=== PATIENT | male | born 1990 | race Caucasian/White ===

== ENCOUNTER 2023-02-16 08:32 | Day surgery (SDC) | payer BC, SELFPAY ==
--- NOTE | 2023-02-16 08:53 | MR_ITS ---
[address] [address] Patient Name: JENNA ORTIZ MRN: [id number] date: 1990 Sex: M Assigned Patient Location: MRI Current Patient Location: Accession/Order Number: [id number] Exam Date: 02/16/2023 09:45 Report Date: 02/16/2023 15:35 At the request of: BHARATH DESAI Procedure: MR arthrogram shoulder EXAMINATION: MR arthrogram shoulder HISTORY: Right Shoulder Pain COMPARISON: No relevant comparison available. TECHNIQUE: A variety of imaging planes and parameters were utilized for visualization of suspected pathology. Imaging was performed without or with contrast as indicated by examination type. FINDINGS: ROTATOR CUFF REGION CUFF TENDONS: Mildly increased signal intensity in the supraspinatus tendon indicates tendon degeneration and/or tendinitis. No osmar tear is seen. CUFF MUSCLES: Normal appearing muscles. DELTOID: Normal. No significant atrophy or tear. LONG BICEPS TENDON: Normal. No abnormal signal, attrition, or tear. LABRUM/BICEPS ANCHOR SUPERIOR: Small tear superior labrum. ANTERIOR/INFERIOR: Tear/detachment of anterior labrum. POSTERIOR: Normal. No posterior labrum abnormality. CAPSULE Normal. No visible capsular laxity or thickening. AC JOINT REGION AC JOINT: Normal acromioclavicular joint. AC LIGAMENTS: Normal acromioclavicular ligament. CC LIGAMENTS: Normal coracoclavicular ligaments. ACROMION: Normal horizontal (Type I) configuration. SUBACROMIAL BURSA: Normal. No significant effusion. HYALINE CARTILAGE: Normal. No visible cartilage narrowing or focal defect. OTHER BONES: Normal proximal humerus, glenoid, and coracoid. OTHER OBSERVATIONS: Negative. No other significant findings or glenohumeral effusion. MR/MR arthrogram shoulder IMPRESSION: 1. Tear of the anterior and superior labrum. 2. Mild strain of the supraspinatus tendon. Electronically authenticated by: BOBBI PILLAI Date: 02/16/2023 15:35
--- NOTE | 2023-02-16 08:53 | FL_ITS ---
[address] [address] Patient Name: JENNA ORTIZ MRN: [id number] date: 1990 Sex: M Assigned Patient Location: MRI Current Patient Location: MRI Accession/Order Number: [id number] Exam Date: 02/16/2023 09:15 Report Date: 02/16/2023 10:39 At the request of: BHARATH DESAI Procedure: FL arthrogram shoulder RT EXAMINATION: FL arthrogram shoulder RT, FL guided needle placement HISTORY: Right Shoulder Pain COMPARISON: No relevant comparison available. TECHNIQUE: An arthrogram was performed under fluoroscopic guidance using non-ionic contrast material in the usual sterile manner after obtaining informed consent. Standard level fluoroscopic mode of operation utilized. FINDINGS: JOINT: Right shoulder NEEDLE: 25 gauge, 3.5 spinal needle. MEDICATION: 2 mL buffered 1% lidocaine for subcutaneous anesthesia. Approximately 8 mL injected into joint space consisting of a mixture of 5 mL Omnipaque-300, 5 mL 1% Xylocaine and 0.2 mL Dotarem. TECHNIQUE: Anterior approach under fluoroscopic guidance. CLINICAL: Decreased pain following the injection. COMPLICATIONS: None. OTHER: Negative. FL/FL arthrogram shoulder RT IMPRESSION: 1. Technically successful arthrogram without complication. 2. Please see separate MRI arthrogram report. Electronically authenticated by: BOBBI PILLAI Date: 02/16/2023 10:39
--- NOTE | 2023-02-16 08:55 | FL_ITS ---
[address] [address] Patient Name: JENNA ORTIZ MRN: [id number] date: 1990 Sex: M Assigned Patient Location: MRI Current Patient Location: MRI Accession/Order Number: [id number] Exam Date: 02/16/2023 09:15 Report Date: 02/16/2023 10:39 At the request of: BHARATH DESAI Procedure: FL guided needle placement EXAMINATION: FL arthrogram shoulder RT, FL guided needle placement HISTORY: Right Shoulder Pain COMPARISON: No relevant comparison available. TECHNIQUE: An arthrogram was performed under fluoroscopic guidance using non-ionic contrast material in the usual sterile manner after obtaining informed consent. Standard level fluoroscopic mode of operation utilized. FINDINGS: JOINT: Right shoulder NEEDLE: 25 gauge, 3.5 spinal needle. MEDICATION: 2 mL buffered 1% lidocaine for subcutaneous anesthesia. Approximately 8 mL injected into joint space consisting of a mixture of 5 mL Omnipaque-300, 5 mL 1% Xylocaine and 0.2 mL Dotarem. TECHNIQUE: Anterior approach under fluoroscopic guidance. CLINICAL: Decreased pain following the injection. COMPLICATIONS: None. OTHER: Negative. FL/FL guided needle placement IMPRESSION: 1. Technically successful arthrogram without complication. 2. Please see separate MRI arthrogram report. Electronically authenticated by: BOBBI PILLAI Date: 02/16/2023 10:39
[2023-02-16] MEDS: LIDOCAINE HCL 15 ML, SODIUM BICARBONATE 2 MEQ INJ (09:40)
--- NOTE | 2023-02-16 11:14 | PC.NURSE ---
bandaid applied to right shoulder procedure
== END 2023-02-16 09:40 | disposition home or self-care (01) ==
PROVIDERS: Radiology Diagnostic Radiology; PCP Family Medicine; Visit Provider Personal Emergency Response Attendant
DX: S43.491A Other sprain of right shoulder joint, initial encounter (principal); S46.811A Strain of other muscles, fascia and tendons at shoulder and upper arm level, right arm, initial encounter
CPT/HCPCS: 23350; 73040; 73222; 77002; A9575; Q9967

== ENCOUNTER 2023-05-03 18:35 | Inpatient (IN) | payer BC, SELFPAY ==
[2023-05-03] VITALS (7 sets, daily range): BP systolic 150–176; BP diastolic 81–101; PULSE 111–144; RESP 6–37; TEMP 36.4; O2SAT 88–97; BMI 38.0
--- NOTE | 2023-05-03 18:56 | ED.GENADUL1 ---
Documented by User: SUAD Santos 05/03/23 21:54 HPI - General Adult General Chief complaint: Back Pain/Injury Stated complaint: RIB PAIN Time Seen by Provider: 05/03/23 18:53 Source: patient Mode of arrival: walk-in Limitations: no limitations History of Present Illness HPI narrative: 32-year-old male who just had shoulder surgery 1 week ago for a bicep and labrum tear presents for right posterior rib pain that started a couple days ago without injury. He feels a little short of breath. He states that he has had some intermittent bilateral calf pain. He is not on blood thinners. Does not hurt to touch. Denies fever, cough, CP Related Data Home Medications Medication Instructions Recorded Confirmed oxycodone-acetaminophen 5 mg-325 1 tab PO Q6H PRN pain 05/03/23 05/03/23 mg tablet Previous Rx's Medication Instructions Recorded apixaban 5 mg tablet (Eliquis) 10 mg PO Q12H #60 tabs 05/05/23 levofloxacin 750 mg tablet 750 mg PO DAILY 10 days #10 tabs 05/05/23 tizanidine 4 mg capsule 4 mg PO Q8H PRN muscle spasm #14 05/05/23 caps Allergies Allergy/AdvReac Type Severity Reaction Status Date / Time No Known Drug Allergies Allergy Verified 02/16/23 10:02 Review of Systems ROS Status of ROS 10 or more systems reviewed and unremarkable except as noted in history and below PFSH PFSH Medical History (Updated 05/09/23 @ 00:00 by ) Pneumonia ?J18.9 - Pneumonia, unspecified organism (ICD-10) Right shoulder pain ?M25.511 - Pain in right shoulder (ICD-10) Surgical History (Updated 02/15/23 @ 13:22 by Paty Carter) History of arthroscopy of right shoulder ?Z98.890 - Other specified postprocedural states (ICD-10) History of hernia repair ?Z98.890 - Other specified postprocedural states (ICD-10) ?Z87.19 - Personal history of other diseases of the digestive system (ICD-10) Family History (Updated 05/04/23 @ 00:44 by Serenity Price RN) Father Family history of hypertension Grandfather Family history of myocardial infarction Social History (Updated 05/04/23 @ 00:49 by Serenity Price RN) Within the past year, how often did you have a drink containing alcohol: 2-3 times a week Within the past year, how many standard drinks containing alcohol did you have on a typical day: 3 or 4 Within the past year, how often did you have six or more drinks on one occasion: less than monthly Total score: 3 Score interpretation: A score of 4 or more indicates drinking is likely to affect patient's safety. 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 Known occupational exposures/hazards: Yes Known occupational exposures/hazards details: plastics Highest level of school completed/degree received: high school graduate Are you now , , , , never or living with a partner: never In a typical week, how many times do you talk on the telephone with family, friends, or neighbors: once per week How often do you get together with friends or relatives: twice per week How often do you attend baptist or adventist services: never Do you belong to any clubs or organizations such as baptist groups unions, fraTeach Me To Be or athletic groups, or school groups: no Total score: 1 Score interpretation: A score of less than or equal to 1 indicates the most socially isolated. Little interest or pleasure in doing things: several days Feeling down, depressed, or hopeless: not at all Feel stressed/tense/nervous/anxious/difficulty sleeping: only a little Life stressor details: health Do you think of yourself as: straight/heterosexual Gender Identity: male Exam Narrative Exam Narrative: General: no distress, talking in full an complete sentences skin: warm, dry, intact head: normocephalic, atraumatic eyes: EOMI nose: nares patent neck: supple, trachea midline cardiac: +S1/S1. no murmur respiratory: lungs CTA, non-labored, no wheezing, no retractions chest wall: NT extremities: FROM x 4, strength +5/5, capillary refill intact neuro: A&Ox3 psych: appropriate mood and affect, cooperative Constitutional Vital Signs, click to edit/add: Last Vital Signs Temp 97.8 F 05/05/23 04:19 Pulse 81 05/05/23 04:19 Resp 18 05/05/23 08:00 BP 146/70 H 05/05/23 08:27 Pulse Ox 95 05/05/23 11:29 O2 Del Method Room Air 05/05/23 11:29 O2 Flow Rate 2 05/05/23 04:19 Course Course Hospital Course: Patient is admitted withHypoxia with a sat of 88%, relative hypoxia also with a sat of 90% on 2 L, sinus tachycardia, respiratory distress, uncontrolled hypertension, leukocytosis secondary to bilateral lower lobe pneumonia resulting in sepsis (Inc hr, INc RR, Leukocytosis, Source of infection lung). Presented to the emergency room with back pain. Did have some palpable reproducible pain but pretty severe. Responded well to initial treatment with Toradol Norflex. Hypoxia slowly improved throughout the hospital stay. He has been able to be weaned off of his supplemental oxygen. At this point patient feels comfortable with going home. Will monitor closely and follow-up in the office closely within the next few days depending on symptoms. Medications see list. Follow-up with me quickly if having any further symptoms otherwise next week is fine Vital Signs Vital signs: Vital Signs Temperature 97.6 F 05/03/23 18:38 Pulse Rate 111 H 05/03/23 18:38 Respiratory Rate 20 05/03/23 18:38 Blood Pressure 176/101 H 05/03/23 18:38 Pulse Oximetry 97 05/03/23 18:38 Oxygen Delivery Method Room Air 05/03/23 18:38 Temperature 97.8 F 05/05/23 04:19 Pulse Rate 81 05/05/23 04:19 Respiratory Rate 18 05/05/23 08:00 Blood Pressure 146/70 H 05/05/23 08:27 Pulse Oximetry 95 05/05/23 11:29 Oxygen Delivery Method Room Air 05/05/23 11:29 Oxygen Delivery Flow Rate 2 05/05/23 04:19 Medical Decision Making MDM Narrative Medical decision making narrative: Patient states that he is in pain will be given Dilaudid. EKG sinus tachycardia at a rate of 110 with RVH and short QTc. WBC 13.2. D-dimer 2.04. No other significant lab normalities. COVID-negative. Imaging pending at time of shift change and case discussed and transferred to Dr. Urbano for treatment and disposition. Lab Data Labs: Lab Results 05/03/23 05/03/23 05/03/23 Range/Units 19:15 19:55 20:56 WBC 13.2 H (4.0-11.0) 10^3/uL RBC 5.81 (4.70-6.10) 10^6/uL Hgb 16.8 (14.0-18.0) g/dL Hct 50.3 (42.0-54.0) % MCV 86.6 (80.0-94.0) fL MCH 28.9 (25.9-34.0) pg MCHC 33.4 (29.9-35.2) g/dL RDW 12.4 (11.0-15.0) % Plt Count 299 (150-450) 10^3/uL MPV 10.4 (9.5-13.5) fL Seg Neuts % (Manual) 77.0 Lymphocytes % (Manual) 12.0 L (20.5-60.0) % Monocytes % (Manual) 10.0 (1.7-12.0) % Eosinophils % (Manual) 1.0 (0.9-7.0) % Basophils % (Manual) 0.0 L (0.2-2.0) % Neutrophils # (Manual) 10.16 H (1.4-6.5) 10^3/uL Lymphocytes # (Manual) 1.58 (1.20-3.80) 10^3/uL Monocytes # (Manual) 1.32 H (0.30-0.80) 10^3/uL Eosinophils # (Manual) 0.13 (0.00-0.70) 10^3/uL Basophils # (Manual) 0.00 (0.00-0.10) 10^3/uL PT 10.4 (9.0-11.6) sec INR 0.98 APTT 30.5 (22.3-36.2) sec D-Dimer 2.04 H* (<=0.59) mg/L FEU Sodium 135 L (136-145) mmol/L Potassium 4.9 (3.5-5.1) mmol/L Chloride 98 (98-107) mmol/L Carbon Dioxide 27.9 (21.0-32.0) mmol/L Anion Gap 14.0 BUN 14.0 (7.0-18.0) mg/dL Creatinine 0.93 (0.70-1.30) mg/dL Est GFR ( Amer) >60 (>=60) Est GFR (Non-Af Amer) >60 (>=60) BUN/Creatinine Ratio 15.1 Glucose 94 (74-106) mg/dL Calcium 9.9 (8.5-10.1) mg/dL Magnesium 2.2 (1.8-2.4) mg/dL Total Bilirubin 1.2 H (0.2-1.0) mg/dL AST 13 L (15-37) U/L ALT 42 (16-63) U/L Alkaline Phosphatase 81 (46-116) U/L Troponin I High Sens 4.2 (4.0-76.1) pg/mL NT-Pro-B Natriuret Pep 18.0 (<=450.0) pg/mL Total Protein 8.3 H (6.4-8.2) g/dL Albumin 4.0 (3.4-5.0) g/dL Globulin 4.3 g/dL Albumin/Globulin Ratio 0.9 SARS-CoV-2 (PCR) Negative (NEGATIVE) SARS-CoV-2 RNA (ROSY) Not detected (NOT DETECTE) Discharge Plan Discharge Chief Complaint: Back Pain/Injury Clinical Impression: Pneumonia Patient Disposition: Admitted As Inpatient Time of Disposition Decision: 22:58 Condition: Good Discharge Date/Time: 05/04/23 00:03 Documented by User: Sharath Urbano MD 05/03/23 23:52 HPI - General Adult General Chief complaint: Back Pain/Injury Stated complaint: RIB PAIN Time Seen by Provider: 05/03/23 18:53 Related Data Home Medications Medication Instructions Recorded Confirmed oxycodone-acetaminophen 5 mg-325 1 tab PO Q6H PRN pain 05/03/23 05/03/23 mg tablet Previous Rx's Medication Instructions Recorded apixaban 5 mg tablet (Eliquis) 10 mg PO Q12H #60 tabs 05/05/23 levofloxacin 750 mg tablet 750 mg PO DAILY 10 days #10 tabs 05/05/23 tizanidine 4 mg capsule 4 mg PO Q8H PRN muscle spasm #14 05/05/23 caps Allergies Allergy/AdvReac Type Severity Reaction Status Date / Time No Known Drug Allergies Allergy Verified 02/16/23 10:02 PFSH PFS Medical History (Updated 05/09/23 @ 00:00 by ) Pneumonia ?J18.9 - Pneumonia, unspecified organism (ICD-10) Right shoulder pain ?M25.511 - Pain in right shoulder (ICD-10) Surgical History (Updated 02/15/23 @ 13:22 by Paty Carter) History of arthroscopy of right shoulder ?Z98.890 - Other specified postprocedural states (ICD-10) History of hernia repair ?Z98.890 - Other specified postprocedural states (ICD-10) ?Z87.19 - Personal history of other diseases of the digestive system (ICD-10) Family History (Updated 05/04/23 @ 00:44 by Serenity Price RN) Father Family history of hypertension Grandfather Family history of myocardial infarction Social History (Updated 05/04/23 @ 00:49 by Serenity Price RN) Within the past year, how often did you have a drink containing alcohol: 2-3 times a week Within the past year, how many standard drinks containing alcohol did you have on a typical day: 3 or 4 Within the past year, how often did you have six or more drinks on one occasion: less than monthly Total score: 3 Score interpretation: A score of 4 or more indicates drinking is likely to affect patient's safety. 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 Known occupational exposures/hazards: Yes Known occupational exposures/hazards details: plastics Highest level of school completed/degree received: high school graduate Are you now , , , , never or living with a partner: never In a typical week, how many times do you talk on the telephone with family, friends, or neighbors: once per week How often do you get together with friends or relatives: twice per week How often do you attend baptist or adventist services: never Do you belong to any clubs or organizations such as baptist groups unions, fraternal or athletic groups, or school groups: no Total score: 1 Score interpretation: A score of less than or equal to 1 indicates the most socially isolated. Little interest or pleasure in doing things: several days Feeling down, depressed, or hopeless: not at all Feel stressed/tense/nervous/anxious/difficulty sleeping: only a little Life stressor details: health Do you think of yourself as: straight/heterosexual Gender Identity: male Exam Constitutional Vital Signs, click to edit/add: Last Vital Signs Temp 97.8 F 05/05/23 04:19 Pulse 81 05/05/23 04:19 Resp 18 05/05/23 08:00 BP 146/70 H 05/05/23 08:27 Pulse Ox 95 05/05/23 11:29 O2 Del Method Room Air 05/05/23 11:29 O2 Flow Rate 2 05/05/23 04:19 Course Course Hospital Course: Patient is admitted withHypoxia with a sat of 88%, relative hypoxia also with a sat of 90% on 2 L, sinus tachycardia, respiratory distress, uncontrolled hypertension, leukocytosis secondary to bilateral lower lobe pneumonia resulting in sepsis (Inc hr, INc RR, Leukocytosis, Source of infection lung). Presented to the emergency room with back pain. Did have some palpable reproducible pain but pretty severe. Responded well to initial treatment with Toradol Norflex. Hypoxia slowly improved throughout the hospital stay. He has been able to be weaned off of his supplemental oxygen. At this point patient feels comfortable with going home. Will monitor closely and follow-up in the office closely within the next few days depending on symptoms. Medications see list. Follow-up with me quickly if having any further symptoms otherwise next week is fine Vital Signs Vital signs: Vital Signs Temperature 97.6 F 05/03/23 18:38 Pulse Rate 111 H 05/03/23 18:38 Respiratory Rate 20 05/03/23 18:38 Blood Pressure 176/101 H 05/03/23 18:38 Pulse Oximetry 97 05/03/23 18:38 Oxygen Delivery Method Room Air 05/03/23 18:38 Temperature 97.8 F 05/05/23 04:19 Pulse Rate 81 05/05/23 04:19 Respiratory Rate 18 05/05/23 08:00 Blood Pressure 146/70 H 05/05/23 08:27 Pulse Oximetry 95 05/05/23 11:29 Oxygen Delivery Method Room Air 05/05/23 11:29 Oxygen Delivery Flow Rate 2 05/05/23 04:19 Medical Decision Making MDM Narrative Medical decision making narrative: Patient states that he is in pain will be given Dilaudid. EKG sinus tachycardia at a rate of 110 with RVH and short QTc. WBC 13.2. D-dimer 2.04. No other significant lab normalities. COVID-negative. Imaging pending at time of shift change and case discussed and transferred to Dr. Urbano for treatment and disposition. JK 11:[address] does not show pulmonary embolism but shows bilateral pneumonia. He's been tachycardic, in the 120s. O2 sat is eighty-eight and ninety-one percent on room air. blood cultures are obtained and he was given IV Rocephin and Zithromax and is being admitted. Treatment diagnosis and disposition were discussed with the patient. Differential Diagnosis Differential Diagnosis: pneumonia, PE, pneumothorax Lab Data Lab results reviewed: Yes I reviewed the patient's lab results Labs: Lab Results 05/03/23 05/03/23 05/03/23 Range/Units 19:15 19:55 20:56 WBC 13.2 H (4.0-11.0) 10^3/uL RBC 5.81 (4.70-6.10) 10^6/uL Hgb 16.8 (14.0-18.0) g/dL Hct 50.3 (42.0-54.0) % MCV 86.6 (80.0-94.0) fL MCH 28.9 (25.9-34.0) pg MCHC 33.4 (29.9-35.2) g/dL RDW 12.4 (11.0-15.0) % Plt Count 299 (150-450) 10^3/uL MPV 10.4 (9.5-13.5) fL Seg Neuts % (Manual) 77.0 Lymphocytes % (Manual) 12.0 L (20.5-60.0) % Monocytes % (Manual) 10.0 (1.7-12.0) % Eosinophils % (Manual) 1.0 (0.9-7.0) % Basophils % (Manual) 0.0 L (0.2-2.0) % Neutrophils # (Manual) 10.16 H (1.4-6.5) 10^3/uL Lymphocytes # (Manual) 1.58 (1.20-3.80) 10^3/uL Monocytes # (Manual) 1.32 H (0.30-0.80) 10^3/uL Eosinophils # (Manual) 0.13 (0.00-0.70) 10^3/uL Basophils # (Manual) 0.00 (0.00-0.10) 10^3/uL PT 10.4 (9.0-11.6) sec INR 0.98 APTT 30.5 (22.3-36.2) sec D-Dimer 2.04 H* (<=0.59) mg/L FEU Sodium 135 L (136-145) mmol/L Potassium 4.9 (3.5-5.1) mmol/L Chloride 98 (98-107) mmol/L Carbon Dioxide 27.9 (21.0-32.0) mmol/L Anion Gap 14.0 BUN 14.0 (7.0-18.0) mg/dL Creatinine 0.93 (0.70-1.30) mg/dL Est GFR ( Amer) >60 (>=60) Est GFR (Non-Af Amer) >60 (>=60) BUN/Creatinine Ratio 15.1 Glucose 94 (74-106) mg/dL Calcium 9.9 (8.5-10.1) mg/dL Magnesium 2.2 (1.8-2.4) mg/dL Total Bilirubin 1.2 H (0.2-1.0) mg/dL AST 13 L (15-37) U/L ALT 42 (16-63) U/L Alkaline Phosphatase 81 (46-116) U/L Troponin I High Sens 4.2 (4.0-76.1) pg/mL NT-Pro-B Natriuret Pep 18.0 (<=450.0) pg/mL Total Protein 8.3 H (6.4-8.2) g/dL Albumin 4.0 (3.4-5.0) g/dL Globulin 4.3 g/dL Albumin/Globulin Ratio 0.9 SARS-CoV-2 (PCR) Negative (NEGATIVE) SARS-CoV-2 RNA (ROSY) Not detected (NOT DETECTE) Imaging Data CTA chest: Radiologist's impression: Procedure: CT angio chest EXAM: CT angio chest TECHNIQUE: Axial CT images were obtained of the chest following intravenous contrast administration. 3-D volume rendering was created. Sagittal and coronal reformatted images were also obtained. Dose reduction techniques were achieved by using automated exposure control and/or adjustment of mA and/or kV according to patient size and/or use of iterative reconstruction technique. HISTORY: r/o PE COMPARISON: None. FINDINGS: Neck and Axilla: No lower neck or axillary lymphadenopathy. Mediastinum and Jaz: No hilar or mediastinal lymphadenopathy. The esophagus is grossly unremarkable without dilatation or gross mass lesion. Heart and Major Vessels: The heart appears unremarkable for size without pericardial effusion. The aorta and central pulmonary arteries are unremarkable for size.There is no evidence for central acute pulmonary embolism. Evaluation for pulmonary embolism is significantly limited by motion artifact. Lung Phillips: Heterogeneous consolidation of the lower lobes suggesting pneumonia. Pleural Spaces: No significant pleural effusion. No pneumothorax. Upper Abdomen: No acute abnormality identified. Chest Wall: No acute abnormality. IMPRESSION: No convincing evidence for acute pulmonary embolism. Evaluation for pulmonary embolism is significantly limited by breathing motion artifact beyond the lobar branches. Patchy bilateral lower lobe pneumonia posteriorly, question aspiration. Electronically authenticated by: HILDA VARGAS Date: 05/03/2023 22:21 Discharge Plan Discharge Chief Complaint: Back Pain/Injury Clinical Impression: Pneumonia Patient Disposition: Admitted As Inpatient Time of Disposition Decision: 22:58 Condition: Good Discharge Date/Time: 05/04/23 00:03 Documented by User: Wilmer Abdi MD 05/14/23 10:57 HPI - General Adult General Chief complaint: Back Pain/Injury Stated complaint: RIB PAIN Time Seen by Provider: 05/03/23 18:53 Related Data Home Medications Medication Instructions Recorded Confirmed oxycodone-acetaminophen 5 mg-325 1 tab PO Q6H PRN pain 05/03/23 05/03/23 mg tablet Previous Rx's Medication Instructions Recorded apixaban 5 mg tablet (Eliquis) 10 mg PO Q12H #60 tabs 05/05/23 levofloxacin 750 mg tablet 750 mg PO DAILY 10 days #10 tabs 05/05/23 tizanidine 4 mg capsule 4 mg PO Q8H PRN muscle spasm #14 05/05/23 caps Allergies Allergy/AdvReac Type Severity Reaction Status Date / Time No Known Drug Allergies Allergy Verified 02/16/23 10:02 PFS PFS Medical History (Updated 05/09/23 @ 00:00 by ) Pneumonia ?J18.9 - Pneumonia, unspecified organism (ICD-10) Right shoulder pain ?M25.511 - Pain in right shoulder (ICD-10) Surgical History (Updated 02/15/23 @ 13:22 by Paty Carter) History of arthroscopy of right shoulder ?Z98.890 - Other specified postprocedural states (ICD-10) History of hernia repair ?Z98.890 - Other specified postprocedural states (ICD-10) ?Z87.19 - Personal history of other diseases of the digestive system (ICD-10) Family History (Updated 05/04/23 @ 00:44 by Serenity Price RN) Father Family history of hypertension Grandfather Family history of myocardial infarction Social History (Updated 05/04/23 @ 00:49 by Serenity Price RN) Within the past year, how often did you have a drink containing alcohol: 2-3 times a week Within the past year, how many standard drinks containing alcohol did you have on a typical day: 3 or 4 Within the past year, how often did you have six or more drinks on one occasion: less than monthly Total score: 3 Score interpretation: A score of 4 or more indicates drinking is likely to affect patient's safety. 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 Known occupational exposures/hazards: Yes Known occupational exposures/hazards details: plastics Highest level of school completed/degree received: high school graduate Are you now , , , , never or living with a partner: never In a typical week, how many times do you talk on the telephone with family, friends, or neighbors: once per week How often do you get together with friends or relatives: twice per week How often do you attend baptist or adventist services: never Do you belong to any clubs or organizations such as baptist groups unions, fraternal or athletic groups, or school groups: no Total score: 1 Score interpretation: A score of less than or equal to 1 indicates the most socially isolated. Little interest or pleasure in doing things: several days Feeling down, depressed, or hopeless: not at all Feel stressed/tense/nervous/anxious/difficulty sleeping: only a little Life stressor details: health Do you think of yourself as: straight/heterosexual Gender Identity: male Exam Constitutional Vital Signs, click to edit/add: Last Vital Signs Temp 97.8 F 05/05/23 04:19 Pulse 81 05/05/23 04:19 Resp 18 05/05/23 08:00 BP 146/70 H 05/05/23 08:27 Pulse Ox 95 05/05/23 11:29 O2 Del Method Room Air 05/05/23 11:29 O2 Flow Rate 2 05/05/23 04:19 Course Course Hospital Course: Patient is admitted withHypoxia with a sat of 88%, relative hypoxia also with a sat of 90% on 2 L, sinus tachycardia, respiratory distress, uncontrolled hypertension, leukocytosis secondary to bilateral lower lobe pneumonia resulting in sepsis (Inc hr, INc RR, Leukocytosis, Source of infection lung). Presented to the emergency room with back pain. Did have some palpable reproducible pain but pretty severe. Responded well to initial treatment with Toradol Norflex. Hypoxia slowly improved throughout the hospital stay. He has been able to be weaned off of his supplemental oxygen. At this point patient feels comfortable with going home. Will monitor closely and follow-up in the office closely within the next few days depending on symptoms. Medications see list. Follow-up with me quickly if having any further symptoms otherwise next week is fine Vital Signs Vital signs: Vital Signs Temperature 97.6 F 05/03/23 18:38 Pulse Rate 111 H 05/03/23 18:38 Respiratory Rate 20 05/03/23 18:38 Blood Pressure 176/101 H 05/03/23 18:38 Pulse Oximetry 97 05/03/23 18:38 Oxygen Delivery Method Room Air 05/03/23 18:38 Temperature 97.8 F 05/05/23 04:19 Pulse Rate 81 05/05/23 04:19 Respiratory Rate 18 05/05/23 08:00 Blood Pressure 146/70 H 05/05/23 08:27 Pulse Oximetry 95 05/05/23 11:29 Oxygen Delivery Method Room Air 05/05/23 11:29 Oxygen Delivery Flow Rate 2 05/05/23 04:19 Medical Decision Making MDM Narrative Medical decision making narrative: Patient states that he is in pain will be given Dilaudid. EKG sinus tachycardia at a rate of 110 with RVH and short QTc. WBC 13.2. D-dimer 2.04. No other significant lab normalities. COVID-negative. Imaging pending at time of shift change and case discussed and transferred to Dr. Urbano for treatment and disposition. JK 11:[address] does not show pulmonary embolism but shows bilateral pneumonia. He's been tachycardic, in the 120s. O2 sat is eighty-eight and ninety-one percent on room air. blood cultures are obtained and he was given IV Rocephin and Zithromax and is being admitted. Treatment diagnosis and disposition were discussed with the patient. Pt was seen by Dr Urbano, not Dr Abdi. Lab Data Labs: Lab Results 05/03/23 05/03/23 05/03/23 Range/Units 19:15 19:55 20:56 WBC 13.2 H (4.0-11.0) 10^3/uL RBC 5.81 (4.70-6.10) 10^6/uL Hgb 16.8 (14.0-18.0) g/dL Hct 50.3 (42.0-54.0) % MCV 86.6 (80.0-94.0) fL MCH 28.9 (25.9-34.0) pg MCHC 33.4 (29.9-35.2) g/dL RDW 12.4 (11.0-15.0) % Plt Count 299 (150-450) 10^3/uL MPV 10.4 (9.5-13.5) fL Seg Neuts % (Manual) 77.0 Lymphocytes % (Manual) 12.0 L (20.5-60.0) % Monocytes % (Manual) 10.0 (1.7-12.0) % Eosinophils % (Manual) 1.0 (0.9-7.0) % Basophils % (Manual) 0.0 L (0.2-2.0) % Neutrophils # (Manual) 10.16 H (1.4-6.5) 10^3/uL Lymphocytes # (Manual) 1.58 (1.20-3.80) 10^3/uL Monocytes # (Manual) 1.32 H (0.30-0.80) 10^3/uL Eosinophils # (Manual) 0.13 (0.00-0.70) 10^3/uL Basophils # (Manual) 0.00 (0.00-0.10) 10^3/uL PT 10.4 (9.0-11.6) sec INR 0.98 APTT 30.5 (22.3-36.2) sec D-Dimer 2.04 H* (<=0.59) mg/L FEU Sodium 135 L (136-145) mmol/L Potassium 4.9 (3.5-5.1) mmol/L Chloride 98 (98-107) mmol/L Carbon Dioxide 27.9 (21.0-32.0) mmol/L Anion Gap 14.0 BUN 14.0 (7.0-18.0) mg/dL Creatinine 0.93 (0.70-1.30) mg/dL Est GFR ( Amer) >60 (>=60) Est GFR (Non-Af Amer) >60 (>=60) BUN/Creatinine Ratio 15.1 Glucose 94 (74-106) mg/dL Calcium 9.9 (8.5-10.1) mg/dL Magnesium 2.2 (1.8-2.4) mg/dL Total Bilirubin 1.2 H (0.2-1.0) mg/dL AST 13 L (15-37) U/L ALT 42 (16-63) U/L Alkaline Phosphatase 81 (46-116) U/L Troponin I High Sens 4.2 (4.0-76.1) pg/mL NT-Pro-B Natriuret Pep 18.0 (<=450.0) pg/mL Total Protein 8.3 H (6.4-8.2) g/dL Albumin 4.0 (3.4-5.0) g/dL Globulin 4.3 g/dL Albumin/Globulin Ratio 0.9 SARS-CoV-2 (PCR) Negative (NEGATIVE) SARS-CoV-2 RNA (ROSY) Not detected (NOT DETECTE) Discharge Plan Discharge Chief Complaint: Back Pain/Injury Clinical Impression: Pneumonia Patient Disposition: Admitted As Inpatient Time of Disposition Decision: 22:58 Condition: Good Discharge Date/Time: 05/04/23 00:03
[2023-05-03 19:37] LABS: Magnesium 2.2 mg/dL (1.8-2.4)
--- NOTE | 2023-05-03 20:43 | ECG_ITS ---
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
--- NOTE | 2023-05-03 20:43 | CT_ITS ---
[address] [address] Patient Name: JENNA ORTIZ MRN: [id number] date: 1990 Sex: M Assigned Patient Location: ER Current Patient Location: [facility] Accession/Order Number: [id number] Exam Date: 05/03/2023 21:10 Report Date: 05/03/2023 22:21 At the request of: GIANNA HERNANDES Procedure: CT angio chest EXAM: CT angio chest TECHNIQUE: Axial CT images were obtained of the chest following intravenous contrast administration. 3-D volume rendering was created. Sagittal and coronal reformatted images were also obtained. Dose reduction techniques were achieved by using automated exposure control and/or adjustment of mA and/or kV according to patient size and/or use of iterative reconstruction technique. HISTORY: r/o PE COMPARISON: None. FINDINGS: Neck and Axilla: No lower neck or axillary lymphadenopathy. Mediastinum and Jaz: No hilar or mediastinal lymphadenopathy. The esophagus is grossly unremarkable without dilatation or gross mass lesion. Heart and Major Vessels: The heart appears unremarkable for size without pericardial effusion. The aorta and central pulmonary arteries are unremarkable for size.There is no evidence for central acute pulmonary embolism. Evaluation for pulmonary embolism is significantly limited by motion artifact. Lung Phillips: Heterogeneous consolidation of the lower lobes suggesting pneumonia. Pleural Spaces: No significant pleural effusion. No pneumothorax. Upper Abdomen: No acute abnormality identified. Chest Wall: No acute abnormality. CT/CT angio chest IMPRESSION: No convincing evidence for acute pulmonary embolism. Evaluation for pulmonary embolism is significantly limited by breathing motion artifact beyond the lobar branches. Patchy bilateral lower lobe pneumonia posteriorly, question aspiration. Electronically authenticated by: HILDA VARGAS Date: 05/03/2023 22:21
[2023-05-03 20:53] LABS: Hematocrit 50.3 % (42.0-54.0); Hemoglobin 16.8 g/dL (14.0-18.0); Mean Corpuscular HGB Conc 33.4 g/dL (29.9-35.2); Mean Corpuscular Hemoglobin 28.9 pg (25.9-34.0); Mean Corpuscular Volume 86.6 fL (80.0-94.0); Mean Platelet Volume 10.4 fL (9.5-13.5); Platelet Count 299 10^3/uL (150-450); Red Blood Count 5.81 10^6/uL (4.70-6.10); Red Cell Distribution Width 12.4 % (11.0-15.0); White Blood Count 13.2 10^3/uL (4.0-11.0)
[2023-05-03] MEDS: HYDROMORPHONE HCL 1 MG/ML CARTRIDGE IVP (21:00)
[2023-05-03 21:03] LABS: D Dimer 2.04 mg/L FEU (<=0.59)
[2023-05-03 21:13] LABS: Alanine Aminotransferase 42 U/L (16-63); Albumin Globulin Ratio 0.9; Alkaline Phosphatase 81 U/L (46-116); Aspartate Amino Transferase 13 U/L (15-37); BUN Creatinine Ratio 15.1; Bilirubin Total 1.2 mg/dL (0.2-1.0); Calcium 9.9 mg/dL (8.5-10.1); Carbon Dioxide 27.9 mmol/L (21.0-32.0); Chloride 98 mmol/L (98-107); Estimated GFR (African America >60 (>=60); Estimated GFR (Non-African Ame >60 (>=60); Globulin 4.3 g/dL; Glucose 94 mg/dL (74-106); Potassium 4.9 mmol/L (3.5-5.1); Sodium 135 mmol/L (136-145); Total Protein 8.3 g/dL (6.4-8.2); Troponin I High Sensitivity 4.2 pg/mL (4.0-76.1)
[2023-05-03 21:16] LABS: Partial Thromboplastin Time 30.5 sec (22.3-36.2)
[2023-05-03 21:28] LABS: SARS-CoV-2 Ag NEGATIVE (NEGATIVE)
[2023-05-03] MEDS: 0.9 % SODIUM CHLORIDE 1,000 ML 1000 ML IV (21:30)
[2023-05-03 21:40] LABS: INR 0.98; Prothrombin Time 10.4 sec (9.0-11.6)
[2023-05-03 22:04] LABS: Eosinophils Absolute Manual 0.13 10^3/uL (0.00-0.70); Lymphocytes Absolute Manual 1.58 10^3/uL (1.20-3.80); Monocytes Absolute Manual 1.32 10^3/uL (0.30-0.80); Segmented Neut Absolute Manual 10.16 10^3/uL (1.4-6.5)
[2023-05-03] MEDS: CEFTRIAXONE 1,000 MG in 0.9 % SODIUM CHLORIDE 50 ML 100 MG IV (22:53)
--- NOTE | 2023-05-03 23:15 | ED_ITS ---
HPI - Male Genitourinary General Chief complaint: Back Pain/Injury Stated complaint: RIB PAIN Time Seen by Provider: 05/03/23 18:53 Source: patient Mode of arrival: walk-in Limitations: no limitations History of Present Illness HPI Narrative: 32-year-old male presents for low abdominal pain and hematuria. 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 No trauma. He has some pain in the left side of his abdomen going into the flank. No trauma or fever. He's had it a stone in the past and has seen a urologist, Dr. Barrera, in the remote past. The pain is moderate and getting worse with time. Related Data Home Medications Medication Instructions Recorded Confirmed oxycodone-acetaminophen 5 mg-325 1 tab PO Q6H PRN pain 05/03/23 05/03/23 mg tablet Allergies Allergy/AdvReac Type Severity Reaction Status Date / Time No Known Drug Allergies Allergy Verified 02/16/23 10:02 Review of Systems ROS Narrative A ten point review of systems is negative except as noted above. PFSH PFS Medical History (Updated 05/03/23 @ 22:58 by Sharath Urbano MD) Right shoulder pain ?M25.511 - Pain in right shoulder (ICD-10) Surgical History (Updated 02/15/23 @ 13:22 by Paty Carter) History of arthroscopy of right shoulder ?Z98.890 - Other specified postprocedural states (ICD-10) History of hernia repair ?Z98.890 - Other specified postprocedural states (ICD-10) ?Z87.19 - Personal history of other diseases of the digestive system (ICD-10) Exam Narrative Exam Narrative: Nurses note and vital signs reviewed and patient is not hypoxic. General: The patient appears well and in no apparent distress. Patient is resting comfortably on cart. Skin: Warm, dry, no pallor noted. There is no rash noted. Head: Normocephalic, atraumatic Eye: Normal conjunctiva, no drainage Ears, Nose, Mouth, and Throat: oral mucosa is moist. Nares patent. Mouth without vesicles. Ear canals patent. Tm's without Erythema Cardiovascular: Regular Rate and Rhythm Respiratory: Patient is in no distress, no accessory muscle use, lungs are clear to auscultation, no wheezing, rales or rhonchi Back: non-tender, no CVA tenderness bilaterally to percussion. GI: mild tenderness in the suprapubic area. Musculoskeletal: The patient has no evidence of calf tenderness, no pitting edema, symmetrical pulses noted bilaterally Neurological: A&O, normal speech Psychiatric: Cooperative Constitutional Vital Signs, click to edit/add: Last Vital Signs Temp 97.6 F 05/03/23 18:38 Pulse 114 H 05/03/23 21:30 Resp 22 05/03/23 21:30 BP 150/81 H 05/03/23 21:00 Pulse Ox 94 L 05/03/23 21:30 O2 Del Method Room Air 05/03/23 18:38 Course Vital Signs Vital signs: Vital Signs Temperature 97.6 F 05/03/23 18:38 Pulse Rate 111 H 05/03/23 18:38 Respiratory Rate 20 05/03/23 18:38 Blood Pressure 176/101 H 05/03/23 18:38 Pulse Oximetry 97 05/03/23 18:38 Oxygen Delivery Method Room Air 05/03/23 18:38 Temperature 97.6 F 05/03/23 18:38 Pulse Rate 114 H 05/03/23 21:30 Respiratory Rate 22 05/03/23 21:30 Blood Pressure 150/81 H 05/03/23 21:00 Pulse Oximetry 94 L 05/03/23 21:30 Oxygen Delivery Method Room Air 05/03/23 18:38 MDM - Male Genitourinary Lab Data Labs: Lab Results 05/03/23 05/03/23 05/03/23 Range/Units 19:15 19:55 20:56 WBC 13.2 H (4.0-11.0) 10^3/uL RBC 5.81 (4.70-6.10) 10^6/uL Hgb 16.8 (14.0-18.0) g/dL Hct 50.3 (42.0-54.0) % MCV 86.6 (80.0-94.0) fL MCH 28.9 (25.9-34.0) pg MCHC 33.4 (29.9-35.2) g/dL RDW 12.4 (11.0-15.0) % Plt Count 299 (150-450) 10^3/uL MPV 10.4 (9.5-13.5) fL Seg Neuts % (Manual) 77.0 Lymphocytes % (Manual) 12.0 L (20.5-60.0) % Monocytes % (Manual) 10.0 (1.7-12.0) % Eosinophils % (Manual) 1.0 (0.9-7.0) % Basophils % (Manual) 0.0 L (0.2-2.0) % Neutrophils # (Manual) 10.16 H (1.4-6.5) 10^3/uL Lymphocytes # (Manual) 1.58 (1.20-3.80) 10^3/uL Monocytes # (Manual) 1.32 H (0.30-0.80) 10^3/uL Eosinophils # (Manual) 0.13 (0.00-0.70) 10^3/uL Basophils # (Manual) 0.00 (0.00-0.10) 10^3/uL PT 10.4 (9.0-11.6) sec INR 0.98 APTT 30.5 (22.3-36.2) sec D-Dimer 2.04 H* (<=0.59) mg/L FEU Sodium 135 L (136-145) mmol/L Potassium 4.9 (3.5-5.1) mmol/L Chloride 98 (98-107) mmol/L Carbon Dioxide 27.9 (21.0-32.0) mmol/L Anion Gap 14.0 BUN 14.0 (7.0-18.0) mg/dL Creatinine 0.93 (0.70-1.30) mg/dL Est GFR ( Amer) >60 (>=60) Est GFR (Non-Af Amer) >60 (>=60) BUN/Creatinine Ratio 15.1 Glucose 94 (74-106) mg/dL Calcium 9.9 (8.5-10.1) mg/dL Magnesium 2.2 (1.8-2.4) mg/dL Total Bilirubin 1.2 H (0.2-1.0) mg/dL AST 13 L (15-37) U/L ALT 42 (16-63) U/L Alkaline Phosphatase 81 (46-116) U/L Troponin I High Sens 4.2 (4.0-76.1) pg/mL NT-Pro-B Natriuret Pep 18.0 (<=450.0) pg/mL Total Protein 8.3 H (6.4-8.2) g/dL Albumin 4.0 (3.4-5.0) g/dL Globulin 4.3 g/dL Albumin/Globulin Ratio 0.9 SARS-CoV-2 (PCR) Negative (NEGATIVE) Discharge Plan Discharge Chief Complaint: Back Pain/Injury Clinical Impression: Pneumonia Patient Disposition: Admitted As Inpatient Time of Disposition Decision: 22:58 Condition: Good
[2023-05-03] MEDS: HYDROMORPHONE HCL 2 MG/ML VIAL 1 MG IV (23:36)
[2023-05-03] MEDS: AZITHROMYCIN 500 MG in 0.9 % SODIUM CHLORIDE 250 ML 250 MG IV (23:36)
[2023-05-04] VITALS (10 sets, daily range): BP systolic 144–180; BP diastolic 72–98; PULSE 99–124; RESP 20–22; TEMP 36.8–37.3; O2SAT 90–95; BMI 38.0
--- NOTE | 2023-05-04 02:28 | W.PM.TELEPN ---
Progress Note: Subjective Subjective Interval history: CC: Weakness, fatigue, shortness of breath HPI: This is a usually healthy 32 years old male who presents with above complaints. Patient does not take any medications on a regular basis. Patient stating that few weeks ago he undergo surgery on his shoulder because of the torn ligament. He has been recuperating at home. Over the course of the last few days he developed above-mentioned symptoms. Evaluation in the emergency room significant for signs of bilateral pneumonia. Patient is not a smoker. Started on empiric antibiotics. Medical services consulted for admission. Exam Narrative Exam Narrative: ROS: 1.General: no fever, chills, not in distress 2.HEENT: no WANG, no blurry vision, no swallow problems, no nasal congestion, no sore throat 3.Pulmonary: no cough, SOB, wheezes 4.CVS: no CP, no palpitations, no ZAMORA, no SOB, no intermittent claudication 5.GI: no nausea, vomiting or diarrhea, no abdominal pain, no constipation, no hematemesis or hematochezia 6.: no renal colic, no hematuria, urinary frequency or urgency 7.Extremities: no edema 8.Neurological: no dizziness, vertigo, double or blurry vision, no no focal weakness, no paresthesia, no swallow or speech problems 9.Musculosceletal: no joint pains, no joint swelling, no back pain 10.Dermatological: no skin rashes, no lesions, no pruritus 11.Hematological: no bleeding, no hx/o clots 12.Endocrinological: no heat/cold intolerance, no hx/o diabetes 13.Psychiatric: no suicidal or homicidal thoughts Physical Exam: Not in distress, pleasant, lucid, cooperative, Head - atraumatic, eyes - pupils equal, round, reactive to light, extra ocular movement intact, MMM Neck - supple, thyroid not enlarged, LN not palpated Lungs -coarse breath sounds bilaterally, diminished at bases CVS - heart sounds S1, S2, no additional murmurs gallop, regular rate and rhythm Gastrointestinal?abdomen is soft, non-tender, non-distended, no organomegaly, positive bowel sounds Extremities no clubbing, cyanosis or edema Neurological?cranial nerve II?XII grossly intact, no meningeal signs, no cerebellar signs, no sensory deficit Musculoskeletal - joints, no effusions, ROM preserved Dermatological - the skin dry, warm, no rashes Psychiatric?patient is AAO X3, patient has normal affect Constitutional Vital Signs, click to edit/add: Last Vital Signs Temp 98.4 F 05/04/23 00:13 Pulse 124 H 05/04/23 00:13 Resp 20 05/04/23 00:13 BP 180/85 H 05/04/23 00:13 Pulse Ox 90 L 05/04/23 01:49 O2 Del Method Nasal Cannula 05/04/23 01:49 O2 Flow Rate 2 05/04/23 01:49 Progress Note: Objective Labs Labs: Short CBC 05/03/23 Range/Units 19:15 WBC 13.2 H (4.0-11.0) 10^3/uL Hgb 16.8 (14.0-18.0) g/dL Hct 50.3 (42.0-54.0) % Plt Count 299 (150-450) 10^3/uL BMP 05/03/23 19:15 Sodium 135 L Potassium 4.9 Chloride 98 Carbon Dioxide 27.9 BUN 14.0 Creatinine 0.93 Glucose 94 Calcium 9.9 Liver Function 05/03/23 Range/Units 19:15 Total Bilirubin 1.2 H (0.2-1.0) mg/dL AST 13 L (15-37) U/L ALT 42 (16-63) U/L Alkaline Phosphatase 81 (46-116) U/L Albumin 4.0 (3.4-5.0) g/dL Progress Note: A&P Assessment and Plan (1) Pneumonia: Assessment and Plan: Bilateral pneumonia, community-acquired. Started on empiric, broad-spectrum antibiotics. Follow-up results of the cultures. Probiotics while on antibiotics. Oxygen supplementation as needed. I noted that patient favored he is chest expansion due to recent surgery. I started empiric incentive spirometry. (2) Right shoulder pain: Assessment and Plan: Resume home regimen, follow-up with physical occupational therapy Plan As the provider for the telehealth service, I attest that I introduced myself to the patient, provided my credentials, disclosed by location and determined that based on a review of the patient's chart and discussion with members of the patient's treatment team, telemedicine via real-time, 2 way, and interactive audio and video platform is an appropriate and effective means of providing the service. ?The patient and I mutually agree this visit is appropriate for telemedicine. ?The virtual encounter was taken place from? [place], [place]. ?The encounter took approximately 35 minutes. ?The nurse was present during the entire time and I was able to move the stethoscope in appropriate directions. ?The patient was evaluated at the Hospital ? Portions of this note may be dictated using e[employer]apest[employer] voice recognition software. Variances in spelling and vocabulary are possible and unintentional. Not all errors may be caught and/or corrected. Please notify the author if any discrepancies are noted and/or if the meaning of any statement is unclear.? ? Patient verbally consented for treatment via video visit with patient currently located at the [facility] and provider located in [place]. Telemedicine Attestation Telemedicine Attestation I conducted this encounter from [[place]] via secure live, [id number] video conference with the patient, located at [facility] with [pneumonia]. Prior to the interview, the risks and benefits of telemedicine were discussed with the patient and verbal consent was obtained.
[2023-05-04] MEDS: OXYCODONE HCL/ACETAMINOPHEN 5MG/325MG 1 TAB PO (03:16)
[2023-05-04] MEDS: 0.9 % SODIUM CHLORIDE 1,000 ML 100 ML IV ×3 (03:16→22:59)
[2023-05-04] MEDS: AMLODIPINE BESYLATE 5 MG TABLET PO (03:18)
[2023-05-04 05:17] LABS: Hematocrit 45.6 % (42.0-54.0); Mean Corpuscular HGB Conc 32.9 g/dL (29.9-35.2); Mean Corpuscular Hemoglobin 28.4 pg (25.9-34.0); Mean Corpuscular Volume 86.4 fL (80.0-94.0); Mean Platelet Volume 10.1 fL (9.5-13.5); Platelet Count 256 10^3/uL (150-450); Red Blood Count 5.28 10^6/uL (4.70-6.10); Red Cell Distribution Width 12.5 % (11.0-15.0)
[2023-05-04 05:37] LABS: Anion Gap 12.9; BUN Creatinine Ratio 16.2; Calcium 8.2 mg/dL (8.5-10.1); Carbon Dioxide 23.7 mmol/L (21.0-32.0); Chloride 100 mmol/L (98-107); Estimated GFR (African America >60 (>=60); Estimated GFR (Non-African Ame >60 (>=60); Glucose 110 mg/dL (74-106); Potassium 3.6 mmol/L (3.5-5.1); Sodium 133 mmol/L (136-145)
[2023-05-04 05:40] LABS: Internal Control Within Normal Limits; Strep A Antigen Screen Negative
[2023-05-04] MEDS: MORPHINE SULFATE 4 MG/ML VIAL IV (05:55)
[2023-05-04 06:06] LABS: Lymphocytes Absolute Manual 0.54 10^3/uL (1.20-3.80); Monocytes Absolute Manual 4.32 10^3/uL (0.30-0.80); Segmented Neut Absolute Manual 13.14 10^3/uL (1.4-6.5)
--- NOTE | 2023-05-04 07:14 | P.HP_ITS ---
H&P: HPI History of Present Illness Chief complaint: RIB PAIN PNEUMONIA Narrative: Patient with shoulder surgery approximately 1 week ago, started having the last 3 days increasing upper back pain, denies cough or fever, concerning for pulmonary embolism, CT scan did not confirm pulmonary embolism but did show p ossible bilateral lower lobe pneumonia. Patient was admitted for work-up and treatment of same Review of Systems ROS Constitutional Denies: fever or chills Eyes Denies: change in vision Ears, nose, mouth, and throat Denies: throat pain Cardiovascular Denies: chest pain Respiratory Reports: shortness of breath; Denies: cough Musculoskeletal Reports: back pain [facility] Medical History (Updated 05/03/23 @ 22:58 by Sharath Urbano MD) Right shoulder pain ?M25.511 - Pain in right shoulder (ICD-10) Surgical History (Updated 02/15/23 @ 13:22 by Paty Carter) History of arthroscopy of right shoulder ?Z98.890 - Other specified postprocedural states (ICD-10) History of hernia repair ?Z98.890 - Other specified postprocedural states (ICD-10) ?Z87.19 - Personal history of other diseases of the digestive system (ICD-10) Family History (Updated 05/04/23 @ 00:44 by Serenity Price RN) Father Family history of hypertension Grandfather Family history of myocardial infarction Social History (Updated 05/04/23 @ 00:49 by Serenity Price RN) Within the past year, how often did you have a drink containing alcohol: 2-3 times a week Within the past year, how many standard drinks containing alcohol did you have on a typical day: 3 or 4 Within the past year, how often did you have six or more drinks on one occasion: less than monthly Total score: 3 Score interpretation: A score of 4 or more indicates drinking is likely to affect patient's safety. 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 Known occupational exposures/hazards: Yes Known occupational exposures/hazards details: plastics Highest level of school completed/degree received: high school graduate Are you now , , , , never or living with a partner: never In a typical week, how many times do you talk on the telephone with family, friends, or neighbors: once per week How often do you get together with friends or relatives: twice per week How often do you attend zoroastrian or latter day services: never Do you belong to any clubs or organizations such as zoroastrian groups unions, fraternal or athletic groups, or school groups: no Total score: 1 Score interpretation: A score of less than or equal to 1 indicates the most socially isolated. Little interest or pleasure in doing things: several days Feeling down, depressed, or hopeless: not at all Feel stressed/tense/nervous/anxious/difficulty sleeping: only a little Life stressor details: health Do you think of yourself as: straight/heterosexual Gender Identity: male Meds Home Medications and Allergies Home Medications Medication Instructions Recorded Confirmed Type oxycodone-acetaminophen 5 mg-325 1 tab PO Q6H PRN pain 05/03/23 05/03/23 History mg tablet Allergies Allergy/AdvReac Type Severity Reaction Status Date / Time No Known Drug Allergies Allergy Verified 02/16/23 10:02 Exam Constitutional Vital Signs, click to edit/add: Last Vital Signs Temp 98.4 F 05/04/23 06:00 Pulse 116 H 05/04/23 07:10 Resp 22 05/04/23 06:00 BP 155/94 H 05/04/23 07:10 Pulse Ox 93 L 05/04/23 06:00 O2 Del Method Nasal Cannula 05/04/23 06:00 O2 Flow Rate 2 05/04/23 06:00 Documenting provider has reviewed patient's vital signs: yes Common normals: apparent distress HENCT Common normals: normocephalic Chest Common normals: inspection of chest normal; palpation of chest abnormal (Upper rightBack tender Reproducible chest pain but not completely ) Respiratory Common normals: no retractions and no use of accessory muscles; abnormal respiratory effort and not clear to ascultation bilaterally Auscultation: rhonchi Cardio Common normals: regular rhythm; irregular rate Rate: tachycardic GI Common normals: Normal to inspection, nondistended, normoactive bowel sounds present, soft to palpation and non-tender Extremity Common normals: abnormal to inspection (Right shoulder in sling, no signs of infection surgical sites) Results Labs Labs: Short CBC 05/03/23 05/04/23 Range/Units 19:15 04:32 WBC 13.2 H 18.0 H (4.0-11.0) 10^3/uL Hgb 16.8 15.0 (14.0-18.0) g/dL Hct 50.3 45.6 (42.0-54.0) % Plt Count 299 256 (150-450) 10^3/uL BMP 05/03/23 05/04/23 19:15 04:32 Sodium 135 L 133 L Potassium 4.9 3.6 Chloride 98 100 Carbon Dioxide 27.9 23.7 BUN 14.0 12.0 Creatinine 0.93 0.74 Glucose 94 110 H Calcium 9.9 8.2 L Liver Function 05/03/23 Range/Units 19:15 Total Bilirubin 1.2 H (0.2-1.0) mg/dL AST 13 L (15-37) U/L ALT 42 (16-63) U/L Alkaline Phosphatase 81 (46-116) U/L Albumin 4.0 (3.4-5.0) g/dL Assessment and Plan Assessment and Plan (1) Pneumonia: (2) Right shoulder pain: Plan Hypoxia with a sat of 88%, relative hypoxia also with a sat of 90% on 2 L, sinus tachycardia, respiratory distress, uncontrolled hypertension, leukocytosis secondary to bilateral lower lobe pneumonia. Monocytes are elevated on a percentage basis we will check mono test, continue with IV antibiotics, add steroids, check troponin now with negative CTA for pulmonary embolism. Bilateral lower leg pain intermittent-we will check ultrasound for DVT rule out Uncontrolled hypertension-continue with hydralazine but increase dose frequency Shoulder and upper back pain-change patient to Dilaudid, add Toradol Norflex and the above-mentioned steroids Hyponatremia-monitor daily Hypocalcemia-supplement and monitor daily Hyperbilirubinemia-borderline, rest of LFTs were normal, repeat liver function test today. With the degree of hypoxia, tachycardia, uncontrolled hypertension and leukocytosis will maintain maintain patient as inpatient status and likely here 2 to 3 days, high degree of medical certainty he will not be discharged tomorrow
--- NOTE | 2023-05-04 07:21 | US_ITS ---
[place] [address] Patient Name: JENNA ORTIZ MRN: [id number] date: 1990 Sex: M Assigned Patient Location: [place] Current Patient Location: [place] Accession/Order Number: [id number] Exam Date: 05/04/2023 08:15 Report Date: 05/04/2023 09:40 At the request of: FILI PAGE Procedure: US venous doppler LE BI EXAMINATION: US venous doppler LE BI HISTORY: leg pain - post op COMPARISON: No relevant comparison available. TECHNIQUE: Greyscale, color and doppler FINDINGS: Right leg: Flow: Absent flow corresponding to thrombus Thrombus: Mid to distal ptv Augmentation: absent augmentation corresponding to thrombus Compressibility: no compressibility corresponding to thrombus Left leg: Flow: Normal Thrombus: Normal Augmentation: Normal Compressibility: Normal US/US venous doppler LE BI IMPRESSION: Occlusive deep vein thrombus right posterior tibial vein *Exam performed in accordance with [facility] practice guidelines- Peripheral venous ultrasound, October 19, 2009. Electronically authenticated by: NENA IQBAL Date: 05/04/2023 09:40
[2023-05-04 07:38] LABS: Alanine Aminotransferase 18 U/L (16-63); Albumin Globulin Ratio 0.9; Albumin Level 2.3 g/dL (3.4-5.0); Alkaline Phosphatase 49 U/L (46-116); Aspartate Amino Transferase 10 U/L (15-37); Bilirubin Direct 0.3 mg/dL (0.0-0.2); Bilirubin Total 1.2 mg/dL (0.2-1.0); Globulin 2.7 g/dL
[2023-05-04] MEDS: METHYLPREDNISOLONE SOD SUCC PF 125 MG/2 ML VIAL IVP ×3 (07:44→19:36)
[2023-05-04 07:45] LABS: Troponin I High Sensitivity 6.1 pg/mL (4.0-76.1)
[2023-05-04] MEDS: KETOROLAC TROMETHAMINE 30 MG/ML VIAL IVP ×3 (07:45→19:36)
[2023-05-04] MEDS: ORPHENADRINE 60 MG/ 2 ML VIAL IV ×2 (07:45→19:36)
[2023-05-04] MEDS: APIXABAN 5 MG TABLET 10 MG PO ×2 (10:10→19:36)
[2023-05-04 10:17] LABS: SARS-CoV-2 NAA NOT DETECTED (NOT DETECTE)
[2023-05-04] MEDS: L. ACIDOPHILUS/L.BULGARICUS 1 PACKET GRAN.PACK PO (11:35)
[2023-05-04] MEDS: DOCUSATE SODIUM 100 MG CAPSULE PO (19:36)
[2023-05-04] MEDS: CEFTRIAXONE 1,000 MG in 0.9 % SODIUM CHLORIDE 50 ML 100 MG IV (20:20)
[2023-05-04] MEDS: AZITHROMYCIN 500 MG in 0.9 % SODIUM CHLORIDE 250 ML 250 MG IV (21:00)
[2023-05-05] MEDS: KETOROLAC TROMETHAMINE 30 MG/ML VIAL IVP (01:53)
[2023-05-05] MEDS: METHYLPREDNISOLONE SOD SUCC PF 125 MG/2 ML VIAL IVP (01:53)
[2023-05-05 04:19] VITALS: BP 134/78; PULSE 81; RESP 20; TEMP 36.6; O2SAT 94
[2023-05-05 05:30] LABS: Basophils Percent Auto 0.1 % (0.2-2.0); Hematocrit 40.5 % (42.0-54.0); Hemoglobin 13.3 g/dL (14.0-18.0); Immature Granulocytes Abs Auto 0.17 10^3/uL (0.00-0.03); Immature Granulocytes Pct Auto 0.9 % (0.0-0.5); Lymphocytes Absolute Auto 0.4 10^3/uL (1.2-3.8); Lymphocytes Percent Auto 2.1 % (20.5-60.0); Mean Corpuscular HGB Conc 32.8 g/dL (29.9-35.2); Mean Corpuscular Hemoglobin 28.7 pg (25.9-34.0); Mean Corpuscular Volume 87.5 fL (80.0-94.0); Mean Platelet Volume 10.5 fL (9.5-13.5); Monocytes Absolute Auto 0.6 10^3/uL (0.3-0.8); Monocytes Percent Auto 3.3 % (1.7-12.0); Neutrophils Percent Auto 93.6 % (43.0-75.0); Platelet Count 224 10^3/uL (150-450); Red Blood Count 4.63 10^6/uL (4.70-6.10); Red Cell Distribution Width 12.2 % (11.0-15.0); White Blood Count 18.2 10^3/uL (4.0-11.0)
[2023-05-05 05:47] LABS: Alanine Aminotransferase 22 U/L (16-63); Albumin Globulin Ratio 0.7; Albumin Level 2.6 g/dL (3.4-5.0); Alkaline Phosphatase 56 U/L (46-116); Anion Gap 9.5; Aspartate Amino Transferase 9 U/L (15-37); BUN Creatinine Ratio 22.1; Bilirubin Total 0.4 mg/dL (0.2-1.0); Chloride 107 mmol/L (98-107); Estimated GFR (African America >60 (>=60); Estimated GFR (Non-African Ame >60 (>=60); Globulin 3.8 g/dL; Glucose 142 mg/dL (74-106); Potassium 3.5 mmol/L (3.5-5.1); Sodium 138 mmol/L (136-145); Total Protein 6.4 g/dL (6.4-8.2)
[2023-05-05] MEDS: ORPHENADRINE 60 MG/ 2 ML VIAL IV (07:28)
[2023-05-05 08:00] VITALS: RESP 18
[2023-05-05 08:05] VITALS: O2SAT 93
--- NOTE | 2023-05-05 08:23 | P.DS_ITS ---
DS: Providers Provider Date of admission: 05/04/23 00:06 Primary care physician: Jerman Nina MD DS: Diagnosis Discharge Diagnosis (1) Pneumonia: (2) Right shoulder pain: Plan Hypoxia with a sat of 88%, relative hypoxia also with a sat of 90% on 2 L, sinus tachycardia, respiratory distress, uncontrolled hypertension, leukocytosis secondary to bilateral lower lobe pneumonia resulting in sepsis (Inc hr, INc RR, Leukocytosis, Source of infection lung). Bilateral lower leg pain intermittent - distal lower ext DVT Uncontrolled hypertension Shoulder and upper back pain- Hyponatremia- Hypocalcemia Hyperbilirubinemia- DS: Summary Hospital Course Hospital Course: Patient is admitted withHypoxia with a sat of 88%, relative hypoxia also with a sat of 90% on 2 L, sinus tachycardia, respiratory distress, uncontrolled hypertension, leukocytosis secondary to bilateral lower lobe pneumonia resulting in sepsis (Inc hr, INc RR, Leukocytosis, Source of infection lung). Presented to the emergency room with back pain. Did have some palpable reproducible pain but pretty severe. Responded well to initial treatment with Toradol Norflex. Hypoxia slowly improved throughout the hospital stay. He has been able to be weaned off of his supplemental oxygen. At this point patient feels comfortable with going home. Will monitor closely and follow-up in the office closely within the next few days depending on symptoms. Medications see list. Follow- up with me quickly if having any further symptoms otherwise next week is fine Time Spent with Patient Time attestation: Total time spent providing and/or coordinating discharge services: Exam Constitutional Vital Signs, click to edit/add: Last Vital Signs Temp 97.8 F 05/05/23 04:19 Pulse 81 05/05/23 04:19 Resp 20 05/05/23 04:19 BP 134/78 05/05/23 04:19 Pulse Ox 93 L 05/05/23 08:05 O2 Del Method Nasal Cannula 05/05/23 04:19 O2 Flow Rate 2 05/05/23 04:19 Documenting provider has reviewed patient's vital signs: yes Common normals: apparent distress [facility] Common normals: normocephalic Chest Common normals: inspection of chest normal; palpation of chest abnormal (Upper rightBack tender Reproducible chest pain but not completely ) Respiratory Common normals: no retractions and no use of accessory muscles; abnormal respiratory effort and not clear to ascultation bilaterally Auscultation: rhonchi Cardio Common normals: regular rhythm; irregular rate Rate: tachycardic GI Common normals: Normal to inspection, nondistended, normoactive bowel sounds present, soft to palpation and non-tender Extremity Common normals: abnormal to inspection (Right shoulder in sling, no signs of infection surgical sites) DS: Data Data Completed and Pending Labs on day of discharge: Labs from last 24 hours 05/05/23 05/03/23 04:44 20:56 WBC 18.2 H RBC 4.63 L Hgb 13.3 L Hct 40.5 L MCV 87.5 MCH 28.7 MCHC 32.8 RDW 12.2 Plt Count 224 MPV 10.5 Neut % (Auto) 93.6 H Lymph % (Auto) 2.1 L Owen % (Auto) 3.3 Eos % (Auto) 0.0 L Baso % (Auto) 0.1 L Neut # (Auto) 17.0 H Lymph # (Auto) 0.4 L Owen # (Auto) 0.6 Eos # (Auto) 0.0 Baso # (Auto) 0.0 Abs Immat Gran (auto) 0.17 H Imm/Tot Granulo (auto) 0.9 H Sodium 138 Potassium 3.5 Chloride 107 Carbon Dioxide 25.0 Anion Gap 9.5 BUN 15.0 Creatinine 0.68 L Est GFR ( Amer) >60 Est GFR (Non-Af Amer) >60 BUN/Creatinine Ratio 22.1 Glucose 142 H Calcium 8.0 L Total Bilirubin 0.4 AST 9 L ALT 22 Alkaline Phosphatase 56 Total Protein 6.4 Albumin 2.6 L Globulin 3.8 Albumin/Globulin Ratio 0.7 SARS-CoV-2 RNA (ROSY) Not detected Preliminary micro results at discharge 05/04/23 05:40 Group A Streptococcus Screen (SYBIL) - Preliminary Throat Discharge Plan Discharge Disposition: Home, Self-Care Condition: Good Discharge Medications: New Eliquis 5 mg tablet 10 mg PO Q12H Qty: 60 0RF Rx Instructions: take 2 tablets twice a day for 7 days then 1 po BID levofloxacin 750 mg tablet 750 mg PO DAILY 10 Days Qty: 10 0RF tizanidine 4 mg capsule 4 mg PO Q8H PRN (Reason: muscle spasm) Qty: 14 0RF Continued oxycodone-acetaminophen 5-325 mg tablet 1 tab PO Q6H PRN (Reason: pain) Patient Instructions: Tizanidine (By mouth), Levofloxacin (By mouth) (Levaquin, Levaquin Leva-cherie), Apixaban (By mouth) (Eliquis), Pneumonia (ED), Deep Vein Thr ombosis Prevention (ED) Forms: Portal Instructions Follow Up Appointments: Follow up appt. with Dr. Nina on . @ [facility] Office #: [phone] Discharge Date/Time: 05/05/23 12:46
[2023-05-05 08:27] VITALS: BP 146/70
[2023-05-05] MEDS: DOCUSATE SODIUM 100 MG CAPSULE PO (08:27)
[2023-05-05] MEDS: AMLODIPINE BESYLATE 5 MG TABLET PO (08:27)
[2023-05-05] MEDS: APIXABAN 5 MG TABLET 10 MG PO (08:28)
[2023-05-05] MEDS: LEVOFLOXACIN IN DEXTROSE 5 % 750 MG/150 ML IV.SOLN 100 MG IV (09:45)
[2023-05-05 10:09] VITALS: O2SAT 97
[2023-05-05 11:29] VITALS: O2SAT 95
--- NOTE | 2023-05-06 15:48 | CM.DCFOLLOWU ---
1st attempt discharge follow up call made by Reva Robles on 05/06/23, no answer at this time.
--- NOTE | 2023-05-07 10:33 | CM.DCFOLLOWU ---
2nd attempt discharge follow up call made by Reva Robles on 05/07/23, no answer at this time.
--- NOTE | 2023-05-10 15:31 | CM.DCFOLLOWU ---
Person spoke with:patient How are you feeling? well How is your pain? slowly improving Did you understand your discharge instructions? yes Do you have any questions about your discharge instructions? no Were you given any prescriptions at discharge? yes Were you able to get your prescriptions filled? yes Do you understand how to take your medications as ordered? yes Do you have any questions about your follow up appointment and do you plan to keep your follow up appointment? no questions, follow up 05/13/23 with PCP Is there anything else that you would like to discuss? no Questions/Comments/Concerns/Other:
== END 2023-05-05 12:46 | disposition home or self-care (01) | DRG 871 ==
LOC: ER 22:58 → MS 05-04 00:07
PROVIDERS: Internal Medicine; Physician Assistant; Admitting Provider Family Medicine; Emergency Provider Emergency Medicine; PCP Family Medicine; Visit Provider Family Medicine
DX: A41.9 Sepsis, unspecified organism (principal); J18.9 Pneumonia, unspecified organism; E87.1 Hypo-osmolality and hyponatremia; R06.03 Acute respiratory distress; R09.02 Hypoxemia; I10 Essential (primary) hypertension; E83.51 Hypocalcemia; E80.6 Other disorders of bilirubin metabolism; M25.511 Pain in right shoulder; M79.605 Pain in left leg; M79.604 Pain in right leg; M54.6 Pain in thoracic spine
CPT/HCPCS: 36415; 71275; 80048; 80053; 80076; 82805; 83735; 83880; 84484; 85025; 85027; 85378; 85610; 85730; 87040; 87070; 87205; 87635; 87811; 87880; 93005; 93970; 94667; 94668; 94761; 96365; 96366; 96367; 96368; 96375; 96376; 99285; J0456; J1170; J2930; Q3014; Q9967; U0003

== ENCOUNTER 2023-05-13 16:21 | Outpatient (RCR) | payer BC, SELFPAY | END 2023-07-25 08:00 | disposition home or self-care (01) | LOC: PT 16:21 | PROVIDERS: PCP Family Medicine; Visit Provider Personal Emergency Response Attendant | DX: Z98.890 Other specified postprocedural states (principal) | CPT/HCPCS: 97010; 97110; 97112; 97140; 97161 ==

== ENCOUNTER 2023-06-15 10:12 | Outpatient (OUT) | payer BC, SELFPAY ==
--- NOTE | 2023-06-15 10:17 | CT_ITS ---
The [address] [address] Patient Name: JENNA ORTIZ MRN: [id number] date: 1990 Sex: M Assigned Patient Location: CT Current Patient Location: CT Accession/Order Number: [id number] Exam Date: 06/15/2023 10:20 Report Date: 06/15/2023 11:07 At the request of: FILI PAGE Procedure: CT chest wo con EXAMINATION: CT chest wo con HISTORY: Pneumonia J18.9 COMPARISON: CTA chest 05/03/2023 TECHNIQUE: Multi-planar CT images were obtained without and/or with IV contrast as indicated by examination type. Axial, Coronal, and Sagittal images. Dose reduction techniques were achieved by using automated exposure control and/or adjustment of mA and/or kV according to patient size and/or use of iterative reconstruction technique. FINDINGS: LUNGS: Dense patchy opacities within right posterior costophrenic angle and anterior left lateral costophrenic angle. Lungs are otherwise clear. PLEURA: Trace amount of right pleural fluid. VASCULATURE: No abnormality. JOSR: No mass or adenopathy. MEDIASTINUM: No mass or adenopathy. CARDIAC: No enlargement, pericardial thickening, or significant calcification. AORTA: No aneurysm or dissection. CHEST WALL: No mass or axillary adenopathy. BONES: No bone lesion or fracture. LIMITED ABDOMEN: No suspicious findings Limited images of the upper abdomen. OTHER: Negative. CT/CT chest wo con IMPRESSION: 1. Mild opacities within right posterior costophrenic angle and anterior left lateral costophrenic angle which have improved, and trace amount right pleural fluid. While these may represent residual infiltrates from recent pneumonia, follow-up imaging to document clearing versus stability is recommended. 2. Consider follow-up CT chest in 1-2 months. Electronically authenticated by: BOBBI PILLAI Date: 06/15/2023 11:07
== END 2023-06-15 10:13 | disposition home or self-care (01) ==
LOC: CT 10:12
PROVIDERS: PCP Family Medicine; Visit Provider Family Medicine
DX: R04.2 Hemoptysis (principal); J18.9 Pneumonia, unspecified organism
CPT/HCPCS: 71250

== ENCOUNTER 2023-07-13 09:30 | Outpatient (OUT) | payer BC, SELFPAY ==
--- NOTE | 2023-07-13 09:40 | MR_ITS ---
[place] [id number] Patient Name: JENNA ORTIZ MRN: [id number] date: 1990 Sex: M Assigned Patient Location: MRI Current Patient Location: MRI Accession/Order Number: [id number] Exam Date: 07/13/2023 09:45 Report Date: 07/13/2023 22:33 At the request of: BHARATH DESAI Procedure: MR shoulder LT wo con EXAM: MR shoulder LT wo con HISTORY: internal derangement lt shoulder M24.812 COMPARISON: None. TECHNIQUE: MRI images obtained with multiple sequences. Noncontrast MRI of the left shoulder. FINDINGS: Supraspinatus, infraspinatus, teres minor and subscapularis tendons are intact. Muscle bulk of the rotator cuff is preserved. No labral detachment. No full-thickness chondral loss at the glenohumeral joint. Biceps tendon is intact and within the intertubercular groove. Acromioclavicular joint in normal alignment. Undersurface of the acromion process is flat to gently curved. MR/MR shoulder LT wo con IMPRESSION: 1. No full-thickness rotator cuff tear. 2. No labral detachment by this nonarthrographic technique. 3. Biceps tendon is intact. 4. No full-thickness chondral loss. Electronically authenticated by: YARI PAZ Date: 07/13/2023 22:33
--- NOTE | 2023-07-13 09:43 | MR_ITS ---
The [place] [id number] Patient Name: JENNA ORTIZ MRN: [id number] date: 1990 Sex: M Assigned Patient Location: MRI Current Patient Location: MRI Accession/Order Number: [id number] Exam Date: 07/13/2023 09:45 Report Date: 07/13/2023 22:45 At the request of: BHARATH DESAI Procedure: MR wrist LT wo con EXAM: MR wrist LT wo con HISTORY: Left wrist pain M25.532 COMPARISON: None. TECHNIQUE: MRI images obtained with multiple sequences. Noncontrast MRI of the wrist. FINDINGS: Scapholunate and lunotriquetral ligaments are intact. Thin central perforation of the triangular fibrocartilage. Mild dorsal tilt of the lunate. No acute edema of the carpal bones. Mild ulnar negative variance. Extensor and flexor tendons are intact. Median nerve is normal in size and signal within the carpal tunnel. Subcutaneous soft tissue edema about the wrist. MR/MR wrist LT wo con IMPRESSION: 1. Scapholunate and lunotriquetral ligaments are intact. 2. Thin central perforation of the triangular fibrocartilage. (Arthrogram could more definitively evaluate) 3. No acute fracture. No acute bone marrow edema. No significant subcutaneous soft tissue edema about the wrist. Electronically authenticated by: YARI PAZ Date: 07/13/2023 22:45
== END 2023-07-13 09:31 | disposition home or self-care (01) ==
LOC: MRI 09:31
PROVIDERS: PCP Family Medicine; Visit Provider Personal Emergency Response Attendant
DX: M24.812 Other specific joint derangements of left shoulder, not elsewhere classified (principal); M25.532 Pain in left wrist
CPT/HCPCS: 73221

== ENCOUNTER 2023-07-26 09:46 | Outpatient (RCR) | payer BC, SELFPAY | END 2023-09-24 10:08 | disposition home or self-care (01) | LOC: PT 09:46 | PROVIDERS: PCP Family Medicine; Visit Provider Personal Emergency Response Attendant | DX: M25.512 Pain in left shoulder (principal); Z98.890 Other specified postprocedural states | CPT/HCPCS: 97110; 97112; 97140; 97164 ==

== ENCOUNTER 2023-08-04 09:47 | Outpatient (OUT) | payer BC, SELFPAY ==
--- NOTE | 2023-08-04 09:50 | CT_ITS ---
The [address] [address] Patient Name: JENNA ORTIZ MRN: [id number] date: 1990 Sex: M Assigned Patient Location: CT Current Patient Location: CT Accession/Order Number: [id number] Exam Date: 08/04/2023 09:55 Report Date: 08/04/2023 10:20 At the request of: FILI PAGE Procedure: CT chest wo con EXAM: CT chest wo con HISTORY: Pneumonia J18.9 COMPARISON: CT chest dated 06/15/2023 and CTA chest dated 05/03/2023. TECHNIQUE: Routine CT chest without intravenous contrast. FINDINGS: Cardiovascular: Unremarkable. Lungs: The mild pleural-based consolidation at the right posterior costophrenic angle is stable to slightly improved compared to the previous examination. There is no new consolidation or infiltrate. There is no pleural effusion. There are no suspicious masses or nodules within the chest. Lymphadenopathy: There are no pathologically enlarged axillary, mediastinal or hilar lymph nodes. Other: The trachea, esophagus and thyroid gland are unremarkable. There is stable mild residual thymic tissue within the anterior mediastinum. Upper abdomen: The liver appears mildly fatty infiltrated. Osseous: Stable 0.4 cm bone island within the right glenoid process. CT/CT chest wo con IMPRESSION: The mild pleural-based consolidation at the right posterior costophrenic angle is stable to slightly improved compared to the previous examination. There is no new consolidation or infiltrate. There is no pleural effusion. An additional follow-up CT examination the chest in 6 months is recommended to confirm complete resolution. Stable mild residual thymic tissue within the anterior mediastinum. The liver appears mildly fatty infiltrated. Electronically authenticated by: SAMMI TRINIDAD Date: 08/04/2023 10:20
--- NOTE | 2023-08-04 09:51 | US_ITS ---
The [address] [address] Patient Name: JENNA ORTIZ MRN: [id number] date: 1990 Sex: M Assigned Patient Location: CT Current Patient Location: CT Accession/Order Number: [id number] Exam Date: 08/04/2023 09:52 Report Date: 08/04/2023 11:28 At the request of: FILI PAGE Procedure: US venous doppler LE RT EXAMINATION: US venous doppler LE RT HISTORY: Acute Embolism Of Right Lower Extremity I82.401 , follow-up COMPARISON: Ultrasound venous Doppler lower extremity bilateral 05/04/2023 FINDINGS: REGION: Right lower extremity THROMBI: Within posterior tibial vein COMPRESSIBILITY: Partial compressibility of the mid posterior tibial vein. FLOW: Normal waveform and antegrade flow between 5 and 20 cm/s. OTHER: None. US/US venous doppler LE RT IMPRESSION: 1. Nonocclusive deep vein thrombus within mid posterior tibial vein (decreased thrombus burden compared to prior study). Electronically authenticated by: BOBBI PILLAI Date: 08/04/2023 11:28
--- OUTSIDE RECORDS SUMMARY | 2023-08-04 09:51 | XMS_ITS | CCD ---
Author Name Unknown Address [address] [place] [address] [address] [place] [address] Organization [facility] Care Team Providers Care Seat Joiner Chainstitch Name Role Phone BHARATH DESAI Attending Unavailable BHARATH DESAI Attending Unavailable BHARATH DESAI Attending Unavailable BHARATH DESAI Referring Unavailable BHARATH DESAI Attending Unavailable Encounters Encounter Date Encounter Type Care Provider Facility Start: 07-23-2023 End: 07-23-2023 ambulatory BHARATH DESAI Not Available Start: 07-05-2023 End: 07-05-2023 ambulatory BHARATH DESAI Not Available Start: 06-21-2023 End: 06-21-2023 ambulatory BHARATH DESAI Not Available Start: 06-07-2023 End: 06-08-2023 ambulatory BHARATH DESAI Not Available Payers Date Payer Category Payer Unknown [id number] 1990 Unknown [id number] 1990 Unknown [id number] 1990 Unknown [id number] 1990 Unknown [id number] 1990 Unknown [id number] Summary Purpose Family History No Family History Records Found Advance Directives No Advanced Directives Records Found Additional Source Comments (unrecognized sect ion and content) No Status Records Found INFORMATION SOURCE (unrecogn ized section and content) DATE CREATED AUTHOR 07/25/2023 [facility] EPIC FOR RECORDS PERTAINING TO PATIENTS WHO ARE OR HAVE BEEN ENROLLED IN A CHEMICAL DEPENDENCY/SUBSTANCEABUSE PROGRAM, SOME INFORMATION MAY BE OMITTED. This clinical summary was aggregated from multiple sources. Caution should be exercised in using it in the provision of clinical care. This summary normalizes information from multiple sources, and as a consequence, information in this document may materially change the coding, format and clinical context of patient data. In addition, data may be omitted in some cases. CLINICAL DECISIONS SHOULD BE BASED ON THE PRIMARY CLINICAL RECORDS. [facility]. provides no warranty or guarantee of the accuracy or completeness of information in this document.
== END 2023-08-04 09:48 | disposition home or self-care (01) ==
LOC: CT 09:47
PROVIDERS: PCP Family Medicine; Visit Provider Family Medicine
DX: J18.9 Pneumonia, unspecified organism (principal); I82.401 Acute embolism and thrombosis of unspecified deep veins of right lower extremity
CPT/HCPCS: 71250; 93971

== ENCOUNTER 2023-10-07 15:40 | Outpatient (OUT) | payer BC, SELFPAY ==
--- NOTE | 2023-10-07 15:43 | MR_ITS ---
[address] [address] Patient Name: JENNA ORTIZ MRN: [id number] date: 1990 Sex: M Assigned Patient Location: MRI Current Patient Location: Accession/Order Number: [id number] Exam Date: 10/07/2023 15:50 Report Date: 10/08/2023 06:49 At the request of: BHARATH DESAI Procedure: MR shoulder RT wo con EXAMINATION: MR shoulder RT wo con HISTORY: internal derangement rt shoulder M24.811 ; acute on chronic right shoulder pain; prior right biceps repair COMPARISON: No relevant comparison available. TECHNIQUE: A variety of imaging planes and parameters were utilized for visualization of suspected pathology. Imaging was performed without or with contrast as indicated by examination type. FINDINGS: ROTATOR CUFF REGION CUFF TENDONS: Mild T2 signal within supraspinatus tendon without full-thickness tear. CUFF MUSCLES: Bone anchor within anterior aspect of humeral head near subscapularis tendon insertion. Normal appearing muscles. DELTOID: Normal. No significant atrophy or tear. LONG BICEPS TENDON: Normal. No abnormal signal, attrition, or tear. LABRUM/BICEPS ANCHOR SUPERIOR: Normal. No visible labral tear or biceps anchor pathology. ANTERIOR/INFERIOR: Normal. No visible tear or attrition. POSTERIOR: Normal. No posterior labrum abnormality. CAPSULE Normal. No visible capsular laxity or thickening. AC JOINT REGION AC JOINT: Normal acromioclavicular joint. AC LIGAMENTS: Normal acromioclavicular ligament. CC LIGAMENTS: Normal coracoclavicular ligaments. ACROMION: Normal horizontal (Type I) configuration. SUBACROMIAL BURSA: Normal. No significant effusion. HYALINE CARTILAGE: Thinning of the articular cartilage of the humeral head and glenoid. No appreciable focal defect. OTHER BONES: Normal proximal humerus, glenoid, and coracoid. OTHER OBSERVATIONS: Negative. No other significant findings or glenohumeral effusion. MR/MR shoulder RT wo con IMPRESSION: 1. Mild strain of the supraspinatus tendon. 2. Moderate cartilage thinning of the lateral humeral joint. Electronically authenticated by: BOBBI PILLAI Date: 10/08/2023 06:49
--- OUTSIDE RECORDS SUMMARY | 2023-10-07 15:57 | XMS_ITS | CCD ---
Author Name Unknown Address [facility]5 [employer] [facility] [address] [place] [address] Organization [facility] Care Team Providers Care Department Mgr Name Role Phone Jerman Nina MD Primary Care Provider [phone] BHARATH RAMOS Attending Unavailable HBARATH RAMOS Attending BHARATH Patino Attending BHARATH Patino Referring Unavailable BHARATH RAMOS Attending Unavailable BHARATH RAMOS Attending Unavailable BHARATH RAMOS Attending Unavailable BHARATH RAMOS Referring Unavailable BHARATH RAMOS Attending Unavailable Medications Current Medications Medication Drug Class(es) Dates Sig (Normalized) Sig (Original) apixaban 5 mg oral tablet (2 sources) Factor Xa Inhibitor Start: 05-05-2023 take 2 tablets by mouth twice daily, then take 1 tablet by mouth twice daily Eliquis 5 MG tablet TAKE 2 TABLETS BY MOUTH TWICE A DAY FOR 7 DAYS THEN 1 TABLET TWICE A DAY 0 05/05/2023 Active levoFLOXacin 750 mg oral tablet (2 sources) Quinolone Antimicrobial Start: 05-05-2023 take 1 tablet by mouth once daily levoFLOXacin (Levaquin) 750 MG tablet TAKE 1 TABLET BY MOUTH ONCE EVERYDAY FOR 10 DAYS 0 05/05/2023 Active tiZANidine 4 mg oral capsule (2 sources) Central alpha-2 Adrenergic Agonist Start: 05-05-2023 take 1 capsule by mouth every eight hours as needed for muscle spasms tiZANidine (Zanaflex) 4 MG capsule TAKE 1 CAPSULE BY MOUTH EVERY 8 HOURS NEEDED FOR MUSCLE SPASM 0 05/05/2023 Active Problems Problem Classification Problem Date Documented Da te Episodic/Chronic Other non-traumatic joint disorders (2 sources) Pain in right shoulder; Translations: [Pain in joint, shoulder region] 08-25-2023 Episodic Residual codes; unclassified (2 sources) History of arthroscopic procedure on shoulder; Translations: [Other specified postprocedural states] 08-25-2023 Episodic Encounters Encounter Date Encounter Type Care Provider Facility Start: 09-27-2023 End: 09-27-2023 ambulatory BHARATH RAMOS Not Available Start: 08-27-2023 End: 08-27-2023 ambulatory BHARATH RAMOS Not Available Start: 08-27-2023 End: 08-27-2023 Office outpatient visit 10 minutes Bharath Ramos PA Work Phone: [facility] Comment on above: S/P arthroscopy of r ight shoulder (Primary Dx); Acute pain of right shoulder Start: 08-13-2023 End: 08-14-2023 ambulatory BHARATH RAMOS Not Available Start: 07-23-2023 End: 07-23-2023 ambulatory BHARATH RAMOS Not Available Start: 07-05-2023 End: 07-05-2023 ambulatory BHARATH RAMOS Not Available Start: 06-21-2023 End: 06-21-2023 ambulatory BHARATH RAMOS Not Available Start: 06-07-2023 End: 06-08-2023 ambulatory BHARATH RAMOS Not Available Plan of Treatment Date Care Activity Detail Author Start: 09-27-2023 End: 09-27-2023 Patient encounter procedure 09/27/2023 3:30 PM EST Office Visit [facility] [address] [facility] [address] [place] [address] Bharath Ramos PA [address] [facility] [address] [place] [address] [facility] Payers Date Payer Category Payer Unknown BCBS BCBS xxxxxx [id number] 2017-Present [phone] [address] [place] [address] [id number] 2017 Unknown [id number] 1990 Unknown [id number] 1988 Unknown [id number] [id number] 1988 Unknown [id number] 2.16.840.1.921243.3.579.2.9 1988 Unknown [id number] 2.16.840.1.290316.3.579.2.1259 1988 Unknown [id number] 2.16.840.1.275671.3.579.2.9 1988 Unknown [id number] 2.16.840.1.509650.3.579.2.9 1988 Unknown [id number] 2.16.840.1.788038.3.579.2.9 1988 Unknown [id number] [id number] 1988 Unknown [id number] Social History Date Type Detail Facility Start: 04-01-2023 Tobacco smoking stat [facility] Occasional tobacco smoker [facility] Start: 04-01-2023 Tobacco use and exposure Smokeless t obacco non-user [facility] Start: 08-27-2023 Alcohol intake Current drinke r of alcohol (finding) [facility] Start: 08-27-2023 History of Social function [facility] Start: 08-27-2023 Tobacco use panel [facility] Start: 01-16-2023 Alcohol Comment 1-2 drinks 2-3 times a week. Caffine intake: 1-2 cups per day [facility] Start: 1990 Sex Assigned At Male [facility] Start: 01-11-2023 Gender identity Identifies as male gender (finding) [facility] Start: 01-11-2023 Sexual orientation Heterosexual (fin ding) [facility] History of Present illness Narrative 08-27-2023 SUAD Sotomayor - 08/27/2023 10:00 AM EST Note Date & Type Note Facility 08-27-2023 History of Presen t illness Narrative Images from the original note were not included. HISTORY OF PRESENT ILLNESS: EST PT Jayce Chambers is an 33 y.o. @ male. (EST PT) S/P (R) SHOULDER SCOPE 04/27/23 (17WKS 3DAYS) ; CONTINUES PT B/L SHOULDERS @ [facility]; CONTINUES TO STRUGGLE WITH STRENGTH-PT NOTES PAIN LATERAL/TOP SHOULDER ON THE RT XRAY RT ELBOW CHANGE 08/13/23 S/P (R) LE VENOUS DOPPLER 05/03/23 @ [facility] S/P PREDNISONE 06/21/23 (GIVEN FOR (L) WRIST PAIN) CONTINUES PHYSICAL THERAPY @ [facility] PT NOTES PAIN LATERAL/TOP SHOULDER PAIN ON THE RT- IMPROVEMENT WITH ROM- DIFFICULTY REACHING BEHIND BACK- +TYLENOL TAKING ELIQUIS ; CURRENT DVT (R) LE 05/03/23 PER PCP ALLERGIES: No Known Allergies HOME MEDICATIONS: Current Outpatient Medications Medication Instructions Eliquis 5 MG tablet TAKE 2 TABLETS BY MOUTH TWICE A DAY FOR 7 DAYS THEN 1 TABLET TWICE A DAY levoFLOXacin (Levaquin) 750 MG tablet TAKE 1 TABLET BY MOUTH ONCE EVERYDAY FOR 10 DAYS tiZANidine (Zanaflex) 4 MG capsule TAKE 1 CAPSULE BY MOUTH EVERY 8 HOURS NEEDED FOR MUSCLE SPASM PHYSICAL EXAM: Shoulder Musculoskeletal Exam Inspection Right Right shoulder inspection is normal. Ecchymosis: none Peripheral edema: none Atrophy: none Masses: none Prior incision: arthroscopic portals Incision: well-healed Palpation Right Right shoulder palpation is normal. Crepitus: no crepitus Increased warmth: none Tenderness: none Range of Motion Right Right shoulder range of motion is normal. Active ROM: normal and pain. Active ROM comment: pain on terminal end motion.. Passive ROM: normal and pain. Active forward elevation: 170. Passive forward elevation: 180. Shoulder active abduction: 170. Passive abduction: 180. Active external rotation at side: 90. Passive external rotation at side: 90. Internal rotation: L3. Left Internal rotation: T10. Strength Right External rotation: 5/5. External rotation is not affected by pain. Internal rotation: 5/5. Internal rotation is not affected by pain. Abduction: 5/5. Abduction is not affected by pain. Biceps: 5/5. Biceps are not affected by pain. Triceps: 5/5. Triceps are not affected by pain. Neurovascular Right Radial pulse: normal and 2+ Capillary refill: <3 sec Axillary nerve sensory distribution: normal Scapula Right Right shoulder scapula is normal. Position: normal Winging: none Special Tests Right Rotator Cuff Signs Neer's test: negative Carter test: negative Biceps/kole Signs Mccracken's test: negative Clicking/popping: positive Speed's test: negative AC Joint Signs Active horizontal adduction pain: negative Left Biceps/kole Signs Mccracken's test: negative Clicking/popping: positive Instability Signs Anterior apprehension test: negative General Constitutional: appears stated age Labored breathing: no Neurological: alert and oriented x3 Vitals: There is no height or weight on file to calculate BMI. Tobacco Use: High Risk (08/27/2023) Patient History Smoking Tobacco Use: Some Days Smokeless Tobacco Use: Never Passive Exposure: Not on file Alcohol Use: Not on file IMAGING: Procedures No orders of the defined types were placed in this encounter. ASSESSMENT: ICD-10-CM 1. S/P arthroscopy of right shoulder Z98.890 2. Acute pain of right shoulder M25.511 PLAN: Patient will return to work Wednesday without restrictions. He may continue with physical therapy possibly 2 visits next week and 2 visits a week after to help mitigate any symptoms as he returns. Patient reports feeling better this week than last, he is unable to take Motrin or NSAIDs with blood thinner, has not needed to take Tylenol. We discussed the strengthening of his shoulders, repetitious nature of his work and recommend he try going back. Avoid any lifting or throwing motions. We discussed patient's symptoms with clicking popping bilateral shoulders, bilateral forearms wrists. We will trial a period of glucosamine chondroitin with risks and benefits discussed. He can not take another anti-inflammatory at this time. He reports being scheduled with hand specialist in November, and I recommend he keep his appointment pending symptoms with work. Patient thankful. Questions answered in laymen terms at the bedside. The diagnosis, home exercise plan and any ongoing restrictions/ recommendations reviewed. If unable to be reached in office, I recommend evaluation at nearest Emergency Room if any symptoms worsened or new symptoms develop for requiring urgent evaluation. SUAD Sotomayor documented in this encounter [facility] Evaluation note Note Date & Type Note Facility Evaluation note Diagnosis S/P arthroscopy of right shoulder- Primary Acute pain of right shoulder documented in this encounter [facility] Summary Purpose Family History No Family History Records Found Advance Directives No Advanced Directives Records Found Additional Source Comments Reason for Visit (unrecogniz ed section and content) Reason Comments Pain Care Teams (unrecognized sec tion and content) Department Mgr Relationship Specialty Start Date End Date Jerman Nina MD [address] [place] [address] PCP - General Family Medicine 01/18/23 (unrecognized sect ion and content) No Status Records Found INFORMATION SOURCE (unrecogn ized section and content) DATE CREATED AUTHOR 09/28/2023 [facility] FOR RECORDS PERTAINING TO PATIENTS WHO ARE [...] BE BASED ON THE PRIMARY CLINICAL RECORDS. [facility] [employer] provides no warranty or guarantee of the accuracy or completeness of information in this document.
== END 2023-10-07 15:41 | disposition home or self-care (01) ==
LOC: MRI 15:40
PROVIDERS: PCP Family Medicine; Visit Provider Personal Emergency Response Attendant
DX: M24.811 Other specific joint derangements of right shoulder, not elsewhere classified (principal)
CPT/HCPCS: 73221

== ENCOUNTER 2023-12-22 15:30 | Outpatient (RCR) | payer BC, SELFPAY | END 2024-01-11 16:12 | disposition home or self-care (01) | LOC: OT 15:30 | PROVIDERS: PCP Family Medicine; Visit Provider Orthopaedic Surgery | DX: M25.531 Pain in right wrist (principal); M25.532 Pain in left wrist; M25.521 Pain in right elbow | CPT/HCPCS: 97014; 97110; 97166 ==

== ENCOUNTER 2024-01-08 12:03 | Emergency (ER) | payer BC, SELFPAY ==
[2024-01-08 12:08] VITALS: BP 147/100; PULSE 114; TEMP 37.2; O2SAT 98; BMI 37.9
--- NOTE | 2024-01-08 12:17 | PC.NURSE ---
pt reports clicking to neck with movement and now there is a pain just under neck in the back, skin intact and no swelling observed and pt able to move neck in all directions.
--- OUTSIDE RECORDS SUMMARY | 2024-01-08 12:20 | XMS_ITS | CCD ---
Author Organization [facility] Care Team Providers Care Hanging Flags Decorator Name Role Phone Jerman Nina MD Primary Care Provider [phone] BHARATH RAMOS Attending Unavailable BHARATH RAMOS Attending Unavailable BHARATH RAMOS Attending Unavailable BHARATH RAMOS Referring Unavailable BHARATH RAMOS Attending Unavailable BHARATH RAMOS Attending Unavailable BHARATH RAMOS Attending Unavailable BHARATH RAMOS Referring Unavailable BHARATH RAMOS Attending Unavailable MD Jerman Nina Primary Care Provider [phone] MD Ladonna Mejias Attending Provider [phone] Ladonna Mejias Admitting Unavailable Ladonna Mejias Attending Unavailable Jerman Nina Primary Care Unavailable Medications Current Medications Medication Drug Class(es) Dates Sig (Normalized) Sig (Original) apixaban 5 mg oral tablet (4 sources) Factor Xa Inhibitor Start: 11-30-2023 take 1 tablet by mouth twice daily Apixaban (Eliquis) 5 mg tablet Active 5 MG PO Twice daily November 30, 2023 12:00am Start: 05-05-2023 [facility] tablets [facility], then take 1 tablet by mouth twice daily Eliquis 5 MG tablet TAKE 2 TABLETS BY MOUTH TWICE A DAY FOR 7 DAYS THEN 1 TABLET TWICE A DAY 0 05/05/2023 Active Diclofenac (2 sources) Nonsteroidal Anti-inflammatory Drug Start: 11-30-2023 Diclofenac Sodium (Voltaren Arthritis Pain) 1 % gel Active 2 GM TOPICAL Four times daily 100 30 November 30, 2023 12:00am apply to single elbow, wrist or hand; for hand includes palm/fingers/back of hand levoFLOXacin 750 mg oral tablet (2 sources) [...] Active Problems Problem Classification Problem Date Documented Date Episodic/Chronic Other connective tissue disease (2 sources) Laxity of ligament; Translations: [Disorder of ligament, unspecified site] 11-30-2023 Episodic Other connective tissue disease (2 sources) Disorder of ligament, unspecified site; Translations: [Laxity of ligament] 11-30-2023 Episodic Other non-traumatic joint disorders (2 sources) Pain in right shoulder; Translations: [Pain in joint, shoulder region] 08-25-2023 Episodic Other non-traumatic joint disorders (4 sources) Pain in wrist; Translations: [Pain in right wrist] 11-30-2023 Episodic Other non-traumatic joint disorders (3 sources) Pain in left wrist; Translations: [Pain in joint, forearm] Onset: 11-30-2023 11-30-2023 Episodic Other non-traumatic joint disorders (2 sources) Pain in right wrist; Translations: [Pain in joint, forearm] 11-30-2023 Episodic Residual codes; unclassified (2 sources) History of arthroscopic procedure on shoulder; Translations: [Other specified postprocedural states] 08-25-2023 Episodic Results Test Name Value Interpretation Reference Range Facil ity XR wrist min BI 3Von 024 XR wrist min BI 3V [facility] [address] [place] [address] XRay Report Signed Patient: Jayce Chambers MR#: [id number] 8 : 1990 Acct:[id number] Age/Sex: 33 / M ADM Date: 11/30/23 Loc: [facility] Room: Type: [facility] Attending Dr: Ladonna Mejias MD Copies to: Ladonna Mejias MD Ordering Provider: Ladonna Mejias MD Date of Service: 11/30/23 XR/XR wrist min BI 3V: M25.532 - Pain in left wrist 4 views both wrist plain film COMPARISON: None HISTORY: Bilateral wrist pain. Greater on the RIGHT ACUTE FINDINGS: None DEGENERATIVE CHANGE: Unremarkable SOFT TISSUE FINDINGS: Unremarkable JOINT EFFUSION: None POSTOP CHANGES: None BONE MINERALIZATION: Adequate XR/XR wrist min BI 3V IMPRESSION: Unremarkable exam Impression dictated by: Wilmer Patel M.D.11/30/2023 4:52 PM Dictation Location: [place] [address] Transcribed By: [facility] 11/30/23 1652 Dictated By: Wilmer Patel DO 11/30/23 165 Signed By: 11/30/23 1652 Normal [facility] Encounters Encounter Date Encounter Type Care Provider Facility Start: 11-30-2023 End: 11-30-2023 ambulatory Ladonna Mejias Facility:[facility] Start: 11-30-2023 End: 11-30-2023 ambulatory MD Jerman Nina Work Phone: [facility] Work Phone: Start: 11-30-2023 End: 11-30-2023 Patient encounter procedure MD Jerman Nina Work Phone: [facility] Work Phone: Start: 09-27-2023 End: 09-27-2023 ambulatory BHARATH RAMOS Not Available Start: 08-27-2023 End: 08-27-2023 ambulatory BHARATH RAMOS Not Available Start: 08-27-2023 End: 08-27-2023 Office outpatient visit 10 minutes Bharath BORJAS Work Phone: [facility] Comment on above: S/P arthroscopy of r ight shoulder (Primary Dx); Acute pain of right shoulder Start: 08-13-2023 End: 08-14-2023 ambulatory BHARATH RAMOS Not Available Start: 07-23-2023 End: 07-23-2023 ambulatory BHARATH RAMOS Not Available Start: 07-05-2023 End: 07-05-2023 ambulatory BHARATH RAMOS Not Available Start: 06-21-2023 End: 06-21-2023 ambulatory BHARATH RAMOS Not Available Start: 06-07-2023 End: 06-08-2023 ambulatory BHARATH RAMOS Not Available Procedures Date Procedure Procedure Detail Performing Clinician Start: 11-30-2023 Plain X-ray of bilat eral wrists MD Jerman Nina Work Phone: Plan of Treatment Date Care Activity Detail Author Start: 11-30-2023 Plain X-ray of bilateral wrists XR wrist min BI 3V [facility] Start: 11-30-2023 XR Wrist - bilateral GE 3 Views [facility] Start: 09-27-2023 End: 09-27-2023 Patient encounter procedure 09/27/2023 3:30 PM EST Office Visit [facility] [address] [facility] [address] [place] [id number] Bharath Ramos, PA [address] [facility] [address] [place] [address] [facility] Payers Date Payer Category Payer Self-pay [id number] 2017 Unknown BCBS BCBS xxxxxx [id number] 2017-Present [phone] [address] [place] [address] [id number] 2017 Unknown [id number] 1988 Unknown [id number] [id number] 1988 Unknown [id number] 2.16.840.1.443670.3.579.2.1259 1988 Unknown [id number] 2.16.840.1.335534.3.579.2.1259 1988 Unknown [id number] 2.16.840.1.280654.3.579.2.1259 1988 Unknown [id number] 2.16.840.1.604693.3.579.2.1259 1988 Unknown [id number] 2.16.840.1.303551.3.579.2.1259 1988 Unknown [id number] 2.16.840.1.242222.3.579.2.1259 1988 Unknown [id number] 2.16.840.1.029379.3.579.2.1259 1988 Unknown [id number] 2.16.840.1.616770.3.579.2.1259 Unknown [id number] [id number] Social History Date Type Detail Facility Start: 04-01-2023 Tobacco smoking stat [facility] Occasional tobacco smoker [facility] Start: [...] Start: 1990 Sex Assigned [facility] Start: 01-11-2023 Gender identity Identifies as male gender (finding) [facility] Start: 01-11-2023 Sexual orientation Heterosexual (fin ding) [facility] History of Present illness Narrative 08-27-2023 [...] 3DAYS) ; CONTINUES PT B/L SHOULDERS @ [facility]; CONTINUES TO STRUGGLE WITH STRENGTH-PT NOTES PAIN LATERAL/TOP SHOULDER ON THE RT XRAY RT ELBOW CHANGE 08/13/23 S/P (R) LE VENOUS DOPPLER 05/03/23 @ [facility] S/P PREDNISONE 06/21/23 (GIVEN FOR (L) WRIST PAIN) CONTINUES PHYSICAL THERAPY @ [facility] PT NOTES PAIN LATERAL/TOP SHOULDER PAIN [...] test: negative Carter test: negative Biceps/kole Signs Berwind's test: negative Clicking/popping: positive Speed's test: negative AC Joint Signs Active horizontal adduction pain: negative Left Biceps/kole Signs Berwind's test: negative Clicking/popping: positive Instability Signs Anterior [...] evaluation. SUAD Sotomayor documented in this encounter [facility] Evaluation note Note Date & Type Note Facility Evaluation note Diagnosis S/P arthroscopy of right shoulder- Primary Acute pain of right shoulder documented in this encounter [facility] Evaluation note Note Date & Type Note Facility Evaluation note Diagnosis Onset Date Left wrist pain acute Ligament laxity acute Right wrist pain [facility] Work Phone: Summary Purpose Family History No Family History Records FoundNo Family History Records Found Advance Directives No Advanced Directives Records Found Advance Directive Response Recorded Date/ Time Advance Directives No August 17, 2023 12:19pm Chief Complaint and Reason for Visit Chief Complaint CONSULT BHARATH Escalera BILAT WRIST PAIN MRI [facility] M25.532 - Pain in left wrist Reason for Visit Left wrist pain Ligament laxity Right wrist pain Additional Source Comments Reason for Visit (unrecogniz ed section and content) Reason Comments Pain Care Teams (unrecognized sec tion and content) Hanging Flags Decorator Relationship Specialty Start Date End Date Jerman Nina MD [address] [place] [address] PCP - General Family Medicine 01/18/23 Team Status: Active Member Role Status Dates Jerman Nina MD Primary Care Provider Active Team Status: Inactive Member Role Status Dates Jerman Nina MD Primary Care Provider Active Start: November 30, 2023 End: November 30, 2023 Ladonna Mejias MD Attending Provider Active Start: November 30, 2023 End: November 30, 2023 Team Status: Active Member Role Status Dates Jerman Nina MD Primary Care Provider Active Start: November 30, 2023 Ladonna Mejias MD Attending Provider Active Start: November 30, 2023 (unrecognized sect ion and content) No Status Records FoundNo Status Records Found INFORMATION SOURCE (unrecogn ized section and content) DATE CREATED AUTHOR 09/28/2023 [facility] DATE CREATED AUTHOR AUTHOR'S ORGANIZ ATION 12/12/2023 [facility] Goals (unrecognized section and content) Goals may be documented in a n alternate sectionGoals may be documented in an alternate section FOR RECORDS PERTAINING TO PATIENTS WHO ARE [...] BE BASED ON THE PRIMARY CLINICAL RECORDS. [facility] [employer] [facility]. provides no warranty or guarantee of the accuracy or completeness of information in this document.
--- NOTE | 2024-01-08 12:24 | CT_ITS ---
The [address] [address] Patient Name: JENNA ORTIZ MRN: [id number] date: 1990 Sex: M Assigned Patient Location: ER Current Patient Location: Accession/Order Number: [id number] Exam Date: 01/08/2024 12:56 Report Date: 01/08/2024 13:48 At the request of: BETZAIDA HARPER Procedure: CT cervical spine wo con EXAM: CT cervical spine wo con HISTORY: neck pain, radicular symptoms on left COMPARISON: None. TECHNIQUE: Axial CT scans through the cervical spine were obtained without contrast administration. Sagittal and coronal reconstruction images were obtained. Dose reduction techniques were achieved by using automated exposure control and/or adjustment of mA and/or kV according to patient size and/or use of iterative reconstruction technique. FINDINGS: No acute fracture or posttraumatic malalignment is seen. The dens and lateral masses of C1 are symmetric. There is straightening of the normal cervical lordotic curvature. The disc spaces are preserved. There is a small central/right paracentral disc protrusion at C5-6 level, resulting in right-sided mild neural foraminal narrowing. No spinal canal stenosis at any level. The prevertebral soft tissue space appears normal. Visualized intracranial contents appear normal. Visualized neck shows no adenopathy. Visualized lung apices are clear. CT/CT cervical spine wo con IMPRESSION: No visualized acute cervical spine abnormality. Mild cervical spondylosis at C5-6 level, as described. MRI cervical spine is recommended for better evaluation if clinically indicated. Straightening of cervical lordosis, may be related to positioning or muscle spasm. Electronically authenticated by: MALOCLM UNLU Date: 01/08/2024 13:48
[2024-01-08 14:53] VITALS: PULSE 78; O2SAT 98
--- NOTE | 2024-01-08 15:18 | ED.NECK1 ---
HPI HPI - Neck Pain/Injury General Chief Complaint: Neck Pain/Injury Stated Complaint: NECK PAIN Time Seen by Provider: 01/08/24 12:09 Source: patient Mode of arrival: walk-in History of Present Illness HPI Narrative: 33-year-old male to the emergency department chief complaint of pain in his neck that radiates into his right arm associated with a clicking sensation. He denies any falls or injuries. He has noticed this in the past before however it typically goes away. He reports pain worse at night. No numbness or weakness. No fever, sweats, chills. Otherwise at his baseline health. 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 Related Data Home Medications ?Medication ?Instructions ?Recorded ?Confirmed oxycodone-acetaminophen 5 mg-325 1 tab PO Q6H PRN pain 05/03/23 05/03/23 mg tablet Previous Rx's ?Medication ?Instructions ?Recorded apixaban 5 mg tablet (Eliquis) 10 mg (2 x 5 mg) PO Q12H #60 tabs 05/05/23 levofloxacin 750 mg tablet 750 mg PO DAILY 10 days #10 tabs 05/05/23 tizanidine 4 mg capsule 4 mg PO Q8H PRN muscle spasm #14 05/05/23 caps gabapentin 100 mg capsule 100 mg PO .qhs #14 caps 01/08/24 methylprednisolone 4 mg tablets in 4 mg PO DAILY #21 ea 01/08/24 a dose pack (Medrol (Neil)) Allergies Allergy/AdvReac Type Severity Reaction Status Date / Time No Known Drug Allergies Allergy Verified 02/16/23 10:02 Opioid HPI Opioid Management Most Recent Opioid Data: Last Pain Scale 0 05/05/23 07:28 Review of Systems ROS Status of ROS 10 or more systems reviewed and unremarkable except as noted in history and below [facility] Medical History (Updated 01/08/24 @ 14:36 by Jassi Becerril MD) Pneumonia ?J18.9 - Pneumonia, unspecified organism (ICD-10) Right shoulder pain ?M25.511 - Pain in right shoulder (ICD-10) Surgical History (Updated 02/15/23 @ 13:22 by Paty Carter) History of hernia repair ?Z98.890 - Other specified postprocedural states (ICD-10) ?Z87.19 - Personal history of other diseases of the digestive system (ICD-10) History of arthroscopy of right shoulder ?Z98.890 - Other specified postprocedural states (ICD-10) Family History (Updated 05/04/23 @ 00:44 by Serenity Price RN) Father Family history of hypertension Grandfather Family history of myocardial infarction Social History (Updated 05/04/23 @ 00:49 by Serenity Price RN) Within the past year, how often did you have a drink containing alcohol: 2-3 times a week Within the past year, how many standard drinks containing alcohol did you have on a typical day: 3 or 4 Within the past year, how often did you have six or more drinks on one occasion: less than monthly Total score: 3 Score interpretation: A score of 4 or more indicates drinking is likely to affect patient's safety. 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 Known occupational exposures/hazards: Yes Known occupational exposures/hazards details: plastics Highest level of school completed/degree received: high school graduate Are you now , , , , never or living with a partner: never In a typical week, how many times do you talk on the telephone with family, friends, or neighbors: once per week How often do you get together with friends or relatives: twice per week How often do you attend amish or congregational services: never Do you belong to any clubs or organizations such as amish groups unions, fraternal or athletic groups, or school groups: no Total score: 1 Score interpretation: A score of less than or equal to 1 indicates the most socially isolated. Little interest or pleasure in doing things: several days Feeling down, depressed, or hopeless: not at all Feel stressed/tense/nervous/anxious/difficulty sleeping: only a little Life stressor details: health Do you think of yourself as: straight/heterosexual Gender Identity: male Exam Narrative Exam Narrative: VITALS: I have reviewed the triage vital signs. GENERAL: Well developed, well appearing adult in no acute distress. NEURO: Alert and oriented. Moves all extremities. Face is symmetric and expressive. Normal gait. Plantar flexion/dorsiflexion, knee flexion/extension, hip flexion/extension are grossly intact with 5/5 strength. Sensation is intact across the bilateral lower extremities. SPINE: No midline cervical, thoracic, or lumbar tenderness. No step-off or deformities. No paraspinal muscle tenderness or increased tone. EYES: PERRL. No scleral icterus or conjunctival injection. No discharge. HENT: Normocephalic, atraumatic. Hearing is grossly intact. Nares grossly patent and without discharge. Mucous membranes moist. NECK: No JVD. Patient moves neck without restriction. CARDIO: Rhythm regular. Normal rate. No murmur, rub, or gallop. Pulses equal bilaterally in the upper and lower extremity. No lower extremity edema. PULM: Lungs clear to auscultation in all pace. No wheezes, rales, or rhonchi. No conversational dyspnea. No splinting, stridor, or accessory muscle use. GI/: Abdomen is soft and non-tender. Normoactive bowel sounds. No flank tenderness. EXTREMITIES: Symmetric muscle bulk. No joint swelling. No clubbing, cyanosis, or deformity. SKIN: Warm and dry. Normal turgor. No rash or lesions appreciated. PSYCH: Mood, affect, and interaction is appropriate to the setting. Constitutional Vital Signs, click to edit/add: Last Vital Signs Temp 98.9 F 01/08/24 12:08 Pulse 78 01/08/24 14:53 Resp 18 01/08/24 14:53 BP 147/100 H 01/08/24 12:08 Pulse Ox 98 01/08/24 14:53 O2 Del Method Room Air 01/08/24 14:53 Course Vital Signs Vital signs: Vital Signs Temperature 98.9 F 01/08/24 12:08 Pulse Rate 114 H 01/08/24 12:08 Respiratory Rate 18 01/08/24 12:08 Blood Pressure 147/100 H 01/08/24 12:08 Pulse Oximetry 98 01/08/24 12:08 Oxygen Delivery Method Room Air 01/08/24 12:08 Temperature 98.9 F 01/08/24 12:08 Pulse Rate 78 01/08/24 14:53 Respiratory Rate 18 01/08/24 14:53 Blood Pressure 147/100 H 01/08/24 12:08 Pulse Oximetry 98 01/08/24 14:53 Oxygen Delivery Method Room Air 01/08/24 14:53 MDM - Neck Pain/Injury MDM Narrative Medical decision making narrative: 33-year-old male to the emergency department chief complaint of neck pain. Vital stable, the patient is afebrile. There is a palpable click when he rotates his neck. No focal neurologic deficits. Will obtain a CT scan. Patient agrees with this plan. CT scan shows spondylosis at C5-C6 with a bulging disc. This is near the exact level he is experiencing his symptoms. Also explains his radicular symptoms given the right-sided foraminal encroachment. Discussed findings with patient. Will try gabapentin for his neuropathic pain. Prednisone was given. Will follow-up with spine doctor. Return precautions were discussed. All questions were answered. The patient was discharged home. Medical Records Attestation: I reviewed the patient's medical records. Imaging Data CT cervical spine: Attestation: I have reviewed the pertinent imaging results. Radiologist's impression: ITS Impressions Cervical Spine CT 01/08/24 12:24 IMPRESSION: No visualized acute cervical spine abnormality. Mild cervical spondylosis at C5-6 level, as described. MRI cervical spine is recommended for better evaluation if clinically indicated. Straightening of cervical lordosis, may be related to positioning or muscle spasm. Electronically authenticated by: MALCOLM PATTEN Date: 01/08/2024 13:48 Discharge Plan Discharge Stand Alone Forms: Portal Instructions Chief Complaint: Neck Pain/Injury Clinical Impression: Spondylosis of cervical joint Patient Disposition: Home, Self-Care Time of Disposition Decision: 14:36 Condition: Good Prescriptions / Home Meds: New gabapentin 100 mg capsule 100 mg PO .qhs Qty: 14 0RF methylprednisolone [Medrol (Neil)] 4 mg tablets,dose pack 4 mg PO DAILY Qty: 21 0RF Rx Instructions: TAKE PER DOSEPAK INSTRUCTIONS No Action oxycodone-acetaminophen 5-325 mg tablet 1 tab PO Q6H PRN (Reason: pain) Eliquis 5 mg tablet 10 mg PO Q12H Qty: 60 0RF Rx Instructions: take 2 tablets twice a day for 7 days then 1 po BID levofloxacin 750 mg tablet 750 mg PO DAILY 10 Days Qty: 10 0RF tizanidine 4 mg capsule 4 mg PO Q8H PRN (Reason: muscle spasm) Qty: 14 0RF Print Language: Citizen Of [place] Instructions: Osteoarthritis (ED) Additional Instructions: Call the office of your primary care doctor to arrange for follow-up within the above-stated timeframe. Follow-up with your primary care doctor about this ED visit. You should review your labs, imaging, and diagnoses from this ED visit with your primary care physician. There may be non-emergent findings that need further evaluation. If you were prescribed medications you should discuss possible side-effects and drug interactions with your pharmacist. Call 911 or go to the nearest Emergency Department if you develop any new or worsening symptoms. Seek immediate medical attention if you develop: increasing pain, numbness, tingling, weakness, loss of motion in your arms or legs, loss of control of your urine or stool, fever, abdominal pain, chest pain, shortness of breath, or any new or worsening symptoms. Referrals: Jerman Nina MD [Primary Care Provider] - 1 week Kailee Hodgson MD [Physician] - 1 week (Up to discuss your neck pain) Discharge Date/Time: 01/08/24 14:54
== END 2024-01-08 14:54 | disposition home or self-care (01) ==
PROVIDERS: Emergency Provider Student in an Organized Health Care Education/Training Program; PCP Family Medicine
DX: M47.812 Spondylosis without myelopathy or radiculopathy, cervical region (principal)
CPT/HCPCS: 72125; 99284

== ENCOUNTER 2024-01-26 13:58 | Outpatient (OUT) | payer BC, SELFPAY ==
--- NOTE | 2024-01-26 | US_ITS ---
The [address] [address] Patient Name: JENNA ORTIZ MRN: [id number] date: 1990 Sex: M Assigned Patient Location: US Current Patient Location: Accession/Order Number: [id number] Exam Date: 01/26/2024 14:05 Report Date: 01/28/2024 10:32 At the request of: FILI PAGE Procedure: US venous doppler LE RT EXAMINATION: US venous doppler LE RT HISTORY: Deep venous thrombosis right I82.401 COMPARISON: Ultrasound venous Doppler lower extremity right 08/04/2023 FINDINGS: REGION: Right lower extremity THROMBI: None. COMPRESSIBILITY: Normal compressibility. FLOW: Normal waveform and antegrade flow between 5 and 20 cm/s. OTHER: None. US/US venous doppler LE RT IMPRESSION: 1. No deep vein thrombus within the right lower extremity. Electronically authenticated by: BOBBI PILLAI Date: 01/28/2024 10:32
--- OUTSIDE RECORDS SUMMARY | 2024-01-26 14:19 | XMS_ITS | CCD ---
Author Organization [facility] Care Team Providers Care Automation And Control Engineer Name Role Phone Jerman Nina MD Primary Care Provider [phone] BHARATH RAMOS Attending Unavailable BHARATH RAMOS Attending Unavailable BHARATH RAMOS Attending Unavailable BHARATH RAMOS Referring Unavailable BHARATH RAMOS Attending Unavailable BHARATH RAMOS Attending Unavailable BHARATH RAMOS Attending Unavailable BHARATH RAMOS Referring Unavailable BHARATH RAMOS Attending Unavailable MD Jerman Nina Primary Care Provider [phone] MD Ladonna Mejias Attending Provider [phone] Ladonna Mejias Admitting Unavailable Ladonna Mejias Attending Unavailable Jerman Nina Primary Care Unavailable Medications Current Medications Medication Drug Class(es) Dates Sig (Normalized) Sig (Original) apixaban 5 mg oral tablet (5 sources) Factor Xa Inhibitor Start: 11-30-2023 take 1 tablet by mouth twice daily Apixaban (Eliquis) 5 mg tablet Active 5 MG PO Twice daily November 30, 2023 12:00am Start: 05-05-2023 take 2 tablets by mo ut twice daily, then take 1 tablet by mouth twice daily Eliquis 5 MG tablet TAKE 2 TABLETS BY MOUTH TWICE A DAY FOR 7 DAYS THEN 1 TABLET TWICE A DAY 0 05/05/2023 Active Diclofenac (3 sources) Nonsteroidal Anti-inflammatory Drug Start: 11-30-2023 Diclofenac Sodium (Voltaren Arthritis Pain) 1 % gel Active 2 GM TOPICAL Four times daily 100 30 November 30, 2023 12:00am apply to single elbow, wrist or hand; for hand includes palm/fingers/back of hand gabapentin 100 mg oral capsule (1 source) Anti-epileptic Agent Start: 01-12-2024 Gabapentin Active 100 MG PO January 12, 2024 12:00am levoFLOXacin 750 mg oral tablet (2 sources) Quinolone Antimicrobial Start: 05-05-2023 take 1 tablet by mouth once daily levoFLOXacin (Levaquin) 750 MG tablet TAKE 1 TABLET BY MOUTH ONCE EVERYDAY FOR 10 DAYS 0 05/05/2023 Active methylPREDNISolone 4 mg oral tablet (1 source) Corticosteroid Start: 01-12-2024 Methylprednisolone Active 4 MG PO January 12, 2024 12:00am tiZANidine 4 mg oral capsule (2 sources) Central alpha-2 Adrenergic Agonist Start: 05-05-2023 take 1 capsule by mouth every eight hours as needed for muscle spasms tiZANidine (Zanaflex) 4 MG capsule TAKE 1 CAPSULE BY MOUTH EVERY 8 HOURS NEEDED FOR MUSCLE SPASM 0 05/05/2023 Active Problems Problem Classification Problem Date Documented Date Episodic/Chronic Other connective tissue disease (3 sources) Laxity of ligament; Translations: [Disorder of ligament, unspecified site] 11-30-2023 Episodic Other connective tissue disease (4 sources) Disorder of ligament, unspecified site; Translations: [Laxity of ligament] 11-30-2023 Episodic Other non-traumatic joint disorders (2 sources) Pain in right shoulder; Translations: [Pain in joint, shoulder region] 08-25-2023 Episodic Other non-traumatic joint disorders (6 sources) Pain in wrist; Translations: [Pain in right wrist] 11-30-2023 Episodic Other non-traumatic joint disorders (5 sources) Pain in left wrist; Translations: [Pain in joint, forearm] Onset: 11-30-2023 11-30-2023 Episodic Other non-traumatic joint disorders (4 sources) Pain in right wrist; Translations: [Pain in joint, forearm] 11-30-2023 Episodic Other non-traumatic joint disorders (1 source) Wrist joint unstable; Translations: [Other instability, unspecified wrist] 01-12-2024 Episodic Residual codes; unclassified (2 sources) History of arthroscopic procedure on shoulder; Translations: [Other specified postprocedural states] 08-25-2023 Episodic Results Test Name Value Interpretation Reference Range Facil ity XR wrist min BI 3Von 024 XR wrist min BI 3V [facility] [address] [place] [address] XRay Report Signed Patient: Jayce Chambers MR#: [id number] 8 : 1990 Acct:[id number] Age/Sex: 33 / M ADM Date: 11/30/23 Loc: [facility] Room: Type: [facility] Attending Dr: Ladonna Mejias MD Copies to: [...] Wilmer Patel M.D.11/30/2023 4:52 PM Dictation Location: [place] [address] Transcribed By: [facility] 11/30/23 1652 Dictated By: Wilmer Patel DO 11/30/23 165 Signed By: 11/30/23 1652 Normal [facility] Physician [facility] Encounters Encounter Date Encounter Type Care Provider Facility Start: 01-12-2024 End: 01-12-2024 ambulatory MD Jerman Nina Work Phone: [facility] Work Phone: Start: 01-12-2024 End: 01-12-2024 Patient encounter procedure MD Jerman Nina Work Phone: [facility] Work Phone: Start: 11-30-2023 End: 11-30-2023 ambulatory Ladonna Mejias Facility:[facility] Start: 11-30-2023 End: 11-30-2023 ambulatory MD Jerman Nina Work Phone: [facility] Work Phone: Start: 11-30-2023 End: 11-30-2023 Patient encounter procedure MD Jerman Nina Work Phone: [facility] Work Phone: Start: 09-27-2023 End: 09-27-2023 ambulatory BHARATH RAMOS Not Available Start: 08-27-2023 End: 08-27-2023 ambulatory BHARATH RAMOS Not Available Start: 08-27-2023 End: 08-27-2023 Office outpatient visit 10 minutes Bharath BORJAS Work Phone: [facility] Comment on above: S/P arthroscopy of [...] bilateral wrists XR wrist min BI 3V [facility] Start: 11-30-2023 XR Wrist - bilateral GE 3 Views [facility] Start: 09-27-2023 End: 09-27-2023 Patient encounter procedure 09/27/2023 3:30 PM EST Office Visit [facility] [address] [place] [address] Bharath Ramos PA [address] [place] [address] [facility] MR Wrist - left Arthrogram [facility] MR Wrist - right Arthrogram [facility] Payers Date Payer Category Payer Self-pay [id number] 2017 Unknown BCBS BCBS xxxxxx [id number] 2017-Present [phone] [address] [place] [address] [id number] 2017 Unknown [id number] 1990 Unknown [id number] 1988 Unknown [id number] 1988 Unknown [id number] 1988 Unknown [id number] 1988 Unknown [id number] 1988 Unknown [id number] 1988 Unknown [id number] 1988 Unknown [id number] [id number] 1988 Unknown [id number] Unknown [id number] Social History Date Type Detail Facility Start: 04-01-2023 Tobacco smoking stat [facility] Occasional tobacco smoker [facility] [...] Start: 1990 Sex Assigned At Male [facility] Start: 01-11-2023 Gender identity Identifies as male gender (finding) [facility] Start: 01-11-2023 Sexual orientation Heterosexual (willy porter) [facility] History of Present illness Narrative 08-27-2023 SUAD Sotomayor - 08/27/2023 10:00 AM EST Note Date & Type Note Facility 08-27-2023 History of Presen t illness Narrative Images from the original note were not included. HISTORY OF PRESENT ILLNESS: EST PT Jayce Chambers is an 33 y.o. @ male. (EST PT) S/P (R) SHOULDER SCOPE 04/27/23 (17WKS 3DAYS) ; CONTINUES PT B/L SHOULDERS @ [facility]; CONTINUES TO STRUGGLE WITH STRENGTH-PT NOTES PAIN LATERAL/TOP SHOULDER ON THE RT XRAY RT ELBOW CHANGE 08/13/23 S/P (R) LE VENOUS DOPPLER 05/03/23 @ [facility] S/P PREDNISONE 06/21/23 (GIVEN FOR (L) WRIST PAIN) CONTINUES PHYSICAL THERAPY @ [facility] PT NOTES PAIN LATERAL/TOP SHOULDER PAIN [...] test: negative Carter test: negative Biceps/kole Signs [place]'s test: negative Clicking/popping: positive Speed's test: negative AC Joint Signs Active horizontal adduction pain: negative Left Biceps/kole Signs [place]'s test: negative Clicking/popping: positive Instability Signs Anterior [...] evaluation. SUAD Sotomayor documented in this encounter [facility] Healthcare Evaluation note Note Date & Type Note Facility Evaluation note Diagnosis S/P arthroscopy of right shoulder- Primary Acute pain of right shoulder documented in this encounter [facility] Healthcare Evaluation note Note Date & Type Note Facility Evaluation note Diagnosis Onset Date Left wrist pain acute Ligament laxity acute Right wrist pain acute [facility] Work Phone: Evaluation note Note Date & Type Note Facility Evaluation note Diagnosis Onset Date Left wrist pain acute Ligament laxity acute Right wrist pain acute Left wrist pain acute Ligament laxity acute Right wrist pain [facility] Work Phone: Summary Purpose Family History No Family History Records FoundNo Family History Records Found Advance Directives Advance Directive Response Recorded Date/ Time Advance Directives No August 17, 2023 12:19pm Chief Complaint and Reason for Visit Chief Complaint CONSULT BHARATH ZUÑIGA Lali BILAT WRIST PAIN MRI [facility] M25.532 - Pain in left wrist Reason for Visit Left wrist pain Ligament laxity Right wrist pain Chief Complaint CONSULT BHARATH Escalera BILAT WRIST PAIN MRI [facility] M25.532 - Pain in left wrist 6 WEEKS Reason for Visit Left wrist pain Ligament laxity Right wrist pain Left wrist pain Ligament laxity Right wrist pain Additional Source Comments Reason for Visit (unrecogniz ed section and content) Reason Comments Pain Care Teams (unrecognized sec tion and content) Automation And Control Engineer Relationship Specialty Start Date End Date Jerman Nina MD [address] [place] [phone] PCP - General Family Medicine 01/18/23 Team [...] Attending Provider Active Start: November 30, 2023 Team Status: Inactive Member Role Status Dates Jerman Nina MD Primary Care Provider Active Start: January 12, 2024 End: January 12, 2024 Ladonna Mejias MD Attending Provider Active Start: January 12, 2024 End: January 12, 2024 (unrecognized sect ion and content) No Status Records FoundNo Status Records Found INFORMATION SOURCE (unrecogn ized section and content) DATE CREATED AUTHOR 09/28/2023 [facility] EPIC DATE CREATED AUTHOR AUTHOR'S ORGANIZ ATION 12/12/2023 [facility] Goals (unrecognized section and content) Goals may be documented in a n alternate sectionGoals may be documented in an alternate sectionGoals may be documented in an [...] BE BASED ON THE PRIMARY CLINICAL RECORDS. [employer] provides no warranty or guarantee of the accuracy or completeness of information in this document.
== END 2024-01-26 13:59 | disposition home or self-care (01) ==
LOC: US 13:58
PROVIDERS: PCP Family Medicine; Visit Provider Family Medicine
DX: M47.812 Spondylosis without myelopathy or radiculopathy, cervical region (principal); I82.401 Acute embolism and thrombosis of unspecified deep veins of right lower extremity
CPT/HCPCS: 93971

== ENCOUNTER 2024-02-01 09:48 | Outpatient (OUT) | payer BC, SELFPAY ==
--- NOTE | 2024-02-01 09:52 | MR_ITS ---
The [address] [address] Patient Name: JENNA ORTIZ MRN: [id number] date: 1990 Sex: M Assigned Patient Location: MRI Current Patient Location: MRI Accession/Order Number: [id number] Exam Date: 02/01/2024 10:04 Report Date: 02/01/2024 16:09 At the request of: FILI PAGE Procedure: MR cervical spine wo con EXAMINATION: MR cervical spine wo con HISTORY: Cervical Spondylosis COMPARISON: 01/08/2024 TECHNIQUE: A variety of imaging planes and parameters were utilized for visualization of suspected pathology. FINDINGS: CRANIOCERVICAL AREA: Normal foramen magnum with no Chiari malformation. PARASPINAL AREA: Normal with no visible mass. BONES: Normal alignment with no acute fracture or spondylolisthesis. No significant degenerative spondylosis or facet osteoarthropathy CORD: Normal caliber, contour, and signal intensity. CERVICAL DISC LEVELS: C2-C3: No significant disc/facet abnormality, spinal stenosis, or foraminal stenosis. C3-C4: No significant disc/facet abnormality, spinal stenosis, or foraminal stenosis. C4-C5: No significant disc/facet abnormality, spinal stenosis, or foraminal stenosis. C5-C6: No disc space narrowing. Minimal posterior degenerative spondylosis. No central or foraminal stenosis C6-C7: No significant disc/facet abnormality, spinal stenosis, or foraminal stenosis. C7-T1:. No significant disc/facet abnormality, spinal stenosis, or foraminal stenosis. MR/MR cervical spine wo con IMPRESSION: Minimal spondylosis C5-C6 No central or foraminal stenosis Electronically authenticated by: NENA IQBAL Date: 02/01/2024 16:09
== END 2024-02-01 09:49 | disposition home or self-care (01) ==
LOC: MRI 09:48
PROVIDERS: PCP Family Medicine; Visit Provider Family Medicine
DX: M47.812 Spondylosis without myelopathy or radiculopathy, cervical region (principal); I82.401 Acute embolism and thrombosis of unspecified deep veins of right lower extremity
CPT/HCPCS: 72141

== ENCOUNTER 2024-02-11 10:28 | Outpatient (OUT) | payer BC, SELFPAY ==
--- NOTE | 2024-02-11 | XR_ITS ---
The [address] [address] Patient Name: JENNA ORTIZ MRN: [id number] date: 1990 Sex: M Assigned Patient Location: Current Patient Location: Accession/Order Number: [id number] Exam Date: 02/11/2024 10:30 Report Date: 02/14/2024 11:07 At the request of: RADHA LIN Procedure: XR cervical spine 5V EXAMINATION: XR cervical spine 5V HISTORY: CERVICAL SPINE PAIN COMPARISON: No relevant comparison available. FINDINGS: BONES: Normal. No significant spondylosis, scoliosis, fracture, or visible bony lesion. DISC SPACES: Normal. No significant disc height narrowing, subluxation, or endplate abnormality. PARASPINOUS: Negative. No paraspinous abnormality is seen. OTHER: No transient spondylolisthesis with flexion or extension C7 is not seen XR/XR cervical spine 5V IMPRESSION: No acute abnormality or dynamic instability Electronically authenticated by: NENA IQBAL Date: 02/14/2024 11:07
--- OUTSIDE RECORDS SUMMARY | 2024-02-11 10:41 | XMS_ITS | CCD ---
Author Organization [facility] Care Team Providers Care Paper Supervisor Name Role Phone Jerman Nina MD Primary Care Provider [phone] BHARATH RAMOS Attending Unavailable BHARATH RAMOS Attending Unavailable BHARATH RAMOS Attending Unavailable BHARATH RAMOS Referring Unavailable BHARATH RAMOS Attending Unavailable BHARATH RAMOS Attending Unavailable BHARATH RAMOS Attending Unavailable BHARATH RAMOS Referring Unavailable BHARATH RAMOS Attending Unavailable MD Jerman Nina Primary Care Provider [phone] MD Ladonna Mejias Attending Provider Ladonna Mejias Admitting Unavailable Ladonna Mejias Attending [...] 3Von 024 XR wrist min BI 3V [facility] [address] [place] [address] XRay Report Signed Patient: Jayce Chambers MR#: [id number] 8 : 1990 Acct:[id number] Age/Sex: 33 / M ADM Date: 11/30/23 Loc: SOXD Room: Type: [facility] Attending Dr: Ladonna Mejias MD [...] Wilmer Patel M.D.11/30/2023 4:52 PM Dictation Location: [place] [address] Transcribed By: [facility] 11/30/23 1652 Dictated By: Wilmer Patel DO 11/30/23 165 Signed By: 11/30/23 1652 Normal [facility] Physician [facility] Encounters Encounter Date Encounter Type Care Provider Facility Start: 01-12-2024 End: 01-12-2024 ambulatory MD Jerman Nina Work Phone: [facility] Work Phone: Start: 01-12-2024 End: 01-12-2024 Patient encounter procedure MD Jerman Nina Work Phone: [facility] Work Phone: Start: 11-30-2023 End: 11-30-2023 ambulatory Ladonna Mejias Facility:[facility] Start: 11-30-2023 End: 11-30-2023 ambulatory MD Jerman Nina Work Phone: [facility] Work Phone: Start: 11-30-2023 End: 11-30-2023 Patient encounter procedure MD Jerman Nina Work Phone: [facility] Work Phone: Start: 09-27-2023 End: 09-27-2023 [...] bilateral wrists XR wrist min BI 3V [facility] Start: 11-30-2023 XR Wrist - bilateral GE 3 Views [facility] Start: 09-27-2023 End: 09-27-2023 Patient encounter procedure 09/27/2023 3:30 PM EST Office Visit [facility] [address] [place] [address] Bharath Ramos PA [address] [place] [address] [facility] MR Wrist - left Arthrogram [facility] MR Wrist - right Arthrogram [facility] Payers Date Payer Category Payer Self-pay [id number] 2017 Unknown BCBS BCBS xxxxxx [id number] 2017-Present [phone] [address] [place] [address] [id number] 2017 Unknown [id number] 1988 Unknown [id number] [id number] 1988 Unknown [id number] 2.16.840.1.860975.3.579.2.1259 1988 Unknown [id number] 2.16.840.1.343896.3.579.2.1259 1988 Unknown [id number] 2.16.840.1.183290.3.579.2.1259 1988 Unknown [id number] 2.16.840.1.923260.3.579.2.1259 1988 Unknown [id number] 2.16.840.1.788702.3.579.2.1259 1988 Unknown [id number] 2.16.840.1.936024.3.579.2.1259 1988 Unknown [id number] 2.16.840.1.567176.3.579.2.1259 1988 Unknown [id number] 2.16.840.1.189233.3.579.2.1259 Unknown [id number] 2.16.840.1.850065.3.579.2.531 Social History Date Type Detail Facility Start: 04-01-2023 Tobacco smoking stat [facility] Occasional tobacco smoker [facility] Start: [...] Start: 1990 Sex Assigned At Male N [facility] Start: 01-11-2023 Gender identity Identifies as male gender (finding) [facility] Start: 01-11-2023 Sexual orientation Heterosexual (willy porter) [facility] History of Present illness Narrative 08-27-2023 SUAD Sotomayor - 08/27/2023 10:00 AM EST Note Date & Type Note Facility 08-27-2023 History of Presen t illness Narrative Images from the original note were not included. HISTORY OF PRESENT ILLNESS: EST PT Jayce Chambers is an 33 y.o. @ male. (EST PT) S/P (R) SHOULDER SCOPE 04/27/23 (17WKS 3DAYS) ; CONTINUES PT B/L SHOULDERS @ [facility]; CONTINUES TO STRUGGLE WITH STRENGTH-PT NOTES PAIN LATERAL/TOP SHOULDER ON THE RT XRAY RT ELBOW CHANGE 08/13/23 S/P (R) LE VENOUS DOPPLER 05/03/23 @ [facility] S/P PREDNISONE 06/21/23 (GIVEN FOR (L) WRIST PAIN) CONTINUES PHYSICAL THERAPY @ [facility] PT NOTES PAIN LATERAL/TOP SHOULDER PAIN [...] test: negative Carter test: negative Biceps/kole Signs Fulton's test: negative Clicking/popping: positive Speed's test: negative AC Joint Signs Active horizontal adduction pain: negative Left Biceps/kole Signs Fulton's test: negative Clicking/popping: positive Instability Signs Anterior [...] evaluation. SUAD Sotomayor documented in this encounter [facility] Healthcare Evaluation note Note Date & Type Note Facility Evaluation note Diagnosis S/P arthroscopy of right shoulder- Primary Acute pain of right shoulder documented in this encounter [facility] Healthcare Evaluation note Note Date & Type Note Facility Evaluation note Diagnosis Onset Date Left wrist pain acute Ligament laxity acute Right wrist pain acute [facility] Work Phone: Evaluation note Note Date & Type Note Facility Evaluation note Diagnosis Onset Date Left wrist pain acute Ligament laxity acute Right wrist pain acute Left wrist pain acute Ligament laxity acute Right wrist pain [facility] Work Phone: Summary Purpose Family History No Family History Records FoundNo Family History Records Found Advance Directives Advance Directive Response Recorded Date/ Time Advance Directives No August 17, 2023 12:19pm Chief Complaint and Reason for Visit Chief Complaint CONSULT BHARATH ZUÑIGA Lali BILAT WRIST PAIN MRI [facility] M25.532 - Pain in left wrist Reason for Visit Left wrist pain Ligament laxity Right wrist pain Chief Complaint CONSULT BHARATH Escalera BILAT WRIST PAIN MRI [facility] M25.532 - Pain in left wrist 6 WEEKS Reason for Visit Left wrist pain Ligament laxity Right wrist pain Left wrist pain Ligament laxity Right wrist pain Additional Source Comments Reason for Visit (unrecogniz ed section and content) Reason Comments Pain Care Teams (unrecognized sec tion and content) Paper Supervisor Relationship Specialty Start Date End Date Jerman Nina MD [address] [place] [phone] PCP - General Family Medicine 01/18/23 Team [...] section and content) DATE CREATED AUTHOR 09/28/2023 [facility] d[facility] Specialists EPIC DATE CREATED AUTHOR AUTHOR'S ORGANIZ ATION 12/12/2023 [facility] ysician Group Goals (unrecognized section and content) [...] BE BASED ON THE PRIMARY CLINICAL RECORDS. [employer] provides no warranty or guarantee of the accuracy or completeness of information in this document.
== END 2024-02-11 10:29 | disposition home or self-care (01) ==
LOC: EC 10:28
PROVIDERS: PCP Family Medicine; Visit Provider Orthopaedic Surgery Orthopaedic Surgery of the Spine
DX: M54.2 Cervicalgia (principal)
CPT/HCPCS: 72050

== ENCOUNTER 2024-02-20 12:11 | Emergency (ER) | payer BC, SELFPAY ==
[2024-02-20 12:17] VITALS: BP 139/93; PULSE 86; TEMP 37.1; O2SAT 95; BMI 38.0
--- OUTSIDE RECORDS SUMMARY | 2024-02-20 12:17 | XMS_ITS | CCD ---
Author Organization [facility] Care Team Providers Care Strawhat Inspector And Packer Name Role Phone Jerman Nina MD Primary Care Provider [phone] BHARATH RAMOS Attending Unavailable BHARATH RAMOS Attending Unavailable BHARATH RAMOS Attending Unavailable BHARATH RAMOS Referring Unavailable BHARATH RAMOS Attending Unavailable BHARATH RAMOS Attending Unavailable BHARATH RAMOS Attending Unavailable BHARATH RAMOS Referring Unavailable BHARATH RAMOS Attending Unavailable MD Jerman Nina Primary Care Provider [phone] MD Ladonna Mejias Attending Provider [phone] Ladonna Mejias Admitting Unavailable Ladonna Mejias Attending Unavailable Jerman Nina Primary Care Unavailable Ladonna Mejias Admitting Unavailable Ladonna Mejias Attending [...] 12:00am Start: 05-05-2023 take 2 tablets by [facility] twice daily, then take 1 tablet by [...] site] 11-30-2023 Episodic Other connective tissue disease (5 sources) Disorder of ligament, unspecified site; Translations: [Laxity of ligament] Onset: 02-09-2024 11-30-2023 Episodic Other non-traumatic joint disorders (2 [...] Translations: [Other instability, unspecified wrist] 01-12-2024 Episodic Other non-traumatic joint disorders (1 source) Other instability, unspecified wrist; Translations: [Other instability, unspecified wrist] Onset: 02-09-2024 Episodic Residual codes; unclassified (2 sources) History of arthroscopic procedure on shoulder; Translations: [Other specified postprocedural states] 08-25-2023 Episodic Results Test Name Value Interpretation Reference Range Facil ity XR wrist LT 2Von 02-09-2024 XR wrist LT 2V [facility] [place] [address] [place] [address] MRI Report Signed Patient: Jayce Chambers MR#: [id number] 8 : 1990 Acct:[id number] Age/Sex: 33 / M ADM Date: 02/09/24 Loc: Room: Type: [facility] Attending Dr: Ladonna Mejias MD Copies to: Ladonna Mejias MD Ordering Provider: Ladonna Mejias MD Date of Service: 02/09/24 MR/MR wrist LT arthrogram w con: Eval for ligament damage ([id number]) FL/FL guided needle placement: M24.20, M25.532, M25,339 ([id number]) XR/XR wrist LT 2V: M24.20, M25.532, M25.339 Fluoroscopic guided needle placement into the left radiocarpal joint space HISTORY: History of left wrist pain with instability. 11 image was obtained. Cumulative Air Kerma in mGy: 1.57 mGy Informed consent obtained. Skin entry site prepped and draped in sterile fashion. The left wrist was placed on table with extension. The skin entry site was identified fluoroscopically. Skin surface marked. 25-gauge butterfly needle administered into the intercarpal joint space. Contrast identified within the radiocarpal space. Dorsal extravasation identified. No communication within the scapholunate or lunate triquetral spaces. No contrast identified in the distal radioulnar articulation fluoroscopically. IJ contrast initially used for administration and localization. A diluted gadolinium was administered for MRI arthrogram MR/MR wrist LT arthrogram w con IMPRESSION: Successful fluoroscopic guided left wrist arthrogram for MRI MRI of the leftwrist with intra-articular contrast Routine technique HISTORY:As above COMPARISON:None FINDINGS: Distal radial ulnar joint:Fluid identified within the distal radioulnar articulation. Potential perforation of the cartilage at near the sigmoid notch. Ulnar foveal attachment intact. TFCC:Potential microperforation near the sigmoid notch. Radiocarpal joint:Intact Midcarpal joints:Intact Tendons:Intact Ligaments:Scapholunate and lunatotriquetral intact. Carpal tunnel:Unremarkable Soft tissue:Dorsal soft tissue extravasation. IMPRESSION:Findings concerning for microperforation of the triangular fibrocartilage near the sigmoid notch of the radius. Moderate distal radioulnar joint effusion. Intact scapholunate and lunatotriquetral ligaments. No tendinopathy. Impression dictated by: Wilmer Patel M.D.02/09/2024 4:52 PM Dictation Location: [facility]08 Transcribed By: [facility] 02/09/241651 Dictated By: Wilmer Patel DO 02/09/241633 Signed By: 02/09/241651 Normal [facility] XR wrist min BI 3Von 024 XR wrist min BI 3V [facility] [address] [place] [address] XRay Report Signed Patient: Jayce Chambers MR#: [id number] 8 : 1990 Acct:[id number] Age/Sex: 33 / M ADM Date: 11/30/23 Loc: [facility] Room: Type: [facility] Attending Dr: Ladonna Mejias MD Copies [...] Wilmer Patel M.D.11/30/2023 4:52 PM Dictation Location: [facility]01 Transcribed By: [facility] 11/30/231651 Dictated By: Wilmer Patel DO 11/30/231650 Signed By: 11/30/231651 Normal [facility] Physician [facility] Encounters Encounter Date Encounter Type Care Provider Facility Start: 02-09-2024 End: 02-09-2024 ambulatory Ladonna Mejias Facility:[facility] Start: 01-12-2024 End: 01-12-2024 ambulatory MD Jerman Nina Work Phone: [facility] Work Phone: Start: 01-12-2024 End: 01-12-2024 Patient encounter procedure MD Jerman Nina Work Phone: [facility] Work Phone: Start: 11-30-2023 End: 11-30-2023 ambulatory MD Jerman Nina Work Phone: [facility] Work Phone: Start: 11-30-2023 End: 11-30-2023 Patient encounter procedure MD Jerman Nina Work Phone: [facility] Work Phone: Start: 09-27-2023 End: 09-27-2023 ambulatory BHARATH RAMOS Not Available Start: 08-27-2023 End: 08-27-2023 ambulatory BHARATH RAMOS Not Available Start: 08-27-2023 End: 08-27-2023 Office outpatient visit 10 minutes Bharath Ramos PA Work Phone: [facility] Comment on above: S/P arthroscopy of r ight shoulder (Primary Dx); Acute pain of right shoulder Start: 08-13-2023 End: 08-14-2023 ambulatory BHARATH RAMOS Not Available Start: 07-23-2023 End: 07-23-2023 ambulatory BHARATH RAMOS Not Available Start: 07-05-2023 End: 07-05-2023 ambulatory BHARATH RAMOS Not Available Start: 06-21-2023 End: 06-21-2023 ambulatory BHARAHT RAMOS Not Available Start: 06-07-2023 End: 06-08-2023 ambulatory BHARATH RAMOS Not Available Procedures Date Procedure Procedure Detail Performing Clinician Start: 11-30-2023 Plain X-ray of bilat eral wrists MD Jerman Nina Work Phone: Plan of Treatment Date Care Activity Detail Author Start: 11-30-2023 Plain X-ray of bilateral wrists XR wrist min BI 3V [facility] Start: 11-30-2023 XR Wrist - bilateral GE 3 Views [facility] Start: 09-27-2023 End: 09-27-2023 Patient encounter procedure 09/27/2023 3:30 PM EST Office Visit [facility] [address] [facility] [address] [place] [address] Bharath Ramos PA [address] [facility] [address] [place] [address] [facility] MR Wrist - left Arthrogram [facility] MR Wrist - right Arthrogram [facility] Payers Date Payer Category Payer Self-pay [id number] 2017 Unknown BCBS BCBS xxxxxx [id number] 2017-Present [phone] [address] [place] [address] [id number] 2017 Unknown [id number] 1990 Unknown [id number] 2.16.840.1.696955.3.579.2.1259 1988 Unknown [id number] 2.16.840.1.458876.3.579.2.9 1988 Unknown [id number] 2.16.840.1.454143.3.579.2.1259 1988 Unknown [id number] 2.16.840.1.454165.3.579.2.1259 1988 Unknown [id number] 2.16.840.1.362436.3.579.2.9 1988 Unknown [id number] 2.16.840.1.636658.3.579.2.1259 1988 Unknown [id number] 2.16.840.1.150109.3.579.2.1259 1988 Unknown [id number] 2.16.840.1.310516.3.579.2.1259 1988 Unknown [id number] 2.16.840.1.068712.3.579.2.1259 Unknown [id number] 2.16.840.1.592898.3.579.2.531 Unknown [id number] 2.16.840.1.869671.3.579.2.531 Social History Date Type Detail Facility Start: 04-01-2023 Tobacco smoking stat [facility] Occasional tobacco smoker [facility] Start: 04-01-2023 [...] Start: 01-11-2023 Sexual orientation Heterosexual (fin ding) [facility] History of Present illness Narrative 08-27-2023 Bharath Ramos, SUAD - 08/27/2023 10:00 AM EST Note Date & Type Note Facility 08-27-2023 History of Presen t illness Narrative Images from the original note were not included. HISTORY OF PRESENT ILLNESS: EST PT Jayce Chambers is an 33 y.o. @ male. (EST PT) S/P (R) SHOULDER SCOPE 04/27/23 (17WKS 3DAYS) ; CONTINUES PT B/L SHOULDERS @ [facility]; CONTINUES TO STRUGGLE WITH STRENGTH-PT NOTES PAIN LATERAL/TOP SHOULDER ON THE RT XRAY RT ELBOW CHANGE 08/13/23 S/P (R) LE VENOUS DOPPLER 05/03/23 @ [facility] S/P PREDNISONE 06/21/23 (GIVEN FOR (L) WRIST PAIN) CONTINUES PHYSICAL THERAPY @ [facility] PT NOTES PAIN LATERAL/TOP SHOULDER PAIN ON [...] test: negative Carter test: negative Biceps/kole Signs Yeso's test: negative Clicking/popping: positive Speed's test: negative AC Joint Signs Active horizontal adduction pain: negative Left Biceps/kole Signs Yeso's test: negative Clicking/popping: positive Instability Signs Anterior [...] evaluation. SUAD Sotomayor documented in this encounter [facility] Healthcare Evaluation note Note Date & Type Note Facility Evaluation note Diagnosis S/P arthroscopy of right shoulder- Primary Acute pain of right shoulder documented in this encounter [facility] Healthcare Evaluation note Note Date & Type Note Facility Evaluation note Diagnosis Onset Date Left wrist pain acute Ligament laxity acute Right wrist pain acute [facility] Work Phone: Evaluation note Note Date & Type Note Facility Evaluation note Diagnosis Onset Date Left wrist pain acute Ligament laxity acute Right wrist pain acute Left wrist pain acute Ligament laxity acute Right wrist pain acute [facility] Work Phone: Summary Purpose Family History No Family History Records FoundNo Family History Records Found Advance Directives No Advanced Directives Records Found Advance Directive Response Recorded Date/ Time Advance Directives No August 17, 2023 12:19pm Chief Complaint and Reason for Visit Chief Complaint CONSULT BHARATH Escalera BILAT WRIST PAIN MRI [facility] M25.532 - Pain in left wrist Reason for Visit Left wrist pain Ligament laxity Right wrist pain Chief Complaint CONSULT BHARATH Escalera BILAT WRIST PAIN MRI [facility] M25.532 - Pain in left wrist 6 WEEKS Reason for Visit Left wrist pain Ligament laxity Right wrist pain Left wrist pain Ligament laxity Right wrist pain Additional Source Comments Reason for Visit (unrecogniz ed section and content) Reason Comments Pain Care Teams (unrecognized sec tion and content) Strawhat Inspector And Packer Relationship Specialty Start Date End Date Jerman Nina MD [address] [place] [address] PCP - General Family Medicine 01/18/23 Team Status: Active Member Role Status Doroteo Nina MD Primary Care Provider Active Team Status: Inactive Member Role Status Doroteo Nina MD Primary Care Provider Active Start: November 30, 2023 End: November 30, 2023 Ladonna Mejias MD Attending Provider Active Start: November 30, 2023 End: November 30, 2023 Team Status: Active Member Role Status Doroteo Nina MD Primary Care Provider Active Start: November 30, 2023 Ladonna Mejias MD Attending Provider Active Start: November 30, 2023 Team Status: Inactive Member Role Status Doroteo Nina MD Primary Care Provider Active Start: January 12, 2024 End: January 12, 2024 Ladonna Mejias MD Attending Provider Active Start: January 12, 2024 End: January 12, 2024 (unrecognized sect ion and content) No Status Records FoundNo Status Records Found INFORMATION SOURCE (unrecogn ized section and content) DATE CREATED AUTHOR 09/28/2023 [facility] DATE CREATED AUTHOR AUTHOR'S ORGANIZ ATION 02/13/2024 [facility] Goals (unrecognized section and [...] ON THE PRIMARY CLINICAL RECORDS. [facility] [employer] [facility]. provides no warranty or guarantee of the accuracy or completeness of information in this document.
--- NOTE | 2024-02-20 12:36 | ED.EYEPROB1 ---
HPI - Eye Problem General Chief complaint: Eye Problems Stated complaint: RT EYE PAIN Time Seen by Provider: 02/20/24 12:17 Mode of arrival: walk-in History of Present Illness HPI Narrative: 33-year-old male presents to the emergency department for right eye discomfort. He states he thinks something went into his eye last night. He flushed it last night and then today but he still has that sensation. He does not know what the item was, [place] No symptoms in the left eye. Related Data Previous Rx's ?Medication ?Instructions ?Recorded sulfacetamide sodium 10 % eye drops 2 drp ophthalmic (eye) Q4H #15 mL 02/20/24 Allergies Allergy/AdvReac Type Severity Reaction Status Date / Time No Known Drug Allergies Allergy Verified 02/16/23 10:02 Review of Systems ROS Narrative A ten point review of systems is negative except as noted above. [facility] History (Updated 02/20/24 @ 12:35 by Sharath Urbano MD) Pneumonia ?J18.9 - Pneumonia, unspecified organism (ICD-10) Right shoulder pain ?M25.511 - Pain in right shoulder (ICD-10) Surgical History (Updated 02/15/23 @ 13:22 by Paty Carter) History of hernia repair ?Z98.890 - Other specified postprocedural states (ICD-10) ?Z87.19 - Personal history of other diseases of the digestive system (ICD-10) History of arthroscopy of right shoulder ?Z98.890 - Other specified postprocedural states (ICD-10) Family History (Updated 05/04/23 @ 00:44 by Serenity Price RN) Father Family history of hypertension Grandfather Family history of myocardial infarction Social History (Updated 05/04/23 @ 00:49 by Serenity Price RN) Within the past year, how often did you have a drink containing alcohol: 2-3 times a week Within the past year, how many standard drinks containing alcohol did you have on a typical day: 3 or 4 Within the past year, how often did you have six or more drinks on one occasion: less than monthly Total score: 3 Score interpretation: A score of 4 or more indicates drinking is likely to affect patient's safety. 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 Known occupational exposures/hazards: Yes Known occupational exposures/hazards details: plastics Highest level of school completed/degree received: high school graduate Are you now , , , , never or living with a partner: never In a typical week, how many times do you talk on the telephone with family, friends, or neighbors: once per week How often do you get together with friends or relatives: twice per week How often do you attend moravian or sikhism services: never Do you belong to any clubs or organizations such as moravian groups unions, [email or web address] or athletic groups, or school groups: no Total score: 1 Score interpretation: A score of less than or equal to 1 indicates the most socially isolated. Little interest or pleasure in doing things: several days Feeling down, depressed, or hopeless: not at all Feel stressed/tense/nervous/anxious/difficulty sleeping: only a little Life stressor details: health Do you think of yourself as: straight/heterosexual Gender Identity: male Exam Narrative Exam Narrative: Nurses note and vital signs reviewed and patient is not hypoxic. General: The patient appears well and in no apparent distress. Patient is resting comfortably on cart. Skin: Warm, dry, no pallor noted. There is no rash noted. Head: Normocephalic, atraumatic Eye: Left eye is normal. The right conjunctiva is mildly injected. Lid eversion and examination of the eyes shows no foreign body. Fluorescein staining and Mike lamp examination shows a corneal abrasion at the 9 o'clock position on the periphery. Ears, Nose, Mouth, and Throat: oral mucosa is moist. Nares patent. Cardiovascular: Regular Rate and Rhythm Respiratory: Patient is in no distress, no accessory muscle use, lungs are clear to auscultation, no wheezing, rales or rhonchi Back: non-tender GI: Soft and nontender Musculoskeletal: The patient has no evidence of calf tenderness, no pitting edema, symmetrical pulses noted bilaterally Neurological: A&O, normal speech Psychiatric: Cooperative Constitutional Vital Signs, click to edit/add: Last Vital Signs Temp 98.8 F 02/20/24 12:17 Pulse 86 02/20/24 12:17 Resp 16 02/20/24 12:17 BP 139/93 H 02/20/24 12:17 Pulse Ox 95 02/20/24 12:17 O2 Del Method Room Air 02/20/24 12:17 Course Vital Signs Vital signs: Vital Signs Temperature 98.8 F 02/20/24 12:17 Pulse Rate 86 02/20/24 12:17 Respiratory Rate 16 02/20/24 12:17 Blood Pressure 139/93 H 02/20/24 12:17 Pulse Oximetry 95 02/20/24 12:17 Oxygen Delivery Method Room Air 02/20/24 12:17 Temperature 98.8 F 02/20/24 12:17 Pulse Rate 86 02/20/24 12:17 Respiratory Rate 16 02/20/24 12:17 Blood Pressure 139/93 H 02/20/24 12:17 Pulse Oximetry 95 02/20/24 12:17 Oxygen Delivery Method Room Air 02/20/24 12:17 MDM - Eye Problem MDM Narrative Medical decision making narrative: Corneal abrasion is identified and tetanus status is updated. There is no foreign body noted. Treatment diagnosis and follow-up were discussed with the patient. Differential Diagnosis Differential diagnosis: Likely corneal abrasion, conjunctivitis, acute iritis and subconjunctival hemorrhage Discharge Plan Discharge Stand Alone Forms: Portal Instructions Chief Complaint: Eye Problems Clinical Impression: Corneal abrasion Patient Disposition: Home, Self-Care Time of Disposition Decision: 12:34 Condition: Good Mode of Transportation: Private Vehicle Prescriptions / Home Meds: New sulfacetamide sodium 10 % drops 2 drp ophthalmic (eye) Q4H Qty: 15 0RF No Action oxycodone-acetaminophen 5-325 mg tablet 1 tab PO Q6H PRN (Reason: pain) Eliquis 5 mg tablet 10 mg PO Q12H Qty: 60 0RF Rx Instructions: take 2 tablets twice a day for 7 days then 1 po BID levofloxacin 750 mg tablet 750 mg PO DAILY 10 Days Qty: 10 0RF tizanidine 4 mg capsule 4 mg PO Q8H PRN (Reason: muscle spasm) Qty: 14 0RF gabapentin 100 mg capsule 100 mg PO .qhs Qty: 14 0RF methylprednisolone [Medrol (Neil)] 4 mg tablets,dose pack 4 mg PO DAILY Qty: 21 0RF Rx Instructions: TAKE PER DOSEPAK INSTRUCTIONS Print Language: Icelandic Instructions: Corneal Abrasion (ED) Referrals: Jerman Nina MD [Primary Care Provider] - 1 week
[2024-02-20] MEDS: FLUORESCEIN SODIUM 1 MG STRIP OP (12:40)
[2024-02-20] MEDS: ADACEL DIPH,PERTUSS(ACELL),TET VAC/PF 0.5 ML ADULT SYRINGE IM (12:48)
== END 2024-02-20 12:54 | disposition home or self-care (01) ==
PROVIDERS: Emergency Provider Emergency Medicine; PCP Family Medicine
DX: S05.01XA Injury of conjunctiva and corneal abrasion without foreign body, right eye, initial encounter (principal); X58.XXXA Exposure to other specified factors, initial encounter; Z23 Encounter for immunization
CPT/HCPCS: 90471; 90715; 99284

== ENCOUNTER 2024-02-22 16:22 | Outpatient (RCR) | payer BC, SELFPAY | END 2024-03-16 11:48 | disposition home or self-care (01) | LOC: PT 16:22 | PROVIDERS: PCP Family Medicine; Visit Provider Orthopaedic Surgery Orthopaedic Surgery of the Spine | DX: M54.2 Cervicalgia (principal) | CPT/HCPCS: 97010; 97012; 97014; 97110; 97140; 97161 ==

== ENCOUNTER 2024-03-01 16:03 | Outpatient (OUT) | payer BC, SELFPAY ==
--- NOTE | 2024-03-01 | CT_ITS ---
[address] [address] Patient Name: JENNA ORTIZ MRN: [id number] date: 1990 Sex: M Assigned Patient Location: CT Current Patient Location: Accession/Order Number: [id number] Exam Date: 03/01/2024 16:08 Report Date: 03/03/2024 06:41 At the request of: FILI PAGE Procedure: CT chest wo con EXAMINATION: CT chest wo con HISTORY: Pneumonia J18.9 follow-up COMPARISON: CT chest 08/04/2023 TECHNIQUE: Axial, Coronal, and Sagittal images were created without the administration of IV contrast material. Dose reduction techniques were achieved by using automated exposure control and/or adjustment of mA and/or kV according to patient size and/or use of iterative reconstruction technique. FINDINGS: LUNGS: No visible pulmonary disease. PLEURA: No mass, effusion, or pneumothorax. VASCULATURE: No abnormality. JOSR: No mass or pathologic adenopathy. MEDIASTINUM: No mass or pathologic adenopathy. CARDIAC: No enlargement, pericardial thickening, or pericardial effusion. Coronary Artery calcifications: AORTA: No aneurysm or dissection. CHEST WALL: No mass or axillary adenopathy BONES: No bone lesion or fracture. LIMITED ABDOMEN: No suspicious findings. Limited images of the upper abdomen. OTHER: Negative. CT/CT chest wo con IMPRESSION: 1. Clearing of previously seen pulmonary opacities. No new or suspicious findings. Electronically authenticated by: BOBBI PILLAI Date: 03/03/2024 06:41
--- OUTSIDE RECORDS SUMMARY | 2024-03-01 16:13 | XMS_ITS | CCD ---
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 Role Phone Jerman Nina MD Primary Care Provider [phone] BHARATH RAMOS Attending Unavailable BHARATH RAMOS Attending Unavailable BHARATH RAMOS Attending Unavailable BHARATH RAMOS Referring Unavailable BHARATH RAMOS Attending Unavailable BHARATH RAMOS Attending Unavailable BHARATH RAMOS Attending Unavailable BHARATH RAMOS Referring Unavailable BHARATH RAMOS Attending Unavailable MD Jerman Nina Primary Care Provider [phone] MD Ldaonna Mejias Attending Provider Ladonna Mejias Admitting Unavailable Ladonna Mejias Attending Unavailable Jerman Nina Primary Care Unavailable Jerman Nina Primary Care Unavailable Ladonna Mejias Admitting Unavailable Ladonna Mejias Attending Unavailable Jerman Nina Primary Care Unavailable Ladonna Mejias Admitting Unavailable Ladonna Mejias Attending Unavailable Medications Current Medications Medication Drug Class(es) Dates Sig (Normalized) Sig (Original) apixaban 5 mg oral tablet (6 sources) Factor Xa Inhibitor Start: 11-30-2023 take [...] TWICE A DAY 0 05/05/2023 Active Diclofenac (4 sources) Nonsteroidal Anti-inflammatory Drug Start: 11-30-2023 Diclofenac Sodium (Voltaren Arthritis Pain) 1 % gel Active 2 GM TOPICAL Four times daily 100 30 November 30, 2023 12:00am apply to single elbow, wrist or hand; for hand includes palm/fingers/back of hand gabapentin 100 mg oral capsule (2 sources) Anti-epileptic Agent Start: 01-12-2024 Gabapentin Active 100 MG PO January 12, 2024 12:00am levoFLOXacin 750 mg oral tablet (2 sources) Quinolone Antimicrobial Start: 05-05-2023 take 1 tablet by mouth once daily levoFLOXacin (Levaquin) 750 MG tablet TAKE 1 TABLET BY MOUTH ONCE EVERYDAY FOR 10 DAYS 0 05/05/2023 Active methylPREDNISolone 4 mg oral tablet (2 sources) Corticosteroid Start: 01-12-2024 Methylprednisolone Active 4 MG [...] Documented Date Episodic/Chronic Other connective tissue disease (4 sources) Laxity of ligament; Translations: [Disorder of ligament, unspecified site] 11-30-2023 Episodic Other connective tissue disease (8 sources) Disorder of ligament, unspecified site; Translations: [Laxity of ligament] Onset: 02-16-2024 11-30-2023 Episodic Other non-traumatic joint disorders (2 sources) Pain in right shoulder; Translations: [Pain in joint, shoulder region] 08-25-2023 Episodic Other non-traumatic joint disorders (8 sources) Pain in wrist; Translations: [Pain in right wrist] 11-30-2023 Episodic Other non-traumatic joint disorders (7 sources) Pain in left wrist; Translations: [Pain in joint, forearm] Onset: 02-09-2024 11-30-2023 Episodic Other non-traumatic joint disorders (7 sources) Pain in right wrist; Translations: [Pain in joint, forearm] Onset: 02-16-2024 11-30-2023 Episodic Other non-traumatic joint disorders (2 sources) Wrist joint unstable; Translations: [Other instability, unspecified wrist] 01-12-2024 Episodic Other non-traumatic joint disorders (1 source) Other instability, unspecified wrist; Translations: [Other instability, unspecified wrist] Onset: 02-16-2024 Episodic Residual codes; unclassified (2 sources) History of arthroscopic procedure on shoulder; Translations: [Other specified postprocedural states] 08-25-2023 Episodic Results Test Name Value Interpretation Reference Range Facil ity XR wrist RT 2Von 02-16-2024 XR wrist RT 2V [facility] [place] [address] [place] [id number] MRI Report Signed Patient: Jayce Chambers MR#: [id number] 8 : 1990 Acct:[id number] Age/Sex: 33 / M ADM Date: 02/16/24 Loc: MR Room: Type: [facility] Attending Dr: Ladonna Mejias MD Copies to: Ladonna Mejias MD Ordering Provider: Ladonna Mejias MD Date of Service: 02/16/24 MR/MR wrist RT arthrogram w con: Eval for ligament damage ([id number]) XR/XR wrist RT 2V: M25.339, M24.20, M25.531 MR right wrist arthrogram with fluoroscopic guidance TECHNIQUE: Informed consent obtained. Assessment of the left wrist performed in flexion. The dorsal skin entry site for injection into the articulation of the scaphoid and radius localized and marked. Skin at site prepped and draped in sterile fashion with local lidocaine administered. 25- gauge needle was administered into the joint space with fluoroscopic guidance. 2 cc of Isovue-300 administered. 3 cc of diluted gadolinium was administered. Needle removed adequate hemostasis. 14 images obtained. Cumulative Air Kerma in mGy: 3.66 mGy MR wrist RT arthrogram w con, XR wrist RT 2V, FL guided needle placement 02/16/2024 2:04 PM SIGNS AND SYMPTOMS: S.br S.br S.br S.br S.br S.br Eval for ligament damage TECHNOLOGIST COMMENTS: QUESTION FOR THE RADIOLOGIST: PROTOCOL: Routine COMPARISON: None. FINDINGS: Alignment: Normal Fluid: Carpus effusion: None. Distal radioulnar joint effusion: No significant effusion. Intrinsic ligaments: Scapholunate: Intact. Lunotriquetral: Intact. Ulnar side: Triangular fibrocartilage complex: Triangular fibrocartilage Intact. Discus proper:Intact Volar ulnar carpal ligamentsIntact Ulnar collateral ligament:Intact Lunate facet: Unremarkable Hamate-lunate: Unremarkable. Extensor compartment: I: Unremarkable. II: Unremarkable. III: Unremarkable. IV: Unremarkable. V: Normal. : Unremarkable. Flexor compartment: Carpal tunnel: Median nerve: Unremarkable. Flexor retinaculum: Normal. Flexor tendons: Unremarkable. Guyon canal: Normal. Articular: Thumb carpometacarpal joint: Unremarkable. Scaphotrapeziotrapezoida l joint: Unremarkable. Pisiform-triquetral joint: Unremarkable. Bones (other than subarticular marrow): Normal. Muscles: Normal. Vessels: Normal. MR/MR wrist RT arthrogram w con IMPRESSION: Unremarkable MRI arthrogram of the right wrist. Intact triangular fibrocartilage. Intact scapholunate ligament. Intact lunatotriquetral ligament. Intact distal radial ulnar joint. Impression dictated by: Wilmer Patel M.D.02/16/2024 4:33 PM Dictation Location: [place] [address] Transcribed By: [facility] 02/16/24 1633 Dictated By: Wilmer Patel DO 02/16/24 1610 Signed By: 02/16/24 1633 Normal [facility] XR wrist LT 2Von 02-09-2024 XR wrist LT 2V [facility] [place] [address] MRI Report Signed Patient: Jayce Chambers MR#: [id number] 8 : 1990 Acct:[id number] Age/Sex: 33 / M ADM Date: 02/09/24 Loc: Room: Type: [facility] Attending Dr: Ladonna Mejias MD Copies to: Ladonna Mejias MD Ordering Provider: Ladonna Mejias MD Date of Service: 02/09/24 MR/MR wrist LT arthrogram w con: Eval for ligament damage ([id number]) FL/FL guided needle placement: M24.20, M25.532, M25,339 ([id number]) XR/XR wrist LT 2V: M24.20, M25.532, M25.339 [...] Wilmer Patel M.D.02/09/2024 4:52 PM Dictation Location: [place] [address] Transcribed By: [facility] 02/09/24 1652 Dictated By: Wilmer Patel DO 02/09/24 1634 Signed By: 02/09/24 1652 Normal [facility] XR wrist min BI 3Von 024 XR wrist min BI 3V [facility] [place] [facility] [place] [address] XRay Report Signed Patient: Jayce Chambers MR#: [id number] 8 : 1990 Acct:[id number] Age/Sex: 33 / M ADM Date: 11/30/23 Loc: [facility] Room: Type: [facility] Attending Dr: Ladonna Mejias MD Copies to: [...] Wilmer Patel M.D.11/30/2023 4:52 PM Dictation Location: [place] [address] Transcribed By: [facility] 11/30/231651 Dictated By: Wilmer Patel DO 11/30/231650 Signed By: 11/30/23 165 Normal [facility] Encounters Encounter Date Encounter Type Care Provider Facility Start: 02-16-2024 End: 02-16-2024 Admission to same day surgery center MD Jerman Nina Work Phone: [facility] [place] Work Phone: Start: 02-16-2024 End: 02-16-2024 ambulatory MD Jerman Nina Work Phone: [facility] Work Phone: Start: 02-09-2024 End: 02-09-2024 Admission to same day surgery center MD Jerman Nina Work Phone: [facility] [place] Work Phone: Start: 02-09-2024 End: 02-09-2024 ambulatory Jerman Nina Facility:[facility] Start: 01-12-2024 End: 01-12-2024 ambulatory MD Jerman Nina Work Phone: [facility] Work Phone: Start: 01-12-2024 End: 01-12-2024 Patient encounter procedure MD Jerman Nina Work Phone: [facility] Work Phone: Start: 11-30-2023 End: 11-30-2023 ambulatory MD Jerman Nina Work Phone: [facility] Work Phone: Start: 11-30-2023 End: 11-30-2023 Patient encounter procedure MD Jerman Nina Work Phone: [facility] Work Phone: Start: 09-27-2023 End: 09-27-2023 ambulatory BHARATH RAMOS Not Available Start: 08-27-2023 End: 08-27-2023 ambulatory BHARATH RAMOS Not Available Start: 08-27-2023 End: 08-27-2023 Office outpatient visit 10 minutes Bharath BORJAS Work Phone: [facility] Comment on above: S/P arthroscopy of [...] Date Procedure Procedure Detail Performing Clinician Start: 02-16-2024 Plain X-ray of right wrist MD Jerman Nina Work Phone: Start: 02-16-2024 Magnetic resonance arthrography of right wrist MD Jerman Nina Work Phone: Start: 02-09-2024 Plain X-ray of left wrist MD Jerman Nina Work Phone: Start: 02-09-2024 Magnetic resonance arthrography of left wrist MD Jerman Nina Work Phone: Start: 11-30-2023 Plain X-ray of bilat eral wrists MD Jerman Nina Work Phone: Plan of Treatment Date Care Activity Detail Author Start: 11-30-2023 Plain X-ray of bilateral wrists XR wrist min BI 3V [facility] Start: 11-30-2023 XR Wrist - bilateral GE 3 Views [facility] Start: 09-27-2023 End: 09-27-2023 Patient encounter procedure 09/27/2023 3:30 PM EST Office Visit [facility] [address] [facility] [address] [place] [address] Bharath Ramos PA [address] [facility] [address] [place] [address] [facility] MR Wrist - left Arthrogram [facility] MR Wrist - right Arthrogram [facility] Payers Date Payer Category Payer Self-pay [id number] 2017 Unknown BCBS BCBS [id number] 2017-Present [phone] [address] [place] [address] [id number] 2017 Unknown [id number] 1990 Unknown [id number] 1988 Unknown [id number] 1988 Unknown [id number] 2.16.840.1.543693.3.579.2.1259 1988 Unknown [id number] [id number]59 1988 Unknown [id number] [id number] 1988 Unknown [id number] [id number] 1988 Unknown [id number] 2.16.840.1.348134.3.579.2.1259 1988 Unknown [id number] 2.16.840.1.102388.3.579.2.1259 1988 Unknown [id number] [id number] Unknown [id number] 2.16.840.1.336284.3.579.2.531 Unknown [id number] [id number] Unknown [id number] [id number] Social History Date Type Detail Facility Start: 04-01-2023 Tobacco smoking stat [facility] Occasional tobacco smoker [facility] Start: [...] Start: 01-11-2023 Sexual orientation Heterosexual (fin ding) [facility] History of Present illness Narrative 08-27-2023 [...] S/P (R) LE VENOUS DOPPLER 05/03/23 @ [facility] S/P PREDNISONE 06/21/23 (GIVEN FOR (L) WRIST PAIN) CONTINUES PHYSICAL THERAPY @ [facility] PT NOTES PAIN LATERAL/TOP SHOULDER PAIN [...] test: negative Carter test: negative Biceps/kole Signs [facility]'s test: negative Clicking/popping: positive Speed's test: negative AC Joint Signs Active horizontal adduction pain: negative Left Biceps/kole Signs [facility]'s test: negative Clicking/popping: positive Instability Signs Anterior [...] evaluation. SUAD Sotomayor documented in this encounter [facility] Healthcare Evaluation note Note Date & Type Note Facility Evaluation note Diagnosis S/P arthroscopy of right shoulder- Primary Acute pain of right shoulder documented in this encounter [facility] Evaluation note Note Date & Type Note Facility Evaluation note Diagnosis Onset Date Left wrist pain acute Ligament laxity acute Right wrist pain [facility] Work Phone: Evaluation note Note Date & Type Note Facility Evaluation note Diagnosis Onset Date Left wrist pain acute Ligament laxity acute Right wrist pain acute Left wrist pain acute Ligament laxity acute Right wrist pain acute [facility] Work Phone: Evaluation note Note Date & Type Note Facility Evaluation note Diagnosis Onset Date Left wrist pain acute Ligament laxity acute Right wrist pain acute Left wrist pain acute Ligament laxity acute Right wrist pain acute Ligament laxity acute [facility] Work Phone: Summary Purpose Family History No Family History Records FoundNo Family History Records Found Advance Directives No Advanced Directives Records Found Advance Directive Response Recorded Date/ Time Advance Directives No August 17, 2023 12:19pm Chief Complaint and Reason for Visit Chief Complaint CONSULT BHARATH Escalera BILAT WRIST PAIN MRI [facility] M25.532 - Pain in left wrist Reason for Visit Left wrist pain Ligament laxity Right wrist pain Chief Complaint CONSULT BHARATH Escalera BILAT WRIST PAIN MRI [facility] M25.532 - Pain in left wrist 6 WEEKS Reason for Visit Left wrist pain Ligament laxity Right wrist pain Left wrist pain Ligament laxity Right wrist pain Chief Complaint CONSULT BHARATH Escalera BILAT WRIST PAIN MRI [facility] M25.532 - Pain in left wrist 6 WEEKS M24.20 M25.532 M25.339 M25.339 M24.20 M25.531 Reason for Visit Left wrist pain Ligament laxity Right wrist pain Left wrist pain Ligament laxity Right wrist pain Ligament laxity Additional Source Comments Reason for Visit (unrecogniz ed section and content) Reason Comments Pain Care Teams (unrecognized sec tion and content) 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 Relationship Specialty Start Date End Date Jerman Nina MD [address] [place] [address] PCP - General Family Medicine 01/18/23 Team [...] January 12, 2024 End: January 12, 2024 Team Status: Inactive Member Role Status Dates Jerman Nina MD Primary Care Provider Active Start: February 09, 2024 End: February 09, 2024 Ladonna Mejias MD Attending Provider Active Start: February 09, 2024 End: February 09, 2024 Team Status: Inactive Member Role Status Dates Jerman Nina MD Primary Care Provider Active Start: February 16, 2024 End: February 16, 2024 Ladonna Mejias MD Attending Provider Active Start: February 16, 2024 End: February 16, 2024 (unrecognized sect ion and content) No Status Records FoundNo Status Records Found INFORMATION SOURCE (unrecogn ized section and content) DATE CREATED AUTHOR 09/28/2023 [facility] EPIC DATE CREATED AUTHOR AUTHOR'S ORGANIZ ATION 02/23/2024 [facility] [...] BE BASED ON THE PRIMARY CLINICAL RECORDS. [employer] provides no warranty or guarantee of the accuracy or completeness of information in this document.
== END 2024-03-01 16:04 | disposition home or self-care (01) ==
LOC: CT 16:03
PROVIDERS: PCP Family Medicine; Visit Provider Family Medicine
DX: J18.9 Pneumonia, unspecified organism (principal)
CPT/HCPCS: 71250

== ENCOUNTER 2024-04-11 15:26 | Outpatient (OUT) | payer BC, SELFPAY ==
--- NOTE | 2024-04-11 15:26 | CA_ITS ---
Patient Name: JENNA ORTIZ MR#: [id number] : 1990 Exam Date: 04/11/2024 Ordering Doctor: DR FILI PAGE . ECHOCARDIOGRAM REPORT PROCEDURE: CA ECHO DOPPLER COMPLETE INDICATIONS: Benign hypertension COMPARISON: None. DESCRIPTION: COMPLETE ECHOCARDIOGRAM Real-time transthoracic echocardiography with 2D, M-mode, spectral and color flow Doppler performed. QUALITY: Technical quality was adequate. LEFT VENTRICLE: Normal chamber size. Mild left ventricular hypertrophy. LV EF: Global left ventricular systolic function is normal; visually estimated ejection fraction is 55 to 60%. Unable to assess regional wall motion abnormalities. DIASTOLIC: Unable to assess diastolic function. ATRIAL SEPTUM: Inadequately seen. LEFT ATRIUM: Normal chamber size. RIGHT ATRIUM: Normal chamber size. RIGHT VENTRICLE: Normal chamber size. Normal right ventricular systolic function. TRICUSPID VALVE: Normal mobility and thickness. No stenosis with trivial regurgitation. Unable to assess right-sided pressures due to lack of measurable tricuspid regurgitation. MITRAL VALVE: Normal mobility and thickness. No evidence of mitral valve stenosis. There is no mitral annular calcification. Trivial mitral regurgitation. AORTIC VALVE: Normal trileaflet appearance. No visible sclerosis. Normal leaflet mobility. No evidence of aortic valve stenosis. No aortic regurgitation. AORTIC ROOT: Normal diameter and appearance. PULMONIC VALVE: Normal thickness and mobility. No stenosis. Trivial regurgitation. PERICARDIUM: No evidence of pericardial effusion. IVC: Collapses with inspirations. Normal size. CONCLUSION: 1. Global left ventricular systolic function is normal; visually estimated ejection fraction is 55 to 60% 2. Normal right ventricular size and systolic function 3. Mild left ventricular hypertrophy 4. The left atrium is normal in size 5. Valves are poorly seen; no significant valvular abnormalities Adult Echocardiography Procedure Report Left Ventricle LVEDD (3.7 - 5.6 cm): 4.45 cm LVESD (2.2 - 4.0 cm): 2.76 cm LVIVS thickness (0.6 - 1.2 cm): 1.15 cm LVPW thickness (0.5 - 1.0 cm): 1.17 cm e': 0.16 m/s E - e': 4.96 LVOT Max Gradient: 4.90 mm[Hg] LVOT Area (cm2): 1.11 m/s Peak Velocity (LVOT): 1.11 m/s Mean Velocity (LVOT): 0.72 m/s LVOT Diameter 1.98 cm Left Atrium LA Volume Index (2D A2C): 17.10 ml/m2 Left Atrium Systolic Dimension: 3.33 cm Mitral Valve MV E to A Ratio: 2.77 Mitral Valve A-Wave Peak Velocity: 0.29 m/s Mitral Valve E-Wave Peak Velocity: 0.79 m/s Right Ventricle RV Internal Diastolic Dimension: 3.70 cm Aorta AO Root Diam: 3.14 cm Ascending Ao Diam: 2.31 cm Aortic Valve AoV Area (Peak Faisal): 2.80 cm2, 2.80 cm2 AoV Area (VTI): 2.56 cm2, 2.56 cm2 Peak Velocity(Antegrade Flow): 1.22 m/s Peak Gradient(Antegrade Flow): 5.99 mm[Hg] Mean Velocity(Antegrade Flow): 0.87 m/s Mean Gradient(Antegrade Flow): 3.49 mm[Hg] Velocity Time Integral: 26.87 cm Tricuspid Valve Peak Velocity (Regurgitant Flow): 2.00 m/s Pulmonic Valve Mean Gradient: 3.80 mm[Hg], 3.66 mm[Hg] Mean Velocity: 0.91 m/s, 0.89 m/s Peak Velocity: 1.29 m/s, 1.30 m/s Peak Gradient: 6.88 mm[Hg], 6.51 mm[Hg], 6.74 mm[Hg] Right Atrium Right Atrium Systolic Pressure: 74.43 ml, 74.43 ml Dictated by: Gayathri Torres M.D. on 04/13/2024 at 16:55 Approved by: Gayathri Torres M.D. on 04/13/2024 at 16:59
== END 2024-04-11 15:27 | disposition home or self-care (01) ==
LOC: CARD 15:26
PROVIDERS: PCP Family Medicine; Visit Provider Family Medicine
DX: M35.7 Hypermobility syndrome (principal)
CPT/HCPCS: 93306; 93356

== ENCOUNTER 2024-05-02 11:01 | Outpatient (OUT) | payer BC, SELFPAY ==
--- OUTSIDE RECORDS SUMMARY | 2024-05-02 11:08 | XMS_ITS | CCD ---
Author Organization [facility] Care Team Providers Care Director Instructional Material Name Role Phone Jerman Nina MD Primary Care Provider [phone] MD Jerman Nina Primary Care Provider [phone] MD Ladonna Mejias Attending Provider Ladonna Mejias Admitting Unavailable Ladonna Mejias Attending Unavailable Jerman Nina Primary Care Unavailable Jerman Nina Primary Care Unavailable Ladonna Mejias Admitting Unavailable Ladonna Mejias Attending Unavailable Jerman Nina Primary Care Unavailable Ladonna Mejias Admitting Unavailable Ladonna Mejias Attending Unavailable SHAHIDA BHARDWAJ Attending Unavailable UNKNOWN, UNKNOWN Referring Unavailable BHARATH RAMOS Attending Unavailable LLOYD, BHARATH Quezada Attending Unavailable LLOYD, BHARATH Quezada Referring Unavailable LLOYD, BHARATH Quezada Attending Unavailable LLOYD, BHARATH Quezada Attending Unavailable LLOYD, BHARATH Quezada Attending Unavailable LLOYD, BHARATH Quezada Attending Unavailable BHARATH RAMOS Referring Unavailable BHARATH RAMOS Attending Unavailable BHARATH RAMOS Attending Unavailable TARYN SOTO Attending Unavailable BHARATH RAMOS Referring Unavailable JOSY DINH Attending Unavailable BHARATH RAMOS Referring Unavailable JOSY DINH Attending Unavailable BHARATH RAMOS Referring Unavailable TARYN SOTO Attending Unavailable BHARATH RAMOS Referring Unavailable TARYN SOTO Attending Unavailable BHARATH RAMOS Referring Unavailable Medications Current Medications Medication Drug Class(es) [...] of ligament] Onset: 02-16-2024 11-30-2023 Episodic Other connective tissue disease (2 sources) Other synovitis and tenosynovitis, right forearm; Translations: [Other synovitis and tenosynovitis, right forearm] Onset: 04-04-2024 Episodic Other non-traumatic joint disorders (2 sources) [...] [Other instability, unspecified wrist] Onset: 02-16-2024 Episodic Other non-traumatic joint disorders (2 sources) Other instability, left wrist; Translations: [Other instability, left wrist] Onset: 04-04-2024 Episodic Other non-traumatic joint disorders (2 sources) Other instability, right wrist; Translations: [Other instability, right wrist] Onset: 04-04-2024 Episodic Residual codes; unclassified (2 sources) History of arthroscopic procedure on shoulder; Translations: [Other specified postprocedural states] 08-25-2023 Episodic Results Test Name Value Interpretation Reference Range Facil ity Office Visiton 04-04-2024 Follow-up visit [id number] Jayce Chambers 1990 M Date Provider Department Center 04/04/2024 [facility] No family history on file Level of Service:59562 [place] OFFICE/OUTPATIENT NEW LOW MDM 30 MINUTES Reason for Visit and Comments: Pain [136] Pain [136] Normal [facility] XR wrist RT 2Von 02-16-2024 XR wrist RT 2V [facility] [place] [address] MRI Report Signed Patient: Jayce Chambers MR#: [id number] 8 : 1990 Acct:[id number] Age/Sex: 33 / M ADM Date: 02/16/24 Loc: MR Room: Type: [facility] Attending Dr: Ladonna Mejias MD Copies to: Ladonna Mejias MD Ordering Provider: Ladonna Mejias MD Date of Service: 02/16/24 MR/MR wrist RT arthrogram w con: Eval for ligament damage ([id number]) XR/XR wrist RT 2V: M25.339, M24.20, M25.531 [...] canal: Normal. Articular: Thumb carpometacarpal joint: Unremarkable. Scaphotrapeziotrapezoid al joint: Unremarkable. Pisiform-triquetral joint: Unremarkable. Bones (other than subarticular marrow): Normal. Muscles: Normal. Vessels: Normal. MR/MR wrist RT arthrogram w con IMPRESSION: Unremarkable MRI arthrogram of the right wrist. Intact triangular fibrocartilage. Intact scapholunate ligament. Intact lunatotriquetral ligament. Intact distal radial ulnar joint. Impression dictated by: Wilmer Patel M.D.02/16/2024 4:33 PM Dictation Location: [place] [address] Transcribed By: [facility] 02/16/24 1633 Dictated By: Wilmer Patle DO 02/16/24 1610 Signed By: 02/16/24 1633 Normal [facility] XR wrist LT 2Von 02-09-2024 XR wrist LT 2V [facility] [place] [address] MRI Report Signed Patient: Jayce Chambers MR#: [id number] 8 : 1990 Acct:[id number] Age/Sex: 33 / M ADM Date: 02/09/24 Loc: MR Room: Type: [facility] Attending Dr: Ladonna Mejias MD Copies to: Ladonna Mejias MD Ordering Provider: Ladonna Mejias MD Date of Service: 02/09/24 MR/MR wrist LT arthrogram w con: Eval for ligament damage ([id number]) FL/FL guided needle placement: M24.20, M25.532, M25,339 ([id number]) XR/XR wrist LT 2V: M24.20, M25.532, M25.339 [...] Wilmer Patel M.D.02/09/2024 4:52 PM Dictation Location: [facility]08 Transcribed By: MARI 02/09/241651 Dictated By: Wilmer Patel DO 02/09/241633 Signed By: 02/09/24 165 Normal [facility] XR wrist min BI 3Von 024 XR wrist min BI 3V [facility] [address] [place] [address] XRay Report Signed Patient: Jayce Chambers MR#: [id number] 8 : 1990 Acct:[id number] Age/Sex: 33 / M ADM Date: 11/30/23 Loc: [facility] Room: Type: [facility] Attending Dr: Ladonna Mejias MD Copies to: [...] Wilmer Patel M.D.11/30/2023 4:52 PM Dictation Location: [facility] Transcribed By: [facility] 11/30/23 165 Dictated By: Wilmer Patel DO 11/30/23 165 Signed By: 11/30/23 1652 Normal [facility] Encounters Encounter Date Encounter Type Care Provider Facility Start: 04-12-2024 End: 04-13-2024 ambulatory TARYN SOTO Not Available Start: 04-10-2024 End: 04-11-2024 ambulatory TARYN SOTO Not Available Start: 04-04-2024 ambulatory [facility] Start: 04-03-2024 End: 04-04-2024 ambulatory JOSY DINH Not Available Start: 03-29-2024 End: 03-29-2024 ambulatory JOSY DINH Not Available Start: 03-22-2024 End: 03-22-2024 ambulatory TARYN SOTO Not Available Start: 03-20-2024 End: 03-20-2024 ambulatory BHARATH Damien RAMOS Not Available Start: 02-16-2024 End: 02-16-2024 Admission to same day surgery center MD Jerman Nina Work Phone: [facility] [place] Work Phone: Start: 02-16-2024 End: 02-16-2024 ambulatory MD Jerman Nina Work Phone: [facility] Work Phone: Start: 02-09-2024 End: 02-09-2024 Admission to same day surgery center MD Jerman Nina Work Phone: [facility] [place] Work Phone: Start: 02-09-2024 End: 02-09-2024 ambulatory Jerman Nina Facility:[facility] Start: 01-12-2024 End: 01-12-2024 ambulatory MD Jerman Nina Work Phone: [facility] Work Phone: Start: 01-12-2024 End: 01-12-2024 Patient encounter procedure MD Jerman Nina Work Phone: [facility] Work Phone: Start: 11-30-2023 End: 11-30-2023 ambulatory MD Jerman Nina Work Phone: [facility] Work Phone: Start: 11-30-2023 End: 11-30-2023 Patient encounter procedure MD Jerman Nina Work Phone: [facility] Work Phone: Start: 09-27-2023 End: 09-27-2023 ambulatory BHARATH RAMOS Not Available Start: 08-27-2023 End: 08-27-2023 Office outpatient visit 10 minutes Bharath Ramos PA Work Phone: [facility] Comment on above: S/P arthroscopy of r ight shoulder (Primary Dx); Acute pain of right shoulder Start: 08-27-2023 End: 08-27-2023 ambulatory BHARATH RAMOS Not Available Start: 08-13-2023 End: 08-13-2023 ambulatory BHARATH RAMOS Not Available Start: 07-23-2023 End: 07-23-2023 ambulatory BHARATH RAMOS Not Available Start: 07-05-2023 End: 07-05-2023 ambulatory BHARATH RAMOS Not Available Start: 06-21-2023 End: 06-21-2023 ambulatory BHARATH RAMOS Not Available Start: 06-07-2023 End: 06-07-2023 ambulatory BHARATH RAMOS Not Available Procedures Date [...] bilateral wrists XR wrist min BI 3V [facility] Start: 11-30-2023 XR Wrist - bilateral GE 3 Views [facility] Start: 09-27-2023 End: 09-27-2023 Patient encounter procedure 09/27/2023 3:30 PM EST Office Visit [facility] [address] [facility] [address] [place] [address] Bharath Ramos PA [address] [facility] [address] [place] [address] [facility] MR Wrist - left Arthrogram [facility] MR Wrist - right Arthrogram [facility] Payers Date Payer Category Payer Self-pay [id number] 2017 Unknown BCBS BCBS xxxxxx [id number] 2017-Present [phone] [address] [place] [address] [id number] 2017 Unknown [id number] 1990 Unknown [id number] 2.840.1.111135.3.579.2.1258 1988 Unknown [id number] 2.840.1.963554.3.579.2.1258 1988 Unknown [id number] 2.840.1.648423.3.579.2.1258 1988 Unknown [id number] 2.16840.1.389986.3.579.2.1258 1988 Unknown [id number] 2.16.840.1.760241.3.579.2.1258 1988 Unknown [id number] 2.16840.1.179964.3.579.2.1258 1988 Unknown [id number] 2.16.840.1.632060.3.579.2.1259 1988 Unknown [id number] 2.16.840.1.080410.3.579.2.9 1988 Unknown [id number] 2.16.840.1.889940.3.579.2.1259 1988 Unknown [id number] 2.16.840.1.545284.3.579.2.9 1988 Unknown [id number] 2.16.840.1.858239.3.579.2.1259 1988 Unknown [id number] 2.16.840.1.207881.3.579.2.9 1988 Unknown [id number] 2.16.840.1.004017.3.579.2.1259 1988 Unknown [id number] 2.16.840.1.887231.3.579.2.1259 1988 Unknown [id number] 2.16.840.1.976384.3.579.2.1259 Unknown [id number] 2.16.840.1.269306.3.579.2.531 Unknown [id number] 2.16.840.1.111932.3.579.2.531 Unknown [id number] 2.16.840.1.481197.3.579.2.531 Social History Date Type Detail Facility Start: 04-01-2023 Tobacco smoking stat [facility] Occasional tobacco smoker [facility] Start: 04-01-2023 [...] Gender identity Identifies as male gender (finding) [facility] Start: 01-11-2023 Sexual orientation Heterosexual (fin ding) [facility] Progress note 04-04-2024 Note Date & Type Note Facility 04-04-2024 Note Subjective Chief complaint: Chief Complaint Patient presents with Right Hand - Pain Left Hand - Pain 04/04/24 Jayce Chambers is a 33 y.o. male presenting for evaluation of bilateral wrist and forearm pain. He describes clicking and pain with internal rotation of R forearm and ulnar deviation of the R wrist. He also describes clicking and pain in the dorsal L wrist with both adduction and abduction of the 2nd and 3rd fingers. He has been using wrist braces without relief. He takes Celebrex for pain. He has history of R biceps tendon repair. 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 His symptoms are exacerbated by heavy activity and upon awakening. Denies numbness, tingling, and weakness. ROS: Denies fevers, chills, and other constitutional symptoms. Denies shortness of breath. Patient History History reviewed. No pertinent surgical history. History reviewed. No pertinent past medical history. Objective General: Body mass index is 38.01 kg/m???. There were no vitals filed for this visit. No acute distress, comfortable Respiratory: Unlabored breathing with normal rate, no cough Cardiovascular: Warm well perfused extremities Psych: Appropriate mood behavior Hand/Wrist Musculoskeletal Exam Inspection Right Right hand/wrist inspection is normal. Left Left hand/wrist inspection is normal. Palpation Right Wrist tenderness to palpation comment: Over intersection of tendons of 1st and 2nd dorsal compartment Left Wrist tenderness to palpation: first dorsal compartment Range of Motion Right Hand Right hand range of motion is normal. Left Hand Left hand range of motion is normal. Right Wrist Right wrist range of motion is normal. Left Wrist Left wrist range of motion is normal. Strength Right Hand Right hand strength is normal. Left Hand Left hand strength is normal. Right Wrist Right wrist strength is normal. Left Wrist Left wrist strength is normal. Neurovascular Right Right neurovascular exam is normal. Left Left neurovascular exam is normal. Special Tests Right Oksana's test: positive Left Oksana's test: positive Special tests additional comments: Positive scaphoid shift test in R wrist. Imaging: Report was provided from previous wrist xrays. Xrays were not personally reviewed today. Assessment/Plan Jayce Chambers is a 33 y.o. 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 Discussed the nature of the disease as well as treatment options including conservative vs surgical interventions Conservative interventions including: stretching and isometric extension of the wrist discussed with the patient. Surgical interventions including: None -follow up in 2-3 months -RTC If symptoms acutely worsen Arian Lao, MS4, Acting Slurry [employer] [facility] 04/04/24 2:23 PM I was physically present with the medical student. I have personally performed (or re-performed) the physical exam and medical decision making for the patient. I personally verified the medical student's documentation. I made pertinent changes as necessary to ensure accurate documentation. Additional Notes/Findings: There is clearly some laxity in his wrist with physical examination. There is a shift that is palpable with a shear test at the lunotriquetral joint and reproduction of the clicking he gets with a scaphoid shift. He has had a x-ray, MRI and arthrogram all of which showed no ligamentous injury. I think this is all secondary to laxity. Have shown him some isometric wrist stabilization exercises that he can do on his own. We also showed him stretching for the intersection syndrome. We will see him back if it is not better in a few months and do a corticosteroid injection. [facility] History of Present illness Narrative 08-27-2023 SUAD Sotomayor - 08/27/2023 10:00 AM EST Note Date & Type Note Facility 08-27-2023 History of Presen t illness Narrative Images from the original note were not included. HISTORY OF PRESENT ILLNESS: EST PT Jayce Chambers is an 33 y.o. @ male. (EST PT) S/P (R) SHOULDER SCOPE 04/27/23 (17WKS 3DAYS) ; CONTINUES PT B/L SHOULDERS @ [facility]; CONTINUES TO STRUGGLE WITH STRENGTH-PT NOTES PAIN LATERAL/TOP SHOULDER ON THE RT XRAY RT ELBOW CHANGE 08/13/23 S/P (R) LE VENOUS DOPPLER 05/03/23 @ [facility] S/P PREDNISONE 06/21/23 (GIVEN FOR (L) WRIST PAIN) CONTINUES PHYSICAL THERAPY @ [facility] PT NOTES PAIN LATERAL/TOP SHOULDER [...] test: negative Carter test: negative Biceps/kole Signs Grant's test: negative Clicking/popping: positive Speed's test: negative AC Joint Signs Active horizontal adduction pain: negative Left Biceps/kole Signs Grant's test: negative Clicking/popping: positive Instability Signs Anterior [...] evaluation. SUAD Sotomayor documented in this encounter [facility] Evaluation note Note Date & Type Note Facility Evaluation note Diagnosis S/P arthroscopy of right shoulder- Primary Acute pain of right shoulder documented in this encounter [facility] Evaluation note Note Date & Type Note Facility Evaluation note Diagnosis Onset Date Left wrist pain acute Ligament laxity acute Right wrist pain acute [facility] Work Phone: Evaluation note Note Date & Type Note Facility Evaluation note Diagnosis Onset Date Left wrist pain acute Ligament laxity acute Right wrist pain acute Left wrist pain acute Ligament laxity acute Right wrist pain acute [facility] Work Phone: Evaluation note Note Date & Type Note Facility Evaluation note Diagnosis Onset Date Left wrist pain acute Ligament laxity acute Right wrist pain acute Left wrist pain acute Ligament laxity acute Right wrist pain acute Ligament laxity acute [facility] Work Phone: Chief Complaint and Reason for Visit Chief Complaint CONSULT BHARATH Escalera BILAT WRIST PAIN MRI [facility] M25.532 - Pain in left wrist Reason for Visit Left wrist pain Ligament laxity Right wrist pain Chief Complaint CONSULT BHARATH Escalera BILAT WRIST PAIN MRI [facility] M25.532 - Pain in left wrist 6 WEEKS Reason for Visit Left wrist pain Ligament laxity Right wrist pain Left wrist pain Ligament laxity Right wrist pain Chief Complaint CONSULT BHARATH ZUÑIGA R BILAT WRIST PAIN MRI [facility] M25.532 - Pain in left wrist 6 WEEKS M24.20 M25.532 M25.339 M25.339 M24.20 M25.531 Reason for Visit Left wrist pain Ligament laxity Right wrist pain Left wrist pain Ligament laxity Right wrist pain Ligament laxity Advance Directives No Advanced Directives Records Found Advance Directive Response Recorded Date/ Time Advance Directives No August 17, 2023 12:19pm Summary Purpose Family History No Family History Records FoundNo Family History Records FoundNo Family History Records Found Additional Source Comments Reason for Visit (unrecogniz ed section and content) Reason Comments Pain Care Teams (unrecognized sec tion and content) Director Instructional Material Relationship Specialty Start Date End Date Jerman Nina MD [address] [place] [address] PCP - General Family Medicine 01/18/23 Team [...] February 16, 2024 End: February 16, 2024 Goals (unrecognized section and content) Goals may be documented in a n alternate sectionGoals may be documented in an alternate sectionGoals may be documented in an alternate sectionGoals may be documented in an alternate section (unrecognized sect ion and content) No Status Records FoundNo Status Records FoundNo Status Records Found INFORMATION SOURCE (unrecogn ized section and content) DATE CREATED AUTHOR 02/23/2024 [facility] DATE CREATED AUTHOR AUTHOR'S ORGANIZ ATION 04/10/2024 [facility] DATE CREATED AUTHOR AUTHOR'S ORGANIZ ATION 04/15/2024 [facility] EPIC FOR RECORDS PERTAINING TO PATIENTS [...] BE BASED ON THE PRIMARY CLINICAL RECORDS. [employer] provides no warranty or guarantee of the accuracy or completeness of information in this document.
[2024-05-02 11:30] LABS: Basophils Percent Auto 0.6 % (0.2-2.0); Eosinophils Absolute Auto 0.1 10^3/uL (0.0-0.7); Eosinophils Percent Auto 0.9 % (0.9-7.0); Hematocrit 52.6 % (42.0-54.0); Hemoglobin 17.9 g/dL (14.0-18.0); Immature Granulocytes Abs Auto 0.04 10^3/uL (0.00-0.03); Immature Granulocytes Pct Auto 0.6 % (0.0-0.5); Lymphocytes Absolute Auto 1.1 10^3/uL (1.2-3.8); Lymphocytes Percent Auto 15.8 % (20.5-60.0); Mean Corpuscular Hemoglobin 28.4 pg (25.9-34.0); Mean Corpuscular Volume 83.5 fL (80.0-94.0); Mean Platelet Volume 9.4 fL (9.5-13.5); Monocytes Absolute Auto 0.7 10^3/uL (0.3-0.8); Monocytes Percent Auto 10.1 % (1.7-12.0); Neutrophils Absolute Auto 4.9 10^3/uL (1.4-6.5); Platelet Count 323 10^3/uL (150-450); Red Cell Distribution Width 12.3 % (11.0-15.0); White Blood Count 6.8 10^3/uL (4.0-11.0)
[2024-05-02 12:40] LABS: C Reactive Protein <0.50 mg/dL (<=0.50); Uric Acid 8.2 mg/dL (3.5-7.2)
[2024-05-03 11:09] LABS: Anti-DNA (DS) Ab Qn 1 IU/mL (0-9); Antichromatin Antibodies <0.2 AI (0.0-0.9); RNP Antibodies <0.2 AI (0.0-0.9); Rheumatoid Factor (RF) 21.2 IU/mL (<14.0); Sjogren's Anti-SS-A <0.2 AI (0.0-0.9); Sjogren's Anti-SS-B <0.2 AI (0.0-0.9)
[2024-05-03 14:10] LABS: Lyme Total Antibody CIA Negative (Negative)
[2024-05-04 14:10] LABS: Antinuclear Antibodies, IFA Negative (.)
== END 2024-05-02 11:02 | disposition home or self-care (01) ==
LOC: LAB 11:02
PROVIDERS: PCP Family Medicine; Visit Provider Personal Emergency Response Attendant
DX: M54.2 Cervicalgia (principal); G25.89 Other specified extrapyramidal and movement disorders; M25.50 Pain in unspecified joint
CPT/HCPCS: 36415; 84550; 85025; 85652; 86038; 86140; 86225; 86235; 86431; 86618

== ENCOUNTER 2025-01-30 15:33 | Outpatient (OUT) | payer BC, SELFPAY ==
--- OUTSIDE RECORDS SUMMARY | 2025-01-02 13:14 | XMS_ITS ---
Author Name Auto Generated Organization OHIP Support Name Relationship Address Phone TIFFANY ORTIZ Next of Kin Unknown + DIANATIFFANY FLORES Next of Kin Unknown + JAMISON CASTANEDA Next of Kin [address] [place] [phone] + DIANATIFFANY FLORES Next of Kin [address] [place] [phone] + DIANAHANNAH Next of Kin [address] [place] [address] [place] [address] + JAMISON CASTANEDA Next of Kin [address] [place] [address] [place] [address] + DIANATIFFANY FLORES Next of Kin [address] [place] [address] + DIANAHANNAH FLORES Next of Kin [address] [place] [address] [place] [address] + DianaTiffany flores Next of Kin [address] [place] [address] + DIANATIFFANY FLORES Next of Kin Unknown + DIANATIFFANY Next of Kin Unknown + JAMISON CASTANEDA Next of Kin [address] [place] [address] [place] [address] + DIANATIFFANY Next of Kin [address] [place] [address] [place] [address] + DIANAHANNAH Next of Kin [address] [place] [address] [place] [address] + JAMISON CASTANEDA Next of Kin [address] [place] [address], [place] [address] + DIANA, TIFFANY Next of Kin [address] [place] [address] + DIANA, HANNAH Next of Kin [address] [place] [address] + DIANA, TIFFANY Next of Kin Unknown Unavailable DIANA, TIFFANY Next of Kin Unknown Un[place] [address] +[phone] DIANA, TIFFANY Next of Kin Unknown Unavailable DIANA, TIFFANY Next of Kin Unknown Unavailable [place] [address] +[phone] DIANA, TIFFANY Next of Kin Unknown Unavailable DIANA, TIFFANY Next of Kin Unknown Unavailable [place] [address] +[phone] Diana, Tiffany Next of Kin [address] [place] [address] + JAMISON CASTANEDA Next of Kin [address] [place] [address], [place] [address] + DIANA, TIFFANY Next of Kin [address] [place] [address] + DIANA, HANNAH Next of Kin [address] [place] [address] + LEONEL, JAMISON Next of Kin [address] [place] [address], [place] [address] + DIANA, TIFFANY Next of Kin [address] [place] [address] + DIANA, HANNAH Next of Kin [address] [place] [address] + LEONEL, JAMISON Next of Kin [address] [place] [address] + DIANA, TIFFANY Next of Kin [address] [place] [address] + DIANA, HANNAH Next of Kin [address] [place] [address] + DIANA, TIFFANY Next of Kin Unknown + LEONELJAMISON DOWLING Next of Kin [address] [place] [address] + TIFFANY ORTIZ Next of Kin [address] [place] [address], [place] [address] + HNANAH ORTIZ Next of Kin [address] [place] [address], [place] [address] + LEONELJAMISON DOWLING Next of Kin [address] [place] [address] + TIFFANY ORTIZ Next of Kin [address] [place] [address], [place] [address] + HANNAH ORTIZ Next of Kin [address] [place] [address], [place] [address] + LEONELJAMISON DOWLING Next of Kin [address] [place] [address], [place] [address] + TIFFANY ORTIZ Next of Kin [address] [place] [address], [place] [address] + HANNAH ORTIZ Next of Kin [address] [place] [address], [place] [address] + LEONELJAMISON DOWLING Next of Kin [address] [place] [place] [address] + TIFFANY ORTIZ Next of Kin [address] [place] [address], [place] [address] + HANNAH ORTIZ Next of Kin [address] [place] [address], [place] [address] + Tiffany Ortiz Next of Kin [address] [place] [address], [place] [address] + Tiffany Ortiz Next of Kin [address] [place] [address], [place] [address] + Care Team Providers Care Financial Service Rep Name Role Phone BHARATH DESAI Attending Unavailable TARYN SOTO Attending Unavailable BHARATH DESAI Referring Unavailable JOSY DINH Attending Unavailable BHARATH DESAI Referring Unavailable JOSY DINH Attending Unavailable BHARATH DESAI Referring Unavailable TARYN SOTO Attending Unavailable BHARATH DESAI Referring Unavailable TARYN SOTO Attending Unavailable BHARATH DESAI Referring Unavailable BHARATH DESAI Attending Unavailable BHARATH DESAI Attending Unavailable JR. HE, SHASHANK Guevara Attending Unavaila augustin CUTLER JR., SHASHANK Guevara Attending Unavaila augustin CUTLER JR., SHASHANK Guevara Attending Unavaila NICOLE JonesITI Flaco Attending Unavailable FILI NINA Primary Care Unavailable Coy Ryder Attending Unavailable Love, Michelet S Admitting Unavailable Love, Michelet S Attending Unavailable HoSilvano santolas M Primary Care Unavailable CalvWhit dollen R Admitting Unavailable CalveyLadonna R Attending Unavailable HoSilvano santolas M Primary Care Unavailable Love, Michelet S Admitting Unavailable Love, Michelet S Attending Unavailable Silvano Ninalas M Primary Care Unavailable Whit Mejiasen R Admitting Unavailable Ladonna Mejias R Attending Unavailable Silvano Ninalas M Primary Care Unavailable ANUJ, SO Attending Unavailable BHARATH DESAI Referring Unavailable ANUJ, SO Referring Unavailable ANUJ, SO Attending Unavailable SHAHIDA BHARDWAJ Attending Unavailable LASHAE, SHAHIDA Attending Unavailable UNKNOWN, UNKNOWN Referring Unavailable SHAHIDA BHARDWAJ Attending Unavailable LASHAE, SHAHIDA Attending Unavailable PROBLEMS DATE TYPE CONDITION / CODE ATTENDING STATUS [facility] 11/21/2024 Admitting Diagnosis Lesion of radial nerve, right upper limb / G56.31(ICD-10) SHAHIDA BHARDWAJ [facility] 11/21/2024 Admitting Diagnosis Other enthesopathies, not elsewhere classified / M77.8(ICD-10) SHAHIDA BHARDWAJ [facility] 08/10/2024 Unknown Dorsalgia, unspecified / M54.9(ICD-10) Michelet Aleman [facility] 06/29/2024 Admitting Diagnosis Ruddy-Danlos Syndrome / FREETEXT() KAMLA HODGES [facility] 05/09/2024 Unknown Other specified abnormal immunological findings in serum / R76.8(ICD-10) SO LESLIE [facility] 05/09/2024 Unknown Pain in unspecif ied joint / M25.50(ICD-10) SO LESLIE [facility] 05/09/2024 Unknown Cervicalgia / M54.2(ICD-10) LESLIE, [facility] 05/09/2024 Unknown Hyperuricemia without signs of inflammatory arthritis and tophaceous disease / E79.0(ICD-10) [facility] [address] [facility] 05/09/2024 Unknown Encounter for therapeutic drug level monitoring / Z51.81(ICD-10) [facility] 2024 Unknown Other dorsalgia / M54.89(ICD-10) LoveMichelet [facility] 04/04/2024 Admitting Diagnosis Other synovitis and tenosynovitis, right forearm / M65.831(ICD-10) SHAHIDA BHARDWAJ [facility] 04/04/2024 Admitting Diagnosis Other instability, left wrist / M25.332(ICD-10) SHAHIDA BHARDWAJ [facility] 04/04/2024 Admitting Diagnosis Other instability, right wrist / M25.331(ICD-10) SHAHIDA BHARDWAJ [facility] 02/16/2024 Unknown Pain in right wr ist / M25.531(ICD-10) Ladonna Mejias [facility] 02/09/2024 Unknown Disorder of ligament, unspecified site / M24.20(ICD-10) Ladonna Mejias [facility] 02/09/2024 Unknown Other instabilit y, unspecified wrist / M25.339(ICD-10) Ladonna Mejias [facility] 02/09/2024 Unknown Pain in left wri st / M25.532(ICD-10) Ladonna Mejias [facility] PROCEDURES No Procedure Records Found RESULTS FOLLOW-UP Observed: 01/02/2025 1:20 PM Status: COMPLETED Source: [facility] [id number] Jenna Ortiz 1989 M Date Provider Department Center 01/02/2025 438-SHAHIDA BHARDWAJ ORTHO MPORTHO No family history on file Level of Service:84183 [place] OFFICE/OUTPATIENT ESTABLISHED LOW MDM 20 MIN (GC) Reason for Visit and Comments: Follow-up [258212]Follow-up [411043] PROGRESS Observed: 01/02/2025 1:20 PM Status: COMPLETED Source: [facility] Orthopaedic Surgery Subjective Follow-up of the Right Hand and Follow-up of the Left Hand 01/02/25 Jenna Ortiz is a 34-year-old male who returns for follow-up of bilateral wrist pain and right elbow pain. He was last seen in the office 1/2 months ago at which time he received a corticosteroid injection into his right radial tunnel. He states he had no relief from the injection, not even for a couple hours. Unfortunately his symptoms have been persistent with little improvement. He is still most bothered on the right side compared to the left most particularly near the second extensor compartment. He continues to work full-time with a lot of repetitive movements of his wrist. He feels as though there is clicking or snapping to bilateral wrists although in different locations. On the right wrist he feels the is the snapping sensation over the dorsal radial aspect of the wrist however on the left wrist he feels it is predominantly over the dorsum of the wrist but he can cause snapping on command when he AB/adductor's his index finger. He denies any new injuries. 11/21/24 Jenna Ortiz is a 34 y.o. male presenting for follow-up of bilateral wrist pain and new elbow pain. Last seen in office 4 months ago, diagnosed with bilateral intersection syndrome at that time, right was injected with corticosteroid as it was worse in the left. He has been doing stretches and exercises in the interim. Unfortunately he states the symptoms improved for a bit but then returned, he has also been having worsening pain mostly in the right elbow and proximal forearm and a little bit in the left as well. Continues to work full-time, works on [employer] line with lots of repetitive movements. Additionally notes that he feels some tendon snapping in the dorsal wrist which is not new but he thinks may be related to the pain. He denies any numbness or tingling. Denies any injuries or other pertinent events. History History reviewed. No pertinent surgical history. History reviewed. No pertinent past medical history. Objective General: Body mass index is 38.01 kg/m???. No acute distress, comfortable Bilateral UE/Hand: Inspection- no swelling, no deformity or contracture, supple skin with no lesions Tender ovation over the right lateral condyle however less in the radial tunnel. Tender ovation to 1st and 2nd intersection point bilaterally right greater than left.. Most significant tenderness is over the radial tunnel. 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 wrist extension/flexion 5/5 Sensation: intact over median, ulnar, and radial nerve distributions Cardiovascular: Well-perfused digits Imaging No imaging performed at this visit. Assessment/Plan Jenna Ortiz is a 34 y.o. 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 Did not get much benefit from previous corticosteroid injections to the right intersection area or radial tunnel. We discussed conservative or surgical treatment options including continued observation with stretching and anti-inflammatories, corticosteroid injection, and surgical exploration/debridement the area of the radial tunnel potentially the intersection area. She wants to ponder over possible surgical intervention. - Continue home stretching, anti-inflammatories. A prescription for Ansaid was provided today -Return to clinic in 3 months Cruzito Hebert MD Orthopaedic Surgery 01/02/25 1:45 PM By using the attestations below, the signing clinician agrees that I have read and verify that the documentation has been personally reviewed by me and ensure that the documentation accurately reflects the encounter. GC: I personally saw this patient on the day of the encounter, performed the elizondo portion(s) of the service and participated in the management and confirm the resident's documentation. Please note there may be an additional personal documentation from me. 29 Observed: 01/02/2025 1:20 PM Status: COMPLETED Source: [facility] Addended by: SHAHIDA BHARDWAJ on : 01/02/2025 08:23 PM Modules accepted: Level of Service FOLLOW-UP Observed: 11/21/2024 1:30 PM Status: COMPLETED Source: [facility] [id number] Jenna Ortiz 1989 M Date Provider Department Center 11/21/2024 438-SHAHIDA BHARDWAJ MP ORTHO MPORTHO No family history on file Level of Service:[address]80 [place] OFFICE/OUTPATIENT ESTABLISHED LOW MDM 20 MIN (GC,25) Reason for Visit and Comments: Follow-up [023140] PROGRESS Observed: 11/21/2024 1:30 PM Status: COMPLETED Source: [facility] Orthopaedic Surgery Subjective Follow-up of the Left Elbow 11/21/24 Jenna Ortiz is a 34 y.o. male presenting for follow-up of bilateral wrist pain and new elbow pain. Last seen in office 4 months ago, diagnosed with bilateral intersection syndrome at that time, right was injected with corticosteroid as it was worse in the left. He has been doing stretches and exercises in the interim. Unfortunately he states the symptoms improved for a bit but then returned, he has also been having worsening pain mostly in the right elbow and proximal forearm and a little bit in the left as well. 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 Additionally notes that he feels some tendon snapping in the dorsal wrist which is not new but he thinks may be related to the pain. He denies any numbness or tingling. Denies any injuries or other pertinent events. History History reviewed. No pertinent surgical history. History reviewed. No pertinent past medical history. Objective General: Body mass index is 38.01 kg/m???. No acute distress, comfortable Bilateral UE/Hand: Inspection- no swelling, no deformity or contracture, supple skin with no lesions tender to the patient to moderate upper condyle, over radial tunnel, 1st and 2nd intersection point. Most significant tenderness is over the radial tunnel. 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 wrist extension/flexion 5/5 Sensation: intact over median, ulnar, and radial nerve distributions Cardiovascular: Well-perfused digits Imaging No imaging performed at this visit. Assessment/Plan Jenna Ortiz is a 34 y.o. 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 Did not get much benefit with previous corticosteroid injection to right intersection area. We discussed conservative or surgical treatment options including continued observation with stretching and anti-inflammatories, corticosteroid injection, and surgical exploration/debridement the area of the radial tunnel potentially the intersection area. Elected to move forward with a right radial tunnel corticosteroid injection in the office today. He will continue stretches no other conservative treat modalities at home, will follow-up in 6 weeks. - Continue home stretching, anti-inflammatories - Right radial tunnel corticosteroid injection in office today -Return to clinic in 6 weeks Navid Mcclelland MD Orthopaedic Surgery 11/21/24 1:51 PM By using the attestations below, the signing clinician agrees that I have read and verify that the documentation has been personally reviewed by me and ensure that the documentation accurately reflects the encounter. GC: I personally saw this patient on the day of the encounter, performed the elizondo portion(s) of the service and participated in the management and confirm the resident's documentation. Please note there may be an additional personal documentation from me. PROGRESS Observed: 11/21/2024 1:30 PM Status: COMPLETED Source: [facility] Patient ID: Jenna Ortiz is a 34 y.o. male. Steroid Injections for (Right radial tunnel) on 11/21/2024 6:43 PM Details: 25 G needle Medications: 3 mL lidocaine (PF) 10 mg/mL (1 %); 2 mL triamcinolone acetonide (Kenalog-10) 10 mg/mL Outcome: tolerated well, no immediate complications Procedure, treatment alternatives, risks and benefits explained, specific risks discussed. Consent was given by the patient. In the clinic today, after obtaining a verbal consent, the area of the point of most tenderness on the right radial tunnel was palpated and marked and prepped with a Betadine swab. Using a syringe and 25-gauge needle that area was injected going toward the arcade of Ina on the anterior aspect of the elbow. The area was wiped clean with an alcohol swab and then dressed with a Band-Aid. Instructions were given to ice the region later today. Procedure Attestation Level of Attending Supervision for Procedure I was present for the elizondo and critical portions and I was otherwise immediately available to assist MR THORACIC SPINE WO CON Observed: 08/10 12:40 PM Status: COMPLETED Source: [place] [id number] MRI Report Signed Patient: Jenna Ortiz MR#: [id number] 8 : 1990 Acct:[id number] Age/Sex: 34 / M ADM Date: 08/10/24 Loc: [facility] Room: Type: REG CLI Attending Dr: Michelet Aleman MD Copies to: Michelet Aleman MD Ordering Provider: Michelet Aleman MD Date of Service: 08/10/24 MR/MR thoracic spine wo con: M54.9 - Dorsalgia, unspecified MRI thoracic spine performed without contrast COMPARISON: X-rays thoracic spine 2024 and MRI of the cervical spine performed 02/01/2024 from outside hospital FINDINGS: The thoracic vertebral heights, alignment and bone marrow signal is unremarkable. Minimal anterior marginal endplate spurring identified involving the mid and lower thoracic levels. Otherwise the thoracic discs, disc space heights and disc signal are preserved. No focal disc protrusion or significant central canal or neuroforaminal identified. The thoracic cord is unremarkable in signal and morphology. No definite subdural or epidural collections within the canal. Paraspinal soft tissues are unremarkable as visualized. MR/MR thoracic spine wo con IMPRESSION: Essentially Unremarkable MRI of the thoracic spine. Impression dictated by: Chano Gunn M.D.08/10/2024 12:46 PM Dictation Location: [place] [address] Transcribed By: [facility] 08/10/24 1246 Dictated By: Chano Gunn MD 08/10/24 1240 Signed By: <Electronically signed by Chano Gunn MD in [place]> 08/10/24 1246 FOLLOW-UP Observed: 07/04/2024 1:20 PM Status: COMPLETED Source: [facility] [id number] Jenna Ortiz 1989 M Date Provider Department Center 07/04/2024 Vladimir-SHAHIDA BHARDWAJ ORTHO MPORTHO No family history on file Level of Service:85473 [place] OFFICE/OUTPATIENT ESTABLISHED LOW MDM 20 MIN (25) Reason for Visit and Comments: Pain [136]Pain [136] PROGRESS Observed: 07/04/2024 1:20 PM Status: COMPLETED Source: [facility] Patient ID: Jenna Ortiz is a 34 y.o. male. Steroid Injections for intersection syndrome on 07/04/2024 9:10 PM Details: 25 G needle, dorsal approach Medications: 2 mL lidocaine (PF) 10 mg/mL (1 %); 1 mg triamcinolone acetonide (Kenalog-10) 10 mg/mL Outcome: tolerated well, no immediate complications In the clinic today. The area on the distal side of the intersection region of the right wrist was marked and prepped with Betadine swab. Using a syringe and 25-gauge needle, the intersection area was injected with 1 cc of Kenalog 10 mg/mL and 2 cc of 1% lidocaine. The area was wiped clean with an alcohol swab and dressed with a Band-Aid. Instructions were given to ice the region later today and then resume stretching. Procedure, treatment alternatives, risks and benefits explained, specific risks discussed. Consent was given by the patient. Immediately prior to procedure a time out was called to verify the correct patient, procedure, equipment, system support technician and site/side marked as required. PROGRESS Observed: 07/04/2024 1:20 PM Status: COMPLETED Source: [facility] Subjective Chief complaint: Chief Complaint Patient presents with Right Wrist - Pain Left Wrist - Pain 07/04/24 Patient is a 34 yo male presenting for follow up of bilateral wrist and forearm pain. Since his last visit to clinic, symptoms have not improved. He is still having pain over the dorsal aspects of both wrist at the extensor intersection. 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 No pain relief with stretching or strengthening exercises at home. He has also failed at formal PT. No other concerns today. 04/04/2024 Jenna Ortiz is a 34 y.o. male presenting for evaluation of bilateral [...] other constitutional symptoms. Denies shortness of breath. History History reviewed. No pertinent surgical history. History reviewed. No pertinent past medical history. Objective General: Body mass index is 38.01 kg/m???. There were no vitals filed for this visit. 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 male with presenting for follow up of bilateral wrist and forearm pain. 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 - Discussed the nature of the disease as well as treatment options including conservative vs surgical interventions Conservative interventions including: stretching and isometric extension of the wrist discussed with the patient. Surgical interventions including: None - Patient would like to proceed with CSI of right extensor intersection. Will defer left side as symptoms are not as severe. - CSI performed in clinic today. Patient tolerated it well. - Will follow up as needed. Harvey Mccarthy MS3 07/04/24 2:09 PM I was physically present with the medical student. I have personally performed (or re-performed) the physical exam and medical decision making for the patient. I personally verified the medical student's documentation. I made pertinent changes as necessary to ensure accurate documentation. Additional Notes/Findings: He is not making significant improvement with stretching and anti-inflammatories. We talked about options at this point and he would like to try corticosteroid injection into the right intersection area, which is the more symptomatic of the 2, and then continue stretching for the left wrist. The injection was done by myself today and was well-tolerated. C REACTIVE PROTEIN Collected: 05/09/2024 2:39 P M Status: COMPLETED Source: [facility] TYPE CODE TESTS RESULT OUT OF RANGE REFERENCE UNITS LAB CRP(LOINC) C REACTIVE PROTEIN 0.3 0.000-0.744 mg/dL Performed By: #### 1990-5, 1 5205-8, 73566-3, 94603-9 #### [facility] ([id number]) [address] [facility] [facility] [place] [address] RHEUMATOID FACTOR Collected: 05/09/2024 2:39 PM Status: COMPLETED Source: [facility] TYPE CODE TESTS RESULT OUT OF RANGE REFERENCE UNITS LAB RF(LOINC) RHEUMATOID FACTOR 23 High <20 IU/mL Performed By: #### 1990-5, 1 5205-8, 29117-3, 64694-0 #### [facility] ([id number]) [address] [place] [address], [address] [place] [address] CCP ANTIBODY Collected: 05/09/2024 2:39 PM S tatus: COMPLETED Source: [facility] TYPE CODE TESTS RESULT OUT OF RANGE REFERENCE UNITS LAB CCPA(LOINC) CCP ANTIBODY 1.0 <3.0 U/ML Result Comment: Interpretation-------- <3 Negative >=3 Positive Performed By: #### 1989-5, 1 5205-8, 08958-7, 28940-3 #### [facility] ([id number]) [address] [place] [address] ESR, ERYTHROCYTE SEDIMENTATI ON RATE Collected: 05/09/2024 2:39 PM Status: COMPLETED Source: [facility] TYPE CODE TESTS RESULT OUT OF RANGE REFERENCE UNITS LAB ESR(LOINC) ESR, ERYTHROCYTE SEDIMENTATION RATE 11 0-15 mm/h Performed By: #### 1990-5, 1 5205-8, 44599-6, 32513-3 #### [facility] ([id number]) [address] [place] [address] XR THORACIC SPINE 3V* Observed: 05/08/20 24 7:50 PM Status: COMPLETED Source: [facility] [place] [address] [address] XRay Report Signed Patient: Jenna Ortiz MR#: [id number] 8 : 1990 Acct:[id number] Age/Sex: 34 / M ADM Date: 05/08/24 Loc: XD Room: Type: [facility] Attending Dr: Michelet Aleman MD Copies to: Michelet Aleman MD Ordering Provider: Michelet Aleman MD Date of Service: 05/08/24 XR/XR thoracic spine 3V*: M54.9 - Dorsalgia, unspecified XR thoracic spine 3V* 2024 12:11 PM SIGNS AND SYMPTOMS: Mid back pain PROTOCOLS: Frontal and lateral radiographs of the thoracic spine COMPARISON: None FINDINGS: The bones are in anatomic alignment with preservation of vertebral body heights and intervertebral disc spaces. No evidence of fracture or bony destructive lesion. XR/XR thoracic spine 3V* IMPRESSION: Negative Thoracic Spine. Impression dictated by: Abilio Coles M.D.05/08/2024 7:52 PM Dictation Location: [place] [address] Transcribed By: [facility] 05/08/241951 Dictated By: Abilio Coles II, MD 05/08/241949 Signed By: <Electronically signed by Abilio Coles II, MD in OV> 05/08/241951 XR SCAPULA BI Observed: 2024 7:49 PM Status: COMPLETED Source: [facility] [place] [address] XRay Report Signed Patient: Jenna Ortiz MR#: [id number] 8 : 1990 Acct:[id number] Age/Sex: 34 / M ADM Date: 05/08/24 Loc: XD Room: Type: [facility] Attending Dr: Michelet Aleman MD Copies to: Michelet Aleman MD Ordering Provider: Michelet Aleman MD Date of Service: 05/08/24 XR/XR scapula BI: M54.89 - Other dorsalgia XR scapula BI 2024 12:11 PM SIGNS AND SYMPTOMS: Intrascapular pain PROTOCOL: Frontal and lateral radiographs of the scapula bilaterally COMPARISON: None FINDINGS: The bones are in anatomic alignment. There is no evidence of fracture. The glenohumeral joint and acromioclavicular preserved. The visualized right and left hemithorax are intact. XR/XR scapula BI IMPRESSION: No acute bony injury or significant degenerative change. Impression dictated by: Abilio Coles M.D.05/08/2024 7:50 PM Dictation Location: [facility] Transcribed By: [facility] 05/08/241949 Dictated By: Abilio Coles II, MD 05/08/241948 Signed By: <Electronically signed by Abilio Coles II, MD in OV> 05/08/241949 OFFICE VISIT Observed: 04/04/2024 1:40 PM Status: COMPLETED Source: [facility] [id number] Jenna Ortiz 1989 M Date Provider Department Center 04/04/2024 SHAHIDA IRENE MP ORTHO MPORTHO No family history on file Level of Service:[address] [place] OFFICE/OUTPATIENT [facility] 30 MINUTES Reason for Visit and Comments: Pain [136]Pain [136] PROGRESS Observed: 04/04/2024 1:40 PM Status: COMPLETED Source: [facility] Subjective Chief complaint: Chief Complaint Patient presents with Right Hand - Pain Left Hand - Pain 04/04/24 Jenna Ortiz is a 33 y.o. male presenting for [...] Xrays were not personally reviewed today. Assessment/Plan Jenna Ortiz is a 33 y.o. 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 Discussed the nature of the disease as well as treatment options including conservative vs surgical interventions Conservative interventions including: stretching and isometric extension of the wrist discussed with the patient. Surgical interventions including: None -follow up in 2-3 months -RTC If symptoms acutely worsen Arian Lao, MS4, Acting Sweeping Compound Blender Orthopedic Surgery 04/04/24 2:23 PM I was [...] few months and do a corticosteroid injection. XR WRIST RT 2V Observed: 02/16/2024 4:10 PM Status: COMPLETED Source: [facility] [place] [address] MRI Report Signed Patient: Jenna Ortiz MR#: [id number] 8 : 1990 Acct:[id number] Age/Sex: 33 / M ADM Date: 02/16/24 Loc: MR Room: Type: [facility] Attending Dr: Ladonna Mejias MD Copies to: Ladonna Mejias MD Ordering Provider: Ladonna Mejias MD Date of Service: 02/16/24 MR/MR wrist RT arthrogram w con: Eval for ligament damage ([id number]) XR/XR wrist RT 2V: M25.339, M24.20, M25.531 [...] canal: Normal. Articular: Thumb carpometacarpal joint: Unremarkable. Scaphotrapeziotrapezoidal joint: Unremarkable. Pisiform-triquetral joint: Unremarkable. Bones (other than subarticular marrow): Normal. Muscles: Normal. Vessels: Normal. MR/MR wrist RT arthrogram w con IMPRESSION: Unremarkable MRI arthrogram of the right wrist. Intact triangular fibrocartilage. Intact scapholunate ligament. Intact lunatotriquetral ligament. Intact distal radial ulnar joint. Impression dictated by: Wilmer Patel M.D.02/16/2024 4:33 PM Dictation Location: [facility]08 Transcribed By: [facility] 02/16/24 1633 Dictated By: Wilmer Patel DO 02/16/24 1610 Signed By: <Electronically signed by Wilmer Patel DO in OV> 02/16/24 1633 XR WRIST LT 2V Observed: 02/09/2024 4:34 PM Status: COMPLETED Source: [facility] [place] [address] MRI Report Signed Patient: Jenna Ortiz MR#: [id number] 8 : 1990 Acct:[id number] Age/Sex: 33 / M ADM Date: 02/09/24 Loc: Room: Type: [facility] Attending Dr: Ladonna Mejias MD Copies to: Ladonna Mejias MD Ordering Provider: Ladonna Mejias MD Date of Service: 02/09/24 MR/MR wrist LT arthrogram w con: Eval for ligament damage ([id number]) FL/FL guided needle placement: M24.20, M25.532, M25,339 ([id number]) XR/XR wrist LT 2V: M24.20, M25.532, M25.339 [...] Wilmer Patel M.D.02/09/2024 4:52 PM Dictation Location: [place] [address] Transcribed By: [facility] 02/09/24 1652 Dictated By: Wilmer Patel DO 02/09/24 1634 Signed By: <Electronically signed by Wilmer Patel DO in OV> 02/09/24 1652 ALLERGIES DATE TYPE / CODE NAME / CODE REACTION SEVERITY SOURCE 08/14/2024 Drug Allergy/7848755 02(SNOMED CT) meloxicam/B062672494( RXNORM) Hives Unknown [facility] 2024 Drug Allergy/8876240 02(SNOMED CT) No Known Allergies/R566271382( RXNORM) Unknown [facility] SYSTEMIC/677002 006(SNOMED CT) NO KNOWN ALLERGIES [facility] Ambulatory Drug Class/958919232 (SNOMED CT) NO ALLERGY INFORMATION AVAILABLE [facility] ENCOUNTERS ADMIT/DISCHARGE ACCOUNT NUMBER ADMITTING ENCOUNTER CLASS LOCATION SOURCE 01/02/2025 [id number] Ambulatory Buildin 0 [facility] 11/21/2024 [id number] Ambulatory Buildin 0 [facility] 11/08/2024/11/09/19 [id number] Ambulatory Building:[facility] 09/27/2024 [id number] Ambulatory [place]FM [facility] 09/13/2024/09/13/19 25 [id number] Ambulatory Building:[facility] 08/10/2024/08/10/[id number] [facility] 07/04/2024 [id number] Ambulatory Buildin 0 [facility] 06/29/2024/06/29/20 24 [id number] Ambulatory Building:[address] 06/14/2024/06/14/20 24 [id number] Ambulatory Building:[facility] 05/30/2024 [id number] Ambulatory [place]FM [facility] 05/29/2024/05/29/20 24 [id number] Ambulatory Building:[facility] 05/24/2024/05/24/20 24 [id number] Ambulatory Buildin 91 [facility] 05/09/2024/05/09/20 24 [id number] Ambulatory Building:[facility] 05/09/2024/05/09/20 24 [id number] Ambulatory Buildin 91 [facility] 05/08/2024/05/08/[id number] [facility]/01/[facility]24/05/01/20 24 [id number] Ambulatory Building:[facility] 04/12/2024/04/13/20 24 [id number] Ambulatory Building[facility] 04/10/2024/04/11/20 24 [id number] Ambulatory Building:[facility] 04/04/2024 [id number] Ambulatory Buildin 0 [facility] 04/03/2024/04/04/20 24 [id number] Ambulatory Building:[facility] 03/29/2024/03/29/20 24 [id number] Ambulatory Building:[facility] 03/22/2024/03/22/20 24 [id number] Ambulatory Building:[facility] 03/20/2024/03/20/20 24 [id number] Ambulatory Building:SWS ORTHO [facility] 02/16/2024/02/16/20 24 [id number] Ladonna Mejias [facility] 02/09/2024/02/09/20 [id number] Ladonna Mejias [facility] PAYERS ENCOUNTER GUARANTOR PAYER SUBSCRIBER SOURCE 01/02/2025 [facility] Number: [id number] ve Date:2024-07-26 JENNA NORMANDOB: [id number] [address] 11/21/2024 [facility] Insurance[facility] Number: [id number] ve Date:2024-07-26 JENNA NORMANDOB: [id number] [address] 11/08/2024 JENNA Zheng NORMANDOB: [place] [address]Tel: () Primary Insurance:[facility] y Number: [id number] ve Date:2024-07-26 JENNA Zheng NORMANDOB: [id number] [address] [facility] 09/27/2024 JENNA NORMANDOB: [facility] 302Tel: ~(419 (HP) Primary Insurance:AnthemPol icy Number: [id number] ve Date:8612-97-00[address], [place] [address]WC: JENNA CHAN [facility] 09/13/2024 JENNA RICEANDOB: [address]: (HP) Primary Insurance:BCBSPolic y Number: [id number] ve Date:2024-07-26 JENNA WYATTOB: [id number] [address] [address] [facility] 08/10/[address] [place], [place] [address]Tel: (HP) Primary Insurance:[place] BC/BSPolicy Number: [id number] ve Date:2024-07-11 Jenna RiceanDOB: [id number] [place] [address]Tel: (HP) [facility] 08/10/2024 Secondary Insurance:Self PayPolicy Number: Effective Date:2024-08-07 [facility]20[facility] Primary Insurance:BCBS OOSPolicy Number: [id number] ve Date:2017-07-26 JENNA RICEANDOB: [id number] [address] [facility] 06/29/2024 JENNA RICEANDOB: [address] [address]Pkb: (HP) Primary Insurance:ANTHEMPol icy Number: [id number] ve Date:2017-07-26 JENNA NORMANDOB: [id number] [place] [address]Tel: (HP) [facility] 06/14/2024 JENNA RICEANDOB: [place] [address]Tel: (HP) Primary Insurance:BCBSPolic y Number: [id number] ve Date:2017-07-26 JENNA RICEANDOB: [id number] [address] [place] [address] [facility] 05/29/2024 JENNA RICEANDOB: [address]: (HP) Primary Insurance:BCBSPolic y Number: [id number] ve Date:2017-07-26 JENNA RICEANDOB: [id number] [place] [id number] [facility] 05/24/2024 JENNA RICEANDOB: [address] [address]Ucc: (WP) Primary Insurance:BCBS OUT OF STATE PPO/TRUSTPolicy Number: [id number] ve Date:2017-07-26 JENNA RICEANDOB: [id number] [address] [address]Hjv: (HP) (WP) [facility] 05/09/2024 JENNA LUO NORMANDOB: [address] [address]Rnk: (WP) Primary Insurance:BCBS OUT OF STATE PPO/TRUSTPolicy Number: [id number] ve Date:2017-07-26 JENNA RICEANDOB: [id number] [address]Otc: (HP) (WP) [facility] 05/09/2024 JENNA LUO NORMANDOB: [address] [address]Vyc: (HP) (WP) Primary Insurance:BCBS OUT OF STATE PPO/TRUSTPolicy Number: [id number] ve Date:2017-07-26 JENNA LUO NORMANDOB: [id number] [address]Yzb: (HP) (WP) [facility] [address] [place], [place] [address]Tel: (HP) Primary Insurance:Nelda RIVERA/BSPolicy Number: [id number] ve Date:2024 Jenna Zheng NormanDOB: [id number] [place] [address]Tel: (HP) [facility] 2024 Secondary Insurance:Self PayPolicy Number: Effective Date:2024 [facility]/01/2024 JENNA RICEANDOB: [place] [address]Tel: (HP) Primary Insurance:BCBSPolic y Number: [id number] ve Date:2017-07-26 JENNA Zheng NORMANDOB: [id number] [place] [phone] [facility] 04/12/2024 JENNA Zheng NORMANDOB: [place] [address]Tel: (HP) Primary Insurance:BCBSPolic y Number: [id number] ve Date:2017-07-26 JENNA Zheng NORMANDOB: [id number] [place] [phone] [facility] 04/10/2024 JENNA Marce NORMANDOB: [address]Tel: (HP) Primary Insurance:BCBSPolic y Number: [id number] ve Date:2017-07-26 JENNA Zheng NORMANDOB: [id number] [place] [phone] [facility] 04/04/2024 Primary Insurance:BCBS OOSPolicy Number: [id number] ve Date:2017-07-26 JENNA RICEANDOB: [id number] [place] [phone] [place] [address] 04/03/2024 JENNA Zheng NORMANDOB: [address]Tel: (HP) Primary Insurance:BCBSPolic y Number: [id number] ve Date:2017-07-26 JENNA Zheng NORMANDOB: [id number] [place] [phone] [facility] 03/29/2024 JENNA Zheng NORMANDOB: [address]: (HP) Primary Insurance:BCBSPolic y Number: [id number] ve Date:2017-07-26 JENNA Zheng NORMANDOB: [id number] [place] [id number] [facility] 03/22/2024 JENNA Zheng NORMANDOB: [address]: (HP) Primary Insurance:BCBSPolic y Number: [id number] ve Date:2017-07-26 JENNA Zheng NORMANDOB: [id number] [place] [phone] [facility] 03/20/2024 JENNA Zheng NORMANDOB: [address]Tel: (HP) Primary Insurance:BCBSPolic y Number: [id number] ve Date:2017-07-26 JENNA WYATTOB: [id number] [place] [address] [facility] 02/16/[address] [place], [place] [address]Tel: (HP) Primary Insurance:[place] BC/BSPolicy Number: [id number] ve Date:2024-01-13 Jenna WyattOB: [id number] [place] [phone]: (HP) [facility] 02/16/2024 Secondary Insurance:Self PayPolicy Number: Effective Date:2024-01-21 [facility] 02/09/[address] [place], [place] [address]Tel: (HP) Primary Insurance:[place] BC/BSPolicy Number: [id number] ve Date:2024-01-13 Jenna WyattOB: [id number] [place], [place] [address]Tel: (HP) [facility] 02/09/2024 Secondary Insurance:Self PayPolicy Number: Effective Date:2024-01-21 [facility]
--- NOTE | 2025-01-30 15:44 | MR_ITS ---
The [address] [address] Patient Name: JENNA ORTIZ MRN: [id number] date: 1990 Sex: M Assigned Patient Location: MRI Current Patient Location: MRI Accession/Order Number: [id number] Exam Date: 01/30/2025 21:49 Report Date: 01/30/2025 21:57 At the request of: TESSY CRENSHAW MD Procedure: MR cervical spine wo/w con MRI OF THE CERVICAL SPINE PERFORMED WITHOUT AND WITH CONTRAST INDICATION: Cervical radiculopathy, chronic neck pain and grinding COMPARISON: 02/01/2024 FINDINGS: Mild straightening. The craniocervical junction maintained. The cervical cord demonstrates normal signal and morphology. Cervical vertebral heights, alignment and bone marrow signal is unremarkable. Minimal intervertebral space narrowing C5-C7. Prevertebral and paraspinal soft tissues are unremarkable. No evidence of abnormal postcontrast enhancement. C2-C3: Unremarkable. C3-C4: Minimal left-sided uncovertebral spurring. Minimal left neural foraminal narrowing. Right foramen and canal patent. No significant disc disease. C4-C5: No significant disc disease, central canal or neural foraminal narrowing identified. C5-6: Minimal broad-based bulge and bilateral uncovertebral spurring, greatest left. Mild bilateral neural foraminal narrowing. Canal is patent. C6-C7:: Small left subarticular zone extrusion and mild left uncovertebral spurring. Right foramen is patent. There is mild left foraminal narrowing. Canal is unremarkable. C7-T1: Mild facet arthropathy causing mild bilateral foraminal narrowing. Canal is patent. MR/MR cervical spine wo/w con IMPRESSION: Mild degenerative changes C5-7 predominantly left-sided. Mild degenerative changes on the right at C5-6. Negative for abnormal postcontrast enhancement. Impression dictated by: Chano Gunn M.D. 01/30/2025 9:57 PM Dictation Location: [place] [address] Electronically authenticated by: [id number] Y Date: 01/30/2025 21:57
== END 2025-01-30 15:34 | disposition home or self-care (01) ==
PROVIDERS: PCP Family Medicine; Visit Provider Pain Medicine Interventional Pain Medicine
DX: M25.511 Pain in right shoulder (principal); M25.512 Pain in left shoulder; G89.29 Other chronic pain; M54.12 Radiculopathy, cervical region; M50.30 Other cervical disc degeneration, unspecified cervical region
CPT/HCPCS: 72156; A9575

== ENCOUNTER 2025-02-01 15:36 | Outpatient (OUT) | payer BC, SELFPAY ==
--- NOTE | 2025-02-01 15:42 | MR_ITS ---
[place] [id number] Patient Name: JENNA ORTIZ MRN: [id number] date: 1990 Sex: M Assigned Patient Location: MRI Current Patient Location: MRI Accession/Order Number: [id number] Exam Date: 02/01/2025 20:40 Report Date: 02/01/2025 20:49 At the request of: TESSY CRENSHAW MD Procedure: MR shoulder LT wo/w con MRI left Shoulder without contrast TECHNIQUE: Multiplanar T1 and T2-weighted imaging obtained without contrast. HISTORY: Chronic left shoulder pain COMPARISON: None BONE MARROW EDEMA: No bone contusion FRACTURE: No linear fracture AC JOINT: Degenerative change. Inferior marginal spurring abutting the myotendinous portion of supraspinatus tendon. May represent impingement. SHOULDER ROOF LIGAMENTS: The coracoacromial and coracoclavicular ligaments are intact. ROTATOR CUFF: Thickening of the supraspinatus tendon with heterogeneous signal changes consistent with tendinosis. No fluid signal changes of the articular surface of the supraspinatus tendon near the footplate of the greater tuberosity concerning for partial articular surface tear. No retracted full-thickness tear of supraspinatus tendon. Infraspinatus tendon intact. Teres minor intact. Subscapularis tendon intact. ROTATOR CUFF INTERVAL: Unremarkable BURSAL FLUID: Inflammatory changes with small joint effusion GLENOID: Intact BICEPS LABRAL COMPLEX: Intact LONG HEAD OF BICEPS TENDON: Intact GLENOHUMERAL LIGAMENTS: The superior glenohumeral ligament is intact. The middle glenohumeral ligament is intact. The anterior and posterior glenohumeral ligaments are intact. JOINT EFFUSION: Small MUSCLES: Normal signal intensity of the muscles. NO SUBCUTANEOUS TISSUES: No subcutaneous abnormalities identified. MR/MR shoulder LT wo/w con IMPRESSION: Supraspinatus tendinosis with partial articular surface tear near the greater tuberosity. Extensive degeneration of the acromioclavicular joint with inferior marginal spurring which may contribute to impingement. Impression dictated by: Wilmer Patel M.D. 02/01/2025 8:49 PM Dictation Location: [place] [address] Electronically authenticated by: [id number] Y Date: 02/01/2025 20:49
== END 2025-02-01 15:37 | disposition home or self-care (01) ==
LOC: MRI 15:37
PROVIDERS: PCP Family Medicine; Visit Provider Pain Medicine Interventional Pain Medicine
DX: M25.511 Pain in right shoulder (principal); M25.512 Pain in left shoulder; G89.29 Other chronic pain; M54.12 Radiculopathy, cervical region; M75.31 Calcific tendinitis of right shoulder
CPT/HCPCS: 73223; A9575

== ENCOUNTER 2025-02-08 15:37 | Outpatient (OUT) | payer BC, SELFPAY ==
--- OUTSIDE RECORDS SUMMARY | 2024-06-02 06:00 | XMS_ITS ---
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 C/o slightly itchy rash all over body Medications Medication SIG (Take, Route, Fr equency, Duration) Notes Start Date End Date Status predniSONE 20 MG 3 tabs Orally Once a day for 5 days 06/02/2024 Active Social History Tobacco Use: Social History Observation Description Date Details (start date - stop date) Never Smoker NA - NA Tobacco Use/Smoking Question Answer Notes Patient is a nonsmoker AUDIT-C (Standard) Question Answer Notes Did you have a drink contain ing alcohol in the past year? Yes How often did you have six o r more drinks on one occasion in the past year? Never (0 point) How many drinks did you have on a typical day when you were drinking in the past year? 3 or 4 drinks (1 point) How often did you have a dri nk containing alcohol in the past year? 2 to 4 times a month (2 points) Points 3 Interpretation Negative Problems Problem Type SNOMED Code ICD Code Onset Dates Problem Status W/U Status Risk Notes Problem Eczema ([id number]) Eczema (L30.9) Active confirmed Vital Signs Blood pressure systolic 144 mm Hg 06/02/20 24 Blood pressure diastolic 90 mm Hg 024 Height 78 in 06/02/2024 Weight 278.2 lbs 06/02/2024 BMI 32.15 kg/m2 06/02/2024 Encounters Encounter Location Date Provider Diagnosis [facility] [address] [place] [address] 06/02/2024 Silvano Nina Eczema L30.9 Assessments Encounter Date Diagnosis (ICD Code) Assessment Notes Treatment Notes Treatment Clinical Notes Section Notes 06/02/2024 Eczema (ICD-10 - L30.9) Plan Of Treatment Medication Medication Name Sig Start Date Stop Date Notes predniSONE 20 MG 3 tabs Orally Once a day for 5 days 06/02 Medications Administered Medication Instructions Date of Administration Dosage Notes Kenalog-40 06/02/2024 80 mg 80 Progress Notes * Jayce ORTIZ LDOB:1990 (34 yo M)Acc No.[id number]:06/02/2024 Progress Note Patient: Jayce SANTORO Provider: Kevin Nina ([facility])MD :1990 A ge:34 Y S ex:Male Date:06/02/2024 Address:[address] [place], [place] [id number] Check In:10:01 AM ESTCheck O ut:10:28 AM EST Subjective: * Chief Complaints: * 1 . Presents to office alone. C/o slightly itchy rash all over body. * HPI: G eneral: rashdiffuse -0 - no traves rash not in areas of scabies was on 2 diff emett =- but doesn look like hives nothign else new - no new clothes. * Active Problem List G47.00 Insomnia Modified On:10/26/2022U Status:confirmed F51.01 Primary insomnia Modified On:10/26/2022 Status:confirmed F41.9 Anxiety disorder, un specified Modified On:10/26/2022 Status:confirmed M24.811 Other specific joint derangements of right shoulder, not elsewhere classified Modified On:02/09/2023 Status:confirmed J18.9 Pneumonia Modified On:06/16/2023 Status:confirmed I10 BP (high blood press ure) Modified On:05/31/2023U Status:confirmed E83.51 Hypocalcemia Modified On:05/31/2023 Status:confirmed E80.6 Hyperbilirubinemia Modified On:05/31/2023W/U Status:confirmed M47.812 Cervical spondylosis Modified On:01/20/2024W/U Status:confirmed 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 Modified On:03/14/2024W/U Status:confirmed M25.50 Polyarthralgia Modified On:05/30/2024/U Status:confirmed G25.89 Scapular dyskinesis Modified On:05/30/2024/U Status:confirmed L30.9 Eczema Modified On:06/02/2024/U Status:confirmed * Medical History: R ight Shoulder Torn Superior & Anterior Labrum. * Surgical History: R ight Bicep Tendon Repair 04/2023, Abdominal Hernia repair , Right Shoulder Surgery . * Hospitalization/Major Diagno stic Procedure: P neumonia/Blood Clot Right Leg 04/2023. * Family History: F ather: alive 69 yrs. M other: alive 65 yrs. B rother(s): alive 30 yrs. S ister(s): alive 33 yrs. P aternal Grandfather: , diagnosed with Unspecified heart disease. M aternal Grandfather: alive, diagnosed with Other malignant neoplasm of unspecified site. 1 brother(s) , 1 sister(s) . . prostate. * Social History: T obacco Use: T obacco Use/Smoking P atient is a n onsmoker D rug/Alcohol: A LEONARDO-C (Standard) D id you have a drink containing alcohol in the past year? Y es H ow often did you have six or more drinks on one occasion in the past year? N ever (0 point) H ow many drinks did you have on a typical day when you were drinking in the past year? 3 or 4 drinks (1 point) H ow often did you have a drink containing alcohol in the past year? 2 to 4 times a month (2 points) P oints 3 I nterpretation N egative * Medications: N one * Allergies: N .K.D.A. Objective: * Vitals: W t:278.2lbs, Ht: 78 in, BP:144/90mm Hg, BMI:32.15Index, Ht-cm: 198.12 cm, Wt-k.19 kg. * Examination: A bdomen Exam:: d iffuse eczema like rash -. Assessment: * Assessment: 1. E czema - L30.9 (Primary) Plan: * Treatment: * Therapeutic Injections: Kenalog, 40 mg/mL : 80 mg (Route: Intramuscular) given by JOSHUA Slade on left deltoid (Eczema) * Procedure Codes: [id number] THERAP.INJ. OF MED. INTRAMUSCULAR OR SUBCUTANEOUS, J3301 Kenalog, 40 mg/mL, Units: 8.00 * Preventive Medicine: Screenings/Counseling: B [place] ACTION PLAN Above Normal BMI Follow-up D ietary management education, guidance, and counseling See treatment section of progress note for complete details of management plan. * * Sign off status: Completed Visit Status: C HK (Check Out) true * Provider: Kevin Nina ([facility])MD Date: 08/02/[address]/Maria M/eTransmitting on: 0 02/08/2025 03:41 PM EDT History and Physical Notes * HPI (History of Present Illness) Category Sub-Category Detail Notes Category Not es General rashdiffuse -0 - no traves rash not in areas of scabies was on 2 diff emett =- but doesn look like hives nothign else new - no new clothes Examination Category Sub-Category Detail Notes Category Not es Abdomen Exam: diffuse eczema like rash -
--- OUTSIDE RECORDS SUMMARY | 2024-06-29 11:00 | XMS_ITS ---
Author Organization [facility] in [place] Address [address] [place] [address] Care Team Providers Care Supervisor Shop Name Role Phone MarcialhansaSilvano Primary Care Provider Allergies No Known Allergies REASON FOR VISIT rash non resolving- last time here was giving injection and oral prednisone- finished with oral, Rash went away on the forearms but still on thighs Medications Medication SIG (Take, Route, Fr equency, Duration) Notes Start Date End Date Status Ketoconazole 2 % 1 application Pond Worker ally bid for 14 days 06/29/2024 Active Diflucan 100 MG 1 tablet Orally daily for 10 days 06/29/2024 Active Social History Tobacco Use: Social History Observation Description Date Details (start date - stop date) Never Smoker NA - NA Tobacco Use/Smoking Question Answer Notes Patient is a nonsmoker Vital Signs Blood pressure systolic 126 mm Hg 06/29/20 24 Blood pressure diastolic 90 mm Hg 024 Height 78 in 06/29/2024 Weight 272.6 lbs 06/29/2024 BMI 31.5 kg/m2 06/29/2024 Encounters Encounter Location Date Provider Diagnosis [facility] [address] [place] [address] 06/29/2024 Silvano Nina Eczema L30.9 Assessments Encounter Date Diagnosis (ICD Code) Assessment Notes Treatment Notes Treatment Clinical Notes Section Notes 06/29/2024 Eczema (ICD-10 - L30.9) if not better setting up wiht derm Plan Of Treatment Medication Medication Name Sig Start Date Stop Date Notes Ketoconazole 2 % 1 application Externally bid for 14 days 06/29/2024 Diflucan 100 MG 1 tablet Orally daily for 10 days 06/29/20 24 Treatment Notes Assessment Notes Eczema if not better settin g up wiht derm Progress Notes * Jayce ORTIZ LDOB:1990 (34 yo M)Acc No.[id number]:06/29/2024 Progress Note Patient: Jayce SANTORO Provider: Kevin Nina ([facility])MD :1990 A ge:34 Y S ex:Male Date:06/29/2024 Address:[address] [place], [place] [id number] Check In:02:55 PM ESTCheck O ut:03:22 PM EST Subjective: * Chief Complaints: * R sushila non resolving- last time here was giving injection and oral prednisone- finished with oralRash went away on the forearms but still on thighs * HPI: G eneral: Legs - stil w. * Active Problem List G47.00 Insomnia Modified On:10/26/2022 Status:confirmed F51.01 Primary insomnia Modified On:10/26/2022 Status:confirmed F41.9 Anxiety disorder, un specified Modified On:10/26/2022 Status:confirmed M24.811 Other specific joint derangements of right shoulder, not elsewhere classified Modified On:02/09/2023 Status:confirmed J18.9 Pneumonia Modified On:06/16/2023 Status:confirmed I10 BP (high blood press ure) Modified On:05/31/2023 Status:confirmed E83.51 Hypocalcemia Modified On:05/31/2023 Status:confirmed E80.6 Hyperbilirubinemia Modified On:05/31/2023 Status:confirmed M47.812 Cervical spondylosis Modified On:01/20/2024U Status:confirmed 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 Modified On:03/14/2024U Status:confirmed M25.50 Polyarthralgia Modified On:05/30/2024U Status:confirmed G25.89 Scapular dyskinesis Modified On:11/05/2024W/U Status:confirmed L30.9 Eczema Modified On:06/02/2024W/U Status:confirmed * Medical History: * Surgical History: R ight Bicep Tendon Repair bdominal Hernia repair Right Shoulder Surgery * Hospitalization/Major Diagno stic Procedure: P neumonia/Blood Clot Right Leg 04/2023 * Family History: F ather: alive 69 [...] Use/Smoking P atient is a n onsmoker * Medications: D iscontinuedpredniSONE 20 MG Tablet 3 tabs Orally Once a day Medication List reviewed and reconciled with the patientDiscontinued predniSONE 20 MG Tablet 3 tabs Orally Once a day Medication List reviewed and reconciled with the patient * Allergies: N .K.D.A.no[Allergies Verified] Objective: * Vitals: W t:272.6lbs, Ht: 78 in, BP:126/90mm Hg, BMI:31.5Index, Ht-cm: 198.12 cm, Wt-k.65 kg. * Examination: A bdomen Exam:: R leg and iper left leg wiht [persiting scal;ing rash. Assessment: * Assessment: 1. E czema - L30.9 (Primary) Plan: * Treatment: * Procedure Codes: * Preventive Medicine: Screenings/Counseling: B [place] ACTION PLAN Above Normal BMI Follow-up D ietary management education, guidance, and counseling * * Sign off status: Completed Visit Status: C HK (Check Out) true * Provider: Kevin Nina ([facility])MD Date: 08/30/2023 Generated for Gaurii ng/Maria M/eTransmitting on: 0 02/08/2025 03:40 PM EDT History and Physical Notes * HPI (History of Present Illness) Category Sub-Category Detail Notes Category Not es General Legs - stil w Examination Category Sub-Category Detail Notes Category Not es Abdomen Exam: R leg and iper left leg wiht [persiting scal;ing rash
--- OUTSIDE RECORDS SUMMARY | 2025-02-04 12:06 | XMS_ITS ---
Author Organization [facility] [place] Address [address] [place] [address] Care Team Providers Care Load Tester Name Role Phone Silvano Nina Primary Care Provider REASON FOR VISIT MRI Encounters Encounter Location Date Provider Diagnosis [facility] [address] [place] [address] 02/04/2025 Silvano Nina Plan Of Treatment No Information Progress Notes * Jayce ORTIZ LDOB:1990 (34 yo M)Acc No.[id number]:02/04/2025 Patient: Deepak VENKATJayce :1990 A ge:34 Y S ex:Male Address:[address] [place] [address] * true * Date: Generated for Gaurii domingo/Fatinag/eTransmitting on: 0 02/08/2025 03:41 PM EDT
--- NOTE | 2025-02-08 | MR_ITS ---
The [address] [address] Patient Name: JENNA ORTIZ MRN: [id number] date: 1990 Sex: M Assigned Patient Location: MRI Current Patient Location: MRI Accession/Order Number: [id number] Exam Date: 02/08/2025 23:53 Report Date: 02/09/2025 00:04 At the request of: TESSY CRENSHAW MD Procedure: MR shoulder RT wo/w con MR LEFT SHOULDER CLINICAL INFORMATION: Chronic left shoulder pain radiating into neck. COMPARISON: 07/13/2023. PROCEDURE: Axial, oblique coronal, and oblique sagittal long TR images of the shoulder were obtained with and without IV contrast CONTRAST: 20 mL of intravenous Dotarem. FINDINGS: ROTATOR CUFF AND ASSOCIATED STRUCTURES Biceps Tendon: There is soft tissue anchoring along the proximal long head of the biceps tendon suggesting previous biceps tendon tear and subsequent repair. Rotator cuff: Edema and subtle enhancement are noted along the insertion sites of the supraspinatus and infraspinatus tendons without evidence of gross tear. This may represent sequelae of tendinopathy. The teres minor and subscapularis tendons are intact. Musculature: There is no muscular tear, contusion, or atrophy. Bursa: There is a small amount of fluid in the subacromial bursa. OSSEOUS STRUCTURES Acromioclavicular joint: There are mild degenerative changes of the acromioclavicular joint. A type 2 acromion configuration is noted. There is no anterior or lateral acromial downsloping. Bones: No Hill-Sachs, reverse Hill-Sachs, or bony Bankart lesions are seen. There are no fractures. Mild subcortical cystic changes noted at the greater tuberosity humeral head at the rotator cuff insertion site. GLENOHUMERAL JOINT Joint: There is no glenohumeral joint effusion. Cartilage: No focal hyaline cartilage defects are noted. Labrum: The labrum is not optimally evaluated. Other support structures: No capsular or ligamentous abnormality is seen. MR/MR shoulder RT wo/w con IMPRESSION: 1. There is soft tissue anchoring along the proximal long head of the biceps tendon suggesting previous biceps tendon tear and subsequent repair. 2. Edema and subtle enhancement are noted along the insertion sites of the supraspinatus and infraspinatus tendons without evidence of gross tear. This may represent sequelae of tendinopathy. 3. There is a small amount of fluid in the subacromial bursa. Impression dictated by: Abilio Coles M.D. 02/09/2025 12:04 AM Dictation Location: [employer] Electronically authenticated by: [id number] Y Date: 02/09/2025 00:04
--- OUTSIDE RECORDS SUMMARY | 2025-02-08 15:39 | XMS_ITS | Encounter Summary ---
Author Organization [facility] Address [address] [place] [address] Care Team Providers Care Spring Tester Name Role Phone Jerman Nina MD Primary Care Provider [phone] Encounter Details Date Type Department Care Team (Late st Contact Info) Description 01/30/2025 Clinisync Result Encounter [facility] External Department Unsolicited Jesús Crenshaw MD [facility] [place] [address] Social History Tobacco Use Types Packs/Day Years Used Date Smoking Tobacco: Some Days Smokeless Tobacco: Never Alcohol Use Standard Drinks/Week Comments Yes 0 (1 standard drink = 0.6 oz pure alcohol) 1-2 drinks 2-3 times a week. Caffine intake: 1-2 cups per day Sex and Gender Information Value Date Recorded Sex Assigned at Male 01/11/2023 10:04 AM EDT Legal Sex Male 7:35 PM EDT Gender Identity Male 01/11/2023 10:04 AM EDT Sexual Orientation Straight 01/11/2023 10 :04 AM EDT documented as of this encounter Plan of Treatment Not on file documented as of this encounter Procedures Procedure Name Priority Date/Time Associated Diagnosis Comments MR CERVICAL SPINE WO/W CON 01/30/2025 9:57 PM EDT documented in this encounter Results * MR CERVICAL SPINE WO/W CON (01/30/2025 9:57 PM EDT) Anatomical Region Laterality Modality Other 01/30/2025 9:57 PM EDT Narrative 01/30/2025 10:00 [place] [address] Magnetic Resonance Report Signed Patient: JENNA ORTIZ MR#: [id number] : 1990 Acct:[id number] Age/Sex: 34 / M ADM Date: 01/30/25 Loc: MRI Attending Dr: Jesús Crenshaw M.D. Ordering Physician: Jesús Crenshaw M.D. Date of Service: 01/30/25 Procedure(s): MR cervical spine wo/w con Accession Number(s): [id number] cc: Jesús Crenshaw M.D.; Jerman Nina M.D. [place] [id number] Patient Name: JENNA ORTIZ MRN: [id number] date: 1990 Sex: M Assigned Patient Location: MRI Current Patient Location: MRI Accession/Order Number: [id number] Exam Date: 01/30/2025 21:49 Report Date: 01/30/2025 21:57 At the request of: JESÚS CRENSHAW MD Procedure: MR cervical spine wo/w con MRI OF THE CERVICAL SPINE PERFORMED WITHOUT AND WITH CONTRAST INDICATION: Cervical radiculopathy, chronic neck pain and grinding COMPARISON: 02/01/2024 FINDINGS: Mild straightening. The craniocervical junction maintained. The cervical cord demonstrates normal signal and morphology. Cervical vertebral heights, alignment and bone marrow signal is unremarkable. Minimal intervertebral space narrowing C5-C7. Prevertebral and paraspinal soft tissues are unremarkable. No evidence of abnormal postcontrast enhancement. C2-C3: Unremarkable. C3-C4: Minimal left-sided uncovertebral spurring. Minimal left neural foraminal narrowing. Right foramen and canal patent. No significant disc disease. C4-C5: No significant disc disease, central canal or neural foraminal narrowing identified. C5-6: Minimal broad-based bulge and bilateral uncovertebral spurring, greatest left. Mild bilateral neural foraminal narrowing. Canal is patent. C6-C7:: Small left subarticular zone extrusion and mild left uncovertebral spurring. Right foramen is patent. There is mild left foraminal narrowing. Canal is unremarkable. C7-T1: Mild facet arthropathy causing mild bilateral foraminal narrowing. Canal is patent. MR/MR cervical spine wo/w con IMPRESSION: Mild degenerative changes C5-7 predominantly left-sided. Mild degenerative changes on the right at C5-6. Negative for abnormal postcontrast enhancement. Impression dictated by: Chano Gunn M.D. 01/30/2025 9:57 PM Dictation Location: [place] [address] Electronically authenticated by: [id number] Y Date: 01/30/2025 21:57 Dictated By: Chano Gunn M.D. Signed By: 01/30/252199 DD/ 56 TD/TT: [employer] Systems Analyst: Procedure Note Radiology, Radiologist, MD - 01/30/2025 [place] [address] Magnetic Resonance Report Signed Patient: JENNA ORTIZ LMR#: [id number] : 1990Acct:[id number] Age/Sex: 34 / MADM Date: 01/30/25 Loc: MRI Attending Dr: Jesús Crenshaw M.D. Ordering Physician: Jesús Crenshaw M.D. Date of Service: 01/30/25 Procedure(s): MR cervical spine wo/w con Accession Number(s): [id number] cc: Jesús Crenshaw M.D.; Jerman Nina M.D. The [place] [address] Patient Name: JENNA ORTIZ MRN: [id number] date: 1990 Sex: M Assigned Patient Location: MRI Current Patient Location: MRI Accession/Order Number: [id number] Exam Date: 01/30/2025 21:49 Report Date: 01/30/2025 21:57 At the request of: JESÚS CRENSHAW MD Procedure: MR cervical spine wo/w con MRI OF THE CERVICAL SPINE PERFORMED WITHOUT AND WITH CONTRAST INDICATION: Cervical radiculopathy, chronic neck pain and grinding COMPARISON: 02/01/2024 FINDINGS: Mild straightening. The craniocervical junction maintained.The cervical cord demonstrates normal signal and morphology. Cervicalvertebral heights, alignment and bone marrow signal is unremarkable. Minimal intervertebral space narrowing C5-C7. Prevertebral and paraspinal soft tissues are unremarkable. No evidence of abnormal postcontrastenhancement. C2-C3: Unremarkable. C3-C4: Minimal left-sided uncovertebral spurring. Minimal left neural foraminal narrowing. Right foramen and canal patent. No significant disc disease. C4-C5: No significant disc disease, central canal or neural foraminal narrowing identified. C5-6: Minimal broad-based bulge and bilateral uncovertebral spurring,greatest left. Mild bilateral neural foraminal narrowing. Canal is patent. C6-C7:: Small left subarticular zone extrusion and mild left uncovertebral spurring. Right foramen is patent. There is mild left foraminalnarrowing. Canal is unremarkable. C7-T1: Mild facet arthropathy causing mild bilateral foraminal narrowing. Canal is patent. MR/MR cervical spine wo/w con IMPRESSION: Mild degenerative changes C5-7 predominantly left-sided. Milddegenerative changes on the right at C5-6. Negative for abnormal postcontrast enhancement. Impression dictated by: Chano Gunn M.D. 01/30/2025 9:57 PM Dictation Location: [place] [address] Electronically authenticated by: [id number] Y Date: 1:57 Dictated By: Chano Gunn M.D. Signed By:01/30/252199 DD/ 56 TD/TT: [employer] Systems Analyst: Jesús Crenshaw MD [facility] Final Result documented in this encounter Visit Diagnoses Not on filedocumented in this encounter Care Teams Spring Tester Relationship Specialty Start Date End Date Jerman Nina MD PCP - General Family Medicine 01/18/23 documented as of this encounter
--- OUTSIDE RECORDS SUMMARY | 2025-02-08 15:39 | XMS_ITS | Patient Health Record ---
Author Organization [facility] in [place] Address [address] [place] [address] Care Team Providers Care Bag Bundler Name Role Phone Silvano Nina Primary Care Provider Allergies No Known Allergies Results Component Value Reference Range Notes XR cervical spine 5V Reviewed date:02/14/2024 09:11:15 PM Interpretation: Performing Lab: Notes/Report: Source Facility: [place] [address] XRay Report Signed Patient: JENNA ORTIZ MR#: [id number] : 1990 Acct:[id number] Age/Sex: 33 / M ADM Date: 02/11/24 Loc: EC Attending Dr: Radha Hodgson M.D. Ordering Physician: Radha Hodgson M.D. Date of Service: 02/11/24 Procedure(s): XR cervical spine 5V Accession Number(s): [id number] cc: Fili Nina M.D.; Radha Hodgson M.D. [address] [address] Patient Name: JENNA ORTIZ MRN: [id number] date: 1990 Sex: M Assigned Patient Location: EC Current Patient Location: Accession/Order Number: [id number] Exam Date: 02/11/2024 10:30 Report Date: 02/14/2024 11:07 At the request of: RADHA HODGSON Procedure: XR cervical spine 5V EXAMINATION: XR cervical spine 5V HISTORY: CERVICAL SPINE PAIN COMPARISON: No relevant comparison available. FINDINGS: BONES: Normal. No significant spondylosis, scoliosis, fracture, or visible bony lesion. DISC SPACES: Normal. No significant disc height narrowing, subluxation, or endplate abnormality. PARASPINOUS: Negative. No paraspinous abnormality is seen. OTHER: No transient spondylolisthesis with flexion or extension C7 is not seen XR/XR cervical spine 5V IMPRESSION: No acute abnormality or dynamic instability Electronically authenticated by: NENA IQBAL Date: 02/14/2024 11:07 Dictated By: Nena Iqbal M.D. Signed By: 02/14/24 1110 DD/ 1107 TD/TT: [employer] T[employer] Service Technician: [place] [address] XRay Report Signed Patient: JENNA ORTIZ MR#: [id number] : 1990 Acct:[id number] Age/Sex: 33 / M ADM Date: 02/11/24 Loc: EC Attending Dr: Radha Hodgson M.D. Ordering Physician: Radha Hodgson M.D. Date of Service: 02/11/24 Procedure(s): XR cervical spine 5V Accession Number(s): [id number] cc: Fili Nina M.D. ; Radha Hodgson M.D. [place] [id number] Patient Name: JENNA ORTIZ MRN: [id number] date: 1990 Sex: M Assigned Patient Location: Current Patient Location: Accession/Order Numb er: [id number] Exam Date: 02/11/2024 10:30 Report Date: 02/14/2024 11:07 At the request of: RADHA HODGSON Procedure: XR cervic al spine 5V EXAMINATION: XR cerv ical spine 5V HISTORY: CERVICAL SP INE PAIN COMPARISON: No relev ant comparison available. FINDINGS: BONES: Normal. No significant spondylosis, scoliosis, fracture, or visible bony lesion. DISC SPACES: Normal. No significant disc height narrowing, subluxation, or endplate abnormality. PARASPINOUS: Negativ e. No paraspinous abnormality is seen. OTHER: No transient spondylolisthesis with flexion or extension C7 is not seen X R/XR cervical spine 5V IMPRESSION: No acute abnormality or dynamic instability Electronically authenticated by: NENA IQBAL Date: 02/14/2024 11:07 Dictated By: Andrey Iqbal M.D. Signed By: 02/14/24 1110 DD/ 1107 TD/TT: [employer] Service Technician: CT chest wo con Reviewed date:03/05/2024 10:21:00 AM Interpretation: Performing Lab: Notes/Report: Source Facility: [place] [address] CT Scan Report Signed Patient: JENNA ORTIZ MR#: [id number] : 1990 Acct:[id number] Age/Sex: 33 / M ADM Date: 03/01/24 Loc: CT Attending Dr: Fili Nina M.D. Ordering Physician: Fili Nina M.D. Date of Service: 03/01/24 Procedure(s): CT chest wo con Accession Number(s): [id number] cc: Fili Nina M.D. [place] [address] Patient Name: JENNA ORTIZ MRN: [facility]:[id number] date: 1990 Sex: M Assigned Patient Location: CT Current Patient Location: Accession/Order Number: [id number] Exam Date: 03/01/2024 16:08 Report Date: 03/03/2024 06:41 At the request of: FILI NINA Procedure: CT chest wo con EXAMINATION: CT chest wo con HISTORY: Pneumonia J18.9 follow-up COMPARISON: CT chest 08/04/2023 TECHNIQUE: Axial, Coronal, and Sagittal images were created without the administration of IV contrast material. Dose reduction techniques were achieved by using automated exposure control and/or adjustment of mA and/or kV according to patient size and/or use of iterative reconstruction technique. FINDINGS: LUNGS: No visible pulmonary disease. PLEURA: No mass, effusion, or pneumothorax. VASCULATURE: No abnormality. JOSR: No mass or pathologic adenopathy. MEDIASTINUM: No mass or pathologic adenopathy. CARDIAC: No enlargement, pericardial thickening, or pericardial effusion. Coronary Artery calcifications: AORTA: No aneurysm or dissection. CHEST WALL: No mass or axillary adenopathy BONES: No bone lesion or fracture. LIMITED ABDOMEN: No suspicious findings. Limited images of the upper abdomen. OTHER: Negative. CT/CT chest wo con IMPRESSION: 1. Clearing of previously seen pulmonary opacities. No new or suspicious findings. Electronically authenticated by: JAIR YODER Date: 03/03/2024 06:41 Dictated By: Jair Yoder M.D. Signed By: 03/03/2443 DD/ 0 TD/TT: [employer] Service Technician: [place] [address] CT Scan Report Signed Patient: JENNA ORTIZ MR#: [id number] : 1990 Acct:[id number] Age/Sex: 33 / M ADM Date: 03/01/24 Loc: CT Attending Dr: Barbara Nina M.D. Ordering Physician: Fili Nina M.D. Date of Service: 03/01/24 Procedure(s): CT cub[place] st wo con Accession Number(s): [id number] cc: Fili Nina M.D. [place] [id number] Patient Name: JENNA ORTIZ MRN: [id number] date: 1990 Sex: M Assigned Patient Location: CT Current Patient Location: Accession/Order Numb er: [id number] Exam Date: 03/01/2024 16:08 Report Date: 03/03/2024 06:41 At the request of: FILI NINA Procedure: CT chest wo con EXAMINATION: CT ches t wo con HISTORY: Pneumonia J 18.9 follow-up COMPARISON: CT chest 08/04/2023 TECHNIQUE: Axial, Coronal, and Sagittal images were created without the administration of IV contrast material. Dose reduction techniques were achieved by using automated exposure control and/or adjustment of mA and/or kV according to patient size and/ or use of iterative reconstruction technique. FINDINGS: LUNGS: No visible pulmonary disease. PLEURA: No mass, effusion, or pneumothorax. VASCULATURE: No abnormality. JOSR: No mass or pathologic adenopathy. MEDIASTINUM: No mass or pathologic adenopathy. CARDIAC: No enlargem ent, pericardial thickening, or pericardial effusion. Coronary Artery calcifications: AORTA: No aneurysm o r dissection. CHEST WALL: No mass or axillary adenopathy BONES: No bone lesio n or fracture. LIMITED ABDOMEN: No suspicious findings. Limited images of the upper abdomen. OTHER: Negative. C T/CT chest wo con IMPRESSION: 1. Clearing of previously seen pulmonary opacities. No new or suspicious findings. Electronically authenticated by: JAIR YODER Date: 03/03/2024 06:41 Dictated By: Jair Yoder M.D. Signed By: 03/03/2443 DD/ 0 TD/TT: [employer] Service Technician: CA echo doppler complete Reviewed date:04/14/2024 08:21:08 AM Interpretation: Performing Lab: Notes/Report: Source Facility: [place] [address] Cardiology Report Signed Patient: JENNA ORTIZ MR#: [id number] : 1990 Acct:[id number] Age/Sex: 33 / M ADM Date: 04/11/24 Loc: CARD Attending Dr: Fili Nina M.D. Ordering Physician: Fili Nina M.D. Date of Service: 04/11/24 Procedure(s): CA echo doppler complete Accession Number(s): [id number] cc: Fili Nina M.D. Patient Name: JENNA ORTIZ MR#: [id number] : 1990 Exam Date: 04/11/2024 Ordering Doctor: DR FILI NINA . ECHOCARDIOGRAM REPORT PROCEDURE: CA ECHO DOPPLER COMPLETE INDICATIONS: Benign hypertension COMPARISON: None. DESCRIPTION: COMPLETE ECHOCARDIOGRAM Real-time transthoracic echocardiography with 2D, M-mode, spectral and color flow Doppler performed. QUALITY: Technical quality was adequate. LEFT VENTRICLE: Normal chamber size. Mild left ventricular hypertrophy. LV EF: Global left ventricular systolic function is normal; visually estimated ejection fraction is 55 to 60%. Unable to assess regional wall motion abnormalities. DIASTOLIC: Unable to assess diastolic function. ATRIAL SEPTUM: Inadequately seen. LEFT ATRIUM: Normal chamber size. RIGHT ATRIUM: Normal chamber size. RIGHT VENTRICLE: Normal chamber size. Normal right ventricular systolic function. TRICUSPID VALVE: Normal mobility and thickness. No stenosis with trivial regurgitation. Unable to assess right-sided pressures due to lack of measurable tricuspid regurgitation. MITRAL VALVE: Normal mobility and thickness. No evidence of mitral valve stenosis. There is no mitral annular calcification. Trivial mitral regurgitation. AORTIC VALVE: Normal trileaflet appearance. No visible sclerosis. Normal leaflet mobility. No evidence of aortic valve stenosis. No aortic regurgitation. AORTIC ROOT: Normal diameter and appearance. PULMONIC VALVE: Normal thickness and mobility. No stenosis. Trivial regurgitation. PERICARDIUM: No evidence of pericardial effusion. IVC: Collapses with inspirations. Normal size. CONCLUSION: 1. Global left ventricular systolic function is normal; visually estimated ejection fraction is 55 to 60% 2. Normal right ventricular size and systolic function 3. Mild left ventricular hypertrophy 4. The left atrium is normal in size 5. Valves are poorly seen; no significant valvular abnormalities Adult Echocardiography Procedure Report Left Ventricle LVEDD (3.7 - 5.6 cm): 4.45 cm LVESD (2.2 - 4.0 cm): 2.76 cm LVIVS thickness (0.6 - 1.2 cm): 1.15 cm LVPW thickness (0.5 - 1.0 cm): 1.17 cm e': 0.16 m/s E - e': 4.96 LVOT Max Gradient: 4.90 mm[Hg] LVOT Area (cm2): 1.11 m/s Peak Velocity (LVOT): 1.11 m/s Mean Velocity (LVOT): 0.72 m/s LVOT Diameter 1.98 cm Left Atrium LA Volume Index (2D A2C): 17.10 ml/m2 Left Atrium Systolic Dimension: 3.33 cm Mitral Valve MV E to A Ratio: 2.77 Mitral Valve A-Wave Peak Velocity: 0.29 m/s Mitral Valve E-Wave Peak Velocity: 0.79 m/s Right Ventricle RV Internal Diastolic Dimension: 3.70 cm Aorta AO Root Diam: 3.14 cm Ascending Ao Diam: 2.31 cm Aortic Valve AoV Area (Peak Faisal): 2.80 cm2, 2.80 cm2 AoV Area (VTI): 2.56 cm2, 2.56 cm2 Peak Velocity(Antegrade Flow): 1.22 m/s Peak Gradient(Antegrade Flow): 5.99 mm[Hg] Mean Velocity(Antegrade Flow): 0.87 m/s Mean Gradient(Antegrade Flow): 3.49 mm[Hg] Velocity Time Integral: 26.87 cm Tricuspid Valve Peak Velocity (Regurgitant Flow): 2.00 m/s Pulmonic Valve Mean Gradient: 3.80 mm[Hg], 3.66 mm[Hg] Mean Velocity: 0.91 m/s, 0.89 m/s Peak Velocity: 1.29 m/s, 1.30 m/s Peak Gradient: 6.88 mm[Hg], 6.51 mm[Hg], 6.74 mm[Hg] Right Atrium Right Atrium Systolic Pressure: 74.43 ml, 74.43 ml Dictated by: Gayathri Torres M.D. on 04/13/2024 at 16:55 Approved by: Gayathri Torres M.D. on 04/13/2024 at 16:59 Dictated By: Gayathri Torres M.D. Signed By: 04/13/24 1700 DD/ 1659 TD/TT: Commercial [employer] Service Technician: [place] [address] Cardiology Report Signed Patient: JENNA ORTIZ MR#: [id number] : 1990 Acct:[id number] Age/Sex: 33 / M ADM Date: 04/11/24 Loc: CARD Attending Dr: Barbara Nina M.D. Ordering Physician: Fili Nina M.D. Date of Service: 04/11/24 Procedure(s): CA ech o doppler complete Accession Number(s): [id number] cc: Fili Nina M.D. Patient Name: JENNA ORTIZ MR#: [id number] : 1990 Exam Date: 04/11/2024 Ordering Doctor: DR FILI NINA . ECHOCARDIOGRAM REPORT PROCEDURE: CA ECHO DOPPLER COMPLETE INDICATIONS: Benign hypertension COMPARISON: None. DESCRIPTION: COMPLET E ECHOCARDIOGRAM Real-time transthoracic echocardiography wit h 2D, M-mode, spectral and color flow Doppler performed. QUALITY: Technical quality was adequate. LEFT VENTRICLE: Norm al chamber size. Mild left ventricular hypertrophy. LV EF: Global left ventricular systolic function is normal; visually estimated ejection fraction is 55 to 60%. Unable to assess regional wall motion abnormalities. DIASTOLIC: Unable to assess diastolic function. ATRIAL SEPTUM: Inadequately seen. LEFT ATRIUM: Normal chamber size. RIGHT ATRIUM: Normal chamber size. RIGHT VENTRICLE: Nor mal chamber size. Normal right ventricular systolic function. TRICUSPID VALVE: Nor mal mobility and thickness. No stenosis with trivial regurgitation. Unabl e to assess right-sided pressures due to lack of measurable tricuspid regurgitation. MITRAL VALVE: Normal mobility and thickness. No evidence of mitral valve stenosis. There is n o mitral annular calcification. Trivial mitral regurgitation. AORTIC VALVE: Normal trileaflet appearance. No visible sclerosis. Normal leaflet mobility. No evidence of aortic valve stenosis. No aortic regurgitation. AORTIC ROOT: Normal diameter and appearance. PULMONIC VALVE: Norm al thickness and mobility. No stenosis. Trivial regurgitation. PERICARDIUM: No evid ence of pericardial effusion. IVC: Collapses with inspirations. Normal size. CONCLUSION: 1. Global left ventricular systolic function is normal; visually estimated ejection fraction is 55 to 60% 2. Normal right ventricular size and systolic function 3. Mild left ventric ular hypertrophy 4. The left atrium i s normal in size 5. Valves are poorly seen; no significant valvular abnormalities Adult Echocardiograp hy Procedure Report Left Ventricle LVEDD (3.7 - 5.6 cm) : 4.45 cm LVESD (2.2 - 4.0 cm) : 2.76 cm LVIVS thickness (0.6 - 1.2 cm): 1.15 cm LVPW thickness (0.5 - 1.0 cm): 1.17 cm e': 0.16 m/s E - e': 4.96 LVOT Max Gradient: 4 .90 mm[Hg] LVOT Area (cm2): 1.1 1 m/s Peak Velocity (LVOT) : 1.11 m/s Mean Velocity (LVOT) : 0.72 m/s LVOT Diameter 1.98 cm Left Atrium LA Volume Index (2D A2C): 17.10 ml/m2 Left Atrium Systolic Dimension: 3.33 cm Mitral Valve MV E to A Ratio: 2.77 Mitral Valve A-Wave Peak Velocity: 0.29 m/s Mitral Valve E-Wave Peak Velocity: 0.79 m/s Right Ventricle RV Internal Diastoli c Dimension: 3.70 cm Aorta AO Root Diam: 3.14 cm Ascending Ao Diam: 2 .31 cm Aortic Valve AoV Area (Peak Faisal): 2.80 cm2, 2.80 cm2 AoV Area (VTI): 2.56 cm2, 2.56 cm2 Peak Velocity(Antegr benjamin Flow): 1.22 m/s Peak Gradient(Antegr benjamin Flow): 5.99 mm[Hg] Mean Velocity(Antegr benjamin Flow): 0.87 m/s Mean Gradient(Antegr benjamin Flow): 3.49 mm[Hg] Velocity Time Integr al: 26.87 cm Tricuspid Valve Peak Velocity (Regurgitant Flow): 2.00 m/s Pulmonic Valve Mean Gradient: 3.80 mm[Hg], 3.66 mm[Hg] Mean Velocity: 0.91 m/s, 0.89 m/s Peak Velocity: 1.29 m/s, 1.30 m/s Peak Gradient: 6.88 mm[Hg], 6.51 mm[Hg], 6.74 mm[Hg] Right Atrium Right Atrium Systoli c Pressure: 74.43 ml, 74.43 ml Dictated by: Gayathri Torres M.D. on 04/13/2024 at 16:55 Approved by: Gayathri Torres M.D. on 04/13/2024 at 16:59 Dictated By: Gayathri Torres M.D. Signed By: 04/13/24 1700 DD/ 1659 TD/TT: [employer] Service Technician: LAURA by IFA Reviewed date:05/04/2024 07:35:53 PM Interpretation: Performing Lab: Notes/Report: [facility] , Antinuclear Antibodies, IFA Negative . Negative <1:80 Borderline 1:80 Positive >1:80 ICAP nomenclature: AC-0 For more information about Hep-2 cell patterns use ANApatterns.org, the official website for the International Consensus on Antinuclear Antibody (LAURA) Patterns (ICAP). Performed at: [facility] - [address] [id number] Mangle Press Catcher: Jorge Piper PhD, Phone: [phone] Performing Lab: see note [facility] LAB TESTING Reviewed date:05/03/2024 08:39:51 PM Interpretation: Performing Lab: Notes/Report: [id number] Sedimentation Rate, Modified W[place]gren [facility] , Miscellaneous Test COMMENT . Test Ordered: [id number] Sedimentation Rate-[place]gren Sedimentation Rate-Westergren 10 mm/hr Reference Range: 0-15 Performed at: [address] [id number] Mangle Press Catcher: Jorge Piper PhD, Phone: [phone] Performing Lab: see note [facility] Lyme Disease Serology w/Refl ex Reviewed date:05/04/2024 07:35:53 PM Interpretation: Performing Lab: Notes/Report: [facility] , Lyme Total Antibody JUANA Negative Negative Lyme antibodies not detected. Reflex testing is not indicated. No laboratory evidence of infection with B. burgdorferi (Lyme disease). Negative results may occur in patients recently infected (less than or equal to 14 days) with B. burgdorferi. If recent infection is suspected, repeat testing on a new sample collected in 7 to 14 days is recommended. Performed at: [address] [id number] Mangle Press Catcher: Jorge Piper PhD, Phone: [phone] Performing Lab: see note [facility] Systemic Lupus Profile A Reviewed date:05/03/2024 08:39:51 PM Interpretation: Performing Lab: Notes/Report: [facility] , TECHNICAL SUPPORT MANAGER Antibodies <0.2 0.0-0.9 AI Barrera Antibodies <0.2 0.0-0.9 AI Rheumatoid Factor (RF) 21.2 <14.0 IU/mL Antichromatin Antibodies <0.2 0.0-0.9 AI Sjogren's Anti-SS-A <0.2 0.0-0.9 AI Sjogren's Anti-SS-B <0.2 0.0-0.9 AI Anti-DNA (DS) Ab Qn 1 0-9 IU/mL Negative <5 Equivocal 5 - 9 Positive >9 Performed at: [address], [place], [place] [id number] Mangle Press Catcher: Jorge Piper PhD, Phone: [phone] Performing Lab: see note - [facility] LB MR cervical spine wo con Reviewed date:01/31/2025 07:03:36 PM Interpretation: Performing Lab: Notes/Report: Source Facility: [place] [address] [place] [address] Magnetic Resonance Report Signed Patient: JENNA ORTIZ MR#: [id number] : 1990 Acct:[id number] Age/Sex: 34 / M ADM Date: 01/30/25 Loc: MRI Attending Dr: Jesús Crenshaw M.D. Ordering Physician: Jesús Crenshaw M.D. Date of Service: 01/30/25 Procedure(s): MR cervical spine wo/w con Accession Number(s): [id number] cc: Jesús Crenshaw M.D.; Fili Nina M.D. [place] [address] Patient Name: JENNA ORTIZ MRN: [id number] date: 1990 Sex: M Assigned Patient Location: MRI Current Patient Location: MRI Accession/Order Number: [id number] Exam Date: 01/30/2025 21:49 Report Date: 01/30/2025 [...] Gunn M.D. 01/30/2025 9:57 PM Dictation Location: [place] [address] Electronically authenticated by: [id number] Y Date: 01/30/2025 21:57 Dictated By: Chano Gunn M.D. Signed By: 01/30/252199 DD/ 56 TD/TT: Commercial Tire Service Technician: [place] [address] Magnetic Resonance Report Signed Patient: JENNA ORTIZ MR#: [id number] : 1990 Acct:[id number] Age/Sex: 34 / M ADM Date: 01/30/25 Loc: MRI Attending Dr: Jesús Crenshaw M.D. Ordering Physician: Jesús Crenshaw M.D. Date of Service: 01/30/25 Procedure(s): MR cervical spine wo/w con Accession Number(s): [id number] cc: Jesús Crenshaw M.D. ; Fili Nina M.D. [place] [address] Patient Name: JENNA ORTIZ MRN: [id number] date: 1990 Sex: M Assigned Patient Location: MRI Current Patient Location: MRI Accession/Order Numb er: [id number] Exam Date: 01/30/2025 21:49 Report Date: 01/30/2025 21:57 At the request of: JESÚS CRENSHAW MD Procedure: MR cervic al spine wo/w con MRI OF THE CERVICAL SPINE PERFORMED WITHOUT AND WITH CONTRAST INDICATION: Cervical radiculopathy, chronic neck pain and grinding COMPARISON: 02/01/2024 FINDINGS: Mild straightening. The craniocervical junction maintained. The cervical cord demonstrates normal signal and morphology. Cervical vertebral heights, alignment a nd bone marrow signal is unremarkable. Minimal intervertebral space narrowing C5-C7. Prevertebral and paraspinal soft tissues are unremarkable. No evidence of abnormal postcontrast enhancement. C2-C3: Unremarkable. C3-C4: Minimal left-sided uncovertebral spurring. Minimal left neural foraminal narrowing. Right foramen and canal patent. No significant disc disease. C4-C5: No significan t disc disease, central canal or neural foraminal narrowing identified. C5-6: Minimal broad-based bulge and bilateral uncovertebral spurring, greatest left. Mild bilateral neural foraminal narrowing. Canal is patent. C6-C7:: Small left subarticular zone extrusion and mild left uncovertebral spurring. Right fora men is patent. There is mild left foraminal narrowing. Canal is unremarkable. C7-T1: Mild facet arthropathy causing mild bilateral foraminal narrowing. Canal is patent. M R/MR cervical spine wo/w con IMPRESSION: Mild degenerative changes C5-7 predominantly left-sided. Mild degenerative changes on the right at C5-6. Negative for abnorma l postcontrast enhancement. Impression dictated by: Chano Gunn M.D. 01/30/2025 9:57 PM Dictation Location: [place] [address] Electronically authenticated by: [id number] Y Date: 01/30/2025 21:57 Dictated By: Aster Gunn M.D. Signed By: 01/30/252199 DD/ 56 TD/TT: [employer] Service Technician: MR cross LT wo/w con Reviewed date:02/04/2025 04:07:30 PM Interpretation: Performing Lab: Notes/Report: Source Facility: [facility] [place] [address] [place] [address] Magnetic Resonance Report Signed Patient: JENNA ORTIZ MR#: [id number] : 1990 Acct:[id number] Age/Sex: 34 / M ADM Date: 02/01/25 Loc: MRI Attending Dr: Jesús Crenshaw M.D. Ordering Physician: Jesús Crenshaw M.D. Date of Service: 02/01/25 Procedure(s): MR shoulder LT wo/w con Accession Number(s): [id number] cc: Jesús Crenshaw M.D.; Fili Nina M.D. [place] [address] Patient Name: JENNA ORTIZ MRN: [facility]:[id number] date: 1990 Sex: M Assigned Patient Location: MRI Current Patient Location: MRI Accession/Order Number: [id number] Exam Date: 02/01/2025 20:40 Report Date: 02/01/2025 20:49 At the request of: JESÚS CRENSHAW MD Procedure: MR shoulder LT wo/w con MRI left Shoulder without contrast TECHNIQUE: Multiplanar T1 and T2-weighted imaging obtained without contrast. HISTORY: Chronic left shoulder pain COMPARISON: None BONE MARROW EDEMA: No bone contusion FRACTURE: No linear fracture AC JOINT: Degenerative change. Inferior marginal spurring abutting the myotendinous portion of supraspinatus tendon. May represent impingement. SHOULDER ROOF LIGAMENTS: The coracoacromial and coracoclavicular ligaments are intact. ROTATOR CUFF: Thickening of the supraspinatus tendon with heterogeneous signal changes consistent with tendinosis. No fluid signal changes of the articular surface of the supraspinatus tendon near the footplate of the greater tuberosity concerning for partial articular surface tear. No retracted full-thickness tear of supraspinatus tendon. Infraspinatus tendon intact. Teres minor intact. Subscapularis tendon intact. ROTATOR CUFF INTERVAL: Unremarkable BURSAL FLUID: Inflammatory changes with small joint effusion GLENOID: Intact BICEPS LABRAL COMPLEX: Intact LONG HEAD OF BICEPS TENDON: Intact GLENOHUMERAL LIGAMENTS: The superior glenohumeral ligament is intact. The middle glenohumeral ligament is intact. The anterior and posterior glenohumeral ligaments are intact. JOINT EFFUSION: Small MUSCLES: Normal signal intensity of the muscles. NO SUBCUTANEOUS TISSUES: No subcutaneous abnormalities identified. MR/MR shoulder LT wo/w con IMPRESSION: Supraspinatus tendinosis with partial articular surface tear near the greater tuberosity. Extensive degeneration of the acromioclavicular joint with inferior marginal spurring which may contribute to impingement. Impression dictated by: Wilmer Patel M.D. 02/01/2025 8:49 PM Dictation Location: [place] [address] Electronically authenticated by: [id number] Y Date: 02/01/2025 20:49 Dictated By: Wilmer Patel D.O. Signed By: 02/01/252050 DD/ 48 TD/TT: Commercial T[employer] Service Technician: [place] [address] Magnetic Resonance Report Signed Patient: JENNA ORTIZ MR#: [id number] : 1990 Acct:[id number] Age/Sex: 34 / M ADM Date: 02/01/25 Loc: MRI Attending Dr: Jesús Crenshaw M.D. Ordering Physician: Jesús Crenshaw M.D. Date of Service: 02/01/25 Procedure(s): MR shoulder LT wo/w con Accession Number(s): [id number] cc: Jesús Crenshaw M.D. ; Fili Nina M.D. [place] [address] Patient Name: JENNA ORTIZ MRN: [id number]:[id number] date: 1990 Sex: M Assigned Patient Location: MRI Current Patient Location: MRI Accession/Order [facility] er: [id number] Exam Date: 02/01/2025 20:40 Report Date: 02/01/2025 20:49 At the request of: JESÚS CRENSHAW MD Procedure: MR should er LT wo/w con MRI left Shoulder without contrast TECHNIQUE: Multiplan ar T1 and T2-weighted imaging obtained without contrast. HISTORY: Chronic lef t shoulder pain COMPARISON: None BONE MARROW EDEMA: N o bone contusion FRACTURE: No linear fracture AC JOINT: Degenerati ve change. Inferior marginal spurring abutting the myotendinous portion of supraspinatus tendon. May represent impingement. SHOULDER ROOF LIGAME NTS: The coracoacromial and coracoclavicular ligaments are intact. ROTATOR CUFF: Thicke paty of the supraspinatus tendon with heterogeneous signal changes consistent with tendinosis. No fluid signal changes of the articular surface of the supraspinatus tendon near the footplate of the greater tuberosity concerning for partial articular surface tear. No retracted full-thick ness tear of supraspinatus tendon. Infraspinatus tendon intact. Teres minor intact. Subscapularis tendon intact. ROTATOR CUFF INTERVA L: Unremarkable BURSAL FLUID: Inflammatory changes with small joint effusion GLENOID: Intact BICEPS LABRAL COMPLE X: Intact LONG HEAD OF BICEPS TENDON: Intact GLENOHUMERAL LIGAMEN TS: The superior glenohumeral ligament is intact. The middle glenohumeral ligament is intact. The anterior and posterior glenohumeral ligamen ts are intact. JOINT EFFUSION: Small MUSCLES: Normal sign al intensity of the muscles. NO SUBCUTANEOUS TISS UES: No subcutaneous abnormalities identified. M R/MR shoulder LT wo/w con IMPRESSION: Supraspinatus tendin osis with partial articular surface tear near the greater tuberosity. Extensi ve degeneration of the acromioclavicular joint with inferior marginal spurring which may contribute to impingement. Impression dictated by: Wilmer Patel M.D. 02/01/2025 8:49 PM Dictation Location[facility] Electronically authenticated by: [id number] Y Date: 02/01/2025 20:49 Dictated By: Wilmer Patel D.O. Signed By: 02/01/252050 DD/ 48 TD/TT: [employer] Service Technician: URIC ACID SERUM Reviewed date:05/02/2024 07:53:40 PM Interpretation: Performing Lab: Notes/Report: [facility] , Uric Acid 8.2 3.5-7.2 mg/dL Performing Lab: see note - [facility] LB CRP Reviewed date:05/02/2024 07:53:40 PM Interpretation: Performing Lab: Notes/Report: [facility] , C Reactive Protein <0.50 <=0.50 mg/dL Performing Lab: see note - [facility] LB CBC AUTO DIFF Reviewed date:05/02/2024 07:53:40 PM Interpretation: Performing Lab: Notes/Report: [facility] , White Blood Count 6.8 4.0-11.0 10 3/uL Red Blood Count 6.30 4.70-6.10 10 6/uL Hemoglobin 17.9 14.0-18.0 g/dL Hematocrit 52.6 42.0-54.0 % Mean Corpuscular Volume 83.5 80.0-94.0 fL Mean Corpuscular Hemoglobin 28.4 25.9-34.0 pg Mean Corpuscular HGB Conc 34.0 29.9-35.2 g/dL Red Cell Distribution Width 12.3 11.0-15.0 % Platelet Count 323 150-450 10 3/uL Mean Platelet Volume 9.4 9.5-13.5 fL Neutrophils Percent Auto 72.0 43.0-75.0 % Lymphocytes Percent Auto 15.8 20.5-60.0 % Monocytes Percent Auto 10.1 1.7-12.0 % Eosinophils Percent Auto 0.9 0.9-7.0 % Basophils Percent Auto 0.6 0.2-2.0 % Immature Granulocytes Pct Auto 0.6 0.0-0.5 % Neutrophils Absolute Auto 4.9 1.4-6.5 10 3/uL Lymphocytes Absolute Auto 1.1 1.2-3.8 10 3/uL Monocytes Absolute Auto 0.7 0.3-0.8 10 3/uL Eosinophils Absolute Auto 0.1 0.0-0.7 10 3/uL Basophils Absolute Auto 0.0 0.0-0.1 10 3/uL Immature Granulocytes Abs Auto 0.04 0.00-0.03 10 3/uL Performing Lab: see note ML - [facility] LB Reason For Referral No Information Medications Medication SIG (Take, Route, Fr equency, Duration) Notes Start Date End Date Status Ketoconazole 2 % 1 application Senior Reliability Engineer ally bid for 14 days 06/29/2024 Active Diflucan 100 MG 1 tablet Orally daily for 10 days 06/29/2024 Active Social History Tobacco Use: Social History Observation Description Date Details (start date - stop date) Never Smoker NA - NA Tobacco Use/Smoking Question Answer Notes Patient is a nonsmoker Alcohol Screen (Audit-C) Question Answer Notes Did you have a drink contain ing alcohol in the past year? Yes How often did you have 6 or more drinks on one occasion in the past year? Two to three times per week (3 points) How many drinks did you have on a typical day when you were drinking in the past year? 3 or 4 drinks (1 point) How often did you have a dri nk containing alcohol in the past year? Daily or almost daily (4 points) Points 8 Interpretation Positive AUDIT-C (Standard) Question Answer Notes Did you [...] Problem Status W/U Status Risk Notes Problem Hypocalcemia (7058509) Hypocalcemia (E83.51) Active confirmed Problem Anxiety disorder (627628933) Anxiety disorder, unspecified (F41.9) Active confirmed Problem 6293742 Primary insomnia (F51.01) Active confirmed Problem [id number] Other specific joint derangements of right shoulder, not elsewhere classified (M24.811) Active confirmed Problem Pneumonia (767132111) Pneumonia (J18.9) Active confirmed Problem Insomnia (920368461) Insomnia (G47.00) Active c onfirmed Problem Eczema (85034245) Eczema (L30.9) Active confirm ed Problem Myofascial pain (544465628) Myofascial muscle pain (M79.7) Active confirmed Problem Cervical spondylosis (163240152) Cervical spondylosis (M47.812) Active confirmed Problem Polyarthralgia (16091965) Polyarthralgia (M25.50) Active confirmed Problem Hyperbilirubinemia (04633699) Hyperbilirubinemia (E80.6) Active confirmed Problem Dyskinesia (finding) (9146504) Scapular dyskinesis (G25.89) Active confirmed Problem Essential hypertension (27307181) BP (high blood pressure) (I10) Active confirmed Problem Myalgia (17447079) Myalgia (M79.10) Active conf irmed Problem Benign hypermobility syndrome (78856053) Benign hypermobility syndrome (M35.7) Active confirmed Vital Signs Blood pressure diastolic 90 mm Hg 06/29/2024 Height 78 in 06/29/2024 Blood pressure systolic 126 mm Hg 06/29/2024 Weight 272.6 lbs 06/29/2024 BMI 31.5 kg/m2 06/29/2024 Procedures Procedure Date Ordered Date Performed Result Body Sit e Echocardiogram 03/13/2024 N/A Encounters Encounter Location Date Provider Diagnosis [facility] [address] [place] [address] 06/02/2024 Silvano Hoy Eczema L30.9 [facility] [address] [place] [address] 06/29/2024 Silvano Hoy Eczema L30.9 [facility] [address] [place] [address] 02/18/2024 Silvano Hoy Pneumonia J18.9 [facility] [address] [place] [address] 03/05/2024 Silvano Hoy [facility] [address] [place] [address] 03/13/2024 Silvano Hoy Benign hypermobility syndrome M35.7 [facility] [address] [place] [address] 04/14/2024 Silvano Hoy [facility] [address] [place] [address] 02/04/2025 Silvano Hoy Assessments Encounter Date Diagnosis (ICD Code) Assessment Notes Treatment Notes Treatment Clinical Notes Section Notes 06/02/2024 Eczema (ICD-10 - L30.9) 06/29/2024 Eczema (ICD-10 - L30.9) if not better setting up wiht derm 02/18/2024 Pneumonia (ICD-10 - J18.9) 03/13/2024 Benign hypermobility syndrome (ICD-10 - M35.7) Plan Of Treatment Pending Test Test Name Order Date Echocardiogram 03/13/2024 CT Chest w/o contrast 02/18/2024 US Lower Extremity LT 11/28/2023 US Lower Extremity RT 01/20/2024 CT CHEST WO CON 06/02/2023 CT CHEST WO CON 06/15/2023 MRI CSPINE WO CON 01/20/2024 US INGRID DOP LEG RT 07/27/2023 Insurance Providers Payer Name Payer Address Payer Phone Subscriber Number Group Number Insured Name Patient Relationship to Insured Coverage Start Date Coverage End Date MINNA FLETCHER [address] [place] [phone] [id number] Jenna Ortiz Self - patient is the insured 8 Medications Administered Medication Instructions Date of Administration Dosage Notes Kenalog-40 06/02/2024 80 mg 80 Medical (General) History Medical History History ICD Code Right Shoulder Torn Superior & Anterior Labrum Surgical History Surgery Date(Month/Year) Right Bicep Tendon Repair 04/2023 Right Shoulder Surgery Abdominal Hernia repair Hospitalization History Reason Date(Month/Year) Pneumonia/Blood Clot Right Leg 04/2023
--- OUTSIDE RECORDS SUMMARY | 2025-02-08 15:39 | XMS_ITS | Clinical Summary ---
Author Organization [facility] Address [address] [place] [address] Care Team Providers Care Roving Marker Name Role Phone Jerman Nina MD Primary Care Provider [phone] Allergies No known active allergies Medications No known medications Active Problems No known active problems Encounters Date Type Department Care Team Description 02/01/2025 Clinisync Result Encounter [facility] External Department Unsolicited Jesús Crenshaw MD 01/30/2025 Clinisync Result Encounter [facility] External Department Unsolicited Jesús Crenshaw MD from Last 3 Months Family History Relation Name Status Comments Father Alive Mother Alive Social History Tobacco Use Types Packs/Day Years [...] Orientation Straight 01/11/2023 10 :04 AM EDT Last Filed Vital Signs Vital Sign Reading Time Taken Comments Blood Pressure 140/90 10/15/2022 12:00 PM EDT Pulse - - Temperature - - Respiratory Rate - - Oxygen Saturation - - Inhaled Oxygen Concentration - - Weight 113 kg (250 lb) 03/20/2024 3:26 PM EDT Height 172.7 cm (5' 8 ) 03/20/2024 3:26 PM EDT Body Mass Index 38.01 03/20/2024 3:26 PM EDT Plan of Treatment Not on file Procedures Procedure Name Priority Date/Time Associated Diagnosis Comments MR SHOULDER LEFT W AND WO IV CONTRAST 02/01/2025 8:49 PM EDT MR CERVICAL SPINE WO/W CON 01/30/2025 9:57 PM EDT from Last 3 Months Results * MR shoulder left w and wo IV contrast (02/01/2025 8:49 PM EDT) Anatomical Region Laterality Modality Upper Extremities, Shoulder Left Magn etic Resonance 02/01/2025 8:49 PM EDT Narrative 02/01/2025 8:51 [place] [address] Magnetic Resonance Report Signed Patient: JENNA ORTIZ MR#: [id number] : 1990 Acct:[id number] Age/Sex: 34 / M ADM Date: 02/01/25 Loc: MRI Attending Dr: Jesús Crenshaw M.D. Ordering Physician: Jesús Crenshaw M.D. Date of Service: 02/01/25 Procedure(s): MR shoulder LT wo/w con Accession Number(s): [id number] cc: Jesús Crenshaw M.D.; Jerman Nina M.D. [place] [address] Patient Name: JENNA ORTIZ MRN: [id number] date: 1990 Sex: M Assigned Patient Location: MRI Current Patient Location: MRI Accession/Order Number: [id number] Exam Date: 02/01/2025 20:40 Report Date: 02/01/2025 [...] Patel M.D. 02/01/2025 8:49 PM Dictation Location: [place] [address] Electronically authenticated by: [id number] Y Date: 02/01/2025 20:49 Dictated By: Wilmer Patel D.O. Signed By: 02/01/252050 DD/ 48 TD/TT: Multimedia Producer: Procedure Note Radiology, Radiologist, - 02/01/2025 [place] [address] Magnetic Resonance Report Signed Patient: JENNA ORTIZ LMR#: [id number] : 1990Acct:[id number] Age/Sex: 34 / MADM Date: 02/01/25 Loc: MRI Attending Dr: Jesús Crenshaw M.D. Ordering Physician: Jesús Crenshaw M.D. Date of Service: 02/01/25 Procedure(s): MR shoulder LT wo/w con Accession Number(s): [id number] cc: Jesús Crenshaw M.D.; Jerman Nina M.D. [place] [address] Patient Name: JENNA ORTIZ MRN: [facility]:[id number] date: 1990 Sex: M Assigned Patient Location: MRI Current Patient Location: MRI Accession/Order Number: [id number] Exam Date: 02/01/2025 20:40 Report Date: 02/01/2025 20:49 At the request of: JESÚS CRENSHAW MD Procedure: MR shoulder LT wo/w con MRI left Shoulder without contrast TECHNIQUE: Multiplanar T1 and T2-weighted imaging obtained withoutcontrast. HISTORY: Chronic left shoulder pain COMPARISON: None BONE MARROW EDEMA: No bone contusion FRACTURE: No linear fracture AC JOINT: Degenerative change. Inferior marginal spurring abutting the myotendinous portion of supraspinatus tendon. May represent impingement. SHOULDER ROOF LIGAMENTS: The coracoacromial and coracoclavicularligaments are intact. ROTATOR CUFF: Thickening of the supraspinatus tendon with heterogeneous signal changes consistent with tendinosis. No fluid signal changes of the articular surface of the supraspinatus tendon near the footplate of the greater tuberosity concerning for partial articular surface tear. No retracted full-thickness tear of supraspinatus tendon. Infraspinatustendon intact. Teres minor intact. Subscapularis tendon intact. ROTATOR CUFF INTERVAL: Unremarkable BURSAL FLUID: Inflammatory changes with small joint effusion GLENOID: Intact BICEPS LABRAL COMPLEX: Intact LONG HEAD OF BICEPS TENDON: Intact GLENOHUMERAL LIGAMENTS: The superior glenohumeral ligament is intact.The middle glenohumeral ligament is intact. The anterior and posterior glenohumeral ligaments are intact. JOINT EFFUSION: Small MUSCLES: Normal signal intensity of the muscles. NO SUBCUTANEOUS TISSUES: No subcutaneous abnormalities identified. MR/MR shoulder LT wo/w con IMPRESSION: Supraspinatus tendinosis with partial articular surface tear near thegreater tuberosity. Extensive degeneration of the acromioclavicular joint with inferior marginal spurring which may contribute to impingement. Impression dictated by: Wilmer Patel M.D. 02/01/2025 8:49 PM Dictation Location: [place] [address] Electronically authenticated by: [id number] Y Date: 0:49 Dictated By: Wilmer Patel D.O. Signed By:02/01/252050 DD/ 48 TD/TT: Multimedia Producer: Jesús Crenshaw MD IMG MRI PROCEDURES Final Result * MR CERVICAL SPINE WO/W CON (01/30/2025 9:57 PM EDT) Anatomical Region Laterality Modality Other 01/30/2025 9:57 PM EDT Narrative 01/30/2025 10:00 [place] [address] Magnetic Resonance Report Signed Patient: JENNA ORTIZ MR#: [id number] : 1990 Acct:[id number] Age/Sex: 34 / M ADM Date: 01/30/25 Loc: MRI Attending Dr: Jesús Crenshaw M.D. Ordering Physician: Jesús Crenshaw M.D. Date of Service: 01/30/25 Procedure(s): MR cervical spine wo/w con Accession Number(s): [id number] cc: Jesús Crenshaw M.D.; Jerman Nina M.D. [place] [address] Patient Name: JENNA ORTIZ MRN: [id number] date: 1990 Sex: M Assigned Patient Location: MRI Current Patient Location: MRI Accession/Order Number: [id number] Exam Date: 01/30/2025 21:49 Report Date: 01/30/2025 [...] Gunn M.D. 01/30/2025 9:57 PM Dictation Location: [place] [address] Electronically authenticated by: [id number] Y Date: 01/30/2025 21:57 Dictated By: Chano Gunn M.D. Signed By: 01/30/252199 DD/ 56 TD/TT: Multimedia Producer: Procedure Note Radiology, Radiologist, - 01/30/2025 [place] [address] Magnetic Resonance Report Signed Patient: JENNA ORTIZ LMR#: [id number] : 1990Acct:[id number] Age/Sex: 34 / MADM Date: 01/30/25 Loc: MRI Attending Dr: Jesús Crenshaw M.D. Ordering Physician: Jesús Crenshaw M.D. Date of Service: 01/30/25 Procedure(s): MR cervical spine wo/w con Accession Number(s): [id number] cc: Jesús Crenshaw M.D.; Jerman Nina M.D. [address] [address] Patient Name: JENNA ORTIZ MRN: [id number] date: 1990 Sex: M Assigned Patient Location: MRI Current Patient Location: MRI Accession/Order Number: [id number] Exam Date: 01/30/2025 21:49 Report Date: 01/30/2025 [...] Gunn M.D. 01/30/2025 9:57 PM Dictation Location: [place] [address] Electronically authenticated by: [id number] Y Date: 1:57 Dictated By: Chano Gunn M.D. Signed By:01/30/252199 DD/ 56 TD/TT: Multimedia Producer: us Jesús Crenshaw MD [facility] Final Result from Last 3 Months Insurance BS Care Teams Roving Marker Relationship Specialty Start Date End Date Jerman Nina MD PCP - General Family Medicine 01/18/23
--- OUTSIDE RECORDS SUMMARY | 2025-02-08 15:39 | XMS_ITS | Clinical Summary ---
Author Organization [facility] Address [address] [place] [address] Phone Care Team Providers Care Finishing Room Operator Name Role Phone Jerman Nina MD Primary Care Provider [phone] Allergies No known active allergies Medications No known medications Active Problems Problem Noted Date Diagnosed Date Pain, neck 06/29/2024 Advised about management of weight 06/29/2024 Social History Tobacco Use Types Packs/Day Years Used Date Smoking Tobacco: Never Assessed Sex and Gender Information Value Date Recorded Sex Assigned at Not on file Legal Sex Male 9:16 AM EDT Gender Identity Not on file Sexual Orientation Not on file Last Filed Vital Signs Vital Sign Reading Time Taken Comments Blood Pressure 159/107 06/29/2024 9:36 AM EST Pulse 91 06/29/2024 9:36 AM EST Temperature 35.9 C (96.6 F) 06/29/2024 9:36 AM EST Respiratory Rate - - Oxygen Saturation - - Inhaled Oxygen Concentration - - Weight 123 kg (271 lb 2.7 oz) 06/29/2024 9:36 AM EST Height 173.7 cm (5' 8.39 ) 06/29/2024 9:36 AM ES T Body Mass Index 40.77 06/29/2024 9:36 AM EST Plan of Treatment Health Maintenance Due Date Last Done Comments HIV Screening 1990 Lipid Panel 1990 Yearly Adult Physical 1990 Varicella Vaccines (1 of 2 - 13+ 2-dose series) 2001 Hepatitis C Screening 2006 HPV Vaccines (1 - 3-dose standard series) 2015 COVID-19 Vaccine ( season) 2024 Influenza Vaccine (#1) 2025 DTaP/Tdap/Td Vaccines (7 - Td or Tdap) 02/19/2034 02/20/2024, 03/13/1994, 08/10/1989, Additional history exists Zoster Vaccines (1 of 2) 2038 HIB Vaccines Completed 11/01/1989 IPV Vaccines Completed 03/13/1994, 07/26, 1988, Additional history exists Hepatitis B Vaccines Completed 08/20/1999, 03/21/1999, 02/17/1999 MMR Vaccines Completed 10/12/2000, 08/10/1989 Hepatitis A Vaccines Aged Out No long er eligible based on patient's age to complete this topic Meningococcal Vaccine Aged Out No grayson diego eligible based on patient's age to complete this topic Pneumococcal Vaccine: Pediatrics and At-Risk Adult Patients Aged Out No longer eligible based on patient's age to complete this topic Rotavirus Vaccines Aged Out No longer eligible based on patient's age to complete this topic Insurance Care Teams Finishing Room Operator Relationship Specialty Start Date End Date Jerman Nina MD [address] [place] [address] PCP - General Family Medicine 03/13/24
--- OUTSIDE RECORDS SUMMARY | 2025-02-08 15:39 | XMS_ITS | Clinical Summary ---
Author Organization [employer] [facility] tem Address [id number] [address] [place] [address] Care Team Providers Care Construction Job Titles Name Role Phone Unavailable Primary Care Provider Unavailabl e Medications cyclobenzaprine (FLEXERIL) 5 mg tabletIndicatio ns:Multiple joint pain Take 1 tablet (5 mg total) by mouth nightly as needed for muscle spasms. 30 tablet 1 05/09/2024 Active DULoxetine (CYMBALTA) 30 mg capsuleIndicati ons:Multiple joint pain TAKE 1 CAPSULE (30 MG TOTAL) BY MOUTH IN THE MORNING 90 capsule 1 05/31/2024 Active Social History Tobacco Use Types Packs/Day Years Used Date Smoking Tobacco: Never Assessed Childcare Answer Date Recorded Childcare Unknown 01/04/2019 Employment Answer Date Recorded Employment Unknown 01/04/2019 Sex and Gender Information Value Date Recorded Sex Assigned at Not on file Legal Sex Male 11:38 AM EDT Gender Identity Not on file Sexual Orientation Not on file Plan of Treatment Health Maintenance Due Date Last Done Comments Depression Screening 2000 Tobacco Screening 2000 Adult BMI Screening 2006 Influenza Vaccine 03/26/2025 DTaP,Tdap and Td Vaccines (7 - Td or Tdap) 02/19/2034 02/20/2024, 03/13/1994, 08/10/1989, Additional history exists Medical Devices Not on file Insurance [employer]
--- OUTSIDE RECORDS SUMMARY | 2025-02-08 15:39 | XMS_ITS | Clinical Summary ---
Author Organization [facility] Address [address] [place] [address] Care Team Providers Care Quality Assurance Analyst Name Role Phone Jerman Nina MD Primary Care Provider [phone] Allergies No known active allergies Medications flurbiprofen (Ansaid) 100 mg tabletIndication s:Tendinitis of extensor tendon of both hands,Radial tunnel syndrome of right upper extremity Take 1 tablet (100 mg) by mouth two times daily. 60 tablet 1 01/02/2025 Active Active Problems Problem Noted Date Diagnosed Date Ligament laxity 04/04/2024 Benign hypermobility syndrome 04/04/2024 Right wrist pain 04/04/2024 Instability of wrist joint 04/04/2024 Left wrist pain 04/04/2024 Encounters Date Type Department Care Team Description 01/02/2025 1:20 PM EDT Follow-Up [facility] [address] [place] [address] [place] [address] Harley Montes MD Tendinitis of extensor tendon of both hands (Primary Dx); Radial tunnel syndrome of right upper extremity 11/21/2024 1:30 PM EDT Follow-Up [facility] [place] [address] Harley Montes MD Radial tunnel syndrome of right upper extremity (Primary Dx); Tendinitis of extensor tendon of both hands from Last 3 Months Immunizations Immunization Administration Dates Next Due DTP 08/10/1989,1988,1988 ,1988 DTaP, Unspecified 03/13/1994 Hep B, Adolescent or Pediatric 08/20/1999,1998,02/17/1999 HiB, unspecified 11/01/1989 MMR 10/12/2000,08/10/1989 OPV 03/13/1994,08/10/1989,1988 ,1988 Social History Tobacco Use Types Packs/Day Years Used Date Smoking Tobacco: Never Smokeless Tobacco: Never Tobacco Cessation:Counseling Given: Not Answered Humiliation, Afraid, Rape, and Kick questionnair e Answer Date Recorded Within the last year, have y ou been afraid of your partner or ex-partner? No 11/21/2024 Emotionally Abused Not on file 11/21/2024 Physically Abused Not on file 11/21/2024 Sexually Abused Not on file 11/21/2024 PHQ-2 Answer Date Recorded Patient Health Questionnaire-2 Score 0 11/21/2024 Sex and Gender Information Value Date Recorded Sex Assigned at Male 07/04/2024 1:17 PM EST Legal Sex Male 9:52 AM EDT Gender Identity Male 07/04/2024 1:17 PM EST Sexual Orientation Don't know 07/04/2024 1: 17 PM EST Last Filed Vital Signs Vital Sign Reading Time Taken Comments Blood Pressure - - Pulse - - Temperature - - Respiratory Rate - - Oxygen Saturation - - Inhaled Oxygen Concentration - - Weight 113 kg (250 lb) 01/02/2025 1:32 PM EDT Height 172.7 cm (5' 8 ) 04/04/2024 1:51 PM EDT Body Mass Index 38.01 04/04/2024 1:51 PM EDT Plan of Treatment Upcoming Encounters Date Type Department Care Team (Late st Contact Info) Description 04/04/2025 1:00 PM EDT Follow-Up [facility] [address] [place] [address] [place] [address] Harley Montes MD [address] [place] [address] Health Maintenance Due Date Last Done Comments Varicella Vaccines (1 of 2 - 13+ 2-dose series) 2001 COVID-19 Vaccine ( season) 2024 Influenza Vaccine (#1) 2025 Depression Screening 11/21/2025 11/21/2024 Adult Tetanus 02/19/2034 02/20/2024 Zoster Vaccines (1 of 2) 2038 HIB Vaccines Completed 11/01/1989 IPV Vaccines Completed 03/13/1994, 07/26, 1988, Additional history exists Hepatitis B Vaccines Completed 08/20/1999, 03/21/1999, 02/17/1999 HPV Vaccines Aged Out No longer eligi ble based on patient's age to complete this topic Meningococcal B Vaccine Aged Out No l onger eligible based on patient's age to complete this topic Meningococcal Vaccine Aged Out No grayson diego eligible based on patient's age to complete this topic Pneumococcal Vaccine: Pediatrics (0 to 5 Years) and At-Risk Patients (6 to 64 Years) Aged Out No longer eligible based on patient's age to complete this topic Rotavirus Vaccines Aged Out No longer eligible based on patient's age to complete this topic Procedures Procedure Name Priority Date/Time Associated Diagnosis Comments HAND/UPPER EXTREMITY ARTHROCENTESIS Routine 11/21/2024 6:43 PM EDT Radial tunnel syndrome of right upper extremity from Last 3 Months Results * Steroid Injections (11/21/2024 6:43 PM EDT) Harley Floyd MD - 11/21/2024 6:43 PM EDT Harley Montes MD 11/21/2024 6:46 PM Steroid Injections for (Right radial tunnel) on 11/21/2024 6:43 PM Details: 25 G needle Medications: 3 mL lidocaine (PF) 10 mg/mL (1 %); 2 mL triamcinolone acetonide (Kenalog-10) 10 mg/mL Outcome: tolerated well, no immediate complications Procedure, treatment alternatives, risks and benefits explained, specific risks discussed. Consent was given by the patient. Harley Montes MD IN CLINIC/BEDSIDE ORDERABLES Fin al Result from Last 3 Months Insurance [facility] Care Teams Quality Assurance Analyst Relationship Specialty Start Date End Date Jerman Nina MD [address] [facility] [address] [address] PCP - General 02/25/24
--- OUTSIDE RECORDS SUMMARY | 2025-02-08 15:39 | XMS_ITS | Encounter Summary ---
Author Organization [facility] Address [address] [place] [address] Care Team Providers Care Peanut Separator Name Role Phone Jerman Nina MD Primary Care Provider [phone] Encounter Details Date Type Department Care Team (Late st Contact Info) Description 02/01/2025 Clinisync Result Encounter [facility] External Department Unsolicited Jesús Crenshaw MD [facility] [place] [address] Social History Tobacco Use Types [...] WO IV CONTRAST 02/01/2025 8:49 PM EDT documented in this encounter Results * MR shoulder left w and wo IV contrast (02/01/2025 8:49 PM EDT) Anatomical Region Laterality Modality Upper Extremities, Shoulder Left Magn etic Resonance 02/01/2025 8:49 PM EDT Narrative 02/01/2025 8:51 [place] [address] Magnetic Resonance Report Signed Patient: JENNA ORTIZ MR#: [id number] : 1990 Acct:[id number] Age/Sex: 34 / M ADM Date: 02/01/25 Loc: MRI Attending Dr: Jesús Crenhsaw M.D. Ordering Physician: Jesús Crenshaw M.D. Date of Service: 02/01/25 Procedure(s): MR shoulder LT wo/w con Accession Number(s): [id number] cc: Jesús Crenshaw M.D.; Jerman Nina M.D. [place] [address] Patient Name: JENNA ORTIZ MRN: [id number] date: 1990 Sex: M Assigned Patient Location: MRI Current Patient Location: MRI Accession/Order Number: [id number] Exam Date: 02/01/2025 20:40 Report Date: 02/01/2025 [...] Patel M.D. 02/01/2025 8:49 PM Dictation Location: [place] [address] Electronically authenticated by: [id number] Y Date: 02/01/2025 20:49 Dictated By: Wilmer Patel D.O. Signed By: 02/01/252050 DD/ 48 TD/TT: High Density Finishing Operator: Procedure Note Radiology, Radiologist, - 02/01/2025 [place] [address] Magnetic Resonance Report Signed Patient: JENNA ORTIZ R#: [id number] : 1990Acct:[id number] Age/Sex: 34 / MADM Date: 02/01/25 Loc: MRI Attending Dr: Jesús Crenshaw M.D. Ordering Physician: Jesús Crenshaw M.D. Date of Service: 02/01/25 Procedure(s): MR shoulder LT wo/w con Accession Number(s): [id number] cc: Jesús Crenshaw M.D.; Jerman Nina M.D. [place] [address] Patient Name: JENNA ORTIZ MRN: [facility]:[id number] date: 1990 Sex: M Assigned Patient Location: MRI Current Patient Location: MRI Accession/Order Number: [id number] Exam Date: 02/01/2025 20:40 Report Date: 02/01/2025 [...] Patel M.D. 02/01/2025 8:49 PM Dictation Location: [place] [address] Electronically authenticated by: [id number] Y Date: 0:49 Dictated By: Wilmer Patel D.O. Signed By:02/01/252050 DD/ 48 TD/TT: High Density Finishing Operator: us Jesús Crenshaw MD IMG MRI PROCEDURES Final Result documented in this encounter Visit Diagnoses Not on filedocumented in this encounter Care Teams Peanut Separator Relationship Specialty Start Date End Date Jerman Nina MD PCP - General Family Medicine 01/18/23 documented as of this encounter
--- OUTSIDE RECORDS SUMMARY | 2025-02-08 15:40 | XMS_ITS | Data Portability ---
Author Organization [place] [facility] Address [address] [place] [address] Assessment Encounter Date Assessment Date Assessment LastModified by Organization Details LastModified Time 01/05/2025 01/05/2025 34 y/o with cervical radic. 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 We discussed thoroughly with the patient the risks and benefits of the steroid injection including hyperglycemia or elevated blood sugar and osteoporosis. The patient voiced their understanding and acknowledges that their blood sugar and/or diabetes is under control and the potential risk for bone loss and by extension bone fracture. The patient has failed 3 months of conservative management, including trials of nsaids, tylenol, neuropathic agents, muscle relaxants and physical therapy or spinal manipulation. The patient is not a surgical candidate at this time. The patient is currently involved in our pain management program and undr my direction for a home exercise plan of care as clinically appropriate. The pain is severe and impairing function and adl's despite activity modification. There are no contraindications to injection therapy, such as bleeding or infection risk. The injection is medically necessary so as to avoid any potential escalation to opioid therapy I counseled the patient extensively regarding spine care, activity modification, their diagnosis, treatment options and the plan of care. Discussed the risks, benefits, and alternatives. The patient is agreeable. I look forward to their response. They will follow up accordingly. Thank you for allowing me to participate in their care. This office visit was coded a level 5 because the patient encounter involved a detailed problem history and examination involving an extremely complex medical issues or multiple complex medical issue. The combination of the above required the highest degree of medical decision making and time. This encounter took an extensive amount of time based on medical history and patient complexity. [email or web address] Not available 01/05/2025 15:43:13 Plan of Treatment Reminders Order Date Submit Date Provider Last Modified By Organization Details Last Modified Time Details Appointments PROCEDURE 15 2024 03:00P M Jesús Hansen MD Not available Not available Not available FOLLOW UP 10 2024 03:10P M Jesús Hansen MD Not available Not available Not available Lab None recorded. Referral None recorded. Procedures None recorded. Surgeries Selective Nerve Root Block (SURG) 2024 025 [email or web address] Not available 01/31/2025 09:47:57 Imaging MRI, shoulder, w/wo contrast 2024 025 DANIEL Not available 02/02/2025 08:12:18 MRI, cervical spine, w/wo contrast 2024 025 DANIEL Not available 01/31/2025 07:56:08 Medication Orders None recorded. Patient TargetsNo targets recorded. Patient InstructionsNo instructions recorded. Reason for Referral None Reported. Results Created Date Observation Date Name Description Value Unit Range Abnormal Flag Note LastModifiedBy Organization Detail LastModifiedTime 01/24/2002/01/2024 MRI, cervi sabrina spine , w/o contr ast No observ ation record ed. [email or web address] Not Available 2024 14:28:23 02/01/20 25 01/30/2025 MRI, cervi sabrina spine , w/wo contr ast No observ ation record ed. [email or web address] Not Available 03/2025 07:56:12 02/03/20 25 imagi ng/di agnos tic resul t No observ ation record ed. [email or web address] Not Available 01/23 08:10:05 02/03/20 25 02/01/2025 MRI, shoul joseline, w/wo contr ast No observ ation record ed. [email or web address] Not Available 01/23 08:12:23 Result Notes None recorded. Problems No Known Problems Medical Equipment None Reported. Allergies No known drug allergies Medications Name Sig Start Date Stop Date Status Note LastModified by Organization Details LastModified Time celecoxib 200 mg capsule TAKE 1 CAPSULE (200 MG) BY MOUTH DAILY TAKE WITH FOOD active Not Available Not Available No t Available fluconazole 100 mg tablet TAKE 1 TABLET BY MOUTH DAILY FOR 10 DAYS active Not Available Not Available Not Available tizanidine 4 mg tablet TAKE 1/2 TO 1 TABLET BY MOUTH TWICE DAILY NEEDED FOR MUSCLE SPASTICITY FOR 30 DAYS active Not Available Not Available Not Available meloxicam 15 mg tablet TAKE 1/2 TO 1 TABLET BY MOUTH DAILY FOR 30 DAYS active Not Available Not Available Not Available prednisone 20 mg tablet TAKE 3 TABLETS BY MOUTH DAILY FOR 5 DAYS active Not Available Not Available N ot Available meloxicam 7.5 mg tablet TAKE 1 TABLET (7.5 MG) BY MOUTH DAILY TAKE WITH FOOD active Not Available Not Available No t Available sulfacetamid e sodium 10 % eye drops PLACE 2 DROPS INTO AFFECTED EYE(S) EVERY 4 HOURS active Not Available Not Available No t Available flurbiprofen 100 mg tablet TAKE 1 TABLET BY MOUTH TWO TIMES DAILY. active Not Available Not Available No t Available gabapentin 100 mg capsule TAKE 1 CAPSULE BY MOUTH AT BEDTIME active Not Available Not Available No t Available methylpredni solone 4 mg tablets in a dose pack TAKE 6 TABLETS ON DAY 1 DIRECTED ON PACKAGE AND DECREASE BY 1 TAB EACH DAY FOR A TOTAL OF 6 DAYS active Not Available Not Available No t Available ketoconazole 2 % topical cream APPLY EXTERNALLY TWICE A DAY FOR 14 DAYS active Not Available Not Available Not Available cyclobenzapr ine 5 mg tablet TAKE 1 TABLET BY MOUTH NIGHTLY NEEDED FOR MUSCLE SPASMS active Not Available Not Available No t Available duloxetine 30 mg capsule,jefferson yed release TAKE 1 CAPSULE (30 MG TOTAL) BY MOUTH IN THE MORNING active Not Available Not Available Not Available Eliquis 5 mg tablet TAKE 1 TABLET BY MOUTH TWICE A DAY active Not Available Not Available No t Available Vitals None Recorded Social History None recorded. Functional Status None recorded. Mental Status None recorded. Family History Nothing Reported. Medical History No medical history recorded. Past Encounters Encounter ID Performer Location Encounter Start Date Encounter Closed Date Diagnosis/Indication Diagnosis SNOMED-CT Code Diagnosis ICD10 Code Diagnosis Note [id number] MD Amanda Menard/ [facility] [address] [place] [address] 01/05/2025 15:25:16 01/05/2025 15:45:50 Cervical radiculopathy 69077578 M54.12 Bilateral chronic pain of upper limbs 8352544227 1925794 M25.511 M25.512 G89.29 Health Concerns Section Related Observation LastModified by Organization Detai ls LastModified Time None Recorded Concern Status LastModified by Organization Details LastModified Time None Recorded Advance Directives Directive None Recorded Payers Insurance Date Sequence Insurance Name Policy Number Policy Fitzgerald Covered Member ID Fitzgerald Member ID Guarantor Name 02/06/2025 1 [employer] [id number] Jayce Chambers [id number] Jayce Reyes Notes Date Note Type Note Provider Name and Address Organization Details Recorded Time 01/05/2025 text/html Neck PainReporte d bypatient.Quality:g nawing; stabbing Severity:severe Duration:continuous since onset Timing:chronic Alleviating Factors:nothing helps Neurological Complaints:numbness of the arms;tingling of the arms Treatment:PT/OTShou lderReported bypatient.Location: bilateral; deep Quality:aching; burning; sharp Severity:severe; worst pain 10/10 Duration:continuous since onset Timing:chronic Alleviating Factors:nothing helps Aggravating Factors:ROM Prior Imaging:MRI Previous PT:helped significantly Jesús Hansen MD [address] [place], [address], [facility] 01/05/2025 15:43:50
--- OUTSIDE RECORDS SUMMARY | 2025-02-08 15:40 | XMS_ITS | Patient Health Record ---
Author Organization [facility] Address [address] [place] [address] Care Team Providers Care Supervisor Shaving And Splitting Name Role Phone Adali Joe Unavailable Allergies No Known Allergies Reason For Referral No Information Social History Tobacco Use: Social History Observation Description Date Details (start date - stop date) Never Smoker NA - NA AUDIT-C (Standard) Question Answer Notes Did you have a drink contain ing alcohol in the past year? Yes How often did you have six o r more drinks on one occasion in the past year? Declined to specify (0 point) How many drinks did you have on a typical day when you were drinking in the past year? Declined to specify (0 point) How often did you have a dri nk containing alcohol in the past year? Declined to specify (0 point) Points 0 Interpretation Negative Tobacco Control (Standard) Question Answer Notes Tobacco use: Nonsmoker Problems Problem Type SNOMED Code ICD Code Onset Dates Problem Status W/U Status Risk Notes Problem 611059946 Cervical spondylosis (M47.812) Active confirmed Problem [id number] Neck muscle spasm (M62.838) Active confirmed Vital Signs Height 5'8 in 02/11/2024 Weight 250 lbs 02/11/2024 BMI 38.01 02/11/2024 Encounters Encounter Location Date Provider Diagnosis [facility] Office [address] [place] [place] [address] [place] [address] 02/11/2024 Adali Joe Neck muscle spasm M62.838 and Cervical spondylosis M47.812 Assessments Encounter Date Diagnosis (ICD Code) Assessment Notes Treatment Notes Treatment Clinical Notes Section Notes 02/11/2024 Cervical spondylosis (ICD-10 - M47.812) 1. C5-6 spondylosis 2. Neck pain 3. Muscle spasm 02/11/2024 Neck muscle spasm (ICD-10 - M62.838) 1. C5-6 spondylosis 2. Neck pain 3. Muscle spasm 02/11/2024 Other Plan established by Dr. Hodgson. I reviewed patient's x-ray, CT, and MRI results with him. At this point his pain appears to be more myofascial in nature. We discussed various nonoperative and patient would like to move forward with physical therapy. We also discussed NSAIDs and modification of posture and activities. We will see the patient back on an as-needed basis. The patient is very much in agreement with the treatment and/or diagnostic plan set forth and all questions were answered to the patient's satisfaction. Thanks once again. If we can be of further service to your patients with disorders of the spine, cervical, thoracic, or lumbar, please do not hesitate to contact Dr. Hodgson. 1. C5-6 spondylosis 2. Neck pain 3. Muscle spasm Plan Of Treatment Pending Test Test Name Order Date Cervical spine,ap,lat,flex,ext - 35149 0 02/11/2024 SFS - Cervical Spine PT Orde r, Isometrics & Strenghening w/Modalities as needed. 2-3 x Week for 4-6 Weeks 02/11/2024 Insurance Providers Payer Name Payer Address Payer Phone Subscriber Number Group Number Insured Name Patient Relationship to Insured Coverage Start Date Coverage End Date [employer] [facility] [address] [place] [address] [id number] JENNA ORTIZ Self - patient is the insured Medical (General) History Medical History History ICD Code Blood Clots in Legs/Lungs
--- OUTSIDE RECORDS SUMMARY | 2025-02-08 15:41 | XMS_ITS | Encounter Summary ---
Author Organization [facility] Address [address] [place] [address] Care Team Providers Care Furniture Manager Name Role Phone Jerman Nina MD Primary Care Provider [phone] Encounter Details Date Type Department Care Team (Late st Contact Info) Description 07/13/2023 Clinisync Result Encounter [facility] External Department Unsolicited Bharath Ramos, PA [address] [place] [address] Social History Tobacco Use Types Packs/Day Years [...] Name Priority Date/Time Associated Diagnosis Comments MR WRIST LEFT WO IV CONTRAST 07/13/2023 10:45 PM EST documented in this encounter Results * MR wrist left wo IV contrast (07/13/2023 10:45 PM EST) Anatomical Region Laterality Modality Upper Extremities, Wrist Left Magneti c Resonance 07/13/2023 10:4 5 PM EST Narrative 07/13/2023 10:48 PM EST [address] [address] Magnetic Resonance Report Signed Patient: JENNA ORTIZ MR#: [id number] : 1990 Acct:[id number] Age/Sex: 33 / M ADM Date: 07/13/23 Loc: MRI Attending Dr: Bharath BORJAS Ordering Physician: Bharath Ramos Date of Service: 07/13/23 Procedure(s): MR wrist LT wo con Accession Number(s): [id number] cc: Jerman Nina M.D.; Bharath Ramos [place] [id number] Patient Name: JENNA ORTIZ MRN: [id number] date: 1990 Sex: M Assigned Patient Location: MRI Current Patient Location: MRI Accession/Order Number: [id number] Exam Date: 07/13/2023 09:45 Report Date: 07/13/2023 22:45 At the request of: BHARATH RAMOS Procedure: MR wrist LT wo con EXAM: MR wrist LT wo con HISTORY: Left wrist pain M25.532 COMPARISON: None. TECHNIQUE: MRI images obtained with multiple sequences. Noncontrast MRI of the wrist. FINDINGS: Scapholunate and lunotriquetral ligaments are intact. Thin central perforation of the triangular fibrocartilage. Mild dorsal tilt of the lunate. No acute edema of the carpal bones. Mild ulnar negative variance. Extensor and flexor tendons are intact. Median nerve is normal in size and signal within the carpal tunnel. Subcutaneous soft tissue edema about the wrist. MR/MR wrist LT wo con IMPRESSION: 1. Scapholunate and lunotriquetral ligaments are intact. 2. Thin central perforation of the triangular fibrocartilage. (Arthrogram could more definitively evaluate) 3. No acute fracture. No acute bone marrow edema. No significant subcutaneous soft tissue edema about the wrist. Electronically authenticated by: YARI BUSTILLO Date: 07/13/2023 22:45 Dictated By: Yari Bustillo M.D. Signed By: 07/13/232247 DD/ 44 TD/TT: Rat Exterminator: Procedure Note Radiology, Radiologist, - 07/14/2023 [place] [address] Magnetic Resonance Report Signed Patient: JENNA ORTIZ LMR#: [id number] : 1990Acct:[id number] Age/Sex: 33 / MADM Date: 07/13/23 Loc: MRI Attending Dr: Bharath BORJAS Ordering Physician: Bharath Ramos Date of Service: 07/13/23 Procedure(s): MR wrist LT wo con Accession Number(s): [id number] cc: Jerman Nina M.D.; Bharath Ramos The [place] [id number] Patient Name: JENNA ORTIZ MRN: [id number] date: 1990 Sex: M Assigned Patient Location: MRI Current Patient Location: MRI Accession/Order Number: [id number] Exam Date: 07/13/2023 09:45 Report Date: 07/13/2023 22:45 At the request of: BHARATH RAMOS Procedure: MR wrist LT wo con EXAM: MR wrist LT wo con HISTORY: Left wrist pain M25.532 COMPARISON: None. TECHNIQUE: MRI images obtained with multiple sequences. Noncontrast MRI ofthe wrist. FINDINGS: Scapholunate and lunotriquetral ligaments are intact. Thin central perforation of the triangular fibrocartilage. Mild dorsal tilt of the lunate. No acute edema of the carpal bones. Mild ulnar negative variance. Extensor and flexor tendons are intact. Median nerve is normal in size and signal within the carpal tunnel. Subcutaneous soft tissue edema about the wrist. MR/MR wrist LT wo con IMPRESSION: 1. Scapholunate and lunotriquetral ligaments are intact. 2. Thin central perforation of the triangular fibrocartilage. (Arthrogram could more definitively evaluate) 3. No acute fracture. No acute bone marrow edema. No significantsubcutaneous soft tissue edema about the wrist. Electronically authenticated by: YARI BUSTILLO Date: 07/13/2023 22:45 Dictated By: Yari Bustillo M.D. Signed By:07/13/232247 DD/ 44 TD/TT: Rat Exterminator: us Bharath BORJAS IMG MRI PROCEDURES Final Resu lt documented in this encounter Visit Diagnoses Not on filedocumented in this encounter Care Teams Furniture Manager Relationship Specialty Start Date End Date Jerman Nina MD PCP - General Family Medicine 01/18/23 documented as of this encounter
--- OUTSIDE RECORDS SUMMARY | 2025-02-08 15:41 | XMS_ITS | Encounter Summary ---
Author Organization [facility] Address [address] [place] [address] Care Team Providers Care Sas Programmer Remote Name Role Phone Jerman Nina MD Primary Care Provider [phone] Encounter Details Date Type Department Care Team (Late st Contact Info) Description 01/26/2023 Abstract [facility] PT [address] [facility] [address] [place] [id number] Brandon Abernathy, PT [address] [facility] [address] [place] [address] Social History Tobacco Use Types Packs/Day Years Used Date Smoking Tobacco: Never Smokeless Tobacco: Never Alcohol Use Standard Drinks/Week [...] Orientation Straight 01/11/2023 10 :04 AM EDT COVID-19 Exposure Response Date Recorded In the last 10 days, have yo u been in contact with someone who was confirmed or suspected to have Coronavirus/COVID-19? No / Unsure 01/14/2023 5:50 PM EDT documented as of this encounter Plan of Treatment Not on file documented as of this encounter Visit Diagnoses Not on filedocumented in this encounter Care Teams Sas Programmer Remote Relationship Specialty Start Date End Date Jerman Nina MD PCP - General Family Medicine 01/18/23 documented as of this encounter
--- OUTSIDE RECORDS SUMMARY | 2025-02-08 15:41 | XMS_ITS | Encounter Summary ---
Author Organization [facility] Address [address] [place] [address] Care Team Providers Care Truck Driver Rubbish Collector Name Role Phone Jerman Nina MD Primary Care Provider [phone] Encounter Details Date Type Department Care Team (Late st Contact Info) Description 07/13/2023 Clinisync Result Encounter [facility] External Department Unsolicited Viral Ramos, PA [address] [place] [address] Social History Tobacco Use Types [...] Date/Time Associated Diagnosis Comments MR SHOULDER LEFT W/O 07/13/2023 10:33 PM EST documented in this encounter Results * MR SHOULDER LEFT W/O (07/13/2023 10:33 PM EST) Anatomical Region Laterality Modality Radiographic Ivon ging 07/13/2023 10:3 3 PM EST Narrative 07/13/2023 10:36 PM EST [address] [address] Magnetic Resonance Report Signed Patient: JENNA ORTIZ MR#: [id number] : 1990 Acct:[id number] Age/Sex: 33 / M ADM Date: 07/13/23 Loc: MRI Attending Dr: Viral BORJAS Ordering Physician: Viral Ramos Date of Service: 07/13/23 Procedure(s): MR shoulder LT wo con Accession Number(s): [id number] cc: Jerman Nina M.D.; Viral Ramos [address] [address] Patient Name: JENNA ORTIZ MRN: [id number] date: 1990 Sex: M Assigned Patient Location: MRI Current Patient Location: MRI Accession/Order Number: [id number] Exam Date: 07/13/2023 09:45 Report Date: 07/13/2023 22:33 At the request of: VIRAL RAMOS Procedure: MR shoulder LT wo con EXAM: MR shoulder LT wo con HISTORY: internal derangement lt shoulder M24.812 COMPARISON: None. TECHNIQUE: MRI images obtained with multiple sequences. Noncontrast MRI of the left shoulder. FINDINGS: Supraspinatus, infraspinatus, teres minor and subscapularis tendons are intact. Muscle bulk of the rotator cuff is preserved. No labral detachment. No full-thickness chondral loss at the glenohumeral joint. Biceps tendon is intact and within the intertubercular groove. Acromioclavicular joint in normal alignment. Undersurface of the acromion process is flat to gently curved. MR/MR shoulder LT wo con IMPRESSION: 1. No full-thickness rotator cuff tear. 2. No labral detachment by this nonarthrographic technique. 3. Biceps tendon is intact. 4. No full-thickness chondral loss. Electronically authenticated by: YARI BUSTILLO Date: 07/13/2023 22:33 Dictated By: Yari Bustillo M.D. Signed By: 07/13/232235 DD/ 32 TD/TT: Cutter V Groove: Procedure Note Radiology, Radiologist, - 09/29/2023 [place] [address] Magnetic Resonance Report Signed Patient: JENNA ORTIZ LMR#: [id number] : 1990Acct:[id number] Age/Sex: 33 / MADM Date: 07/13/23 Loc: MRI Attending Dr: Viral BORJAS Ordering Physician: Viral Ramos Date of Service: 07/13/23 Procedure(s): MR shoulder LT wo con Accession Number(s): [id number] cc: Jerman Nina M.D.; Viral Ramos [place] [address] Patient Name: JENNA ORTIZ MRN: [id number] date: 1990 Sex: M Assigned Patient Location: MRI Current Patient Location: MRI Accession/Order Number: [id number] Exam Date: 07/13/2023 09:45 Report Date: 07/13/2023 22:33 At the request of: VIRAL RAMOS Procedure: MR shoulder LT wo con EXAM: MR shoulder LT wo con HISTORY: internal derangement lt shoulder M24.812 COMPARISON: None. TECHNIQUE: MRI images obtained with multiple sequences. Noncontrast MRI ofthe left shoulder. FINDINGS: Supraspinatus, infraspinatus, teres minor and subscapularis tendons are intact. Muscle bulk of the rotator cuff is preserved. No labral detachment. No full-thickness chondral loss at the glenohumeral joint. Biceps tendon is intact and within the intertubercular groove. Acromioclavicular joint in normal alignment. Undersurface of the acromion process is flat to gently curved. MR/MR shoulder LT wo con IMPRESSION: 1. No full-thickness rotator cuff tear. 2. No labral detachment by this nonarthrographic technique. 3. Biceps tendon is intact. 4. No full-thickness chondral loss. Electronically authenticated by: YARI BUSTILLO Date: 07/13/2023 22:33 Dictated By: Yari Bustillo M.D. Signed By:07/13/232235 DD/ 32 TD/TT: Cutter V Groove: us Viral BORJAS IMG XR PROCEDURES Final Resul t documented in this encounter Visit Diagnoses Not on filedocumented in this encounter Care Teams Truck Driver Rubbish Collector Relationship Specialty Start Date End Date Jerman Nina MD PCP - General Family Medicine 01/18/23 documented as of this encounter
--- OUTSIDE RECORDS SUMMARY | 2025-02-08 15:41 | XMS_ITS | Encounter Summary ---
Author Organization [facility] Address [address] [place] [address] Care Team Providers Care Family Support Coordinator Name Role Phone Jerman Nina MD Primary Care Provider [phone] Encounter Details Date Type Department Care Team (Late st Contact Info) Description 03/21/2023 Abstract [facility] [address] [place] [address] Margarito Munoz, ADRIANNE Social History Tobacco Use Types Packs/Day Years Used Date Smoking Tobacco: Some Days Cigarettes Smokeless Tobacco: Never Alcohol Use Standard Drinks/Week [...] on filedocumented in this encounter Care Teams Family Support Coordinator Relationship Specialty Start Date End Date Jerman Nina MD PCP - General Family Medicine 01/18/23 documented as of this encounter
--- OUTSIDE RECORDS SUMMARY | 2025-02-08 15:41 | XMS_ITS | Encounter Summary ---
Author Organization [facility] Address [address] [place] [address] Care Team Providers Care Line Technician Name Role Phone Jerman Nina MD Primary Care Provider [phone] Encounter Details Date Type Department Care Team (Late st Contact Info) Description 03/16/2024 Orders Only [facility] [address] [facility] [address] [place] [address] Jerman Nina MD [address] [facility] [place] [address] [phone] Social History Tobacco Use Types Packs/Day Years [...] Procedure Name Priority Date/Time Associated Diagnosis Comments CT CHEST WO IV CONTRAST Routine 03/03/2024 3:38 PM EDT MRI CERVICAL WITHOUT CONTRAST Routine 02/01/2024 3:30 PM EDT VASC US LOWER EXTREMITY VENOUS DUPLEX RIGHT Routine 01/28/2024 3:[address] SPINE CERVICAL W CONTRAST Routine 01/08/2024 3:36 PM EDT documented in this encounter Results * CT chest wo IV contrast (03/03/2024 3:38 PM EDT) Anatomical Region Laterality Modality Body, Chest Computed Tomogra phy us Jerman Nina MD IMG CT PROCEDURES Final Result * MRI CERVICAL WITHOUT CONTRAST (02/01/2024 3:30 PM EDT) Anatomical Region Laterality Modality Radiographic Ivon ging Jerman Nina MD IMG XR PROCEDURES Final Result * Vascular US lower extremity venous duplex right (01/28/2024 3:34 PM EDT) Anatomical Region Laterality Modality Lower Extremities Ultrasound Jerman Nina MD IMG US PROCEDURES Final Result * CT SPINE CERVICAL W CONTRAST (01/08/2024 3:36 PM EDT) Anatomical Region Laterality Modality Radiographic Ivon ging us Unknown Practice A IMG XR PROCEDURES Final Resul t documented in this encounter Visit Diagnoses Not on filedocumented in this encounter Care Teams Line Technician Relationship Specialty Start Date End Date Jerman Nina MD PCP - General Family Medicine 01/18/23 documented as of this encounter
--- OUTSIDE RECORDS SUMMARY | 2025-02-08 15:41 | XMS_ITS | Encounter Summary ---
Author Organization [facility] Address [address] [place] [address] Care Team Providers Care Aluminum Siding Mechanic Name Role Phone Jerman Nina MD Primary Care Provider [phone] Encounter Details Date Type Department Care Team (Late st Contact Info) Description 07/13/2023 Clinisync Result Encounter [facility] External Department Unsolicited Viral Ramos, PA [address] [place] [address] Social History Tobacco Use [...] PM EST Narrative 07/13/2023 10:36 PM EST [address] [address] Magnetic Resonance Report Signed Patient: JENNA ORTIZ MR#: [id number] : 1990 Acct:[id number] Age/Sex: 33 / M ADM Date: 07/13/23 Loc: MRI Attending Dr: Viral BORJAS Ordering Physician: Viral Ramos Date of Service: 07/13/23 Procedure(s): MR shoulder LT wo con Accession Number(s): [id number] cc: Jerman Nina M.D.; Viral Ramos [address] [address] Patient Name: JENNA ORTIZ MRN: [id number] date: 1990 Sex: M Assigned Patient Location: MRI Current Patient Location: MRI Accession/Order Number: [id number] Exam Date: 07/13/2023 09:45 Report Date: 07/13/2023 [...] M.D. Signed By: 07/13/232235 DD/ 32 TD/TT: Hardboard Press Operator: Procedure Note Radiology, Radiologist, MD - 07/13/2023 [place] [address] Magnetic Resonance Report Signed Patient: JENNA ORTIZ LMR#: [id number] : 1990Acct:[id number] Age/Sex: 33 / MADM Date: 07/13/23 Loc: MRI Attending Dr: Viral BORJAS Ordering Physician: Viral Ramos Date of Service: 07/13/23 Procedure(s): MR shoulder LT wo con Accession Number(s): [id number] cc: Jerman Nina M.D.; Viral Ramos [address] [place] [address] Patient Name: JENNA ORTIZ MRN: [id number] date: 1990 Sex: M Assigned Patient Location: MRI Current Patient Location: MRI Accession/Order Number: [id number] Exam Date: 07/13/2023 09:45 Report Date: 07/13/2023 [...] Bustillo M.D. Signed By:07/13/232235 DD/ 32 TD/TT: Hardboard Press Operator: us Viral BORJAS IMG XR PROCEDURES Final Resul t documented in this encounter Visit Diagnoses Not on filedocumented in this encounter Care Teams Aluminum Siding Mechanic Relationship Specialty Start Date End Date Jerman Nina MD PCP - General Family Medicine 01/18/23 documented as of this encounter
--- OUTSIDE RECORDS SUMMARY | 2025-02-08 15:41 | XMS_ITS | Encounter Summary ---
Author Organization [facility] Address [address] [place] [address] Care Team Providers Care Advance Scout Name Role Phone Jerman Nina MD Primary Care Provider [phone] Encounter Details Date Type Department Care Team (Late st Contact Info) Description 07/13/2023 Clinisync Result Encounter [facility] External Department Unsolicited Bharath Ramos, PA [address] [place] [address] Social History Tobacco Use Types [...] PM EST Narrative 07/13/2023 10:48 PM EST [address] [address] Magnetic Resonance Report Signed Patient: JENNA ORTIZ MR#: [id number] : 1990 Acct:[id number] Age/Sex: 33 / M ADM Date: 07/13/23 Loc: MRI Attending Dr: Bharath BORJAS Ordering Physician: Bharath Ramos Date of Service: 07/13/23 Procedure(s): MR wrist LT wo con Accession Number(s): [id number] cc: Jerman Nina M.D.; Bharath Ramos [place] [id number] Patient Name: JENNA ORTIZ MRN: [id number] date: 1990 Sex: M Assigned Patient Location: MRI Current Patient Location: MRI Accession/Order Number: [id number] Exam Date: 07/13/2023 09:45 Report Date: 07/13/2023 [...] M.D. Signed By: 07/13/232247 DD/ 44 TD/TT: Plasma Cutting Machine Operator: Procedure Note Radiology, Radiologist, - 09/29/2023 [place] [address] Magnetic Resonance Report Signed Patient: JENNA ORTIZ LMR#: [id number] : 1990Acct:[id number] Age/Sex: 33 / MADM Date: 07/13/23 Loc: MRI Attending Dr: Bharath BORJAS Ordering Physician: Bharath Ramos Date of Service: 07/13/23 Procedure(s): MR wrist LT wo con Accession Number(s): [id number] cc: Jerman Nina M.D.; Bharath Ramos The [place] [id number] Patient Name: JENNA ORTIZ MRN: [id number] date: 1990 Sex: M Assigned Patient Location: MRI Current Patient Location: MRI Accession/Order Number: [id number] Exam Date: 07/13/2023 09:45 Report Date: 07/13/2023 [...] Bustillo M.D. Signed By:07/13/232247 DD/ 44 TD/TT: Plasma Cutting Machine Operator: us Bharath BORJAS IMG MRI PROCEDURES Final Resu lt documented in this encounter Visit Diagnoses Not on filedocumented in this encounter Care Teams Advance Scout Relationship Specialty Start Date End Date Jerman Nina MD PCP - General Family Medicine 01/18/23 documented as of this encounter
--- OUTSIDE RECORDS SUMMARY | 2025-02-08 15:41 | XMS_ITS | Encounter Summary ---
Author Organization [facility] Address [address] [facility] [place] [address] Care Team Providers Care Tube Knitter Name Role Phone Jerman Nina MD Primary Care Provider [phone] Encounter Details Date Type Department Care Team (Late st Contact Info) Description 10/08/2023 Clinisync Result Encounter [facility] External Department Unsolicited Bharath Ramos, PA [address] [place] [address] Social History Tobacco Use Types [...] Priority Date/Time Associated Diagnosis Comments MR SHOULDER RIGHT WO IV CONTRAST 10/08/2023 6:49 AM EDT documented in this encounter Results * MR shoulder right wo IV contrast (10/08/2023 6:49 AM EDT) Anatomical Region Laterality Modality Upper Extremities, Shoulder Right Magn etic Resonance 10/08/2023 6:49 AM EDT Narrative 10/08/2023 6:[place] [address] Magnetic Resonance Report Signed Patient: JENNA ORTIZ MR#: [id number] : 1990 Acct:[id number] Age/Sex: 33 / M ADM Date: 10/07/23 Loc: MRI Attending Dr: Bharath BORJAS Ordering Physician: Bharath Ramos Date of Service: 10/07/23 Procedure(s): MR shoulder RT wo con Accession Number(s): [id number] cc: Jerman Nina M.D.; Bharath Ramos The [place] [id number] Patient Name: JENNA ORTIZ MRN: [id number] date: 1990 Sex: M Assigned Patient Location: MRI Current Patient Location: Accession/Order Number: [id number] Exam Date: 10/07/2023 15:50 Report Date: 10/08/2023 06:49 At the request of: BHARATH RAMOS Procedure: MR shoulder RT wo con EXAMINATION: MR shoulder RT wo con HISTORY: internal derangement rt shoulder M24.811 ; acute on chronic right shoulder pain; prior right biceps repair COMPARISON: No relevant comparison available. TECHNIQUE: A variety of imaging planes and parameters were utilized for visualization of suspected pathology. Imaging was performed without or with contrast as indicated by examination type. FINDINGS: ROTATOR CUFF REGION CUFF TENDONS: Mild T2 signal within supraspinatus tendon without full-thickness tear. CUFF MUSCLES: Bone anchor within anterior aspect of humeral head near subscapularis tendon insertion. Normal appearing muscles. DELTOID: Normal. No significant atrophy or tear. LONG BICEPS TENDON: Normal. No abnormal signal, attrition, or tear. LABRUM/BICEPS ANCHOR SUPERIOR: Normal. No visible labral tear or biceps anchor pathology. ANTERIOR/INFERIOR: Normal. No visible tear or attrition. POSTERIOR: Normal. No posterior labrum abnormality. CAPSULE Normal. No visible capsular laxity or thickening. AC JOINT REGION AC JOINT: Normal acromioclavicular joint. AC LIGAMENTS: Normal acromioclavicular ligament. CC LIGAMENTS: Normal coracoclavicular ligaments. ACROMION: Normal horizontal (Type I) configuration. SUBACROMIAL BURSA: Normal. No significant effusion. HYALINE CARTILAGE: Thinning of the articular cartilage of the humeral head and glenoid. No appreciable focal defect. OTHER BONES: Normal proximal humerus, glenoid, and coracoid. OTHER OBSERVATIONS: Negative. No other significant findings or glenohumeral effusion. MR/MR shoulder RT wo con IMPRESSION: 1. Mild strain of the supraspinatus tendon. 2. Moderate cartilage thinning of the lateral humeral joint. Electronically authenticated by: JAIR YODER Date: 10/08/2023 06:49 Dictated By: Jair Yoder M.D. Signed By: 10/08/2351 DD/ 0649 TD/TT: Stator Plate Washer: Procedure Note Radiology, Radiologist, MD - 10/08/2023 The [place] [id number] Magnetic Resonance Report Signed Patient: JENNA ORTIZ LMR#: [id number] : 1990Acct:[id number] Age/Sex: 33 / MADM Date: 10/07/23 Loc: MRI Attending Dr: Bharath BORJAS Ordering Physician: Bharath Ramos Date of Service: 10/07/23 Procedure(s): MR shoulder RT wo con Accession Number(s): [id number] cc: Jerman Nina M.D.; Bharath Ramos The [address] [address] Patient Name: JENNA ORTIZ MRN: [id number] date: 1990 Sex: M Assigned Patient Location: MRI Current Patient Location: Accession/Order Number: [id number] Exam Date: 10/07/2023 15:50 Report Date: 10/08/2023 06:49 At the request of: BHARATH RAMOS Procedure: MR shoulder RT wo con EXAMINATION: MR shoulder RT wo con HISTORY: internal derangement rt shoulder M24.811 ; acute on chronic right shoulder pain; prior right biceps repair COMPARISON: No relevant comparison available. TECHNIQUE: A variety of imaging planes and parameters were utilized for visualization of suspected pathology. Imaging was performed without orwith contrast as indicated by examination type. FINDINGS: ROTATOR CUFF REGION CUFF TENDONS: Mild T2 signal within supraspinatus tendon without full-thickness tear. CUFF MUSCLES: Bone anchor within anterior aspect of humeral head near subscapularis tendon insertion. Normal appearing muscles. DELTOID: Normal. No significant atrophy or tear. LONG BICEPS TENDON: Normal. No abnormal signal, attrition, or tear. LABRUM/BICEPS ANCHOR SUPERIOR: Normal. No visible labral tear or biceps anchor pathology. ANTERIOR/INFERIOR: Normal. No visible tear or attrition. POSTERIOR: Normal. No posterior labrum abnormality. CAPSULE Normal. No visible capsular laxity or thickening. AC JOINT REGION AC JOINT: Normal acromioclavicular joint. AC LIGAMENTS: Normal acromioclavicular ligament. CC LIGAMENTS: Normal coracoclavicular ligaments. ACROMION: Normal horizontal (Type I) configuration. SUBACROMIAL BURSA: Normal. No significant effusion. HYALINE CARTILAGE: Thinning of the articular cartilage of the humeral headand glenoid. No appreciable focal defect. OTHER BONES: Normal proximal humerus, glenoid, and coracoid. OTHER OBSERVATIONS: Negative. No other significant findings orglenohumeral effusion. MR/MR shoulder RT wo con IMPRESSION: 1. Mild strain of the supraspinatus tendon. 2. Moderate cartilage thinning of the lateral humeral joint. Electronically authenticated by: JAIR YODER Date: 10/08/2023 06:49 Dictated By: Jair Yoder M.D. Signed By:10/08/23 0651 DD/ TD/TT: Stator Plate Washer: us Bharath BORJAS IMG MRI PROCEDURES Final Resu lt documented in this encounter Visit Diagnoses Not on filedocumented in this encounter Care Teams Tube Knitter Relationship Specialty Start Date End Date Jerman Nina MD PCP - General Family Medicine 01/18/23 documented as of this encounter
== END 2025-02-08 15:38 | disposition home or self-care (01) ==
LOC: MRI 15:37
PROVIDERS: PCP Family Medicine; Visit Provider Pain Medicine Interventional Pain Medicine
DX: M25.511 Pain in right shoulder (principal); G89.29 Other chronic pain
CPT/HCPCS: 73223; A9575

== ENCOUNTER 2025-05-16 12:46 | Outpatient (OUT) | payer BC, SELFPAY ==
--- OUTSIDE RECORDS SUMMARY | 2025-05-16 12:51 | XMS_ITS | Clinical Summary ---
Author Organization [facility] Address [address] [place] [address] Care Team Providers Care Protective Signal Installer Helper Name Role Phone Jerman Nina MD Primary Care Provider [phone] Allergies No known active allergies Medications No known medications Active Problems ProblemNoted DateDiagnosed DateLigament epxfsy9004/04/2024enign hypermobility tjlmzvil72/10/2024ight wrist pain04/04/2024Instability of wrist joint04/04/2024 Left wrist pain04/04/2024 Encounters DateTypeDepartmentCare WfmqMldeyjnhkyw18/10/2025 3:30 PM EDTFollow-Up [address] [place] [address] Harley Montes MD 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); Tendinitis of extensor tendon of both hands04/03/2025Telephone [address] [place] [address] Moy Triplett MA from Last 3 Months Immunizations ImmunizationAdministration DatesNext OetRKW4208/10/1989,1988,1988, 1988DTaP, Rnnovgwezvd47/19/1994Hep B, Adolescent or Utuarcoai56/26/2000, 03/21/1999,02/17/1999HiB, nvozvvwqagi47/09/6342CVH8810/12/2000,08/10/1989OPV 03/13/1994,08/10/1989,1988,1988 Social History Tobacco UseTypesPacks/DayYears UsedDateSmoking Tobacco: NeverSmokeless Tobacco: Never Tobacco Cessation:Counseling Given: Not Answered Humiliation, Afraid, Rape, and Kick questionnaireAnswerDate RecordedWithin the last year, have you been afraid of your partner or ex-partner?No11/21/2024 Emotionally AbusedNot on file11/21/2024Physically AbusedNot on file11/21/2024 Sexually AbusedNot on file11/21/2024PHQ-2AnswerDate RecordedPatient Health Questionnaire-2 Asufs952Sex and Gender InformationValueDate RecordedSex Assigned at CinwjAgmp82/10/2024 1:17 PM ESTLegal PezIxbt8602/24/2024 9:52 AM EDT Gender ZordmwrjXmvy58/10/2024 1:17 PM ESTSexual OrientationDon't know07/04/2024 1:17 PM EST Last Filed Vital Signs Vital SignReadingTime TakenCommentsBlood Pressure--Pulse--Temperature-- Respiratory Rate--Oxygen Saturation--Inhaled Oxygen Concentration--Xgadem318 kg (250 lb)04/04/2025 3:32 PM JVZVikwvz692.7 cm (5' 8 )04/04/2024 1:51 PM EDTBody Mass Index38.01004/04/2024 1:51 PM EDT Plan of Treatment DateTypeDepartmentCare Team (Latest Contact Info)Eoqipzxiuuu41/16/2025 1:50 PM ESTFollow-Up [facility] [address] [place] [address] Harley Montes MD [address] [place] [address] Health MaintenanceDue DateLast DoneCommentsVaricella Vaccines (1 of 2 - 13+ 2- dose series)2001COVID-19 Vaccine ( - 2023- season)2025Influenza Vaccine (#1)2025Depression Dtcwqyedo28/29//dult Tetanus 02/19//Zoster Vaccines (1 of 2)2038HIB VaccinesCompleted 11/01/1989IPV DdxamsfkQbehytzli41/19/1994, 08/10/1989, 1988, Additional history existsHepatitis B JeissfljKpicxuqsn53/26/2000, 03/21/1999, 02/17/1999HPV VaccinesAged OutNo longer eligible based on patient's age to complete this topic Meningococcal B VaccineAged OutNo longer eligible based on patient's age to complete this topicMeningococcal VaccineAged OutNo longer eligible based on patient's age to complete this topicPneumococcal Vaccine: Pediatrics (0 to 5 Years) and At-Risk Patients (6 to 64 Years)Aged OutNo longer eligible based on patient's age to complete this topicRotavirus VaccinesAged OutNo longer eligible based on patient's age to complete this topic Procedures Procedure NamePriorityDate/TimeAssociated DiagnosisCommentsPR ARTHROCENTESIS ASPIR&/INJ INTERM JT/BURS W/O FEBwhclsp86/10/2025 9:30 PM EDT Carpal instability non-dissociative of right wrist from Last 3 Months Results * AR ARTHROCENTESIS ASPIR&/INJ INTERM JT/BURS W/O US (04/04/2025 9:30 PM EDT) Harley Floyd MD - 04/04/2025 9:30 PM EDT Harley Montes MD 04/04/2025 9:30 PM Intermediate Joint on 04/04/2025 9:30 PM Indications: pain Details: 25 G needle, medial approach Medications: 1 mL lidocaine HCl 10 mg/mL (1 %); 1 mL triamcinolone acetonide (Kenalog-10) 10 mg/mL Outcome: tolerated well, no immediate complications After discussing the treatment options, and the risks and benefits of a corticosteroid injection, verbal consent to proceed was obtained. ??In the clinic today, the area over the tip of the ulnar styloid on the right ??was prepped with a Betadine swab. ??Using a 25-gauge needle, the ulnocarpal joint was injected with a combination of 1 mL 1% lidocaine and 1 ml of Kenalog 10 mg/mL. ?The area was wiped clean with an alcohol swab, and dressed with a Band-Aid. ??Instructions were given to apply ice for about 10 minutes later today, or use over the anticounter anti-inflammatories for discomfort. Immediately prior to procedure a time out was called to verify the correct patient, procedure, equipment, collection support specialist and site/side marked as required. Authorizing ProviderResult TypeResult StatusHarley Montes MDIN CLINIC/BEDSIDE ORDERABLESFinal Result from Last 3 Months Insurance * Guarantor: Jayce ChambersAccount TypeRelation to PatientDate of BirthPhone Billing AddressPersonal/ScducnQlhq1990 [address] [address] Care Teams Team MemberRelationshipSpecialtyStart DateEnd Date Jerman Nina MD [address] [facility] [place] [address] [facility]02/25/24
--- OUTSIDE RECORDS SUMMARY | 2025-05-16 12:51 | XMS_ITS | Clinical Summary ---
Author Organization [facility] Address [address] [place] [address] Phone Care Team Providers Care Business Analytics Director Name Role Phone Jerman Nina MD Primary Care Provider [phone] Allergies No known active allergies Medications No known medications Active Problems ProblemNoted DateDiagnosed DatePain, neck06/29/2024dvised about management of ytvblo7706/29/2024 Social History Tobacco UseTypesPacks/DayYears UsedDateSmoking Tobacco: Never AssessedSex and Gender InformationValueDate RecordedSex Assigned at BirthNot on fileLegal Sex Male02/29/2024 9:16 AM EDTGender IdentityNot on fileSexual OrientationNot on file Last Filed Vital Signs Vital SignReadingTime TakenCommentsBlood Slvmkafx466/7411606/29/2024 9:36 AM EST Hruqf988906/29/2024 9:36 AM CMSTiymemheiai34.9 ??C (96.6 ??F)06/29/2024 9:36 AM ESTRespiratory Rate--Oxygen Saturation--Inhaled Oxygen Concentration--Uuhlud916 kg (271 lb 2.7 oz)06/29/2024 9:36 AM HESHcivty661.7 cm (5' 8.39 )06/29/2024 9:36 AM ESTBody Mass Index40.7706/29/2024 9:36 AM EST Plan of Treatment Health MaintenanceDue DateLast DoneCommentsHIV Vgvgpgfdi1988Lipid Panel 1990Yearly Adult Uxwbzsyt1990Hepatitis C Ogqudincz02/14/2006HPV Vaccines (1 - 3-dose standard series)2015Influenza Vaccine (#1)2025 COVID-19 Vaccine (1 - 2024- season)2025DTaP/Tdap/Td Vaccines (7 - Td or Tdap), 03/13/1994, 08/10/1989, Additional history exists Zoster Vaccines (1 of 2)2038HIB IjpqbvdePfshqzqzp90/09/1990IPV Vaccines Ueqdzadsq70/19/1994, 08/10/1989, 1988, Additional history existsHepatitis B MgaysjgwQqioquxno89/26/2000, 03/21/1999, 02/17/1999MMR VaccinesCompleted 10/12/2000, 08/10/1989Hepatitis A VaccinesAged OutNo longer eligible based on patient's age to complete this topicMeningococcal VaccineAged OutNo longer eligible based on patient's age to complete this topicPneumococcal Vaccine: Pediatrics and At-Risk Adult PatientsAged OutNo longer eligible based on patient's age to complete this topicRotavirus VaccinesAged OutNo longer eligible based on patient's age to complete this topic Insurance * Guarantor: Marzena Chambers TypeRelation to PatientDate of BirthPhone Billing AddressPersonal/KahfhnOdrz[address] [place] [address] Care Teams Team MemberRelationshipSpecialtyStart DateEnd Jerman Nina MD [address] [place] [address] PCP - GeneralFamily Medicine03/13/24
--- OUTSIDE RECORDS SUMMARY | 2025-05-16 12:51 | XMS_ITS | CCD ---
Author Organization [facility] ion [facility] Care Team Providers Care Mixer Diamond Powder Name Role Phone Jerman Nina MD Primary Care Provider MD Jerman Nina Primary Care Provider [phone] MD Ladonna Mejias Attending Provider MD Jerman Nina Primary Care Provider [phone] MD Ladonna Mejias Attending Provider MD Michelet Aleman Attending Provider GALLITO LESLIE Attending Unavailable BHARATH RAMOS Referring Unavailable GALLITO LESLIE Referring Unavailable GALLITO LESLIE Attending Unavailable Jerman Nina MD Primary Care Provider [phone] Michelet Aleman MD Attending Provider [phone] Jerman Nina MD Primary Care Provider [phone] Jerman Nina MD Primary Care Provider Michelet Aleman MD Attending Provider Michelet Aleman Admitting Unavailable Michelet Aleman Attending Unavailable Jerman Nina Primary Care Unavailable Randell, Ladonna R Admitting Unavailable Ladonna Mejias R Attending Unavailable Jerman Nina Primary Care Unavailable Randell, Ladonna R Attending Unavailable Jerman Nina Primary Care Unavailable Calvey, Ladonna R Admitting Unavailable Calvey, Ladonna R Attending Unavailable Jerman Nina Primary Care Unavailable Calvey, Ladonna R Admitting Unavailable Love, Michelet S Admitting Unavailable Love, Michelet S Attending Unavailable Jerman Nina Primary Care Unavailable Unavailable Primary Care Provider Unavailfadi e Jerman Nina MD Primary Care Provider [phone] Michelet Aleman MD Attending Provider [phone] Jerman Nina MD Primary Care Provider [phone] JR. HE, SHASHANK Guevara Attending Unavaila augustin SHEPPARD JR., SHASHANK Guevara Attending Unavaila JOSY Dominguez Attending Unavailable BHARATH RAMOS Referring Unavailable JOSY HAMPTON Attending Unavailable BHARATH RAMOS Referring Unavailable MARTHA MENA Attending Unavailable BHARATH RAMOS Referring Unavailable JESÚS CRENSHAW Referring Unavailable MARTHA MENA Attending Unavailable BHARATH RAMOS Referring Unavailable BHARATH RAMOS Attending Unavailable BHARATH RAMOS Attending Unavailable JR. HE, SHASHANK Guevara Attending Unavaila augustin MONTES, SHAHIDA Attending Unavailable LASHAE, SHAHIDA Attending Unavailable SHAHIDA MONTES Attending Unavailable LASAHE, SHAHIDA Attending Unavailable Coy Ryder Attending Unavailable Naldo MIRANDA Attending Unavailable Jerman Nina Referring Unavailable Allergies Allergy ClassificationReported Allergen(s)Allergy TypeDate of OnsetReaction(s) Facility (1 source)meloxicamDrug Issowdu44-79-9835ScfobnqhhFirelands [facility] Medications Current Medications MedicationDrug Class(es)DatesSig (Normalized)Sig (Original)celecoxib 200 mg oral capsule (17 sources)Nonsteroidal Anti-inflammatory DrugStart: 03-20-2024 End: 56-87-2020ijnw 1 capsule by mouth once daily at mealtimecelecoxib (CeleBREX) 200 MG capsule Indications: Scapular dyskinesis Take 1 capsule (200 mg) by mouth Daily Take with food 30 capsule 1 03/20/2024 05/19/2024 Active cyclobenzaprine hydrochloride 5 mg oral tablet (4 sources)Muscle RelaxantStart: 05-09-2024 End: 78-28-4185tufe 1 tablet by mouth once daily as needed for muscle spasms cyclobenzaprine (FLEXERIL) 5 mg tablet Indications: Multiple joint pain Take 1 tablet (5 mg total) by mouth nightly as needed for muscle spasms. 30 tablet 1 05/09/2024 ActiveDULoxetine 30 mg delayed release oral capsule (5 sources)Serotonin and Norepinephrine Reuptake InhibitorStart: 05-09-2024 End: 32-71-8424qoeb 1 capsule by mouth in the morningDULoxetine (CYMBALTA) 30 mg capsule Indications: Multiple joint pain TAKE 1 CAPSULE (30 MG TOTAL) BY MOUTH IN THE MORNING 90 capsule 1 05/31/2024 ActivetiZANidine 4 mg oral tablet (8 sources)Central alpha-2 Adrenergic AgonistStart: 26-04-9039ptoy 0.5-1 tablets by mouth twice daily as neededTizanidine 4 mg tablet Active 0 PO Twice daily as needed for muscle spasticity 60 June 1:00am 1/2 to 1 tablet orally twice daily PRN;Start: 05-05-2023 End: 16-08-0405lmhv 1 capsule by mouth every eight hours as needed for muscle spasmstiZANidine (Zanaflex) 4 MG capsule TAKE 1 CAPSULE BY MOUTH EVERY 8 HOURS NEEDED FOR MUSCLE SPASM05/05/2023 03/20/2024 Discontinued Completed/Discontinued Medications MedicationDrug Class(es)DatesSig (Normalized)Sig (Original)apixaban 5 mg oral tablet (16 sources)Factor Xa InhibitorStart: 11-30-2023 End: 69-36-4646mgky 1 tablet by mouth twice dailyApixaban (Eliquis) 5 mg tablet Discontinued 5 MG PO Twice daily November 30, 2023 12:00am April 11:32am Start: 05-05-2023 End: 22-91-7124vhzn 2 tablets by mouth twice daily, then take 1 tablet by mouth twice dailyEliquis 5 MG tablet TAKE 2 TABLETS BY MOUTH TWICE A DAY FOR 7 DAYS THEN 1 TABLET TWICE A DAY 05/05/2023 03/20/2024 DiscontinuedDiclofenac (11 sources)Nonsteroidal Anti-inflammatory DrugStart: 11-30-2023 End: 21-86-9418Iljrimdaba Sodium (Voltaren Arthritis Pain) 1 % gel Discontinued 2 GM TOPICAL Four times daily 100 30 November 29, 2023 11:00pm 2024 10:32am apply to single elbow, wrist or hand; for hand includes palm/fingers/back of handStart: 11-30-2023 End: 08-14-3549Vgyspmlbsx Sodium (Voltaren Arthritis Pain) 1 % gel Discontinued 2 GM TOPICAL Four times daily 100 30 November 30, 2023 12:00am 2024 11:32am apply to single elbow, wrist or hand; for hand includes palm/fingers/back of handStart: 11-44-0533Kgeyqifptd Sodium (Voltaren Arthritis Pain) 1 % gel Active 2 GM TOPICAL Four times daily 2023 12:00am apply to single elbow, wrist or hand; for hand includes palm/fingers/back of handgabapentin 100 mg oral capsule (9 sources)Anti-epileptic AgentStart: 01-12-2024 End: 89-92-4656Frfqapyfzu 100 mg capsule Discontinued 100 MG PO January 12, 2024 12:00am 2024 11:32amlevoFLOXacin 750 mg oral tablet (5 sources)Quinolone AntimicrobialStart: 05-05-2023 End: 77-18-1293xfdy 1 tablet by mouth once dailylevoFLOXacin (Levaquin) 750 MG tablet TAKE 1 TABLET BY MOUTH ONCE EVERYDAY FOR 10 DAYS 05/05/2023 03/20/2024 Discontinuedmeloxicam 7.5 mg oral tablet (13 sources)Nonsteroidal Anti-inflammatory DrugStart: 09-13-2024 End: 02-45-5493evuw 1 tablet by mouth once daily at mealtimemeloxicam (Mobic) 7.5 MG tablet Indications: Acute pain of right shoulder Take 1 tablet (7.5 mg) bymouth Daily Take with food 60 tablet 09/13/2024 11/12/2024 ExpiredStart: 2024 End: 20-18-0424evxh 0.5-1 tablets by mouth once dailyMeloxicam 15 mg tablet Discontinued 0 PO Daily 2024 12:00am July 10, 2024 4:37pm 1/2-1 tablet orally daily;methylPREDNISolone (20 sources)CorticosteroidStart: 03-20-2024 End: 89-25-7863ggmsrjNKMLUANktuve (Medrol Dospak) 4 MG tablets Indications: Neck pain Follow schedule on package instructions 21 tablet 03/20/2024 06/14/2024 DiscontinuedStart: 23-14-4749otaprkQCUCFRKctrhw (Medrol Dospak) 4 MG tablets Indications: Neck pain Follow schedule on package instructions 21 tablet 03/20/2024 ActiveStart: 01-12-2024 End: 14-68-2342Wsanekcjdgkftecwlv 4 mg tablets,dose pack Discontinued 4 MG PO January 12, 2024 12:00am February 23, 2024 4:20pm Problems Active Problems Problem ClassificationProblemDateDocumented DateEpisodic/ChronicImmunizations and screening for infectious disease (3 sources)Other specified abnormal immunological findings in serum; Translations: [Rheumatoid factor positive]Onset: 945203-08-6450Mvkpohop Other aftercare (1 source)Encounter for therapeutic drug level monitoring; Translations: [Encounter for therapeutic drug level monitoring]Onset: 29-79-9888MoxiwhouVcfsa connective tissue disease (11 sources)Laxity of ligament; Translations: [Disorder of ligament, unspecified site]64-67-9262TmuoyhzjQqkez connective tissue disease (6 sources)Myofascial pain; Translations: [Myalgia, other site]2024 EpisodicOther connective tissue disease (9 sources)Myalgia, other site; Translations: [Myalgia and myositis, unspecified]44-10-3018YubkxpsxHzqis hereditary and degenerative nervous system conditions (11 sources)Finding of scapular structure; Translations: [Other specified extrapyramidal and movement disorders]51-23-5120EcxewfyFkprc nervous system disorders (6 sources)Chronic pain; Translations: [Other chronic pain]03-80-2863Fjhmdkp Other nervous system disorders (9 sources)Other chronic pain; Translations: [Other chronic pain]2024 ChronicOther nervous system disorders (6 sources)Scapulocostal syndrome; Translations: [Other specified mononeuropathies of unspecified upper limb]84-98-7349PqszzefRccxs nervous system disorders (2 sources)Lesion of radial nerve, right upper limb; Translations: [Lesion of radial nerve, right upper limb]Onset: 97-10-8080YxgdarbXbwhm non-traumatic joint disorders (14 sources)Pain in right shoulder; Translations: [Pain in joint, shoulder region]40-82-1559OnxawgomFfniz non-traumatic joint disorders (20 sources)Pain in wrist; Translations: [Pain in right wrist]19-34-5800Wvzmtfrc Other non-traumatic joint disorders (9 sources)Wrist joint unstable; Translations: [Other instability, unspecified wrist]26-70-8412ZatehsotBvyfm non-traumatic joint disorders (1 source)Pain in unspecified joint; Translations: [Pain in unspecified joint] Onset: 60-23-1335FdcurgokZxkmk non-traumatic joint disorders (2 sources)Other instability, right wrist; Translations: [Other instability, right wrist]Onset: 15-57-5005CgvkklnuCdiia nutritional; endocrine; and metabolic disorders (1 source)Hyperuricemia without signs of inflammatory arthritis and tophaceous disease; Translations: [Hyperuricemia without signs of inflammatory arthritis and tophaceous disease]Onset: 08-21-0022IcapzkzrWvwvtibz codes; unclassified (4 sources)History of arthroscopic procedure on shoulder; Translations: [Other specified postprocedural states]37-98-1692LumatshpNpdycgdo codes; unclassified (2 sources)Patient advised about weight management; Translations: [Other specified health status]Onset: 911727-68-5465KyyjwucyNdzhcezpwon; intervertebral disc disorders; other back problems (7 sources)Cervical spondylosis; Translations: [Spondylosis without myelopathy or radiculopathy, cervical region]88-10-3640EwfoxqqFbvdrsytcwj; intervertebral disc disorders; other back problems (20 sources)Neck pain; Translations: [Cervicalgia]Onset: 536195-00-6021 Episodic Past or Other Problems Problem ClassificationProblemDateDocumented DateEpisodic/ChronicOther aftercare (2 sources)Patient encounter status; Translations: [Encounter for therapeutic drug level monitoring]56-67-5597SbcolkqaTikkf connective tissue disease (16 sources)Disorder of ligament, unspecified site; Translations: [Laxity of ligament]Onset: 567836-84-7320SfioijxnVxqyp connective tissue disease (2 sources)Other enthesopathies, not elsewhere classified; Translations: [Other enthesopathies, not elsewhere classified]Onset: 60-03-9436FswgltscByfxu connective tissue disease (2 sources)Other synovitis and tenosynovitis, right forearm; Translations: [Other synovitis and tenosynovitis,right forearm]Onset: 60-21-9373CxdpkyofGrtci non-traumatic joint disorders (12 sources)Pain in left wrist; Translations: [Pain in joint, forearm]Onset: 208984-40-5206QvflyvsjSmtar non-traumatic joint disorders (12 sources)Pain in right wrist; Translations: [Pain in joint, forearm]Onset: 468301-88-8929HjgelsqnEnhfk non-traumatic joint disorders (7 sources)Multiple joint pain; Translations: [Pain in unspecified joint] 72-97-9066SnzmrxxeKiqpc non-traumatic joint disorders (3 sources)Pain in left shoulder; Translations: [Pain in joint, shoulder region] 58-12-6565NiupbwguKzvbd non-traumatic joint disorders (1 source)Other instability, unspecified wrist; Translations: [Other instability, unspecified wrist]Onset: 41-36-3165RctfqolyUfhjv nutritional; endocrine; and metabolic disorders (2 sources)Blood urate raised; Translations: [Hyperuricemia without signs of inflammatory arthritis and tophaceous disease]64-65-2957Dtzsqcky Results Test NameValueInterpretationReference RangeFacilityFollow-Upon 04-04-2025 Follow-[id number] Jenna Ortiz 1990 M Date Provider Department Center 04/04/2025 SHAHIDA IRENE ORTHO MPORTHO No family history on file Level of Service:96225 NE OFFICE/OUTPATIENT ESTABLISHED LOW MDM 20 MIN (25) Reason for Visit and Comments: Follow-up [972958] Follow-up [722193]NormalC[facility] on 18-75-661839Qly to call and move appointment down to 330pm tomorrowNMercy Health Defiance HospitalMR Shoulder - right WO and W contrast Eliza 00-45[place] [address] Magnetic Resonance Report Signed Patient: JENNA ORTIZ MR#: [id number] : 1990 Acct:[id number] Age/Sex: 34 / M ADM Date: 02/08/25 Loc: MRI Attending Dr: Jesús Crenshaw M.D. Ordering Physician: Jesús Crenshaw M.D. Date of Service: 02/08/25 Procedure(s): MR shoulder RT wo/w con Accession Number(s): [id number] cc: Jesús Crenshaw M.D.; Jerman Nina M.D. [address] [address] Patient Name: JENNA ORTIZ MRN: [id number] date: 1990 Sex: M Assigned Patient Location: MRI Current Patient Location: MRI Accession/Order Number: [id number] Exam Date: 02/08/2025 23:53 Report Date: 02/09/2025 00:04 At the request of: JESÚS CRENSHAW MD Procedure: MR shoulder RT wo/w con MR LEFT SHOULDER CLINICAL INFORMATION: Chronic left shoulder pain radiating into neck. COMPARISON: 07/13/2023. PROCEDURE: Axial, oblique coronal, and oblique sagittal long TR images of the shoulder were obtained with and without IV contrast CONTRAST: 20 mL of intravenous Dotarem. FINDINGS: ROTATOR CUFF AND ASSOCIATED STRUCTURES Biceps Tendon: There is soft tissue anchoring along the proximal long head of the biceps tendon suggesting previous biceps tendon tear and subsequent repair. Rotator cuff: Edema and subtle enhancement are noted along the insertion sites of the supraspinatus and infraspinatus tendons without evidence of gross tear. This may represent sequelae of tendinopathy. The teres minor and subscapularis tendons are intact. Musculature: There is no muscular tear, contusion, or atrophy. Bursa: There is a small amount of fluid in the subacromial bursa. OSSEOUS STRUCTURES Acromioclavicular joint: There are mild degenerative changes of the acromioclavicular joint. A type 2 acromion configuration is noted. There is no anterior or lateral acromial downsloping. Bones: No Hill-Sachs, reverse Hill-Sachs, or bony Bankart lesions are seen. There are no fractures. Mild subcortical cystic changes noted at the greater tuberosity humeral head at the rotator cuff insertion site. GLENOHUMERAL JOINT Joint: There is no glenohumeral joint effusion. Cartilage: No focal hyaline cartilage defects are noted. Labrum: The labrum is not optimally evaluated. Other support structures: No capsular or ligamentous abnormality is seen. MR/MR shoulder RT wo/w con IMPRESSION: 1. There is soft tissue anchoring along the proximal long head of the biceps tendon suggesting previous biceps tendon tear and subsequent repair. 2. Edema and subtle enhancement are noted along the insertion sites of the supraspinatus and infraspinatus tendons without evidence of gross tear. This may represent sequelae of tendinopathy. 3. There is a small amount of fluid in the subacromial bursa. Impression dictated by: Abilio Coles M.D. 02/09/2025 12:04 AM Dictation Location: [place] [address] Electronically authenticated by: [id number] Y Date: 02/09/2025 00:04 Dictated By: Abilio Coles M.D. Signed By: 02/09/25 0006 DD/ 0004 TD/TT: Coating Inspector:JOSEadiologhansa, Radiologist, - 02/09/2025 [place] [address] Magnetic Resonance Report Signed Patient: JENNA ORTIZ MR#: [id number] : 1990 Acct:[id number] Age/Sex: 34 / M ADM Date: 02/08/25 Loc: MRI Attending Dr: Jesús Crenshaw M.D. Ordering Physician: Jesús Crenshaw M.D. Date of Service: 02/08/25 Procedure(s): MR shoulder RT wo/w con Accession Number(s): [id number] cc: Jesús Crenshaw M.D.; Jerman Nina M.D. The [place] [address] Patient Name: JENNA ORTIZ MRN: [id number] date: 1990 Sex: M Assigned Patient Location: MRI Current Patient Location: MRI Accession/Order Number: [id number] Exam Date: 02/08/2025 23:53 Report Date: 02/09/2025 00:04 At the request of: JESÚS CRENSHAW MD Procedure: MR shoulder RT wo/w con MR LEFT SHOULDER CLINICAL INFORMATION: Chronic left shoulder pain radiating into neck. COMPARISON: 07/13/2023. PROCEDURE: Axial, oblique coronal, and oblique sagittal long TR images of the shoulder were obtained with and without IV contrast CONTRAST: 20 mL of intravenous Dotarem. FINDINGS: ROTATOR CUFF AND ASSOCIATED STRUCTURES Biceps Tendon: There is soft tissue anchoring along the proximal long head of the biceps tendon suggesting previous biceps tendon tear and subsequent repair. Rotator cuff: Edema and subtle enhancement are noted along the insertion sites of the supraspinatus and infraspinatus tendons without evidence of gross tear. This may represent sequelae of tendinopathy. The teres minor and subscapularis tendons are intact. Musculature: There is no muscular tear, contusion, or atrophy. Bursa: There is a small amount of fluid in the subacromial bursa. OSSEOUS STRUCTURES Acromioclavicular joint: There are mild degenerative changes of the acromioclavicular joint. A type 2 acromion configuration is noted. There is no anterior or lateral acromial downsloping. Bones: No Hill-Sachs, reverse Hill-Sachs, or bony Bankart lesions are seen. There are no fractures. Mild subcortical cystic changes noted at the greater tuberosity humeral head at the rotator cuff insertion site. GLENOHUMERAL JOINT Joint: There is no glenohumeral joint effusion. Cartilage: No focal hyaline cartilage defects are noted. Labrum: The labrum is not optimally evaluated. Other support structures: No capsular or ligamentous abnormality is seen. MR/MR shoulder RT wo/w con IMPRESSION: 1. There is soft tissue anchoring along the proximal long head of the biceps tendon suggesting previous biceps tendon tear and subsequent repair. 2. Edema and subtle enhancement are noted along the insertion sites of the supraspinatus and infraspinatus tendons without evidence of gross tear. This may represent sequelae of tendinopathy. 3. There is a small amount of fluid in the subacromial bursa. Impression dictated by: Abilio Coles M.D. 02/09/2025 12:04 AM Dictation Location: [place] [address] Electronically authenticated by: [id number] Y Date: 02/09/2025 00:04 Dictated By: Abilio Coles M.D. Signed By: 02/09/25 0006 DD/ 0004 TD/TT: Coating Inspector: RAYSHAWN HealthcareRadiology Study observation (narrative)[facility] Shoulder - right WO and W contrast IVOrdered By: Radiologist Radiology on 88-42-4327CSTD [employer] Work Phone: MR Shoulder - left WO and W contrast Eliza 02-01-2025 [place] [id number] Magnetic Resonance Report Signed Patient: JENNA ORTIZ MR#: [id number] : 1990 Acct:[id number] Age/Sex: 34 / M ADM Date: 02/01/25 Loc: MRI Attending Dr: Jesús Crenshaw M.D. Ordering Physician: Jesús Crenshaw M.D. Date of Service: 02/01/25 Procedure(s): MR shoulder LT wo/w con Accession Number(s): [id number] cc: Jesús Cresnhaw M.D.; Jerman Nina M.D. [address] [id number] Patient Name: JENNA ORTIZ MRN: [facility]:[id number] date: 1990 Sex: M Assigned Patient Location: MRI Current Patient Location: MRI Accession/Order Number: [id number] Exam Date: 02/01/2025 20:40 Report Date: 02/01/2025 [...] Patel M.D. 02/01/2025 8:49 PM Dictation Location: [place] [address] Electronically authenticated by: [id number] Y Date: 02/01/2025 20:49 Dictated By: Wilmer Patel D.O. Signed By: 02/01/252050 DD/ 48 TD/TT: Coating Inspector:TBHRadiology, Radiologist, - 02/01/2025 [place] [address] Magnetic Resonance Report Signed Patient: JENNA ORTIZ MR#: [id number] : 1990 Acct:[id number] Age/Sex: 34 / M ADM Date: 02/01/25 Loc: MRI Attending Dr: Jesús Crenshaw M.D. Ordering Physician: Jesús Crenshaw M.D. Date of Service: 02/01/25 Procedure(s): MR shoulder LT wo/w con Accession Number(s): [id number] cc: Jesús Crenshaw M.D.; Jerman Nina M.D. The [place] [id number] Patient Name: JENNA ORTIZ MRN: [id number] date: 1990 Sex: M Assigned Patient Location: MRI Current Patient Location: MRI Accession/Order Number: [id number] Exam Date: 02/01/2025 20:40 Report Date: 02/01/2025 [...] Patel M.D. 02/01/2025 8:49 PM Dictation Location: [place] [address] Electronically authenticated by: [id number] Y Date: 02/01/2025 20:49 Dictated By: Wilmer Patel D.O. Signed By: 02/01/252050 DD/ 48 TD/TT: Coating Inspector: RAYSHAWN HealthcareRadiology Study observation (narrative)[facility] Shoulder - left WO and W contrast IVOrdered By: Radiologist Radiology on 26-75-1879XUASBarton County Memorial Hospital Work Phone: CERVICAL SPINE WO/W CONon 84-75-1419[place] [id number] Magnetic Resonance Report Signed Patient: JENNA ORTIZ MR#: [id number] : 1990 Acct:[id number] Age/Sex: 34 / M ADM Date: 01/30/25 Loc: MRI Attending Dr: Jesús Crenshaw M.D. Ordering Physician: Jesús Crenshaw M.D. Date of Service: 01/30/25 Procedure(s): MR cervical spine wo/w con Accession Number(s): [id number] cc: Jesús Crenshaw M.D.; Jerman Nina M.D. The [address] [address] Patient Name: JENNA ORTIZ MRN: [id number] date: 1990 Sex: M Assigned Patient Location: MRI Current Patient Location: MRI Accession/Order Number: [id number] Exam Date: 01/30/2025 21:49 Report Date: 01/30/2025 [...] Gunn M.D. 01/30/2025 9:57 PM Dictation Location: [place] [address] Electronically authenticated by: [id number] Y Date: 01/30/2025 21:57 Dictated By: Chano Gunn M.D. Signed By: 01/30/252199 DD/ 56 TD/TT: Coating Inspector:TBHRadiology, Radiologist, - 01/30/2025 [place] [address] Magnetic Resonance Report Signed Patient: JENNA ORTIZ MR#: [id number] : 1990 Acct:[id number] Age/Sex: 34 / M ADM Date: 01/30/25 Loc: MRI Attending Dr: Jesús Crneshaw M.D. Ordering Physician: Jesús Crenshaw M.D. Date of Service: 01/30/25 Procedure(s): MR cervical spine wo/w con Accession Number(s): [id number] cc: Jesús Crenshaw M.D.; Jerman Nina M.D. The [place] [address] Patient Name: JENNA ORTIZ MRN: [id number] date: 1990 Sex: M Assigned Patient Location: MRI Current Patient Location: MRI Accession/Order Number: [id number] Exam Date: 01/30/2025 21:49 Report Date: 01/30/2025 [...] Gunn M.D. 01/30/2025 9:57 PM Dictation Location: [place] [address] Electronically authenticated by: [id number] Y Date: 01/30/2025 21:57 Dictated By: Chano Gunn M.D. Signed By: 01/30/252199 DD/ 56 TD/TT: Coating Inspector: RAYSHAWN HealthcareRadiology Study observation (narrative)[facility] CERVICAL SPINE WO/W CONOrdered By: Radiologist Radiology on 90-53-4738ENQK Healthcare Work Phone: [phone] [phone] by: SHAHIDA MONTES on: 01/02/2025 08:23 PM Modules accepted: Level of ServiceNormalUniversity [facility] Follow-Upon 66-10-5497Mhcrwg-[id number] Jenna Ortiz 1990 M Date Provider Department Center 01/02/2025 438-SHAHIDA MONTES MP ORTHO MPORTHO No family history on file Level of Service:67371 NE OFFICE/OUTPATIENT ESTABLISHED LOW MDM 20 MIN (GC) Reason for Visit and Comments: Follow-up [566024] Follow-up [839099][facility] Follow-Upon 75-04-0491Fbprdc-[id number] Jenna Ortiz 1990 M Date Provider Department Center 11/21/2024 Vladimir-SHAHIDA MONTES MP ORTHO MPORTHO No family history on file Level of Service:10553 NE OFFICE/OUTPATIENT ESTABLISHED LOW MDM 20 MIN (GC,25) Reason for Visit and Comments: Follow-up [058576][facility] HospitalMR [facility] wo conon 26-08-1465SO thoracic spine wo [facility] [place] [facility] [place] [address] [place] [address] MRI Report Signed Patient: Jenna Ortiz MR#: [id number] : 1990 Acct:[id number] Age/Sex: 34 / M ADM Date: 08/10/24 Loc: [facility] Room: Type: [facility] Attending Dr: Michelet Aleman MD Copies to: [...] Chano Gunn M.D.08/10/2024 12:46 PM Dictation Location: [place] [address] Transcribed By: [facility] 08/10/24 1246 Dictated By: Chano Gunn MD 08/10/24 1240 Signed By: 08/10/[address] [place] [address] Physician GroupMagnetic resonance imaging reportOrdered By: Chano Gunn on 32-53-5058Dpyid reportJOINT [facility] Main [place] [address] [place], [place] [address] MRI Report Signed Patient: Jenna Ortiz MR#: [id number] : 1990 Acct:[id number] Age/Sex: 34 / M ADM Date: 5 Loc: ICMR Room: Type: [facility] Attending Dr: Michelet Aleman MD Copies to: Michelet Aleman MD~ Ordering Provider: Michelet Aleman MD Date of Service: 08/10/24 MR/MR thoracic spine wo con: M54.9 - Dorsalgia, unspecified MRI thoracic spine performed without contrast COMPARISON: X-rays thoracic spine 2024 and MRI of the cervical spine performed 02/01/2024 from outside hospital FINDINGS: The thoracic vertebral heights, alignment and bone marrow signal is unremarkable. Minimalanterior marginal endplate spurring identified involving the mid and lower thoracic levels. Otherwise the thoracic discs, disc space heights and disc signal are preserved. No focal disc protrusion orsignificant central canal or neuroforaminal identified. The thoracic cord is unremarkable in signaland morphology. No definite subdural or epidural collections within the canal. Paraspinal soft tissues are unremarkable as visualized. MR/MR thoracic spine wo con IMPRESSION: Essentially Unremarkable MRI of the thoracic spine. Impression dictated by: Chano Gunn M.D.08/10/2024 12:46 PM Dictation Location: [place] [address] Transcribed By: [facility] 08/10/24 1246 Dictated By: Chano Gunn MD 08/10/24 124 Signed By: 08/10/24 [facility] Work Phone: [phone]-Tsgp [id number]-[id number] Jenna Ortiz 1990 M Date Provider Department Center 07/04/2024 [facility] MPORTHO No family history on file Level of Service:10433 NE OFFICE/OUTPATIENT ESTABLISHED LOW MDM 20 MIN (25) Reason for Visit and Comments: Pain [136] Pain [136]NormalCleveland Clinic Euclid HospitalC-reactive protein on 92-56-1472YBE [Mass/Vol]0.3 mg/dL0.000 - 0.744 mg/dLKettering Health Behavioral Medical Center CRP [Mass/Vol]on 91-16-5001OceOjfcxuThe Surgical Hospital at SouthwoodsC REACTIVE PROTEIN0.3 mg/dL Normal0.000-0.744PMercy HospitalComment on above:Performed By: #### 1989-5, 39298-2, 82844-3, 92239-7 #### [facility] ([id number]) [address] [place], [place] [address]DJB Photometric method (Bld) [Velocity]on 66-09-2393XRJ, ERYTHROCYTE SEDIMENTATION RATE11 mm/hNormalCleveland Clinic Mercy HospitalComment on above:Performed By: #### 1989-5, 98423-3, 02266-7, 26311-6 #### [facility] ([id number]) [address] [facility] [place], [place] [address]Xrruqdoryh factoron 38-32-1685Nkyqikivii factor Nephelometry Qn (S)23HighNINFKettering Health Behavioral Medical CenterRheumatoid factor Nephelometry Qn (S)on 06-14-7886Zjlcfdbtyrhwdy and review of laboratory resultsAbnormalProAccess Hospital DaytonProAccess Hospital DaytonRHEUMATOID LLAIZD47 IU/mLHigh<20Cleveland Clinic Mercy HospitalComment on above:Performed By: #### 1989-5, 03425-9, 81688-2, 70298-3 #### [facility] ([id number]) [address], [address] [place], [place] [address]IK scapula BIon 96-42-0708EE scapula [facility] Main [address] [address] XRay Report Signed Patient: Jenna Ortiz MR#: [id number] 8 : 1990 Acct:[id number] Age/Sex: 34 / M ADM Date: 05/08/24 Loc: XD Room: Type: [facility] CLI Attending Dr: Michelet Aleman MD Copies [...] Abilio Coles M.D.05/08/2024 7:50 PM Dictation Location: [place] [address] Transcribed By: [facility] 05/08/241949 Dictated By: Abilio Coles II, MD 05/08/241948 Signed By: 05/08/241949[facility] Physician GroupXR thoracic spine 3V*on 92-03-9750AU thoracic spine 3V*[facility] [place] [address] XRay Report Signed Patient: Jenna Ortiz MR#: [id number] 8 : 1990 Acct:[id number] Age/Sex: 34 / M ADM Date: 05/08/24 Loc: XD Room: Type: [facility] CLI Attending Dr: Michelet Aleman MD Copies [...] Abilio Coles M.D.05/08/2024 7:52 PM Dictation Location: [place] [address] Transcribed By: [facility] 05/08/241951 Dictated By: Abilio Coles II, MD 05/08/241949 Signed By: 05/08/241951[facility] Physician GroupALL CBC WITH AUTO DIFFon 96-93-1310VZXFWQWLP ABSOLUTE AUTO0.0NONV HealthcareBasophils/100 WBC (Bld)0.6 % 0.2 - 2.0 %NOMS [facility] Doctors HospitalEosinophils/100 WBC (Bld)0.9 %0.9 - 7.0 %NOMSaint John'S Aurora Community HospitalErythrocyte distribution width (RBC) [Ratio]12.3 %11.0 - 15.0 %NOMSaint John'S Aurora Community HospitalHematocrit (Bld) [Volume fraction]52.6 %42.0 - 54.0 %[facility] Hemoglobin (Bld) [Mass/Vol]17.9 g/dL14.0 - 18.0 g/dLNOHannibal Regional HospitalIMMATURE GRANULOCYTES ABS AUTO0.04HighNOHannibal Regional HospitalImmature granulocytes/100 WBC (Bld) 0.6 %High0.0 - 0.5 %[facility] HospitalInterpretation and review of laboratory resultsAbnormalNOHannibal Regional HospitalLYMPHOCYTES ABSOLUTE AUTO1.1LowNCenterPointe Hospital Lymphocytes/100 WBC (Bld)15.8 %Low20.5 - 60.0 %[facility] Glenn[facility] Children's HospitalH (RBC) [Entitic mass]28.4 pg25.9 - 34.0 pgNOSaint Louis University Health Science CenterHC (RBC) [Mass/Vol]34.0 g/dL29.9 - 35.2 g/dLSSM Health Cardinal Glennon Children's HospitalV (RBC) [Entitic vol]83.5 fL80.0 - 94.0 fLNOHannibal Regional HospitalMONOCYTES ABSOLUTE AUTO0.7NONV HealthcareMonocytes/100 WBC (Bld)10.1 % 1.7 - 12.0 %NOMS HealthcareNEUTROPHILS ABSOLUTE AUTO4.9NOHannibal Regional Hospital Neutrophils/100 WBC (Bld)72.0 %43.0 - 75.0 %NOMS HealthcarePlatelet mean volume (Bld) [Entitic vol]9.4 fLLow9.5 - 13.5 fLNOMS HealthcareTBH EO #0.1NOMS HealthcareTB FHS057ENYS HealthcareTB RBC6.30HighNOMS Ohiohealth Doctors HospitalTBH WBC6.8NOMS HealthcareCLINISYNCNOMS HealthcareXR wrist RT 2Von 46-19-6729BN wrist RT 2V [facility] [place] [address] MRI Report Signed Patient: Jenna Ortiz MR#: [id number] 8 : 1990 Acct:[id number] Age/Sex: 33 / M ADM Date: 02/16/24 Loc: MR [facility]: [facility] Attending Dr: Ladonna Mejias MD Copies to: Ladonna Mejias MD Ordering Provider: Ladonna Mejias MD Date of Service: 02/16/24 MR/MR wrist RT arthrogram w con: Eval for ligament damage ([id number]) XR/XR wrist RT 2V: M25.339, M24.20, M25.531 [...] Wilmer Patel M.D.02/16/2024 4:33 PM Dictation Location: [place] [address] Transcribed By: [facility] 02/16/24 1633 Dictated By: Wilmer Patel DO 02/16/24 1610 Signed By: 02/16/24 [facility] Physician GroupXR wrist LT 2Von 57-10-4678ZC wrist LT 2[facility] Main [place] [address] [place] [address] MRI Report Signed Patient: Jenna Ortiz MR#: [id number] 8 : 1990 Acct:[id number] Age/Sex: 33 / M ADM Date: 02/09/24 Loc: MR Room: [facility] Attending Dr: Ladonna Mejias MD Copies to: Ladonna Mejias MD Ordering Provider: Ladonna Mejias MD Date of Service: 02/09/24 MR/MR wrist LT arthrogram w con: Eval for ligament damage ([id number]) FL/FL guided needle placement: M24.20, M25.532, M25,339 ([id number]) XR/XR wrist LT 2V: M24.20, M25.532, M25.339 [...] Wilmer Patel M.D.02/09/2024 4:52 PM Dictation Location: [place] [address] Transcribed By: [facility] 02/09/24 165 Dictated By: Wilmer Patel DO 02/09/24 1634 Signed By: 02/09/24 1652[facility] Physician GroupXR wrist min BI 3Von 11-30-2023 XR wrist min BI 3[facility] [address] [place] [address] XRay Report Signed Patient: Jenna Ortiz MR#: [id number] 8 : 1990 Acct:[id number] Age/Sex: 33 / M ADM Date: 11/30/23 Loc: [facility] Room: Type: [facility] Attending Dr: Ladonna Mejias MD Copies [...] Wilmer Patel M.D.11/30/2023 4:52 PM Dictation Location: [place] [address] Transcribed By: [facility] 11/30/23 165 Dictated By: Wilmer Patel DO 11/30/23 1651 Signed By: 11/30/[address] [place] [address] Physician Group Vital Signs Date TimeVital SignValuePerforming GovetopvzJbsfzpua22-69-0035 15:40-0400 Diastolic blood lrqlkrhi01 mm[Hg]Jerman Nina MD Work Phone: [phone]03-17-2025 15:40-0400 Heart zyqo854 /Judson Nina MD Work Phone: [phone]03-17-2025 15:40-0400 SaO2% (BldA) [Mass fraction]98 %Jerman Nina MD Work Phone: [facility]03-17-2025 15:40-0400 Systolic blood lkgbvgga486 mm[Hg]Jerman Nina MD Work Phone: [phone]01-20-2025 15:39-0500 Body sqpeud982.91 kgJerman Nina MD Work Phone: [facility]01-20-2025 15:39-0500 Diastolic blood ncaidkgv25 mm[Hg]Jerman Nina MD Work Phone: [phone] [place], [place] [address]01-20-2025 15:39-0500 Heart jwiv549 /Judson Nina MD Work Phone: [phone]01-20-2025 15:39-0500 SaO2% (BldA) [Mass fraction]96 %Jerman Nina MD Work Phone: [phone] [place], [place] [address]01-20-2025 15:39-0500 Systolic blood zabgizem492 mm[Hg]Jerman Nina MD Work Phone: [phone]12-16-2024 15:38-0500 Diastolic blood atkxnpcj54 mm[Hg]Jerman Nina MD Work Phone: [phone]12-16-2024 15:38-0500 Heart uuam928 /Judson Nina MD Work Phone: [phone]12-16-2024 15:38-0500 SaO2% (BldA) [Mass fraction]98 %Jerman Nina MD Work Phone: [phone] [place], [place] [address]12-16-2024 15:38-0500 Systolic blood fptyqjyw527 mm[Hg]Jerman Nina MD Work Phone: [phone]12-05-2024 09:36-0500 Body vsteld365.7 Anu Shafer MD Work Phone: [facility]12-05-2024 09:36-0500 Body mass index (BMI) [Ratio]40.77 kg/y9DfvjeJoanna Shafer MD Work Phone: [facility]12-05-2024 09:36-0500 Body ydsxvilugsd36.6 [degF]Joanna Shafer MD Work Phone: [facility]12-05-2024 09:36-0500 Body kgJoanna Shafer MD Work Phone: [facility]12-05-2024 09:36-0500 Diastolic blood ubkddyer166 mm[Hg]Joanna Shafer MD Work Phone: [facility]12-05-2024 09:36-0500 Heart rate91 /minJoanna Shafer MD Work Phone: [facility]12-05-2024 09:36-0500 Systolic blood jydlmszv485 mm[Hg]Joanna Shafer MD Work Phone: [facility]11-14-2024 16:33-0500 Diastolic blood pakyuqrm51 mm[Hg]Jerman Nina MD Work Phone: [phone]11-14-2024 16:33-0500 Heart rate87 /minDouerica Nina MD Work Phone: [phone] [place], [place] [address]11-14-2024 16:33-0500 SaO2% (BldA) [Mass fraction]98 %Jerman Nina MD Work Phone: [phone]11-14-2024 16:33-0500 Systolic blood mm[Hg]Jerman Nina MD Work Phone: [phone] [place], [place] [address]10-14-2024 11:26-0400 Body qcotgj490.64 kgMD Jerman Nina Work Phone: [phone] [place], [place] [address]10-14-2024 11:26-0400 Diastolic blood mm[Hg]MD Jerman Nina Work Phone: [phone] [place], [place] [address]10-14-2024 11:26-0400 Heart rate73 /minMD Jermna Nina Work Phone: [phone] [place], [place] [address]10-14-2024 11:26-0400 SaO2% (BldA) [Mass fraction]98 %MD Jerman Nina Work Phone: [phone] [address]10-14-2024 11:26-0400 Systolic blood ulibrtcy098 mm[Hg]MD Jerman Nina Work Phone: [phone]08-26-2024 15:26-0400 Body .7 cmBharath Richard BORJAS Work Phone: noMS Imcfekeqoz07-13-0189 15:26-0400Body mass index (BMI) [Ratio]38.01 kg/g5Yjpshxu Richard BORJAS Work Phone: noMS Pglmpaykau51-09-5988 15:040Body .4 kgMabarbara Richard BORJAS Work Phone: [facility] Encounters Encounter DateEncounter TypeCare ProviderFacilityStart: 19-68-1257ifdzfxpnci Naldo Escalera NILMarceFacility:[facility] Obici HospitalevueStart: 96-16-3472ugkrhhchrxHtrvpt Crom[place] Facility:[facility] HospitalueStart: 24-26-9134skpglseyomVERAKJ [facility] MEDICAL CENTEREUniLancaster Municipal Hospitaltart: 03-23-2025 End: 81-25-9593hjakygqnorVYLH J HEDAYANot AvailableStart: 02-09-2025 End: 89-14-3462Rzrncrlrp Result EncounterAdamaksim Crenshaw MD Work Phone: [phone] External Department UnsolicitedStart: 02-09-2025 End: 47-05-1974Rtjquprkh Result EncounterAdamaksim Crenshaw MD Work Phone: [phone] External Department UnsolicitedStart: 02-01-2025 End: 49-14-3521Atxenbqxc Result EncounterAdamaksim Crenshaw MD Work Phone: [phone] External Department UnsolicitedStart: 02-01-2025 End: 80-12-2949Fndllbkkw Result EncounterAdamaksim Crenshaw MD Work Phone: [phone] External Department UnsolicitedStart: 01-30-2025 End: 58-12-9846Dooiqjnny Result EncounterAdamaksim Crenshaw MD Work Phone: [phone] External Department UnsolicitedStart: 01-30-2025 End: 96-97-3179Ndcahdlpl Result EncounterAdamaksim Crenshaw MD Work Phone: [facility]OM[facility] External Department UnsolicitedStart: 01-02-2025 ambulatoryMARTIN SKIEUniversity Christus [facility] Hospital – San Marcostart: 11-21-2024 ambulatoryMARTIN SKIEUniversity Christus [facility] – San Marcostart: 11-08-2024 End: 61-97-2411Coonqy outpatient visit 15 minutesJr. Shashank Sheppard DO Work Phone: noms SWS ORTHOComment on above:Scapulothoracic syndrome (Primary Dx)Start: 11-08-2024 End: 37-17-8765xlgweffqrnDG., SHASHANK SHEPPARDNot AvailableStart: 11-08-2024 End: 91-75-7908Uoxbss flowsheetJr. Shashank Sheppard DO Work Phone: noms SWS ORTHOStart: 11-08-2024 End: 86-13-8624Gqkmjz flowsheetJr. Shashank Leblancanic DO Work Phone: noms SWS ORTHOStart: 10-09-2024 End: 71-08-7795dgpqijcsyrShiiwnd M Hoy MD Work Phone: [facility] Work Phone: Start: 10-09-2024 End: 87-47-1980Wzmvoeo encounter procedureJerman Nina MD Work Phone: [facility] Phys[facility] GroupDunn Memorial Hospital Work Phone: Start: 69-37-6397nhjpydklctDcmyuy J CromleyFacility:FM MilanStart: 09-13-2024 End: 85-71-7311Ijoclq flowsheetJr. Shashank Guevara Stepanic DO Work Phone: noms SWS ORTHOStart: 09-13-2024 End: 88-70-3794Lrmhzv flowsheetJr. Shashank Guevara Stepanic DO Work Phone: noms SWS ORTHOStart: 09-13-2024 End: 94-44-7096Dozrxb outpatient visit 25 minutesJr. Shashank Sheppard DO Work Phone: noms SWS ORTHOComment on above:Scapulothoracic syndrome (Primary Dx); Acute pain of right shoulderStart: 09-13-2024 End: 12-63-1420ffvjxhepphEBTom, SHASHANK SHEPPARDNot AvailableStart: 08-14-2024 End: 91-33-2556kzhvmqlcecDcvbisj M Hoy MD Work Phone: [facility] Work Phone: Start: 08-14-2024 End: 63-01-5018Vsytuyx encounter procedureJerman Nina MD Work Phone: [facility] Work Phone: Start: 08-10-2024 End: 38-81-5809Yywjfpt encounter procedureJerman Nina MD Work Phone: [facility] [address] Closed Work Phone: Start: 08-10-2024 End: 46-28-0042fjgndpbzkhIpjqctr M Hoy MD Work Phone: [facility] Work Phone: Start: 07-10-2024 End: 85-83-1726Dvdzezg encounter procedureJerman Nina MD Work Phone: [facility] Work Phone: Start: 84-88-5160dtrfeshkbeZMIRMM ABRA[facility]ROW[facility] CAMPUSniLancaster Municipal Hospitaltart: 06-29-2024 End: 27-20-5086Dxbbhv outpatient new 60 minutesAdiedilberto Shafer MD Work Phone: [facility] HospitalComment on above:Advised about management of weight (Primary Dx); Pain, neckStart: 06-14-2024 End: 06-22-7693Urnzks flowsheetJr. Shashank Sheppard DO Work Phone: noms SWS ORTHOStart: 06-14-2024 End: 31-59-5913Mhsmuu flowsheetJr. Shashank Sheppard DO Work Phone: noms SWS ORTHOStart: 06-14-2024 End: 04-55-6058Qhvryk outpatient visit 25 minutesJr. Shashank Sheppard DO Work Phone: noms SWS ORTHOComment on above:Acute pain of right shoulder (Primary Dx); History of arthroscopy of right shoulderStart: 06-14-2024 End: 31-38-3103sxchciqnktQR., SHASHANK Lundberg AvailableStart: 06-08-2024 End: 13-59-9356yutjfvnusnNaubtal M Hoy MD Work Phone: [facility] Work Phone: Start: 06-08-2024 End: 12-66-4174Vbiexgi encounter procedureJerman Nina MD Work Phone: [facility] Work Phone: Start: 05-31-2024 End: 88-80-2618OuqwpuFqx Amin MD Work Phone: [facility] RheumatologyComment on above: Multiple joint painStart: 78-00-1795lbphohtmlcCbugeh CromleyFacility:FM [place] Start: 05-29-2024 End: 83-98-7121Jtgtro Fito BORJAS Work Phone: noms SWS ORTHOStart: 05-29-2024 End: 02-92-8293Ssihvr flowsAna BORJAS Work Phone: noms SWS ORTHOStart: 05-29-2024 End: 04-47-8275Myqvbn outpatient visit 15 minutesMattdelicia BORJAS Work Phone: noms SWS ORTHOComment on above:Polyarthralgia (Primary Dx); Neck pain; Scapular dyskinesis; Acute pain of right shoulderStart: 05-29-2024 End: 54-23-7663kckfxhrdkrWTXCMSW J MEYERNot AvailableStart: 05-24-2024 End: 37-05-3829Fmfcxo outpatient visit 25 minutesAli Ke BENNETT Work Phone: [facility] RheumatologyComment on above: Rheumatoid factor positive (Primary Dx); Multiple joint pain; Neck pain; Medication monitoring encounter; Elevated uric acid in bloodStart: 05-24-2024 End: 91-65-9348jigseofceuFTT AMINKettering Health Washington Township HospitalStart: 05-09-2024 End: 13-79-3601iuiamltsakMKW AMINKettering Health Washington Township HospitalStart: 05-09-2024 End: 15-49-9893Fewwqn outpatient new 45 minutesAli Ke BENNETT Work Phone: [facility] Physicians RheumatologyComment on above: Rheumatoid factor positive (Primary Dx); Multiple joint pain; Neck pain; Elevated uric acid in blood; Medication monitoring encounterStart: 2024 End: 09-05-9028Otuxdllyp encounterTimnyharsh Cornelius CNAProMedica Physicians RheumatologyStart: 2024 End: 16-03-9191Hmfvtax encounter procedureMD Jerman Nina Work Phone: [facility] Work Phone: Start: 2024 End: 18-05-3335pwdmjxbcqaBI Jerman Nina Work Phone: [facility] Work Phone: Start: 2024 End: 96-67-7762ggqybogexnKI Jerman Nina Work Phone: [phone] [place] [address] Work Phone: Start: 2024 End: 04-27-2543Enawwqd encounter procedureMD Jerman Cejay Work Phone: [facility] Work Phone: Start: 05-02-2024 End: 26-76-4975Elthfodkz Result EncounterMattdelicia BORJAS Work Phone: [facility] External Department UnsolicitedStart: 05-02-2024 End: 86-60-6411Seenqncca Result EncounterMabarbara BORJAS Work Phone: noms External Department UnsolicitedStart: 05-01-2024 End: 35-85-9445Kyxlun outpatient visit 25 minuteshBarath BORJAS Work Phone: noms SWS ORTHOComment on above:Neck pain (Primary Dx); Scapular dyskinesis; PolyarthralgiaStart: 05-01-2024 End: 60-57-8457rwqddgtsniHDTZCVJ J MEYERNot AvailableStart: 05-01-2024 End: 40-13-1862Zwkppb flowsAna BORJAS Work Phone: noms [facility] ORTHOStart: 05-01-2024 End: 24-34-9603Ilexrz Fito BORJAS Work Phone: noms [facility] ORTHOStart: 04-12-2024 End: 75-09-3056pcfqvidrrzXiryazchr Mena PTNOMS CI PTComment on above:Neck pain (Primary Dx); Scapular dyskinesis; Acute pain of left shoulderStart: 04-12-2024 End: 18-12-9410Zlqkwy flowsheetSammantha Mena PTNOMS CI PTStart: 04-12-2024 End: 24-95-3195Dnhxyw flowsheetSammantha Mena PTNOMS CI PTStart: 04-10-2024 End: 26-31-5953tjavmpwqfmWxvsmgelx Mena PTNOMS CI PTComment on above:Neck pain (Primary Dx); Scapular dyskinesis; Acute pain of left shoulderStart: 04-10-2024 End: 43-88-7969Hjtbac flowsheetSammantha Mena PTNOMS CI PTStart: 04-10-2024 End: 46-40-0580Sdpbqj flowsheetSammantha Mena PTNOMS CI PTStart: 04-03-2024 End: 43-95-4170werzrtjtxlWskwsb T Blackston PT Work Phone: noms CI PTComment on above:Neck pain (Primary Dx); Scapular dyskinesis; Acute pain of left shoulderStart: 04-03-2024 End: 27-44-1114Rebgoh Neymar Hampton PT Work Phone: noMS CI PTStart: 04-03-2024 End: 90-67-8538Mgrpoo Neymar Hampton PT Work Phone: noms CI PTStart: 03-29-2024 End: 01-50-2476aqnfzffksbYmehbg T Blackston PT Work Phone: noms CI PTComment on above:Neck pain (Primary Dx); Scapular dyskinesisStart: 03-29-2024 End: 46-22-0340Agqxxt Neymar Hampton PT Work Phone: noms CI PTStart: 03-29-2024 End: 78-92-2809Uoxpsu Neymar Hampton PT Work Phone: noms CI PTStart: 03-22-2024 End: 92-59-0044nyihqfkallHhhjktiwl Mena PTNOMS CI PTComment on above:Neck pain (Primary Dx); Scapular dyskinesisStart: 03-22-2024 End: 52-00-5138Ltlyja flowsheetSammantha Mena PTNOMS CI PTStart: 03-22-2024 End: 27-61-0049Gpbqij flowsheetSammantha Mena PTNOMS CI PTStart: 03-21-2024 End: 77-26-9314Tijtistjr encounterSammantha Mena PTNOMS CI PTComment on above:PT Initial Eval (Tried to contact to offer PT eval for neck/ scapular tomorrow at 4:00 w/ Mike Mena PT; but had to lm requesting a call back benito.); Call back (He returned my call and scheduledfor PT Eval 03/22 w/ Mike.) Start: 03-20-2024 End: 45-17-5987Ikjxuf outpatient visit 25 minutesMattdelicia BORJAS Work Phone: noms SWS ORTHOComment on above:Neck pain (Primary Dx); Scapular dyskinesisStart: 03-20-2024 End: 95-08-3655Ruybuf flowsAna BORJAS Work Phone: noms SWS ORTHOStart: 03-20-2024 End: 27-13-1885Kqxfqn flowsAna BORJAS Work Phone: noms SWS ORTHOStart: 02-23-2024 End: 32-26-6234ccumrazdllHJ Jerman M Hoy Work Phone: [facility] Work Phone: Start: 02-23-2024 End: 14-36-5427Qgihgpn encounter procedureMD Jerman Hoy Work Phone: [facility] Work Phone: Start: 02-16-2024 End: 91-53-3404Amuoqipnn to same day surgery centerMD Jerman Hoy Work Phone: [facility] [place] Work Phone: Start: 02-16-2024 End: 31-87-7285frggtqzpazKM Jerman M Hoy Work Phone: [facility] Work Phone: Start: 02-09-2024 End: 71-52-4614Uperxlhdt to same day surgery centerMD Jerman Hoy Work Phone: [facility] [place] Work Phone: Start: 02-09-2024 End: 51-46-7873pedtwmvkfiDnyaohf R CalveyFacility:[facility] Hospitaltart: 01-12-2024 End: 86-79-7641nqlxjdoteqWG Jerman M Hoy Work Phone: [facility] Work Phone: Start: 01-12-2024 End: 18-57-4777Hiiotpk encounter procedureMD Jerman Nina Work Phone: [facility] Work Phone: Start: 11-30-2023 End: 24-26-8008ksvkluyupqZQ Jerman Nina Work Phone: [facility] Work Phone: Start: 11-30-2023 End: 27-46-7571Jwmblpw encounter procedureMD Jerman Nina Work Phone: [facility] Work Phone: Start: 08-27-2023 End: 15-66-1197Dqxyvm outpatient visit 10 minutesMattdelicia BORJAS Work Phone: N[facility] CI ORTHOPAEDICSComment on above:S/P arthroscopy of right shoulder (Primary Dx); Acute pain of right shoulder Procedures DateProcedureProcedure DetailPerforming ClinicianStart: 69-40-8270Urk any jt upper extremity w/o & w/contr Jaguar Crenshaw MD Work Phone: Start: 32-09-2798Rhk any jt upper extremity w/o & w/contr Jaguar Crenshaw MD Work Phone: Start: 09-39-3043ZJ CERVICAL SPINE WO/W Sorin Crenshaw MD Work Phone: Start: 13-95-7887LK thoracic spine wo Taj Nina MD Work Phone: Start: 39-35-0984Qnwtac citrullinated peptide antibody ALI AMINComment on above:Result Comment: Interpretation-------- <3 Negative >=3 Positive Performed By: #### 1988-5, 22081-1, 48862-4, 38420-2 #### [facility] ([id number]) [address] [place], [place] [address]Sgeaa: [id number]-ray of thoracic spine, three viewsMD Jerman Hoy Work Phone: Start: 77-76-8965NH scapula BIMD Jerman Hoy Work Phone: Start: 81-71-1898XDV CBC WITH AUTO DIFFMatthew Damien BORJAS Work Phone: Start: 93-36-9244Wlanj X-ray of right wristMD Jerman Hoy Work Phone: Start: 60-48-0306[place]ka[place] resonance arthrography of right wristMD Jerman Hoy Work Phone: Start: 13-49-1054Ehhbe X-ray of left wristMD Jerman Hoy Work Phone: Start: 00-83-3014Mygwsazy resonance arthrography of left wristMD Jerman Hoy Work Phone: Start: 24-38-1191Sveoa X-ray of bilateral wristsMD Jerman Hoy Work Phone: Plan of Treatment DateCare ActivityDetailAuthorStart: 57-16-7761Hpdksj Vaccines (1 of 2)Zoster Vaccines (1 of 2)[facility]: 00-51-0471BCrB,Tdap and Td Vaccines (7 - Td or Tdap)DTaP,Tdap and Td Vaccines (7 - Td or Tdap)[facility] [employer] SystemStart: 59-64-6956NZpL/Tdap/Td Vaccines (7 - Td or Tdap) DTaP/Tdap/Td Vaccines (7 - Td or Tdap)[facility]: 11-08-2024 End: 77-84-9516Lrzfhts encounter procedureNOMS SWS ORTHOComment on above:Arrived Start: 09-13-2024 End: 42-86-3554Bypjjkd encounter procedureNOMS SWS ORTHOComment on above:Arrived Start: 06-14-2024 End: 63-18-0525Cwzckhs encounter procedureNOMS SWS ORTHOComment on above:Arrived Start: 05-29-2024 End: 40-17-8380Zjxsgcq encounter procedureNOMS SWS ORTHOComment on above: Polyarthralgia (Primary Dx); Neck pain; Scapular dyskinesisStart: 05-24-2024 End: 14-81-2941Juforia encounter voimguixg77/30/2024 2:30 PM EDT Office Visit [facility] [address] [facility] [address] [place] [address] Gallito Leslie MD [address] [facility] [address] [place] [address] [facility]: 05-01-2024 End: 05-41-0470Esvmltz encounter rwetnedpz83/07/2024 3:15 PM EDT Office Visit [facility] [address] [facility] [address] [place] [address] Bharath Ramos PA [address] [facility] [address] [place] [address] Neck pain (Primary Dx); Scapular dyskinesisNOMS SWS ORTHOComment on above:Neck pain (Primary Dx); Scapular dyskinesisStart: 05-01-2024 End: 05-01-2025 reactive protein [Mass/volume] in Serum or PlasmaC-reactive protein Lab Routine Neck pain Scapular dyskinesis Polyarthralgia Expected: 05/01/2024 (Approximate), Expires: 05/01/2025NONV HealthcareComment on above: Expected: 05/01/2024 (Approximate), Expires: 05/01/2025Start: 05-01-2024 End: 42-95-2112UKI W Auto Differential panel - BloodCBC and differential Lab Routine Neck pain Scapular dyskinesis Polyarthralgia Expected: 05/01/2024 ( Approximate), Expires: 05/01/2025NOM[facility] HealthcareComment on above:Expected: 05/01/2024 (Approximate), Expires: 05/01/2025Start: 05-01-2024 End: 35-35-9548Znmhgxoqpxe sedimentation rateSedimentation rate, automated Lab Routine Neck pain Scapular dyskinesis Polyarthralgia Expected: 05/01/2024 (Approximate), Expires: 05/01/2025[facility] HealthcareComment on above:Expected: 05/01/2024 (Approximate), Expires: 05/01/2025Start: 05-01-2024 End: 21-78-4609TYNN DISEASE ANTIBODY (IGG), IMMUNOBLOTLYME DISEASE ANTIBODY (IGG), IMMUNOBLOT Lab Routine Neck pain Scapular dyskinesis Polyarthralgia Exp ected: 05/01/2024 (Approximate), Expires: 05/01/2025[facility] HealthcareComment on above:Expected: 05/01/2024 (Approximate), Expires: 05/01/2025Start: 05-01-2024 End: 01-40-5886Qfnvojc Ab [Titer] in Serum by ImmunofluorescenceANA Lab Routine Neck pain Scapular dyskinesis Polyarthralgia Expected: 05/01/2024 (Approximate), Expires: 05/01/2025[place] HealthcareComment on above:Expected: 05/01/2024 (Approximate), Expires: 05/01/2025Start: 05-01-2024 End: 22-78-9408Pkvjxbwrqn factor [Units/volume] in Serum or PlasmaRheumatoid factor Lab Routine Neck pain Scapular dyskinesis Polyarthralgia Expected: 05/01/2024 (Approximate), Expires: 05/01/2025[facility] Healthcare Work Phone: Comment on above:Expected: 05/01/2024 (Approximate), Expires: 05/01/2025Start: 05-01-2024 End: 79-71-4879UKWPMRSG LUPUS ERYTHEMATOSUS (SLE), DISEASE ACTIVITY PANEL SYSTEMIC LUPUS ERYTHEMATOSUS (SLE), DISEASE ACTIVITY PANEL Lab Routine Neck pain Scapular dyskinesis Polyarthralgia Expected: 05/01/2024 (Approximate), Expires: 05/01/2025[facility] HealthcareComment on above:Expected: 05/01/2024 (Approximate), Expires: 05/01/2025Start: 05-01-2024 End: 20-00-0337Exvlx [Mass/volume] in Serum or PlasmaUric acid Lab Routine Neck pain Scapular dyskinesis Polyarthralgia Expected: 05/01/2024 (Approximate), Expires: 05/01/2025NOMS HealthcareComment on above:Expected: 05/01/2024 (Approximate), Expires: 05/01/2025Start: 04-20-2024 End: 51-56-4710ihrhxnzgdx14/26/2024 4:00 PM EDT Treatment [facility] [address] [facility] [address] [place] [address] Josy Hampton, PT [address] [facility] [address] [place] [address] [facility] CI PTStart: 04-17-2024 End: 18-07-0421eujzbyuftc21/23/2024 4:00 PM EDT Treatment [facility] [address] [facility] [address] [place] [address] Martha Mena PTNOMS CI PTStart: 04-12-2024 End: 18-16-9651nwensmxbyjREEJ CI PTComment on above:ArrivedStart: 04-10-2024 End: 67-90-9038pvkjzwyplx84/16/2024 4:30 PM EDT Treatment [facility] [address] [facility] [address] [place] [address] Martha Mena PTNO CI PTStart: 04-03-2024 End: 80-59-6009vaillprbkcJJQI CI PTComment on above:ArrivedStart: 03-30-2024 End: 08-71-7293jrbbqpmnpw58/05/2024 10:00 AM EDT Treatment [facility] [address] [facility] [address] [place] [address] Martha Mena PTNOMS CI PTStart: 03-29-2024 End: 57-00-2484glaxngqvsgRBBJ CI PTComment on above:ArrivedStart: 03-28-2024 End: 16-00-4437govhtamtyt10/03/2024 10:30 AM EDT Treatment [facility] [address] [facility] [address] [place] [address] Josy Hampton, PT [address] [place] [address] [place] [address] NOM[facility] CI PTStart: 96-70-3455TCARI-19 Vaccine ( season)COVID-19 Vaccine ( season)[facility]: 03-26-2024 Influenza vaccination[facility] [place]: 03-22-2024 End: 66-07-2045adcrzpgrnd13/28/2024 4:00 PM EDT Evaluation [facility] [address] [facility] [address] [place] [address] Martha Mena, PTNOMS CI PTStart: 03-20-2024 End: 62-07-6147Zsugmuz encounter jlfdchizg81/26/2024 3:15 PM EDT Office Visit [facility] [address] [place] [address] [place] [address] Bharath Ramos PA [address] [facility] [address] [place] [address] Neck pain (Primary Dx)NOMS SWS ORTHOComment on above: Neck pain (Primary Dx)Start: 72-03-0461Pcsyjlp [facility] Work Phone: Start: 45-42-1517Dqork X-ray of bilateral wristsXR wrist min BI 3[facility]: 70-23-5016ZN Wrist - bilateral GE 3 [facility]: 09-27-2023 End: 84-76-8846Fxsfcvp encounter irkglzkpt02/04/2024 3:30 PM EST Office Visit [facility] [address] [facility] [address] [place] [address] Bharath Ramos PA [address] [facility] [address] [place] [address] N[facility] CI ORTHOPAEDICSStart: 41-24-6748Jlelk BMI ScreeningAdult BMI ScreeningProAcmc Healthcare System Glenbeigh SystemStart: 2006 Hepatitis C screeningHepatitis C ScreeningOhioHealth Shelby Hospital Start: 97-66-2468Wyxuwnfmu vaccinationVaricella Vaccines (1 of 2 - 13+ 2-dose series)[facility]: 84-08-4463Omcpepnxhb Screening Depression ScreeningParkview Health SystemStart: 10-35-2812Harhrtn Screening Tobacco ScreeningProAcmc Healthcare System Glenbeigh SystemStart: 73-36-4886XLH screeningHIV ScreeningUnDunlap Memorial Hospital: 47-73-5086Exmzd panelLipid PanelUnDunlap Memorial Hospital: 13-29-0374Wqhtrm Adult Physical Yearly Adult PhysicalUnHocking Valley Community Hospital End: 08-21-5940NAR AbCCP Ab Lab Routine Rheumatoid factor positive 1 Occurrences starting 05/09/2024 until 05/09/2025[facility] [employer] SystemComment on above:1 Occurrences starting 05/09/2024 until 05/09/2025yclic citrullinated peptide IgG Ab [Units/volume] in Serum or PlasmaCCP Ab Lab Routine Rheumatoid factor positive 05/09/2024 2:42 PM [employer] End: 71-23-5498Gnmqtggmvxi sedimentation rateErythrocyte Sedimentation Rate (ESR) Lab Routine Rheumatoid factor positive 1 Occurrences starting 05/09/2024 until 05/09/2025ProMercy Health Defiance Hospitalca Work Phone: comment on above:1 Occurrences starting 05/09/2024 until 05/09/2025Erythrocyte sedimentation rate by Photometric methodErythrocyte Sedimentation Rate (ESR) Lab Routine Rheumatoid factor positive 05/09/2024 2:42 PM [employer] [facility] JacksonMR Wrist - left ArthrogMadison HealthMR Wrist - right ArthrogMadison Health Patient EducationLow back pain in adultsSt. John Of God Hospital Work Phone: Patient referralSt. John Of God Hospital Work Phone: XR Thoracic spine 3 [facility] Immunizations Immunization DateImmunizationNotesCare BmpwsbdiNqialcpx91-87-8186fkzkezk, mumps and rubella virus vaccineJerman Nina MD Work Phone: [phone] [place], [place] [address]01-26-2000hepatitis B vaccine, pediatric or pediatric/adolescent Yola Nina MD Work Phone: [phone]08-27-1999hepatitis B vaccine, pediatric or pediatric/adolescent dosageJerman Nina MD Work Phone: [phone]07-26-1999hepatitis B vaccine, pediatric or pediatric/adolescent dosageJerman Nina MD Work Phone: [phone]08-19-1994diphtheria, tetanus toxoids and acellular pertussis vaccine, unspecified formulationJerman Nina MD Work Phone: [phone]08-19-1994trivalent poliovirus vaccine, live, oralJerman Nina MD Work Phone: [phone]04-09-1990haemophilus influenzae type b vaccine, conjugate unspecified formulationJerman Nina MD Work Phone: [phone]01-16-1990diphtheria, tetanus toxoids and pertussis Josh Nina MD Work Phone: [phone]01-16-1990measles, mumps and rubella virus Josh Nina MD Work Phone: [phone]01-16-1990trivalent poliovirus vaccine, live, oralJerman Nina MD Work Phone: [phone]03-31-1989diphtheria, tetanus toxoids and pertussis vaccineJerman Nina MD Work Phone: [phone]01-30-1989diphtheria, tetanus toxoids and pertussis Josh Nina MD Work Phone: [phone]01-30-1989trivalent poliovirus vaccine, live, oralJerman Nina MD Work Phone: [facility]1988diphtheria, tetanus toxoids and pertussis vaccineJerman Nina MD Work Phone: [facility]1988trivalent poliovirus vaccine, live, oralJerman Nina MD Work Phone: [facility] Payers DatePayer CategoryPayerPolicy [id number] Cross Blue [id number] Member Subscriber Plan / Payer (Effective 2017-Present) Name: Jenna Ortiz Relation to Subscriber: Self Name: Jenna Ortiz Payer ID: [id number] (NAIC) Type: Not on file Address: [facility] [id number] [place], [place] [id number]. [facility] [id number].9.881029.505.34200-25-3061Sypkfgp 1.2.840.003719.1.13.693.2.7.3.27092[id number] 17dymw1c-x536-0k2a-ra01-57h7d[id number] 2.16.840.1.754428.3.579.[id number] 2.16840.1.745976.3.57[id number] 2.0.1.114036.3.57[id number] 2.840.1.523681.3.57[id number] 2.0.1.235639.3.57[id number] 2.0.1.350020.3.57[id number] 2.0.1.907165.3.57[id number] 2.0.1.792306.3.57[id number] 2.840.1.240751.3.57[id number] 2.16840.1.558921.3.579.2.037231-53-3382Hbmmytw8093865 2.840.1.961556.3.57[id number] 2.840.1.049690.3.57[id number] 2.16.840.1.838964.3.57[id number] 2.16.840.1.930898.3.579.[id number] 2.16.840.1.199[id number] 2.16.840.1.562498.3.579.2.531 [id number] 2.16.840.1.7[id number] 2.16.840.1.8[id number] 2.16.840.1.648020.3.579.2.531 [id number] 2.16.840.1.131037.3.579.2.531 Social History DateTypeDetailFacilityStart: 14-19-1194Gqnbuov smoking status NHISOccasional tobacco smokerNOMS HealthcareStart: 24-20-0257Bhronqf use and exposureSmokeless tobacco non-userNOMS HealthcareStart: 08-27-2023 End: 30-28-7184Qftcqgo intakeCurrent drinker of alcohol (finding)[facility] Start: 08-27-2023 End: 30-01-9039Enaautc of Social functionNOMS HealthcareStart: 08-27-2023 End: 80-58-8780Peucslk use panelNOMS HealthcareStart: 57-77-6182Xpkvbsi Comment 1-2 drinks 2-3 times a week. Caffine intake: 1-2 cups per dayNOMS Healthcare Start: 50-92-3788Kzf Assigned At BirthThe [facility] HealthcareStart: 08-54-5157Xoqbop identityIdentifies as male gender (finding)[facility] HealthcareStart: 01-11-2023 Sexual orientationHeterosexual (finding)[facility] HealthcareStart: 02-23-2024 End: 64-87-9834Emwkyvt smoking status NHISNever smoked tobacco (finding) [facility] Hospitaltart: 06-08-2024 End: 04-69-3840BzhPehn (finding)[facility] CampusTobacco smoking status NHISTobacco smoking consumption unknownFirstHealthtart: 36-23-9879Exs assigned at birthNot on fileNorthwestern Medical Centeredotart: 06-19-2024 End: 95-76-8555Kxbboczt to SARS-CoV-2 (event)Not [facility] Clinical Notes 08-27-2023 to 04-04-2025 Note Date & BzjsDzphPshyvgfo77-78-9481 NoteOrthopedic Surgery Subjective Chief complaint: Chief Complaint Patient presents with Right Hand - Follow-up Left Hand - Follow-up Jenna Ortiz is a 34 y.o. year old male presenting for evaluation of persisting pain in his right wrist and forearm. Last time he was here we thought he might have an intersection syndrome and radial tunnel. We injected both of those sites in the past and he did not get much in the way of relief. He has just been doing a home stretching exercise program on his own but is not making much gains. He has a click in his wrist that is produced with motion and he feels as though it is coming from the intersection area. He is still doing his required daily activities. Previous Treatments: Stretching, corticosteroid injections History Surgical History[1] Medical History[2] Objective General: Body mass index is 38.01 kg/m???. No acute distress, comfortable Respiratory: Unlabored breathing with normal rate, no cough we do not have a record of that but we do have MRI reports from left wrist MR arthrogram which shows no ligamentous injuries Cardiovascular: Warm well perfused extremities Psych: Appropriate mood behavior Hand/Wrist Musculoskeletal Exam Inspection Right Right hand/wrist inspection is normal. Palpation Right Wrist tenderness to palpation: second dorsal compartment Palpation additional comments: He still has some mild tenderness over the radial tunnel region. When I palpate the wrist there is a palpable clicking that is reproduced with range of motion. He thinks it is coming from the intersection region but I feel it coming from the dorsal radial aspect of the radiocarpal joint. Range of Motion Right Wrist Right wrist range of motion is normal. Neurovascular Right Right neurovascular exam is normal. Special Tests Right DRUJ instability: negative Midcarpal shift test: negative TFCC load test: negative Special tests additional comments: He has some laxity of the scaphoid but I am not certain that I really feel the proximal pole subluxing, I think it is more just some elevation of the distal pole. This really does not reproduce his pain when I do this maneuver. Imaging: None today. He has had a MR arthrogram in the past which did not show any significant instability. Assessment/Plan Jenna Ortiz is a 34 y.o. year old male with persisting right wrist and forearm pain. PLAN: Because of the clicking in the wrist he may have some synovitis. I think it would be worth trying a corticosteroid injection into the radiocarpal joint to see if we can eliminate his symptoms. If we can do that at least we have a source to go after as the injections in the other areas did not provide much benefit. I did the injection today and it was well-tolerated. We will see him back in 3 months. Patient ID: Jenna Ortiz is a 34 y.o. male. Intermediate Joint on 04/04/2025 9:30 PM Indications: pain Details: 25 G needle, medial approach Medications: 1 mL lidocaine HCl 10 mg/mL (1 %); 1 mL triamcinolone acetonide (Kenalog-10) 10 mg/mL Outcome: tolerated well, no immediate complications After discussing the treatment options, and the risks and benefits of a corticosteroid injection, verbal consent to proceed was obtained. In the clinic today, the area over the tip of the ulnar styloid on the right was prepped with a Betadine swab. Using a 25-gauge needle, the ulnocarpal joint was injected with a combination of 1 mL 1% lidocaine and 1 ml of Kenalog 10 mg/mL. The area was wiped clean with an alcohol swab, and dressed with a Band-Aid. Instructions were given to apply ice for about 10 minutes later today, or use over the anticounter anti-inflammatories for discomfort. Immediately prior to procedure a time out was called to verify the correct patient, procedure, equipment, mission support specialist and site/side marked as required. [1] History reviewed. No pertinent surgical history. [2] History reviewed. No pertinent past medical history.[facility]08-29-2025 NoteFL GUIDED ASPIRATION OR INJECTION LARGE JOINT RIGHT After explaining the nature of this procedure, its potential risks and complications, and alternatives, informed written and verbal consent was obtained from the patient. All questions were answered prior to the procedure. The skin overlying the right glenohumeral joint was prepped in a sterile fashion and anesthetized with 2% Lidocaine. A 22-gauge needle was attempted to be inserted into the joint space. Unable to access the joint despite multiple repositionings and multiple attempts. This wasdiscussed with the patient in detail. Number of images: 1. Fluoroscopy time: 61.5 s Air Kerma ( Ka,r ): 12.6 mGy IMPRESSION: Unsuccessful right shoulder arthrogram. ELECTRONICALLY SIGNED BY: Hi Prescott MDNot [id number] Note Orthopaedic Surgery Subjective Follow-up of the Right [...] to all digits and the wrist Strength: hop picker 5/5, thumb 5/5, interossei 5/5. wrist extension/flexion [...] may be an additional personal documentation from me.[facility]04-29-2025 NotePatient ID: Jenna Ortiz is a 34 y.o. [...] and I was otherwise immediately available to assistCleveland Clinic Eucl[facility] Hospital04-29-2025 NoteOrthopaedic Surgery Subjective Follow-up of the Left Elbow [...] to all digits and the wrist Strength: hop picker 5/5, thumb 5/5, interossei 5/5. wrist extension/flexion [...] may be an additional personal documentation from me.[facility]04-16-2025 History of Present illness Narrative* Jr. Shashank Sheppard, - 11/08/2024 3:00 PM EDT Images from the original note were not included. HISTORY OF PRESENT ILLNESS: EST PT Jenna Ortiz is an 34 y.o. @ male. (EST PT) - RECHECK (R) SHOULDER / NECK ; S/P MELOXICAM 09/13/24 PREVIOUS (R) SHOULDER SCOPE W/ BICEPS TENODESIS 04/27/23 (~13.5 MONTHS) ; DX DVT 05/03/23 POST-OP XRAYS, C-SPINE 02/11/24 @ [facility] XRAYS, (R) SHOULDER 02/08/23 IN EPIC ; PRE-OP XRAYS, (R) ELBOW 08/13/23 IN EP[facility] MRI, C-SPINE 02/01/24 @ [facility] MRI, (R) SHOULDER 10/07/23 @ [facility] ; POST-OP CT, C-SPINE 01/08/24 @ [facility] ARTHRITIS PANEL 05/04/24 @[facility] S/P PREDNISONE 06/21/23 MELOXICAM 09/13/24 S/P PHYSICAL THERAPY (5 SESSIONS) @ [facility] ; FEB - MAR 2024 FINISHED PT @[facility] ; JUL - AUG 2023 PAIN MGMT ; DR ALEMAN CONSULT 05/08/24 NOTES NEW BUMP ON POSTERIOR ASPECT OF NECK. S/P MELOXICAM - NO RELIEF. CONTINUES HEP - NO RELIEF. SYMPTOMS ARE WORSENING - DISCOMFORT BETWEEN SHOULDER BLADES RADIATING INTO B/L SHOULDERS AND NECK, WORSE WITH MOVEMENT / USE. PAIN IN INFERIOR ASPECT OF NECK / UPPER BACK. FULL ROM OF NECK AND SHOULDER- PAINFUL. NO SWELLING. NOTES GRINDING. SNAPPING / POPPING WITH PUSHING OFF OF CHAIR TO STAND. NECKFEELS LIKE IT SNAPS WITH MOVEMENT. STATES HE IS STARTING TO HAVE PAIN IS (R) SHOULDER WITH N/T IN(R) FOREARM - SOME CRUNCHING IN HIS (R) SHOULDER WITH MOVEMENT. NO PAIN MEDS. TIZANIDINE BEFORE BED. TENS UNIT - SOME RELIEF. CONTINUES TO GO TO MASSAGE THERAPIST. DENIES RECENT HEAT / ICE. PT W/ NO RELIEF ON MULTIPLE OCCASIONS. PT IS RT HAND DOMINANT. ALLERGIES: No Known Allergies HOME MEDICATIONS: No current outpatient medications PHYSICAL EXAM: Shoulder Musculoskeletal Exam Inspection Right Right shoulder inspection is normal. Ecchymosis: none Peripheral edema: none Atrophy: none Masses: none Left Ecchymosis: none Peripheral edema: none Atrophy: none Masses: none Palpation Right Crepitus: moderate Increased warmth: none Tenderness: none Left Crepitus: moderate Increased warmth: none Tenderness: none Palpation additional comments: Scapulothoracic crepitus noted bilaterally, left greater than right Range of Motion Right Right shoulder range of motion is normal. Active ROM: normal and pain. Passive ROM: abnormal and pain. Active forward elevation: 180. Passive forward elevation: 180. Shoulder active abduction: 180. Passive abduction: 180. Active external rotation at side: 90. Passive external rotation at side: 90. Internal rotation: T11. Left Active ROM: normal and pain. Passive ROM: abnormal and pain. Active forward elevation: 180. Passive forward elevation: 180. Shoulder active abduction: 180. Passive abduction: 180. Active external rotation at side: 90. Passive external rotation at side: 90. Internal rotation: T11. Range of motion additional comments: Pt reports symptoms just feeling tight from behind his neck into both shoulder blades. Strength Right External rotation: 5/5. Internal rotation: 5/5. Abduction: 5/5. Biceps: 5/5. Triceps: 5/5. Left Left shoulder strength is normal. Neurovascular Right Right shoulder nerve sensation is normal. Radial pulse: normal and 2+ Capillary refill: <3 sec Axillary nerve sensory distribution: normal Left Left shoulder nerve sensation is normal. Radial pulse: normal and 2+ Scapula Right Right shoulder scapula is normal. Position: normal Winging: none Scapulothoracic compress: improves pain Left Left shoulder scapula is normal. Scapulothoracic compress: improves pain Scapula inspection additional comments: Parathoracic and parascapular pain with origination from F3joucan of cervical spine. + crepitus with circumduction Special Tests Right Rotator Cuff Signs Neer's test: positive Carter test: negative Biceps/kole Signs Speed's test: negative AC Joint Signs Active horizontal adduction pain: negative Instability Signs Anterior apprehension test: negative General Skin: faint erythematous non pruritic rash since starting cymbalta and meloxicam... ( bilateral forearms). Vitals: There is no height or weight on file to calculate BMI. Tobacco Use: High Risk (11/08/2024) Patient History Smoking Tobacco Use: Some Days Smokeless Tobacco Use: Never Passive Exposure: Not on file Alcohol Use: Not on file IMAGING: Procedures Orders Placed This Encounter Procedures Ambulatory referral to Orthopaedic Surgery Evaluate and Treat Bilateral Scapulothoracic syndrome Standing Status: Future Expected Date: 11/08/2024 Expiration Date: 05/10/2025 Referral Priority: Routine Referral Type: Consultation Referral Reason: Consult and Treat Referred to Provider: Jerrell Thornton MD Requested Specialty: Orthopaedic Surgery Number of Visits Requested: 1 ASSESSMENT: ICD-10-CM 1. 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 He has bilateral scapulothoracic syndrome. This is recalcitrant to physical therapy dry needling and oral steroids. We have recommended an appointment with Dr. Thornton and we will see him back on a when necessary basis he states that the pain he was having in his anterior shoulder prior to his shoulder arthroscopy is completely resolved and is pleased with his progress there is major complaint is bilateral scapulothoracic crepitus and pain. Questions answered in laymen terms at the bedside. The diagnosis, home exercise plan and any ongoing restrictions/ recommendations reviewed. If unable to be reached in office, I recommend evaluation at nearest Emergency Room if any symptoms worsened or new symptoms develop for requiring urgent evaluation. documented in this encounterBarton County Memorial HospitalRxfcuktmeu12-04-1941 History of Present illness Narrative* Jr. Shashank Sheppard DO - 09/13/2024 11:00 AM EST HISTORY OF PRESENT ILLNESS: EST PT Jenna Ortiz is an 34 y.o. @ male. (EST PT) RECHECK (R) SHOULDER / NECK ; RECHECK ROM / STRENGTH PREVIOUS (R) SHOULDER SCOPE W/ BICEPS TENODESIS 04/27/23 (~13.5 MONTHS) ; DX DVT 05/03/23 POST-OP XRAYS, C-SPINE 02/11/24 @ [facility] XRAYS, (R) SHOULDER 02/08/23 IN [facility] ; PRE-OP XRAYS, (R) ELBOW 08/13/23 IN [facility] MRI, C-SPINE 02/01/24 @ [facility] MRI, (R) SHOULDER 10/07/23 @ [facility] ; POST-OP CT, C-SPINE 01/08/24 @ [facility] ARTHRITIS PANEL 05/04/24 @ [facility] S/P PREDNISONE 06/21/23 S/P PHYSICAL THERAPY (5 SESSIONS) @ [facility] ; FEB - MAR 2024 FINISHED PT @[facility] ; JUL - AUG 2023 PAIN MGMT ; DR ALEMAN CONSULT 05/08/24 CONTINUES HEP - NO RELIEF. DISCOMFORT BETWEEN SHOULDER BLADES RADIATING INTO B/L SHOULDERS AND NECK, WORSE WITH MOVEMENT / USE. PAIN IN INFERIOR ASPECT OF NECK / UPPER BACK. FULL ROM OF NECK AND SHOULDER - PAINFUL. NO SWELLING. NOTES GRINDING. SNAPPING / POPPING WITH PUSHING OFF OF CHAIR TO STAND. NECK FEELS LIKE IT SNAPS WITH MOVEMENT. STATES HE IS STARTING TO HAVE PAIN IS (R) SHOULDER WITH N/T IN (R) FOREARM - SOME CRUNCHING IN HIS (R) SHOULDER WITH MOVEMENT. NO PAIN MEDS. TIZANIDINE BEFORE BED. TENS UNIT - SOME RELIEF. HEATING - NO RELIEF. PT W/ NO RELIEF ON MULTIPLE OCCASIONS. PT IS RT HAND DOMINANT. ALLERGIES: No Known Allergies HOME MEDICATIONS: Current Outpatient Medications Medication Instructions meloxicam (MOBIC) 7.5 mg, Oral, Daily, Take with food PHYSICAL EXAM: Shoulder Musculoskeletal Exam Inspection Right Right shoulder inspection is normal. Ecchymosis: none Peripheral edema: none Atrophy: none Masses: none Palpation Right Right shoulder palpation is normal. Crepitus: moderate Increased warmth: none Tenderness: none Left Crepitus: moderate Palpation additional comments: Scapulothoracic crepitus noted bilaterally, left greater than right Range of Motion Right Right shoulder range of motion is normal. Active ROM: normal and no pain. Passive ROM: normal and no pain. Active forward elevation: 180. Passive forward elevation: 180. Shoulder active abduction: 180. Passive abduction: 180. Active external rotation at side: 90. Passive external rotation at side: 90. Internal rotation: T11. Range of motion additional comments: Pt reports symptoms just feeling tight from behind his neck into both shoulder blades. Strength Right External rotation: 5/5. Internal rotation: 5/5. Abduction: 5/5. Biceps: 5/5. Triceps: 5/5. Neurovascular Right Radial pulse: normal and 2+ Capillary refill: <3 sec Axillary nerve sensory distribution: normal Scapula Right Right shoulder scapula is normal. Position: normal Winging: none Scapulothoracic compress: improves pain Scapula inspection additional comments: Parathoracic and parascapular pain with origination from [id number] of cervical spine. + crepitus with circumduction Special Tests Right Rotator Cuff Signs Neer's test: positive Carter test: negative Biceps/kole Signs Speed's test: negative AC Joint Signs Active horizontal adduction pain: negative Instability Signs Anterior apprehension test: negative General Skin: faint erythematous non pruritic rash since starting cymbalta and meloxicam... ( bilateral forearms). Vitals: There is no height or weight on file to calculate BMI. Tobacco Use: High Risk (09/13/2024) Patient History Smoking Tobacco Use: Some Days Smokeless Tobacco Use: Never Passive Exposure: Not on file Alcohol Use: Not on file IMAGING: Procedures No orders of the defined types were placed in this encounter. ASSESSMENT: ICD-10-CM 1. 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 Acute pain of right shoulder M25.511 meloxicam (Mobic) 7.5 MG tablet DISCONTINUED: meloxicam (Mobic) 7.5 MG tablet PLAN: He has crepitus at the scapulothoracic junction on both shoulders. We have outlined stretches for him to do for both arms. We have recommended a continue to follow up with Dr. Aleman, we will discontinue all nonsteroidal anti- inflammatories and I have given him a prescription for Mobic 7.5 mg by mouth daily, dispensed 30 with 1 refill. We'll see him back in 2 months. Loose treatment for scapulothoracic bursitis, if symptoms persist, may recommend possible platelet rich plasma injections or referral to a sports medicine. Questions answered in laymen terms at the bedside. The diagnosis, home exercise plan and any ongoing restrictions/ recommendations reviewed. If unable to be reached in office, I recommend evaluation at nearest Emergency Room if any symptoms worsened or new symptoms develop for requiring urgent evaluation. documented in this encounterBarton County Memorial [id number] Evaluation note* Diagnosis Onset Date Resolution Status Admit Date Cervical spondylosis acuteJanuary 2024 3:34pmMyofascial muscle painacuteJanuary 2024 3:34pmOther low back painacuteJanuary 2024 3:34pmMyofascial muscle pain acuteMarch 2024 3:30pmOther chronic painacuteMarch 2024 3:30pmRight shoulder painacuteMarch 2024 3:30pm [facility] Work Phone: 1([phone]) 904-717212-10-2024 NotePatient ID: Jenna Ortiz is a 34 y.o. [...] to verify the correct patient, procedure, equipment, mission support specialist and site/side marked as required.[facility] 07-04-2024 NoteSubjective Chief complaint: Chief Complaint Patient presents with [...] pronation/supination, laxity of the wrist Strength 5/5 hop picker, 5/5 thumb throughout, 5/5 interossei, 5/5 wrist [...] done by myself today and was well-tolerated. [facility]12-05-2024 History of Present illness Narrative* Joanna Shafer MD - 06/29/2024 9:30 AM EST MEDICAL GENETICS INITIAL VISIT NOTE History of present illness: Medical history was obtained from the patient and chart. Prior to this appointment, I reviewed medical records from outpatient medical records and scanned documents, if available. Referring provider: Dr. Saray moss Present at visit: mother and patient Jenna Ortiz is a 34 y.o. male who was referred to Genetics for evaluation of inherited connective tissue disorders. Jenna Ortiz has chronic longstanding musculoskeletal issues as outlined below. Concerns started: Patient reports excessive popping in wrist, shoulders, neck, said joints are not staying in place. Previous doctors raised concerns for EDS which Jenna researched himself and came tosame conclusion, primarily Hypermobility EDS. Since the third grade, patient reports being overly flexible, Major concerns developed approximately a year ago attributed to new job that is more physical demanding, which is where he tore his bicep and had subsequent bicep tendon surgery. Joints described as loose, especially in the ankles, has had hips popping out of place and wrist has audible snapping. He has been seen by ortho and rheumatology. ROS: Pertinent negative and positive history related to inherited connective tissue disorders are as follows: Musculoskeletal - Hypermobility: Yes - Joint laxity: Yes - Joint dislocation: Yes - Chronic widespread musculoskeletal pain: No - Tendon/muscle rupture: Yes - Fractures: No - Scoliosis: No - Pectus differences: No - Flat feet: No Skin - Spontaneous skin separation: No - Easy bruising: Yes - Skin hyperextensibility: No - Stretch grant not related to weight change: No - Abnormal scar formation, atrophic scar, wound dehiscence: No Dental - Dental crowding: No - Gingival disease: No Cardiopulmonary: - Orthostatic intolerance: No - Pneumothorax: No - Echocardiogram: 04/13/24, no MVP and normal aortic root - Spontaneous rupture/aneurysm/dissection of blood vessels: No GI/ - IBS-like symptoms: No - Hernia: Yes, abdominal at 15 y.o. Been fine since. - Rectal prolapse: No . - Pelvic prolapse: No - Spontaneous rupture of internal organs: No - Obstetric complications (e.g., significant vaginal tear, or hemorrhage): N/a Ocular/ENT: -5, wears glasses. - Lens dislocation: No - High myopia: Yes - Hearing loss: No - Tinnitus: Yes - TMJNo YES Neuropsychiatric: - Migraines/headaches: Yes, accompanied with neck pain, not daily - Neuropathy: Yes, shooting/electric pain in hands and wrists. History: Born at full term, no problems in . Vaginal delivery. Patients heart rate dropped, forcepsused for delivery. Was jaundiced, stayed In NICU for approximately 3 days. Developmental history; Walking talking: On time. Was diagnosed with ADHD and anxiety issues so needed help in school, always struggled thru school. History of taking ritalin and Prozac, mother was worried about terminal gauger effects and stopped all mediation. She switched him to an all natural diet that helped. Overall health described as not great. Had bicep tendon surgery from injury at work (torn bicep) Pediatric history: No congenital hip dislocation, congenital club feet, hypotonia, developmental delay, or autism. Social history: , lives with mother and father. 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 Family history: Two-generation family tree was obtained and scanned to chart. Pertinent history Sister: 33 y.o. Hip issues. Brother: 30 y.o. Healthy. Mother: 65 y.o. Neck snapping , tinnitus, thyroid condition. Maternal uncle: Sore throat and coughing issues. 4 kids. Daughter: Lupus Daughter: Crohns Maternal uncle: Prostate cancer, gout. 1 daughter. Daughter: Thyroid condition (had surgery), endometriosis, Father: 69 y.o. Neuro-Endocrine tumor, small intestine (has had surgery). Stage 2 kidney disease. 6surgeries on each knee cleaned out. Paternal aunt: , bile-duct cancer. Approx 68 y.o. Paternal aunt: Joint issues. Maternal grandmother: TMJ, Parkinson's, Lyme's disease Maternal grandfather: Healthy. Orthopedic problems (back surgeries), flat footed, septum surgery. Paternal grandmother: Uterine cancer age 34, lived to 91 y.o. Paternal grandfather: Triple bypass at 55 y.o, lived to 75 y.o. No other family members with joint hypermobility/dislocation, sudden unexplained , aortopathy,vascular dissection/aneurysm, ectopia lentis, rupture of internal organs, early deafness/blindness,or spontaneous pneumothorax. Ashkenazi Sikh: Denied Consanguinity: Denied Physical examination: GENERAL: The patient is alert, in no apparent distress. Head shape is normal. Face: No malar hypoplasia. Forehead, nose, philthrum, and chin appear normal. Eyes: Not deep set. Palpebral fissures normally positioned. Sclerae not blue or icteric. Ears: Not dysplastic, posteriorly rotated, or low set. Oral cavity: No high arched palate. No dental crowding. Normal uvula, normal dentition, no recedinggum line or gingivitis. EXTREMITIES/Back: + piezogenic papules. Acrogeria no. Hindfoot deformity no, flat feet no, SKIN: No skin hyperextensibility-, no bruising, skin consistency soft. NEUROLOGIC: No ptosis. No facial palsy. Tongue in midline. No dysarthria. Normal gait without abnormal movement. Psychiatric: Cooperative. Appropriate mood and affect Diagnostic Criteria for Hypermobile Ruddy-Danlos Syndrome (hEDS) hEDS Overall Criteria Status: not met Criterion 1: not met Beighton status: negative Beighton score: 09/03 Criterion 2: not met Feature A: negative Feature B: negative Feature C: positive Criterion 3: met Criterion 1 - Generalized Joint Hypermobility Status: not met Patient type: pubertal person age 50 and younger Beighton status: negative Beighton score: 09/03 Spine: no Right 5th finger: no Left 5th finger: no Right thumb: no Left thumb: no Elbows measured with goniometer?: no Right elbow: less than or equal to 10 degrees Left elbow: less than or equal to 10 degrees Knees measured with goniometer?: no Right knee: greater than 10 degrees Left knee: greater than 10 degrees Criterion 2 Status: not met Feature A Status: negative Score: 09/06 Unusually soft or velvety skin: yes Mild skin hyperextensibility (positive if greater than 1.5cm): less than 1.5 cm Unexplained striae distensae or rubae: no Bilateral piezogenic papules of the heel: yes Recurrent or multiple abdominal hernias: no Atrophic scarring: no Pelvic floor, rectal, and/or uterine prolapse: no Dental crowding and high or narrow palate: no Arachnodactyly: not assessed Arm [id number]-vg-[id number] ratio is greater than or equal to 1.05: not assessed Mitral valve prolapse (MVP): no Aortic root dilatation with Z-score >+2: no Feature B Status: negative First-degree relatives with hEDS: no positive family history Feature C Status: positive Musculoskeletal pain in two or more limbs, recurring daily for at least 3 months: yes Chronic, widespread pain for at least 3 months: no Recurrent joint dislocations or osmar joint instability, in the absence of trauma: yes Criterion 3 Status: met Does the patient have unusual skin fragility which should prompt consideration of other types of EDS?: no/unlikely Does the patient have any heritable connective tissue disorders (CTDs)?: no/unlikely Does the patient have any acquired connective tissue disorders (CTDs)?: no/unlikely Are there any possible alternative diagnoses that might also include joint hypermobility by means of hypotonia and/or connective tissue laxity?: no/unlikely Assessment: Jenna Ortiz is a 34 y.o. male with phenotypes as outlined in the HPI and PE sections. There are many types of connective tissue disorders, with the Ruddy Danlos syndromes (EDS) is one many have heard of. There are actually 13 types of EDS, with Hypermobile EDS (hEDS) as the most common subtype. The diagnostic criteria were revised in 2017 and it is NOT a genetic diagnosis. These revised criteria are more strict than previous criteria. The genetic basis for hEDS is not known, so there is no genetic testing for hEDS. Jenna does not meet generalized hypermobility criteria. He was concerned about hypermobile EDS, but without hypermobility, he would not meet this diagnosis. People may have joint laxity in joints that do not count for the Beighton score such a wrists. He may fall under the hypermobility spectrum disorders (HSD), which are a group of conditions related to joint hypermobility (JH). Some people are hypermobile in all joints, some in large and some insmall joints. This condition is thought to be distinct from hEDS, but there is no genetic testing for HSD. Information can be found at : https://www.[employer].com/what-is-hsd/ Jenna's symptoms have worsened with a change in his job that requires long periods of time standing,looking down and doing repetitive movements with his hands. A different position/job in the companywould possibly alleviate symptoms. His symptoms may be exacerbated further with his weight, lack of exercise and diet. He admits to eating fast food frequently, has tried to cut down on energy drinks and have more water. We discussed meeting with his PCP to come up with a weight loss plan. We discussed heart healthy diets of fruits, vegetable, whole grains, lean meats, consideration of a MVI, increased activity and conditioning to improve overall health. Jenna states that massages and loosening of joints have helped and he should discuss with PT. If someone meets criteria for hEDS, the treatment is still symptomatic, so if pain is a main concern, can consider pain medicine referral. We discussed that physical therapy and aquatherapy can be helpful for pain management as well. Genetic testing is an option. When someone does not fulfil clinical criteria, the chance for a positive result is low. There are also the chance for uncertain results. There are no red flag on the history or exam and a normal echo. The cost of testing may also be a concern as insurance may not cover the testing. Benefits of having genetic test include 1) to establish a molecular diagnosis; 2) to provide further medical recommendations specific to each diagnosis; 3) for familial cascade testing, recurrence risk estimation, and family planning; and 4) to allow for participation in support group organizationsand enrolment in clinical trials, if any. Plan: -Genetic testing deferred. -Pursue an eventual change in position/job at current company to decrease physical strain -Continue with massage and loosening of joints at PT. -Suggest having conversation with with primary doctor and significant other to develop a plan for diet and exercise which would be overall beneficial. Sincerely, Joanna Shafer MD [employer] [facility] Address: [address] [place] [address] 9:36 AM - 10:39 AM face to face Scribe Attestation This note is prepared by Javy Montoya acting as Joanna Shafer MD. All medical record entries made by the Scribe were at my direction and personally dictated by me. Manish reviewed the chart and agree that the record accurately reflects my personal performance of the history, physical exam, assessment, plan, and diagnosis. I have also personally directed, reviewed, and agree with the discharge instructions. Joanna Shafer MD. Time Spent Prep time on day of patient encounter: 5 minutes Time spent directly with patient, family or caregiver: 63 minutes Additional Time Spent on Patient Care Activities: 0 minutes Documentation Time: 15 minutes Other Time Spent: 0 minutes Total: 83 minutes documented in this [facility] Work Phone: 1(626) 825-760011-20-2024 History of Present illness Narrative* Jr. Shashank Sheppard, - 06/14/2024 11:00 AM EST Images from the original note were not included. HISTORY OF PRESENT ILLNESS: EST PT Jenna Ortiz is an 34 y.o. @ male. (EST PT) RECHECK (R) SHOULDER / NECK PAIN PREVIOUS (R) SHOULDER SCOPE W/ BICEPS TENODESIS 04/27/23 (~13.5 MONTHS) ; DX DVT 05/03/23 POST-OP XRAYS, C-SPINE 02/11/24 @ [facility] XRAYS, (R) SHOULDER 02/08/23 IN [facility] ; PRE-OP XRAYS, (R) ELBOW 08/13/23 IN [facility] MRI, C-SPINE 02/01/24 @ [facility] MRI, (R) SHOULDER 10/07/23 @ [facility] ; POST-OP CT, C-SPINE 01/08/24 @ [facility] ARTHRITIS PANEL 05/04/24 @ [facility] S/P PREDNISONE 06/21/23 S/P PHYSICAL THERAPY (5 SESSIONS) @ [facility] ; FEB - MAR 2024 FINISHED PHYSICAL THERAPY (17 SESSIONS) @ [facility] ; JUL - AUG 2023 PAIN MGMT ; DR ALEMAN CONSULT 05/08/24 CONTINUES TO HAVE CONSTANT DISCOMFORT BETWEEN SHOULDER BLADES ; WORSE WITH ACTIVITY / LOOKING DOWN.NOTES SNAPPING / POPPING OVER HIS SHOULDER BLADES. NOTES FULL / PAINFUL ROM IN NECK - STATES THEREIS SOMETHING SNAPPING IN HIS NECK. STATES HE IS STARTING TO HAVE PAIN IS (R) SHOULDER WITH N/T IN (R) FOREARM - SOME CRUNCHING IN HIS (R) SHOULDER WITH MOVEMENT. CURRENTLY TAKING CYMBALTA - DENIESANY RELIEF ; PREVIOUSLY TRIED MELOXICAM / CELEBREX / ALEVE ALLERGIES: No Known Allergies HOME MEDICATIONS: No current outpatient medications PHYSICAL EXAM: Shoulder Musculoskeletal Exam Inspection Right Right shoulder inspection is normal. Ecchymosis: none Peripheral edema: none Atrophy: none Masses: none Palpation Right Right shoulder palpation is normal. Crepitus: no crepitus Increased warmth: none Tenderness: none Range of Motion Right Right shoulder range of motion is normal. Active ROM: normal and no pain. Passive ROM: normal and no pain. Range of motion additional comments: Pt reports symptoms just feeling tight from behind his neck into both shoulder blades. Strength Right External rotation: 5/5. Internal rotation: 5/5. Abduction: 5/5. Biceps: 5/5. Triceps: 5/5. Neurovascular Right Radial pulse: normal and 2+ Capillary refill: <3 sec Axillary nerve sensory distribution: normal Scapula Right Right shoulder scapula is normal. Position: normal Winging: none Scapulothoracic compress: improves pain Scapula inspection additional comments: Parathoracic and parascapular pain with origination from [id number] of cervical spine. + crepitus with circumduction Special Tests Right Rotator Cuff Signs Neer's test: positive Carter test: negative Biceps/kole Signs Speed's test: negative AC Joint Signs Active horizontal adduction pain: negative Instability Signs Anterior apprehension test: negative General Skin: faint erythematous non pruritic rash since starting cymbalta and meloxicam... ( bilateral forearms). Vitals: There is no height or weight on file to calculate BMI. Tobacco Use: High Risk (05/29/2024) Patient History Smoking Tobacco Use: Some Days Smokeless Tobacco Use: Never Passive Exposure: Not on file Alcohol Use: Not on file IMAGING: Procedures No orders of the defined types were placed in this encounter. ASSESSMENT: ICD-10-CM 1. Acute pain of right shoulder M25.511 2. History of arthroscopy of right shoulder Z98.890 PLAN: We have answered all the patients questions and explained the patients condition, decision making and plan including the risks and benefits associated with said plan in layman''s terms in a language the patient could understand easily. If patient''s symptoms significantly worsen and they cannot get a hold of us or their family physician, we have recommended that the patient proceed to the nearest emergency department (room). Dr. Sheppard obtained history and examined the patient, I am acting as scribe for Dr. Sheppard[facility], PLAN: We have reviewed prior (R) shoulder xrays / MRI results. He has good strength / ROM of his right shoulder with examination today. We have discussed avoiding motions including, but not limited to ; no fast / aggressive motions. We have discussed his HEP and restrictions and will see him back in 3 months to reassess his right shoulder strength / ROM. Shashank Sheppard D.O. documented in this encounterBarton County Memorial [id number] Evaluation note* Diagnosis Onset Date Resolution Status Admit Date Myofascial muscle pain acuteNovember 2023 4:29pmOther chronic painacuteNovember 2023 4:29pm Cervical spondylosisacuteDecember 2023 3:30pmMid back painacuteDecember 2023 3:30pmOther chronic painacuteDecember 2023 3:30pmRight shoulder painacuteDecember 2023 3:30pm [facility] Work Phone: 1(170) 122-841111-14-2024 Evaluation note* Diagnosis Onset Date Resolution Status Admit Date Myofascial muscle pain acuteNovember 2023 4:29pmOther chronic painacuteNovember 2023 4:29pm Cervical spondylosisacuteDecember 2023 3:30pmMid back painacuteDecember 2023 3:30pmOther chronic painacuteDecember 2023 3:30pmRight shoulder painacuteDecember 2023 3:30pmCervical spondylosisacuteJanuary 2024 3:34pmMyofascial muscle painacuteJanuary 2024 3:34pmOther low back pain acuteJanuary 2024 3:34pm [facility] Work Phone: 1(854) 292-637811-04-2024 History of Present illness Narrative* SUAD Sotomayor - 05/29/2024 10:00 AM EST Images from the original note were not included. HISTORY OF PRESENT ILLNESS: EST PT Jenna Ortiz is an 34 y.o. @ male. (EST PT) RECHECK NECK PAIN ; HERE FOR ARTHRITIS PANEL RESULTS 05/04/24 @ [facility] - S/P DR ALEMAN CONSULT 05/08/24 (INJECTIONS NOT SCHEDULED YET) PREVIOUS (R) SHOULDER SCOPE W/ BICEPS TENODESIS 04/27/23 (~11 MONTHS) ; DX DVT 05/03/23 POST-OP XRAYS, C-SPINE 02/11/24 @ [facility] XRAYS, (R) SHOULDER 02/08/23 IN [facility] ; PRE-OP XRAYS, (R) ELBOW 08/13/23 IN [facility] MRI, C-SPINE 02/01/24 @ [facility] MRI, (R) SHOULDER 10/07/23 @ [facility] ; POST-OP CT, C-SPINE 01/08/24 @ [facility] ARTHRITIS PANEL 05/04/24 @ [facility] S/P PREDNISONE 06/21/23 S/P PHYSICAL THERAPY (5 SESSIONS) @ [facility] ; FEB - MAR 2024 FINISHED PHYSICAL THERAPY (17 SESSIONS) @ [facility] ; JUL - AUG 2023 PAIN MGMT ; DR ALEMAN CONSULT 05/08/24 CONTINUES TO HAVE \CONSTANT DISCOMFORT BETWEEN SHOULDER BLADES ; WORSE WITH ACTIVITY / LOOKING DOWN. NOTES SNAPPING / POPPING OVER HIS SHOULDER BLADES. NOTES FULL / PAINFUL ROM IN NECK - STATES THERE IS SOMETHING SNAPPING IN HIS NECK. STATES HE IS STARTING TO HAVE PAIN IS (R) SHOULDER WITH N/T IN(R) FOREARM. TAKING MELOXICAM / CYMBALTA - DENIES ANY RELIEF ; PREVIOUSLY TRIED CELEBREX / ALEVE ALLERGIES: No Known Allergies HOME MEDICATIONS: Current Outpatient Medications Medication Instructions methylPREDNISolone (Medrol Dospak) 4 MG tablets Follow schedule on package instructions PHYSICAL EXAM: Shoulder Musculoskeletal Exam Inspection Right Right shoulder inspection is normal. Ecchymosis: none Peripheral edema: none Atrophy: none Masses: none Palpation Right Right shoulder palpation is normal. Crepitus: no crepitus Increased warmth: none Tenderness: present (mid cervical c7 prominence into paravertebral thoracic region.) Anterior shoulder: mild Posterior shoulder: mild Clavicle: none Medial scapula: mild Superior pole of scapula: mild Bicipital groove: none Proximal biceps: none Distal biceps: none Lateral arm: none Elbow: none Left Tenderness: present Medial scapula: mild Superior pole of scapula: mild Bicipital groove: none Proximal biceps: none Distal biceps: none Lateral arm: none Elbow: none Range of Motion Right Right shoulder range of motion is normal. Active ROM: normal and no pain. Passive ROM: normal and no pain. Left Active ROM: normal and no pain. Passive ROM: normal and no pain. Range of motion additional comments: Pt reports symptoms just feeling tight from behind his neck into both shoulder blades. Strength Right External rotation: 5/5. Internal rotation: 5/5. Abduction: 5/5. Biceps: 5/5. Triceps: 5/5. Left External rotation: 5/5. Internal rotation: 5/5. Abduction: 5/5. Biceps: 5/5. Triceps: 5/5. Neurovascular Right Radial pulse: normal and 2+ Capillary refill: <3 sec Axillary nerve sensory distribution: normal Left Radial pulse: normal Capillary refill: brisk Axillary nerve sensory distribution: normal Scapula Right Right shoulder scapula is normal. Position: normal Winging: none Scapulothoracic compress: improves pain Left Position: normal Winging: none Scapulothoracic compress: improves pain Scapula inspection additional comments: Parathoracic and parascapular pain with origination from [id number] of cervical spine. + crepitus with scapular motion no winging. Special Tests Right Rotator Cuff Signs Neer's test: positive Carter test: negative Biceps/kole Signs Speed's test: negative AC Joint Signs Active horizontal adduction pain: negative Instability Signs Anterior apprehension test: negative Left Rotator Cuff Signs Neer's test: positive Carter test: negative Biceps/kole Signs Speed's test: negative AC Joint Signs Active horizontal adduction pain: negative Instability Signs Anterior apprehension test: negative General Constitutional: appears stated age Labored breathing: no Neurological: alert and oriented x3 Skin: intact (faint erythematous non pruritic rash since starting cymbalta and meloxicam... ( bilateral forearms)) Vitals: There is no height or weight on file to calculate BMI. Tobacco Use: High Risk (05/01/2024) Patient History Smoking Tobacco Use: Some Days Smokeless Tobacco Use: Never Passive Exposure: Not on file Alcohol Use: Not on file IMAGING: Procedures No orders of the defined types were placed in this encounter. ASSESSMENT: ICD-10-CM 1. Polyarthralgia M25.50 2. Neck pain M54.2 3. Scapular dyskinesis G25.89 PLAN: F/U Dr. Sheppard in 3 wks.. assess right shoulder pain.. Pt recommended to establish PCP to coordinate care as he does not want to stay with current pcp. - Pt has seen rheumatology/ Spine surgery/ pending appt in June for genetic testing - Ongoing eval with Dr. Montes for ( wrist snapping) - consider referral to Shoulder specialist for eval - second opinion Pt admits pain in shoulders/ upper back unchanged despite being off work.. Rheum did not recommend tx hyperuricemia unless focal pain.. pt will stop meloxicam and return to motrin which he has used in the past., hopeful for rash to clear with cymbalta use..... rheum feels hypermobility is contributing to symptoms of pain, which I agree and do not feels additional surgery will make better.. pt agreeable to recheck with Dr. Sheppard in 3 wks pending return to work and longer on Cymbalta and motrin. Pt very thankful. Questions answered in laymen terms at the bedside. The diagnosis, home exercise plan and any ongoing restrictions/ recommendations reviewed. If unable to be reached in office, I recommend evaluation at nearest Emergency Room if any symptoms worsened or new symptoms develop for requiring urgent evaluation. documented in this encounterBarton County Memorial [id number] History of Present illness Narrative* Gallito Leslie MD - 05/24/2024 2:30 PM EDT Images from the original note were not included. [facility] [address] [id number] Date of Service: 05/24/2024 Chief Complaint: Pain SUBJECTIVE: Jenna Ortiz is a 34 y.o. male who came to rheumatology clinic in follow up evaluation of possible inflammatory arthritis. The problem has been present for several months. Patient has no significant past medical history. She has been dealing with more body ache and pain and referred to Rheumatology after he was found to have abnormal labs. Current Symptoms include pain of cervical spine, left shoulder, right shoulder, left elbow, right elbow, left wrist, and right wrist. Onset was gradual. The symptoms are of mild and moderate severity. They are made worse by: cold exposure and overuse. They are helped by heat and movement. Associated symptoms include: none. Previously used rheumatologic medications include NSAIDS - Problems: none. Limitation on activitiesinclude: none. Rheumatology Family Hx: no family hx related to rheumatology noted. Previous Meds tried: Previous Procedures: REVIEW OF SYSTEMS: CONSTITUTIONAL: Admits: [] Weight Loss [] Fever [] Frequent Night Sweats OPHTHALMOLOGIC: Admits: [] Glaucoma [] History or Current Inflammatory Eye Disease [] Cataracts ENT: Admits: [] Oral/Nasal Ulcers [] epistaxis [] Recurrent Sinusitis [] Dry Eyes [] Dry mouth CARDIOVASCULAR: Admits: [] Chest pain [] Pericarditis/Pleuritis [] Palpitations [] Edema RESPIRATORY: Admits: [] hemoptysis [] Dyspnea on Exertion [] Cough [] Wheezing GASTROINTESTINAL: Admits: [] Bloody Stool [] Diarrhea [] Vomitting GENITOURINARY: Admits: [] Blood in urine [] Genital Ulcers [] Burning/pain with urination MUSCULOSKELETAL: Admits: [x] Muscle Pain [x] Joint Pain INTEGUMENTARY: Admits: [] Skin changes [] Sclerodactyly [] Raynauds [] Photosensitivity [] Alopecia NEUROLOGIC: Admits: [] Recurrent Headaches [] Limb Weakness [] Numbness/Tingling PSYCHIATRIC: Admits: [] Insomnia [] Depression [] Anxiety ENDOCRINE: Admits: [] Thyroid abnormalities HEMATOLOGY/LYMPH: Admits: [] Notable Swollen Lymph Nodes [] History of Cytopenias [] Bruising tendency [] History of DVT/PE All non checked boxes, patient denies. All other 10 point ROS reviewed and negative. PHYSICAL EXAMINATION: Constitutional: There were no vitals taken for this visit.: reviewed Comfortable, pleasant, no acute distress Eyes: Conjunctiva clear and moist, eyelids without lesions. Extraocular movements fully intact. Ears/Nose/Mouth/Throat: External inspection of ears/nose is normal - no scars, lesions, masses No oral ulcers or lesions on mucosa of inner mouth, tongue. Neck: Symmetrical, tongue midline, no masses, no lymphadenopathy, no thyromegaly Respiratory: Inspiratory and expiratory effort normal. Clear to auscultation bilaterally. No crackles or wheezes. Cardiovascular: Palpation of heart reveals normal PMI. Auscultation: regular rate rhythm, no murmurs/rubs/gallops. Carotid arteries symmetric and 2+. No edema of extremities Gastrointestinal: Soft, nontender, bowel sounds in all quadrants. No hepatosplenomegaly on palpation. Lymphatic: No lymphadenopathy in neck Neurologic: Facial muscles symmetric and of normal strength. Tongue is midline. Dermatologic: Inspection and palpation of skin and subcutaneous tissue of all four extremities without rashes Nailfold capillary exam normal Psychiatric: Normal affect. Judgement/insight intact. Musculoskeletal: Neck: Full ROM. no swelling, No tenderness, Shoulder: Bilateral full active ROM. no swelling, No tenderness, Elbows: Full ROM. no swelling, No tenderness, Wrists: Full ROM. no swelling, No tenderness, Hands: Full ROM. no swelling, No tenderness, Hips: Normal ROM. No swelling, No tenderness, Knees: Normal ROM, no swelling, No tenderness, Feet: Full ROM. no swelling, No tenderness, Ankles: Normal ROM,no swelling, No tenderness, Spine: no tenderness throughout spine, no sacroiliac joint tenderness Labs & Imaging: Labs and Imaging reviewed and discussed with the patient during the visit. No results found for: RF , C3 , C4 No results found for: WBC , HGB , HCT , MCV , PLT No results found for: CREATININE , BUN , NA , K , CL , CO2 No results found for: ALT , AST , GGT , ALKPHOS , LABBILI Lab Results Component Value Date SEDRATE 11 05/09/2024 Lab Results Component Value Date CRP 0.3 05/09/2024 No results found. ASSESSMENT/PLAN: Diagnoses and all orders for this visit: Rheumatoid factor positive - Patient has slightly positive RF - normal inflammatory marker - no synovitis on exam - no morning stiffness - CCP and ESR/CRP is normal. - No RA at this time. 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 She was advised to take NSAIDs after the food and also informed that either his primary care physician or I should be monitoring his kidney function test, liver function test and CBC. Advised not to use multiple NSAIDs on same day. Follow up as needed. Total time spent with the patient face to face was 30 minutes which included obtaining and reviewing history, performing an exam, educating and counseling the patient, communicating test results to the patient. Preparing to see the patient (reviewing all results, history, medications, my office notes, other physician notes), ordering tests/medications/referrals, documenting in the patient's health record time spent was 10 minutes This note was created with the assistance of a speech recognition program. While intending to generate a timely document that accurately reflects the content of the visit, no guarantee can be provided that every grammatical or spelling mistake has been or will be identified or corrected. Thank you for your understanding. [facility] Physicians Rheumatology Dr. Gallito Leslie M.D. [address] [facility], [address] [place] [address] Office: [phone] 05/24/2024 documented in this encounterKet[facility]10-15-2024 History of Present illness Narrative* Gallito Leslie MD - 05/09/2024 1:30 PM EDT Images from the original note were not included. [address] [facility] [address] [facility] [id number] Date of Service: 05/09/2024 Thank you for the referral to evaluate Jenna Ortiz for +RF. This is a new patient and is seen at the request of No primary care provider on file.. Chief Complaint: Pain SUBJECTIVE: Jenna Ortiz is a 34 y.o. male who came to rheumatology clinic for new patient evaluation of possible inflammatory arthritis. The problem has been present for several months. Patient has no significant past medical history. She has been dealing with more body ache and pain and referred to Rheumatology after he was found to have abnormal labs. Current Symptoms include pain of cervical spine, left shoulder, right shoulder, left elbow, right elbow, left wrist, and right wrist. Onset was gradual. The symptoms are of mild and moderate severity. They are made worse by: cold exposure and overuse. They are helped by heat and movement. Associated symptoms include: none. Previously used rheumatologic medications include NSAIDS - Problems: none. Limitation on activitiesinclude: none. Rheumatology Family Hx: no family hx related to rheumatology noted. Previous Meds tried: Previous Procedures: Current Outpatient Medications Medication Sig Dispense Refill cyclobenzaprine (FLEXERIL) 5 mg tablet Take 1 tablet (5 mg total) by mouth nightly as needed for muscle spasms. 30 tablet 1 DULoxetine (CYMBALTA) 30 mg capsule Take 1 capsule (30 mg total) by mouth in the morning. 30 capsule 1 No current facility-administered medications for this visit. reviewed. There is no problem list on file for this patient. reviewed. No past surgical history on file. reviewed. reviewed. No past medical history on file. reviewed. Social History Social History Narrative Not on file reviewed No family history on file. reviewed. Not on File reviewed. The following portions of the patient's history were reviewed and updated as appropriate: allergies, current medications, past family history, past medical history, past social history, past surgicalhistory and problem list. REVIEW OF SYSTEMS: CONSTITUTIONAL: Admits: [] Weight Loss [] Fever [] Frequent Night Sweats OPHTHALMOLOGIC: Admits: [] Glaucoma [] History or Current Inflammatory Eye Disease [] Cataracts ENT: Admits: [] Oral/Nasal Ulcers [] epistaxis [] Recurrent Sinusitis [] Dry Eyes [] Dry mouth CARDIOVASCULAR: Admits: [] Chest pain [] Pericarditis/Pleuritis [] Palpitations [] Edema RESPIRATORY: Admits: [] hemoptysis [] Dyspnea on Exertion [] Cough [] Wheezing GASTROINTESTINAL: Admits: [] Bloody Stool [] Diarrhea [] Vomitting GENITOURINARY: Admits: [] Blood in urine [] Genital Ulcers [] Burning/pain with urination MUSCULOSKELETAL: Admits: [x] Muscle Pain [x] Joint Pain INTEGUMENTARY: Admits: [] Skin changes [] Sclerodactyly [] Raynauds [] Photosensitivity [] Alopecia NEUROLOGIC: Admits: [] Recurrent Headaches [] Limb Weakness [] Numbness/Tingling PSYCHIATRIC: Admits: [] Insomnia [] Depression [] Anxiety ENDOCRINE: Admits: [] Thyroid abnormalities HEMATOLOGY/LYMPH: Admits: [] Notable Swollen Lymph Nodes [] History of Cytopenias [] Bruising tendency [] History of DVT/PE All non checked boxes, patient denies. All other 10 point ROS reviewed and negative. PHYSICAL EXAMINATION: Constitutional: There were no vitals taken for this visit.: reviewed Comfortable, pleasant, no acute distress Eyes: Conjunctiva clear and moist, eyelids without lesions. Extraocular movements fully intact. Ears/Nose/Mouth/Throat: External inspection of ears/nose is normal - no scars, lesions, masses No oral ulcers or lesions on mucosa of inner mouth, tongue. Neck: Symmetrical, tongue midline, no masses, no lymphadenopathy, no thyromegaly Respiratory: Inspiratory and expiratory effort normal. Clear to auscultation bilaterally. No crackles or wheezes. Cardiovascular: Palpation of heart reveals normal PMI. Auscultation: regular rate rhythm, no murmurs/rubs/gallops. Carotid arteries symmetric and 2+. No edema of extremities Gastrointestinal: Soft, nontender, bowel sounds in all quadrants. No hepatosplenomegaly on palpation. Lymphatic: No lymphadenopathy in neck Neurologic: Facial muscles symmetric and of normal strength. Tongue is midline. Dermatologic: Inspection and palpation of skin and subcutaneous tissue of all four extremities without rashes Nailfold capillary exam normal Psychiatric: Normal affect. Judgement/insight intact. Musculoskeletal: Neck: Full ROM. no swelling, No tenderness, Shoulder: Bilateral full active ROM. no swelling, No tenderness, Elbows: Full ROM. no swelling, No tenderness, Wrists: Full ROM. no swelling, No tenderness, Hands: Full ROM. no swelling, No tenderness, Hips: Normal ROM. No swelling, No tenderness, Knees: Normal ROM, no swelling, No tenderness, Feet: Full ROM. no swelling, No tenderness, Ankles: Normal ROM,no swelling, No tenderness, Spine: no tenderness throughout spine, no sacroiliac joint tenderness Labs & Imaging: Labs and Imaging reviewed and discussed with the patient during the visit. No results found for: RF , C3 , C4 No results found for: WBC , HGB , HCT , MCV , PLT No results found for: CREATININE , BUN , NA , K , CL , CO2 No results found for: ALT , AST , GGT , ALKPHOS , LABBILI No results found for: SEDRATE No results found for: CRP No results found. 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 - cyclobenzaprine (FLEXERIL) 5 mg tablet; Take 1 tablet (5 mg total) by mouth nightly as needed formuscle spasms. Neck pain - neck MRI was unremarkable - he is doing therapy and going for injections Elevated uric acid in blood - patient has asymptomatic hyperuricemia - never had any joint pain concerning for gout - discuss about low purine diet and in case of having clinical symptoms of gout then we can consider treatment Medication monitoring encounter She was informed about the side effects of NSAIDS including but not limited to GERD, Peptic Ulcer disease, renal and liver toxicity. She was advised to take NSAIDs after the food and also informed that either his primary care physician or I should be monitoring his kidney function test, liver function test and CBC. Advised not to use multiple NSAIDs on same day. Follow up in 2 weeks. Total time spent with the patient face to face was 45 minutes which included obtaining and reviewing history, performing an exam, educating and counseling the patient, communicating test results to the patient. Preparing to see the patient (reviewing all results, history, medications, my office notes, other physician notes), ordering tests/medications/referrals, documenting in the patient's health record time spent was 10 minutes This note was created with the assistance of a speech recognition program. While intending to generate a timely document that accurately reflects the content of the visit, no guarantee can be provided that every grammatical or spelling mistake has been or will be identified or corrected. Thank you for your understanding. [facility] Dr. Gallito Leslie M.D. [address] [place] [address] [place] [address] Office: [phone] 05/09/2024 documented in this [facility]10-14-2024 Evaluation note* Diagnosis Onset Date Resolution Status Admit Date Interscapular pain acuteOctober 2023 10:57amMid back painacuteOctober 2023 10:57am Myofascial muscle painacuteOctober 2023 10:57amOther chronic painacute October 2023 10:57amMyofascial muscle painacuteNovember 2023 4:29pm Other chronic painacuteNovember 2023 4:29pm [facility] Work Phone: [phone]) 845-502710-14-2024 Miscellaneous Notes* Telephone Encounter - Jaxon Cornelius CNA - 2024 8:06 AM EDT Lvm to schedule new patient appt Polyarthralgia documented in this encounterK[facility]10-14-[facility] Telephone encounter Note* Telephone Encounter - Jaxon Cornelius CNA - 2024 8:06 AM EDT Lvm to schedule new patient appt Polyarthralgia [facility]10-07-[facility] History of Present illness Narrative* SUAD Sotomayor - 05/01/2024 3:15 PM EDT HISTORY OF PRESENT ILLNESS: EST PT Jenna Ortiz is an 33 y.o. @ male. (EST PT) RECHECK NECK PAIN ; S/P MDP & CELEBREX RX 03/20/24 (6WKS) - S/P PHYSICAL THERAPY (5 SESSIONS) @ [facility]- NO RELIEF PREVIOUS (R) SHOULDER SCOPE W/ BICEPS TENODESIS 04/27/23 (~11 MONTHS) ; DX DVT 05/03/23 POST-OP XRAYS, C-SPINE 02/11/24 @ [facility] XRAYS, (R) SHOULDER 02/08/23 IN EPIC ; PRE-OP XRAYS, (R) ELBOW 08/13/23 IN [facility] MRI, C-SPINE 02/01/24 @ [facility] MRI, (R) SHOULDER 10/07/23 @ [facility] ; POST-OP CT, C-SPINE 01/08/24 @ [facility] S/P PREDNISONE 06/21/23 S/P PHYSICAL THERAPY (5 SESSIONS) @ [facility] ; FEB - MAR 2024 FINISHED PHYSICAL THERAPY (17 SESSIONS) @ [facility] ; JUL - AUG 2023 NOTES CONSTANT DISCOMFORT BETWEEN SHOULDER BLADES ; WORSENED BY ACTIVITY AT WORK. NOTES PULLING WHEN HE LOOKS DOWN OVER CERVICAL PROMINENCE. NOTES SNAPPING/ CREPTIUS/ POPPING IN HIS SHOULDER BLADES. NOTES FULL / YET PAINFUL ROM IN NECK - STATES THERE IS SOMETHING SNAPPING IN HIS NECK. DENIES ANY RADIATING PAIN DOWN HIS ARM - NO N/T. CELEBREX- NO RELIEF, PRIOR ALEVE PRN - DENIES ANY RELIEF ; ALSO USING ICE / HEAT. NO LONGER TAKING TAKING ELIQUIS ; RECENT (R) LE VENOUS DOPPLER 01/26/24 @ [facility] - NEG DVT ALLERGIES: No Known Allergies HOME MEDICATIONS: Current Outpatient Medications Medication Instructions celecoxib (CELEBREX) 200 mg, Oral, Daily, Take with food methylPREDNISolone (Medrol Dospak) 4 MG tablets Follow schedule on package instructions PHYSICAL EXAM: Shoulder Musculoskeletal Exam Inspection Right Right shoulder inspection is normal. Ecchymosis: none Peripheral edema: none Atrophy: none Masses: none Prior incision: arthroscopic portals Incision: well-healed Left Left shoulder inspection is normal. Ecchymosis: none Peripheral edema: none Atrophy: none Masses: none Palpation Right Right shoulder palpation is normal. Crepitus: mild Crepitus comment: periscapular with motion Increased warmth: none Tenderness: present Posterior shoulder: mild Clavicle: none AC joint: none Sternoclavicular joint: none Rotator cuff: none Greater tuberosity: none Trapezius: moderate Medial scapula: severe Superior pole of scapula: moderate Inferior pole of scapula: mild Bicipital groove: none Proximal biceps: none Distal biceps: none Lateral arm: mild Elbow: none Left Left shoulder palpation is normal. Crepitus: mild Crepitus comment: periscapular with motion Increased warmth: none Tenderness: present Posterior shoulder: mild Clavicle: none AC joint: none Sternoclavicular joint: none Rotator cuff: none Greater tuberosity: none Trapezius: moderate Medial scapula: severe Superior pole of scapula: moderate Inferior pole of scapula: mild Bicipital groove: none Proximal biceps: none Distal biceps: none Lateral arm: none Elbow: none Range of Motion Right Right shoulder range of motion is normal. Active ROM: normal and pain. Active ROM comment: + pain on end rom. Passive ROM: normal and no pain. Internal rotation: L2. Left Left shoulder range of motion is normal. Active ROM: normal and pain. Active ROM comment: + pain on end rom. Passive ROM: normal and no pain. Internal rotation: L2. Strength Right External rotation: 5/5. Internal rotation: 5/5. Abduction: 5/5. Biceps: 5/5. Triceps: 5/5. Left External rotation: 5/5. Internal rotation: 5/5. Abduction: 5/5. Biceps: 5/5. Triceps: 5/5. Strength additional comments: Minimal soreness periscapular on strength testing. Neurovascular Right Radial pulse: normal and 2+ Capillary refill: <3 sec Axillary nerve sensory distribution: normal Left Radial pulse: normal and 2+ Capillary refill: <3 sec Axillary nerve sensory distribution: normal Scapula Right Right shoulder scapula is normal. Dyskinesia: positive Winging: none Scapulothoracic compress: improves pain Left Left shoulder scapula is normal. Dyskinesia: positive Winging: none Scapulothoracic compress: improves pain Special Tests Right Rotator Cuff Signs Neer's test: negative Carter test: negative Biceps/kole Signs Clicking/popping: negative Speed's test: negative AC Joint Signs Active horizontal adduction pain: negative Instability Signs Anterior apprehension test: positive (very mild) Left Rotator Cuff Signs Neer's test: negative Carter test: negative Biceps/kole Signs Clicking/popping: negative Speed's test: negative AC Joint Signs Active horizontal adduction pain: negative Instability Signs Anterior apprehension test: positive Special tests additional comments: Reflexes 2+ symmetric biceps, triceps and brachial radialis. Negclonus. Neg [employer] Constitutional: appears stated age Labored breathing: no Neurological: alert and oriented x3 Vitals: There is no height or weight on file to calculate BMI. Tobacco Use: Low Risk (04/04/2024) Received from [facility] Patient History Smoking Tobacco Use: Never Smokeless Tobacco Use: Never Passive Exposure: Not on file Recent Concern: Tobacco Use - High Risk (03/20/2024) Patient History Smoking Tobacco Use: Some Days Smokeless Tobacco Use: Never Passive Exposure: Not on file Alcohol Use: Not on file IMAGING: Procedures Orders Placed This Encounter Procedures Rheumatoid factor [facility] Standing Status: Future Number of Occurrences: 1 Standing Expiration Date: 05/01/2025 Order Specific Question: Print requisition? Answer: No LAURA [facility] Standing Status: Future Number of Occurrences: 1 Standing Expiration Date: 05/01/2025 Order Specific Question: Print requisition? Answer: No LYME DISEASE ANTIBODY (IGG), IMMUNOBLOT [facility] Standing Status: Future Number of Occurrences: 1 Standing Expiration Date: 05/01/2025 Order Specific Question: Print requisition? Answer: No Uric acid [facility] Standing Status: Future Number of Occurrences: 1 Standing Expiration Date: 05/01/2025 Order Specific Question: Print requisition? Answer: No SYSTEMIC LUPUS ERYTHEMATOSUS (SLE), DISEASE ACTIVITY PANEL [facility] Standing Status: Future Number of Occurrences: 1 Standing Expiration Date: 05/01/2025 Order Specific Question: Print requisition? Answer: No C-reactive protein [facility] Standing Status: Future Number of Occurrences: 1 Standing Expiration Date: 05/01/2025 Order Specific Question: Print requisition? Answer: No Sedimentation rate, automated [facility] Standing Status: Future Number of Occurrences: 1 Standing Expiration Date: 05/01/2025 Order Specific Question: Print requisition? Answer: No CBC and differential [facility] Standing Status: Future Number of Occurrences: 1 Standing Expiration Date: 05/01/2025 Order Specific Question: Print requisition? Answer: No ASSESSMENT: ICD-10-CM 1. Neck pain M54.2 Rheumatoid factor LAURA LYME DISEASE ANTIBODY (IGG), IMMUNOBLOT Uric acid SYSTEMIC LUPUS ERYTHEMATOSUS (SLE), DISEASE ACTIVITY PANEL C-reactive protein Sedimentation rate, automated CBC and differential Rheumatoid factor LAURA LYME DISEASE ANTIBODY (IGG), IMMUNOBLOT Uric acid SYSTEMIC LUPUS ERYTHEMATOSUS (SLE), DISEASE ACTIVITY PANEL C-reactive protein Sedimentation rate, automated CBC and differential 2. Scapular dyskinesis G25.89 Rheumatoid factor LAURA LYME DISEASE ANTIBODY (IGG), IMMUNOBLOT Uric acid SYSTEMIC LUPUS ERYTHEMATOSUS (SLE), DISEASE ACTIVITY PANEL C-reactive protein Sedimentation rate, automated CBC and differential Rheumatoid factor LAURA LYME DISEASE ANTIBODY (IGG), IMMUNOBLOT Uric acid SYSTEMIC LUPUS ERYTHEMATOSUS (SLE), DISEASE ACTIVITY PANEL C-reactive protein Sedimentation rate, automated CBC and differential 3. Polyarthralgia M25.50 Rheumatoid factor LAURA LYME DISEASE ANTIBODY (IGG), IMMUNOBLOT Uric acid SYSTEMIC LUPUS ERYTHEMATOSUS (SLE), DISEASE ACTIVITY PANEL C-reactive protein Sedimentation rate, automated CBC and differential Rheumatoid factor LAURA LYME DISEASE ANTIBODY (IGG), IMMUNOBLOT Uric acid SYSTEMIC LUPUS ERYTHEMATOSUS (SLE), DISEASE ACTIVITY PANEL C-reactive protein Sedimentation rate, automated CBC and differential PLAN: Pt taking no pain meds currently but still working, notes work exacerbate symptoms with repition. Pt requesting time of work to try and improve pain symptoms. Recommend off work for 4 wks. Referral to pain management. Pending. Pt will get labs for possible rheumatologic, autoimmune process... 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 Pt agreeable to lab evaluation before rheumatology referral. Questions answered in laymen terms at the bedside. The diagnosis, home exercise plan and any ongoing restrictions/ recommendations reviewed. If unable to be reached in office, I recommend evaluation at nearest Emergency Room if any symptoms worsened or new symptoms develop for requiring urgent evaluation. documented in this encounterBarton County Memorial [id number] History of Present illness Narrative* Martha Mena, PT - 04/10/2024 4:00 PM EDT Physical Therapy Treatment Visit Patient Name: Jenna Ortiz Today's Date: 04/03/24 Encounter Diagnoses Name Primary? Neck pain Yes Scapular dyskinesis Acute pain of left shoulder Visit number: 4 Timed Code Treatment Minutes: 40 minutes Total Treatment Time: 50 minutes Time In: 1600 Time Out: 1653 History: Pt states every time he moves his head it feels like something is rubbing over his bones. Also getting a lot of clicking when squeezing shoulder blades. Pt states pain has been in between shoulder blades for quite some time. Pt states states WB through right UE makes sx's worse. 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 Pt has h/o right shoulder surgery and pain in left shoulder. Recently had PT without improvement at another facility. would like to try dry needling. Dr questioning EDS; pt to have echo cardiogram. Precautions: [place] Subjective: Pt states he really is not noticing any significant change in pain with previous treatments; states he almost feels like his pain is getting worse. States he continues to get popping and cracking noises in shoulders and neck. States even when he is just sitting and breathing he can feelcracking in his neck and upper back. Pain: 02/01 Objective: PT Evaluation (03/22/2024) CERVICAL AROM: 60 degrees flexion with lower neck pain, 45 degrees extension with increase lower neck pain, 45 degrees right SB with pulling left UT, 40 degrees left SB with pulling right UT, 60 degrees rightrotation, 62 degrees left rotation Joint play: no hypomobility noted cervical and thoracic regions MMT: Strength bilateral lower traps 3+ to 4-/5, middle traps 4-/5. Palpation: min tenderness bilateral cervical and thoracic regions Special Test: Cervical compression negative, left Spurling's negative, right Spurling's causes increase right sided neck pain Neurological: Reflexes: not tested Myotomes: negative Dermatomes: negative Treatment: Education: HEP education with demonstration, Educated on Eval Findings and POC Manual Therapy: () Passive ROM, Joint mobilization, Soft Tissue Mobilization, Myofascial Release, Muscle Energy Technique, Neural Mobilization, Myofascial Cupping, Dry Needling, IASTM, and Scar mobilization as needed. Therapeutic Exercise: (40 mins) Strength, Endurance, Flexibility, ROM, HEP, Neural Mobilization, Power, and Core Stability as needed. Pt performed exercises per grid this date. Decreased intensity ofexercises this date due to pt c/o worsening pain. Added shoulder abduction and ER in SL position this date without c/o increase pain. Therapeutic Activity: Exercises to improve dynamic activities, functional tasks, functional mobility to return to prior activity level as needed. Neuromuscular re-education: Balance Training, Muscle Facilitation, Dynamic Stability, Core Stabilization, and Blood Flow Restriction Training (BFRT) as needed. Modalities: (10 minutes) Heat, Ice, Electrical Stimulation, Ultrasound, Cervical Mechanical Traction, Lumbar Mechanical Traction. HP to upper back and neck in supine after ex this date. Assessment: Pt has completed 4 PT sessions for neck and bilateral shoulder pain. Limited progression of exercises this date due to pt c/o worsening pain overall. Discussed importance of continue exercises to improve strength and stability; pt voiced good understanding. Will continue as able. Outcome Measure: Upper Extremity Functional Index (UEFI): 63/80 Rehab Diagnosis: Short Term Goal: To be met in 2 weeks Goal 1: Pt to be instructed in home exercise program. Correction Goals: To be met in 10 weeks Goal 1: Pt to report independence and compliance with home program. Goal 2: Pt to achieve 4 to 4+/5 strength bilateral lower and middle traps to assist with functionaltasks and lifting. Goal 3: Pt to report pain no greater than 2/10 in cervical region with functional mobility and ADL's. Goal 4: Pt to score no less than 75/80 on UEFI indicating improved QOL. Pt will benefit from skilled PT for 1-2x/week from 03/22/2024 to 05/31/2024 to address the above impairments. I hereby deem this POC medically necessary. Please sign below. Date: documented in this encounterBarton County Memorial [id number] History of Present illness Narrative* Josy Hampton, PT - 04/03/2024 4:30 PM EDT Physical Therapy Treatment Visit Patient Name: Jenna Ortiz Today's Date: 04/03/24 Encounter Diagnoses Name Primary? Neck pain Yes Scapular dyskinesis Acute pain of left shoulder Visit number: 3 Timed Code Treatment Minutes: 45 minutes Total Treatment Time: 50 minutes Time In: 1630 Time Out: 1720 History: Pt states every time he moves his head it feels like something is rubbing over his bones. Also getting a lot of clicking when squeezing shoulder blades. Pt states pain has been in between shoulder blades for quite some time. Pt states states WB through right UE makes sx's worse. 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 Pt has h/o right shoulder surgery and pain in left shoulder. Recently had PT without improvement at another facility. would like to try dry needling. Dr questioning EDS; pt to have echo cardiogram. Precautions: [place] Subjective: Pt reports of no change. Continues to have painful cracking sound in his neck/upper back area. Pain: 3-8/10 depending on activity. Objective: PT Evaluation (03/22/2024) CERVICAL AROM: 60 degrees flexion with lower neck pain, 45 degrees extension with increase lower neck pain, 45 degrees right SB with pulling left UT, 40 degrees left SB with pulling right UT, 60 degrees rightrotation, 62 degrees left rotation Joint play: no hypomobility noted cervical and thoracic regions MMT: Strength bilateral lower traps 3+ to 4-/5, middle traps 4-/5. Palpation: min tenderness bilateral cervical and thoracic regions Special Test: Cervical compression negative, left Spurling's negative, right Spurling's causes increase right sided neck pain Neurological: Reflexes: not tested Myotomes: negative Dermatomes: negative Treatment: Education: HEP education with demonstration, Educated on Eval Findings and POC Manual Therapy: (18 minutes) Passive ROM, Joint mobilization, Soft Tissue Mobilization, Myofascial Release, Muscle Energy Technique, Neural Mobilization, Myofascial Cupping, Dry Needling, IASTM, and Scar mobilization as needed. Therapeutic Exercise: (26 mins) Strength, Endurance, Flexibility, ROM, HEP, Neural Mobilization, Power, and Core Stability as needed. Pt performed and instructed in HEP this date. Frequent cues for proper form with exercises and to avoid compensation. Therapeutic Activity: Exercises to improve dynamic activities, functional tasks, functional mobility to return to prior activity level as needed. Neuromuscular re-education: Balance Training, Muscle Facilitation, Dynamic Stability, Core Stabilization, and Blood Flow Restriction Training (BFRT) as needed. Modalities: Heat, Ice, Electrical Stimulation, Ultrasound, Cervical Mechanical Traction, Lumbar Mechanical Traction, Iontophoresis, and Fluidotherapy as needed. DN: fanning to bilateral upper trapezius muscle, 1x needle each, DN. Assessment: Pt is 33 y/o male with complaints of neck and upper back pain. Pt presents with weakness bilateral lower and middle traps. Hypermobility noted through multiple joints. Heavy education given regarding importance of increasing strength and stability; pt voiced good understanding. Pt will benefit from further PT. Pt. Has participated in 3 PT session to help decrease neck and shoulder pain. No LTRs in UT. Added more scapular resistance exercises and patient was challenge with exercises due to weakness. Outcome Measure: Upper Extremity Functional Index (UEFI): 63/80 Rehab Diagnosis: Short Term Goal: To be met in 2 weeks Goal 1: Pt to be instructed in home exercise program. Correction Goals: To be met in 10 weeks Goal 1: Pt to report independence and compliance with home program. Goal 2: Pt to achieve 4 to 4+/5 strength bilateral lower and middle traps to assist with functionaltasks and lifting. Goal 3: Pt to report pain no greater than 2/10 in cervical region with functional mobility and ADL's. Goal 4: Pt to score no less than 75/80 on UEFI indicating improved QOL. Pt will benefit from skilled PT for 1-2x/week from 03/22/2024 to 05/31/2024 to address the above impairments. I hereby deem this POC medically necessary. Please sign below. Date: documented in this encounterBarton County Memorial [id number] History of Present illness Narrative* Josy Hampton, PT - 03/29/2024 4:30 PM EDT Physical Therapy Treatment Visit Patient Name: Jenna Ortiz Today's Date: 03/29/24 Encounter Diagnoses Name Primary? Neck pain Yes Scapular dyskinesis Visit number: 2 Timed Code Treatment Minutes: 45 minutes Total Treatment Time: 50 minutes Time In: 1630 Time Out: 1720 History: Pt states every time he moves his head it feels like something is rubbing over his bones. Also getting a lot of clicking when squeezing shoulder blades. Pt states pain has been in between shoulder blades for quite some time. Pt states states WB through right UE makes sx's worse. 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 Pt has h/o right shoulder surgery and pain in left shoulder. Recently had PT without improvement at another facility. Dr would like to try dry needling. Dr questioning EDS; pt to have echo cardiogram. Precautions: [place] Subjective: Pt reports of no change in his neck/mid back pain. Pain: 3-8/10 depending on activity. Objective: PT Evaluation (03/22/2024) CERVICAL AROM: 60 degrees flexion with lower neck pain, 45 degrees extension with increase lower neck pain, 45 degrees right SB with pulling left UT, 40 degrees left SB with pulling right UT, 60 degrees rightrotation, 62 degrees left rotation Joint play: no hypomobility noted cervical and thoracic regions MMT: Strength bilateral lower traps 3+ to 4-/5, middle traps 4-/5. Palpation: min tenderness bilateral cervical and thoracic regions Special Test: Cervical compression negative, left Spurling's negative, right Spurling's causes increase right sided neck pain Neurological: Reflexes: not tested Myotomes: negative Dermatomes: negative Treatment: Education: HEP education with demonstration, Educated on Eval Findings and POC Manual Therapy: (25 minutes) Passive ROM, Joint mobilization, Soft Tissue Mobilization, Myofascial Release, Muscle Energy Technique, Neural Mobilization, Myofascial Cupping, Dry Needling, IASTM, and Scar mobilization as needed. Therapeutic Exercise: (20 mins) Strength, Endurance, Flexibility, ROM, HEP, Neural Mobilization, Power, and Core Stability as needed. Pt performed and instructed in HEP this date. Frequent cues for proper form with exercises and to avoid compensation. Therapeutic Activity: Exercises to improve dynamic activities, functional tasks, functional mobility to return to prior activity level as needed. Neuromuscular re-education: Balance Training, Muscle Facilitation, Dynamic Stability, Core Stabilization, and Blood Flow Restriction Training (BFRT) as needed. Modalities: Heat, Ice, Electrical Stimulation, Ultrasound, Cervical Mechanical Traction, Lumbar Mechanical Traction, Iontophoresis, and Fluidotherapy as needed. DN: fanning to bilateral upper trapezius muscle, 1x needle each, DN to cervical paraspinal bilateral, 4x needles, C4,5,6, T1 segments one pinky lateral to spinous progress. (5 minute rest) Assessment: Pt is 33 y/o male with complaints of neck and upper back pain. Pt presents with weakness bilateral lower and middle traps. Hypermobility noted through multiple joints. Heavy education given regarding importance of increasing strength and stability; pt voiced good understanding. Pt will benefit from further PT. Pt. Has participated in 2 PT session to help decrease neck and shoulder pain. Pt. Tolerated DN well, no LTRs with DN to UT muscle, pt. Continues to demonstrate significant deep neck flexor and scapular muscle weakness. Pt is compliant with HEP. Outcome Measure: Upper Extremity Functional Index (UEFI): 63/80 Rehab Diagnosis: Short Term Goal: To be met in 2 weeks Goal 1: Pt to be instructed in home exercise program. Head Pumper Goals: To be met in 10 weeks Goal 1: Pt to report independence and compliance with home program. Goal 2: Pt to achieve 4 to 4+/5 strength bilateral lower and middle traps to assist with functionaltasks and lifting. Goal 3: Pt to report pain no greater than 2/10 in cervical region with functional mobility and ADL's. Goal 4: Pt to score no less than 75/80 on UEFI indicating improved QOL. Pt will benefit from skilled PT for 1-2x/week from 03/22/2024 to 05/31/2024 to address the above impairments. I hereby deem this POC medically necessary. Please sign below. Date: documented in this encounterBarton County Memorial [id number] History of Present illness Narrative* SUAD Sotomayor - 03/20/2024 3:15 PM EDT Images from the original note were not included. HISTORY OF PRESENT ILLNESS: EST PT Jenna Ortiz is an 33 y.o. @ male. (EST PT) NEW COMPLAINT, NECK PAIN. SYMPTOMS BEGAN IN EARLY NOVEMBER 2023 (~4 MONTHS) - DENIES ANY INJURY PREVIOUS (R) SHOULDER SCOPE W/ BICEPS TENODESIS 04/27/23 (~11 MONTHS) ; DX DVT 05/03/23 POST-OP XRAYS, C-SPINE 02/11/24 @ [facility] XRAYS, (R) SHOULDER 02/08/23 IN [facility] ; PRE-OP XRAYS, (R) ELBOW 08/13/23 IN [facility] MRI, C-SPINE 02/01/24 @ [facility] MRI, (R) SHOULDER 10/07/23 @ [facility] ; POST-OP CT, C-SPINE 01/08/24 @ [facility] S/P PREDNISONE 06/21/23 FINISHED PHYSICAL THERAPY (17 SESSIONS) @ [facility] ; JUL - AUG 2023 NOTES CONSTANT DISCOMFORT BETWEEN SHOULDER BLADES ; NOTES PULLING WHEN HE LOOKS DOWN. NOTES SNAPPING IN HIS SHOULDER BLADES. NOTES FULL / PAINFUL ROM IN NECK - STATES THERE IS SOMETHING SNAPPING IN HIS NECK. DENIES ANY RADIATING PAIN DOWN HIS ARM - NO N/T. SOME TWITCHING TO HIS (R) ELBOW.TAKINGALEVE PRN - DENIES ANY RELIEF ; ALSO USING ICE / HEAT. NO LONGER TAKING TAKING ELIQUIS ; RECENT (R) LE VENOUS DOPPLER 01/26/24 @ [facility] - NEG DVT ALLERGIES: No Known Allergies HOME MEDICATIONS: Current Outpatient Medications Medication Instructions celecoxib (CELEBREX) 200 mg, Oral, Daily, Take with food methylPREDNISolone (Medrol Dospak) 4 MG tablets Follow schedule on package instructions PHYSICAL EXAM: Spine Musculoskeletal Exam Gait Gait is normal. Inspection Cervical Spine Cervical spine inspection is normal. Erythema: none Swelling: none Palpation Cervical Spine Cervical spine palpation is normal. Tenderness: none Tenderness comment: + click/ grinding sensation to neck with certain motions Right Masses: none Left Masses: none Cervical spine palpation additional comments: + tenderness to right medial scapular boarder. No winging of scapula, shoulder shrug symmetric. + pain with scapular manipulation. + tenderness to rhomboid/ medial scapular border. Range of Motion Cervical Spine Cervical flexion: normal. Cervical flexion detail: no pain. Cervical extension: normal. Cervical extension detail: no pain. Right Lateral bending: normal. Lateral bending detail: no pain. Lateral rotation: normal. Lateral rotation detail: no pain. Left Lateral bending: normal. Lateral bending detail: no pain. Lateral rotation: normal. Lateral rotation detail: no pain. Strength Cervical Spine Right Deltoid: 5/5. Shoulder external rotation: 5/5. Biceps: 5/5. Triceps: 5/5. Wrist extension: 5/5. Wrist flexion: 5/5. Left Deltoid: 5/5. Shoulder external rotation: 5/5. Biceps: 5/5. Triceps: 5/5. Wrist extension: 5/5. Wrist flexion: 5/5. Sensory Cervical Spine Cervical spine sensation is normal. Spine sensation additional comments: No Focal Deficits Reflexes Cervical spine reflexes are normal. Right Biceps: 2/4 Brachioradialis: 2/4 Triceps: 2/4 Carrillo: absent Clonus: normal Left Biceps: 2/4 Brachioradialis: 2/4 Triceps: 2/4 Carrillo: absent Clonus: normal Neurovascular Cervical Spine Right Radial pulse: normal Left Radial pulse: normal General Constitutional: appears stated age Psychiatric: normal mood and affect Neurological: alert and oriented x3 Skin: intact Vitals: Body mass index is 38.01 kg/m . Tobacco Use: High Risk (03/20/2024) Patient History Smoking Tobacco Use: Some Days Smokeless Tobacco Use: Never Passive Exposure: Not on file Alcohol Use: Not on file IMAGING: Procedures Orders Placed This Encounter Procedures Ambulatory referral to Physical Therapy Standing Status: Future Standing Expiration Date: 09/20/2024 Referral Priority: Routine Referral Type: Consultation Referral Reason: Consult and Treat Referred to Provider: Josy Hampton PT Requested Specialty: Physical Therapy Number of Visits Requested: 1 ASSESSMENT: ICD-10-CM 1. Neck pain M54.2 methylPREDNISolone (Medrol Dospak) 4 MG tablets Ambulatory referral to Physical Therapy 2. Scapular dyskinesis G25.89 celecoxib (CeleBREX) 200 MG capsule Ambulatory referral to Physical Therapy PLAN: Recommend Medrol dose pack then start Celebrex. Recommend tx with therapist for dry needle/ periscapular pain. Grinding sensation.. no focal deficit. Pt is anxious regarding symptoms clicking/ grinding and pain in different areas of his body.. pt can make cracking sound in both wrist/ present forsome time.. consultation pending with Dr. Montes and prior eval with Dr. Mejias and appt pending withGeneshad counsler per pt r/o connective tissue disease... pt off blood thinner and currently working/pending further appt. Reviewed MRI C-spine/ flex ext studies [facility], no acute process. Questions answered in laymen terms at the bedside. The diagnosis, home exercise plan and any ongoing restrictions/ recommendations reviewed. If unable to be reached in office, I recommend evaluation at nearest Emergency Room if any symptoms worsened or new symptoms develop for requiring urgent evaluation. documented in this encounterBarton County [facility] [id number] Hospital Discharge instructionsAmbulatory Orders* Referral to Orthopedic Surgery Time Frame: 02/23/24, Location: None [facility] Work Phone: 1(808) 649-320802-02-2024 History of Present illness Narrative* SUAD Sotomayor - 08/27/2023 10:00 AM EST Images from the original note were not included. HISTORY OF PRESENT ILLNESS: EST PT Jenna Ortiz is an 33 y.o. @ male. (EST PT) S/P (R) SHOULDER SCOPE 04/27/23 (17WKS 3DAYS) ; CONTINUES PT B/L SHOULDERS @ [facility]; CONTINUESTO STRUGGLE WITH STRENGTH-PT NOTES PAIN LATERAL/TOP SHOULDER ON THE RT XRAY RT ELBOW CHANGE 08/13/23 S/P (R) LE VENOUS DOPPLER 05/03/23 @ [facility] S/P PREDNISONE 06/21/23 (GIVEN FOR (L) WRIST PAIN) CONTINUES PHYSICAL THERAPY @ [facility] PT NOTES PAIN LATERAL/TOP SHOULDER PAIN ON THE RT- IMPROVEMENT WITH ROM- DIFFICULTY REACHING BEHINDBACK- +TYLENOL TAKING ELIQUIS ; CURRENT DVT (R) [...] test: negative Carter test: negative Biceps/kole Signs [place]'s test: negative Clicking/popping: positive Speed's test: negative AC Joint Signs Active horizontal adduction pain: negative Left Biceps/kole Signs [place]'s test: negative Clicking/popping: positive Instability Signs Anterior [...] urgent evaluation. SUAD Sotomayor [facility] QuadROIEvaluation note* Diagnosis S/P arthroscopy of right shoulder- Primary Acute pain of right shoulder documented in this encounter [facility] HealthcareEvaluation note* Diagnosis Onset Date Resolution Status Left wrist pain acuteLigament laxityacuteRight wrist painacute [facility] Work Phone: Evaluation note* Diagnosis Onset Date Resolution Status Left wrist pain acuteLigament laxityacuteRight wrist painacuteLeft wrist painacuteLigament laxityacuteRight wrist painacute [facility] Work Phone: Evaluation note* Diagnosis Onset Date Resolution Status Left wrist pain acuteLigament laxityacuteRight wrist painacuteLeft wrist painacuteLigament laxityacuteRight wrist painacuteLigament laxityacute [facility] Work Phone: Evaluation note* Diagnosis Neck pain- Primary Cervicalgia Scapular dyskinesis Lack of coordination Polyarthralgia Pain in joint, multiple sites documented in this encounter [facility] HealthcareEvaluation note* Diagnosis Onset Date Resolution Status Ligament laxity acuteLeft wrist painacuteLigament laxityacuteRight wrist painacuteInterscapular painacuteMid back painacuteMyofascial muscle painacuteOther chronic painacute [facility] Work Phone: Evaluation note* Diagnosis Polyarthralgia- Primary Pain in joint, multiple sites Neck pain Cervicalgia Scapular dyskinesis Lack of coordination Acute pain of right shoulder [facility]* Diagnosis Acute pain of right shoulder- Primary History of arthroscopy of right shoulder documented [facility] this [facility]* Diagnosis Advised about management of weight- Primary Pain, neck documented in this encounter [facility] Work Phone: Evaluation note* Diagnosis Neck pain- Primary Cervicalgia Scapular dyskinesis Lack of coordination Acute pain of left shoulder documented [facility]* Diagnosis Neck pain- Primary Cervicalgia Scapular dyskinesis Lack of coordination documented in this [facility]* Diagnosis Neck pain- Primary Cervicalgia Scapular dyskinesis Lack of coordination documented in [facility]* Diagnosis Neck pain- Primary Cervicalgia Scapular dyskinesis Lack of coordination Acute pain of left shoulder documented [facility]* Diagnosis Neck pain- Primary Cervicalgia Scapular dyskinesis Lack of coordination Acute pain of left shoulder documented in [facility]* Diagnosis Onset Date Resolution Status Left wrist pain acuteLigament laxityacuteRight wrist painacuteLeft wrist painacuteLigament laxityacuteRight wrist painacuteLigament laxityacuteLeft wrist painacuteLigament laxityacuteRight wrist painacute [facility] Work Phone: Evaluation note* Diagnosis Rheumatoid factor positive- Primary Other and unspecified nonspecific immunological findings Multiple joint pain Pain in joint, multiple sites Neck pain Cervicalgia Elevated uric acid in blood Medication monitoring encounter Encounter for therapeutic drug monitoring [facility] Diagnosis Rheumatoid factor positive- Primary Other and unspecified nonspecific immunological findings Multiple joint pain Pain in joint, multiple sites Neck pain Cervicalgia Medication monitoring encounter Encounter for therapeutic drug monitoring Elevated uric acid in blood [facility] Diagnosis Multiple joint pain Pain in joint, multiple sites [facility]* Diagnosis Scapulothoracic syndrome- Primary Acute pain of right shoulder documented [facility]* Diagnosis Scapulothoracic syndrome- Primary documented in this encounter [facility] HealthcareInstructionsNot on filedocumented in this encounterProWiregrass Medical [facility] Health SystemInstructions* Attachments The following attachments cannot be sent through Care Everywhere. * Low Purine Diet (Wolof) documented in this encounterProA[facility] SystemInstructionsNot on file documented in this encounterProAcm[facility] SystemInstructionsNot on file documented in this encounterProAcmc [facility] SystemReason for referral (narrative)* Consultation (Routine) - Pending ReviewSpecialtyDiagnoses / ProceduresReferred By ContactReferred To ContactPain Medicine Diagnoses Neck pain Scapular dyskinesis Procedures NE OFFICE/OUTPATIENT [facility] 60 MINUTES Jr. Shashank Sheppard DO [address] [facility] [address] [place] [address] Michelet Aleman MD [address] [address] Referral IDStatusReasonStart DateExpiration DateVisits RequestedVisits [id number] Specialty Services Required / Scheduling Instructions REFERRAL TO DR ALEMAN; EVAL AND TX NECK PAIN- PLEASE CALL PT TO SCHEDULE [facility] HospitalReason for referral (narrative)* Consultation (Routine) - AuthorizedSpecialtyDiagnoses / ProceduresReferred By ContactReferred To ContactPhysical Therapy Diagnoses Neck pain Scapular dyskinesis Procedures NE OFFICE/OUTPATIENT [facility] 60 MINUTES Bharath Ramos PA [address] [facility] [address] [place] [address] Martha Mena, PT Referral IDStatusAlainaStcrenshaw DateExpiration DateVisits RequestedVisits [id number] Consult and Treat / [facility] Narrative* Consultation (Routine) - Authorized SpecialtyDiagnoses / ProceduresReferred By ContactReferred To ContactPhysical Therapy Diagnoses Neck pain Scapular dyskinesis Procedures NE OFFICE/OUTPATIENT [facility] 60 MINUTES Bharath Ramos PA [address] [facility] [address] [place] [address] Martha Mena PT Referral IDStatusReasonStart DateExpiration DateVisits RequestedVisits [id number] Consult and Treat / [facility] for visit Narrative* Consultation (Routine) - Pending ReviewSpecialtyDiagnoses / ProceduresReferred By ContactReferred To Contact Rheumatology Diagnoses Polyarthralgia Procedures NE OFFICE OUTPATIENT VISIT 60-74 MINS [facility] [id number] (SNOMED CT) - AMB REFERRAL TO RHEUMATOLOGY Bharath Ramos PA [address] [facility] [address] [place] [address] MD [address] [facility] [address] [place] [address] Referral IDStatusReasonStart DateExpiration DateVisits RequestedVisits [id number] Janmte74/ [facility] Chief Complaint and Reason for Visit Chief Complaint CONSULT BHARATH ZUÑIGA Lali BILAT WRIST PAIN MRI [facility] M25.532 - Pain in left wristReason for VisitLeft wrist pain Ligament laxity Right wrist pain Chief Complaint CONSULT BHARATH ZUÑIGA Lali BILAT WRIST PAIN MRI [facility] M25.532 - Pain in left wrist 6 WEEKSReason for VisitLeft wrist pain Ligament laxity Right wrist pain Left wrist pain Ligament laxity Right wrist pain Chief Complaint CONSULT BHARATH ZUÑIGA R BILAT WRIST PAIN MRI TB M25.532 - Pain in left wrist 6 WEEKS M24.20 M25.532 M25.339 M25.339 M24.20 M25.531Reason for VisitLeft wrist pain Ligament laxity Right wrist pain Left wrist pain Ligament laxity Right wrist pain Ligament laxity Chief Complaint M24.20 M25.532 M25.3 39 M25.339 M24.20 M25.531 MRI RESULTS [facility] [place] SHASHANK Hobbs for VisitLigament laxity Left wrist pain Ligament laxity Right wrist pain Interscapular pain Mid back pain Myofascial muscle pain Other chronic pain Chief Complaint M24.20 M25.532 M25.3 39 M25.339 M24.20 M25.531 MRI RESULTS [facility] [place]FF BY SHASHANK SHEPPARD M54.89 M54.9Reason for VisitLigament laxity Left wrist pain Ligament laxity Right wrist pain Interscapular pain Mid back pain Myofascial muscle pain Other chronic pain Chief Complaint Admit Date REFF BY SHASHANK SHEPPARD May 08 10:57am M54.89 M54.9 2024 1 2:07pm TPI JUJU CERVICAL/INTERSCAP MUSCLES Novem 2023 4:29pm Reason for Visit Admit Date Interscapular pain 2024 1 0:57am Mid back pain 2024 1 0:57am Myofascial muscle pain May 08 10:57am Other chronic pain 2024 1 0:57am Myofascial muscle pain June 08 4:29pm Other chronic pain June 08, 2024 4:29pm Chief Complaint CONSULT BHARATH Escalera BILAT WRIST PAIN MRI [facility] M25.532 - Pain in left wrist 6 WEEKS M24.20 M25.532 M25.339 M25.339 M24.20 M25.531 [facility] for VisitLeft wrist pain Ligament laxity Right wrist pain Left wrist pain Ligament laxity Right wrist pain Ligament laxity Left wrist pain Ligament laxity Right wrist pain Chief Complaint Admit Date TPI JUJU CERVICAL/INTERSCAP MUSCLES Novem 2023 4:29pm FOLLOW UP AFTER TPI CERVICAL/INTERSCAP D ec2023 3:30pm M54.9 August 10, 2024 1 1:30am Reason for Visit Admit Date Myofascial muscle pain June 08 4:29pm Other chronic pain June 08, 2024 4:29pm Cervical spondylosis July 10, 2024 3:30pm Mid back pain July 10, 2024 3:30pm Other chronic pain July 10, 2024 3:30pm Right shoulder pain July 10, 2024 3:30pm Chief Complaint Admit Date TPI JUJU CERVICAL/INTERSCAP MUSCLES Novem gen 2023 4:29pm FOLLOW UP AFTER TPI CERVICAL/INTERSCAP D ecember 2023 3:30pm M54.9 August 10, 2024 1 1:30am f/u after MRI August 14, 2024 3 :34pm Reason for Visit Admit Date Myofascial muscle pain June 08 4:29pm Other chronic pain June 08, 2024 4:29pm Cervical spondylosis July 10, 2024 3:30pm Mid back pain July 10, 2024 3:30pm Other chronic pain July 10, 2024 3:30pm Right shoulder pain July 10, 2024 3:30pm Cervical spondylosis August 14, 2024 3:34pm Myofascial muscle pain August 14 3:34pm Other low back pain August 14, 2024 3 :34pm Chief Complaint Admit Date M54.9 August 10, 2024 1 1:30am f/u after MRI August 14, 2024 3 :34pm neck /shoulder pain October 09, 2024 3:3 0pm Reason for Visit Admit Date Cervical spondylosis August 14, 2024 3:34pm Myofascial muscle pain August 14 3:34pm Other low back pain August 14, 2024 3 :34pm Myofascial muscle pain October 09, 2024 3:30pm Other chronic pain October 09, 2024 3:3 0pm Right shoulder pain October 09, 2024 3:3 0pm Advance Directives No Advanced Directives Records Found Advance Directive Response Recorded Date/ Time Advance Directives No August 17, 2023 12:19pm Advance Directive Response Recorded Date/ Time Advance Directives No August 17, 2023 11:19am Summary Purpose Family History No Family History Records Found Additional Source Comments Reason for Visit (unrecogniz ed section and content) ReasonCommentsPainReasonCommentsEhlers-Danlos SyndromeReasonOnset DateCommentsPT Initial Eval03/21/2024Tried to contact to offer PT eval for neck/ scapular tomorrow at 4:00 w/ Mike Rajesh PT; but had to lm requesting a call back benito.Call back03/21/2024He returned my call and scheduled for PT Eval 03/22 w/ Mike.ReasonCommentsPainReasonCommentsMed Change Request Care Teams (unrecognized sec tion and content) Team MemberRelationshipSpecialtyStart DateEnd Jerman Ruvalcaba MD [address] [place] [address] PCP - [facility]01/18/23 Team Status: Active Member Role Status Doroteo Nina MD Primary Care Provider Active Team Status: Inactive Member Role Status Doroteo Nina MD Primary Care Provider Active Start: November 30, 2023 End: November 294CRod Mcclellan ProviderActiveStart: November 30, 2023 End: November 30, 2023 Team Status: Active Member Role Status Doroteo Nina MD Primary Care Provider Active Start: November 30, 2023 Rod Beard ProviderActiveStart: November 30, 2023 Team Status: Inactive Member Role Status Doroteo Nina MD Primary Care Provider Active Start: January 12, 2024 End: January 114CRod Mcclellan ProviderActiveStart: January 12, 2024 End: January 12, 2024 Team Status: Inactive Member Role Status Doroteo Nina MD Primary Care Provider Active Start: February 09, 2024 End: February 084CRod Mcclellan ProviderActiveStart: February 09, 2024 End: February 09, 2024 Team Status: Inactive Member Role Status Doroteo Nina MD Primary Care Provider Active Start: February 16, 2024 End: February 154CRod Mcclellan ProviderActiveStart: February 16, 2024 End: February 16, 2024Team MemberRelationshipSpecialtyStart FrancineEnd Jerman Ruvalcaba MD [address] [place] [address] PCP - [facility]01/18/23Team MemberRelationshipSpecialtyStart DateEnd Date Jerman Nina MD [address] [place] [address] PCP - [facility]01/18/23Team MemberRelationshipSpecialtyStart DateEnd Date Jerman Nina MD [address] [place] [facility] [address] PCP - [facility]01/18/23 Team Status: Inactive Member Role Status Dates Jerman Nina MD Primary Care Provider Active Start: February 23, 2024 End: February 22Rod Mcclellan ProviderActiveStart: February 23, 2024 End: February 23, 2024 Team Status: Inactive Member Role Status Dates Jerman Nina MD Primary Care Provider Active Start: 2024 End: May 08, 2024Rod Burch ProviderActiveStart: 2024 End: May 08, 2024Mason Leslie Jr ProviderActiveStart: 2024 End: 2024 Team Status: Inactive Member Role Status Dates Jerman Nina MD Primary Care Provider Active Start: 2024 End: May 08, 2024Jaya Burchending ProviderActiveStart: 2024 End: May 08, 2024Team MemberRelationshipSpecialtyStart DateEnd Date Jerman Nina MD [address] [place] [facility] [facility] [address] PCP - [facility]01/18/23Team MemberRelationshipSpecialtyStart DateEnd Date Jerman Nina MD [address] [place] [address] PCP - GeneralFamily Medicine01/18/23 Team Status: Inactive Member Role Status Dates Jerman Nina MD Primary Care Provider Active Start: June 08, 2024 End: June 08, 2024Adrielvirginia Aleman LILLIANtthussain ProviderActiveStart: June 08, 2024 End: June 08, 2024Team MemberRelationshipSpecialtyStart DateEnd Date Jerman Nina MD [address] [place] [facility] [address] PCP - Generalmi Medicine01/18/23Team MemberRelationshipSpecialtyStart DateEnd Date Jerman Nina MD [address] [place] [address] [facility]/23Team MemberRelationshipSpecialtyStart DateEnd Date Jerman Nina MD [address] [facility] [place] [place] [address] PCP - GeneralFamily Medicine03/13/24Team MemberRelationshipSpecialtyStart DateEnd Date Jerman Nina MD [address] [place] [facility] [address] PCP - GeneralFamily Medicine01/18/23Team MemberRelationshipSpecialtyStart DateEnd Date Jerman Nina MD [address] [place] [address] PCP - Generalmi Medicine01/18/23Team MemberRelationshipSpecialtyStart DateEnd Date Jerman Nina MD [address] [place] [facility] [address] [facility] - [facility]23Team MemberRelationshipSpecialtyStart DateEnd Date Jerman Nina MD [address] [place] [facility] [address] PCP - [facility]01/18/23Team MemberRelationshipSpecialtyStart DateEnd Date Jerman Nina MD [address] [place] [facility] [address] PCP - [facility]01/18/23 Team Status: Inactive Member Role Status Dates Jerman Nina MD Primary Care Provider Active Start: July 10, 2024 End: July 10, 2024Rod Burch ProviderActiveStart: July 10, 2024 End: July 10, 2024 Team Status: Inactive Member Role Status Doroteo Nina MD Primary Care Provider Active Start: August 10, 2024 End: August 10, 2024Rod Burch ProviderActiveStart: August 10, 2024 End: August 10, 2024 Team Status: Inactive Member Role Status Doroteo Nina MD Primary Care Provider Active Start: August 14, 2024 End: August 14, 2024Rod Burch ProviderActiveStart: August 14, 2024 End: August 14, 2024Team MemberRelationshipSpecialtyStart DateEnd Date Jerman Nina MD [address] [place] [facility] [place] [facility] [address] PCP - [facility]01/18/23 Team Status: Inactive Member Role Status Doroteo Nina MD Primary Care Provider Active Start: October 09, 2024 End: October 09, 2024Sherif S Love , MDAttending ProviderActiveStart: October 09, 2024 End: October 09, 2024Team MemberRelationshipSpecialtyStart DateEnd Date Jerman Nina MD [address] [place] [address] [facility]/23Team MemberRelationshipSpecialtyStart DateEnd Date Jerman Nina MD PCP - [facility] Medicine01/18/23 Goals (unrecognized section and content) Goals may [...] sectionGoals may be documented in an alternate sectionNot on filedocumented as of this encounterNot on filedocumented as of this encounterNot on filedocumented as of this encounterNot on filedocumented as of this encounterGoals may be documented in an alternate section (unrecognized sect ion and content) No Status Records FoundNo Status Records FoundNo Status Records FoundNo Status Records FoundNo Status Records Found INFORMATION SOURCE (unrecogn ized section and content) DATE CREATED AUTHOR 05/26/2024 [facility] DATE CREATED AUTHOR AUTHOR'S ORGANIZ ATION 08/17/2024 [facility] DATE CREATED AUTHOR AUTHOR'S ORGANIZ ATION 03/27/2025 [facility] DATE CREATED AUTHOR AUTHOR'S ORGANIZ ATION 04/09/2025 [facility] DATE CREATED AUTHOR AUTHOR'S ORGANIZ ATION 04/29/2025 [facility] FOR RECORDS PERTAINING TO PATIENTS WHO ARE [...] BE BASED ON THE PRIMARY CLINICAL RECORDS. [employer] [facility]. provides no warranty or guarantee of the accuracy or completeness of information in this document.
--- OUTSIDE RECORDS SUMMARY | 2025-05-16 12:51 | XMS_ITS | Clinical Summary ---
Author Organization [email or web address] [facility] tem Address [id number] [address] [place] [address] Care Team Providers Care Supervisor [employer] Name Role Phone Unavailable Primary Care Provider Unavailabl e Medications MedicationSigDispense QuantityRefillsLast FilledStart DateEnd DateStatus cyclobenzaprine (FLEXERIL) 5 mg tablet Indications:Multiple joint painTake 1 tablet (5 mg total) by mouth nightly as needed for muscle spasms. 30 tablet ctive DULoxetine (CYMBALTA) 30 mg capsule Indications:Multiple joint painTAKE 1 CAPSULE (30 MG TOTAL) BY MOUTH IN THE MORNING 90 capsule ctive Social History Tobacco UseTypesPacks/DayYears UsedDateSmoking Tobacco: Never AssessedChildcare AnswerDate IvhtasunZsgginvlsGbfnfta34/12/2019EmploymentAnswerDate Recorded PiwcxeexxnOopbrmd56/12/2019Sex and Gender InformationValueDate RecordedSex Assigned at BirthNot on fileLegal DbwVtmq1402/28/2015 11:38 AM EDTGender Identity Not on fileSexual OrientationNot on file Plan of Treatment Health MaintenanceDue DateLast DoneCommentsDepression Sbqpvhlef96/14/2000Tobacco Lozeojnou41/14/2000Adult BMI Xtkpiuqgt25/14/2006Influenza Mdcveug6703/26/2025 DTaP,Tdap and Td Vaccines (7 - Td or Tdap), 03/13/1994, 08/10/1989, Additional history exists Medical Devices Not on file Insurance * Guarantor: Jayce ChambersAccount TypeRelation to PatientDate of BirthPhone Billing AddressPersonal/[id number] [address] [place] [address]
--- OUTSIDE RECORDS SUMMARY | 2025-05-16 12:51 | XMS_ITS | Clinical Summary ---
Author Organization [facility] Address [address] [place] [address] Care Team Providers Care Commissary Clerk Name Role Phone Jerman Nina MD Primary Care Provider [phone] Allergies No known active allergies Medications No known medications Active Problems No known active problems Encounters DateTypeDepartmentCare WzjxPdjjfoevrjq80/29/2025 1:30 PM EDTAncillary Procedure [facility] [address] [place] [id number] Pain in right yujgzwja56/29/2025Travelfrom Last 3 Months Family History RelationNameStatusCommentsFatherAliveMotherAlive Social History Tobacco UseTypesPacks/DayYears UsedDateSmoking Tobacco: Some DaysSmokeless Tobacco: NeverAlcohol UseStandard Drinks/WeekCommentsYes0 (1 standard drink = 0.6 oz pure alcohol)1-2 drinks 2-3 times a week. Caffine intake: 1-2 cups per daySex and Gender InformationValueDate RecordedSex Assigned at BirthMale 01/11/2023 10:04 AM EDTLegal UedXbaj1710/07/2022 7:35 PM EDTGender IdentityMale 01/11/2023 10:04 AM EDTSexual AbimdwpppjbXsxodbua77/19/2023 10:04 AM EDT Last Filed Vital Signs Vital SignReadingTime TakenCommentsBlood Frwapgyh631/9003/ 12:00 PM EDT Pulse--Temperature--Respiratory Rate--Oxygen Saturation--Inhaled Oxygen Concentration--Kpxddz709 kg (250 lb)03/20/2024 3:26 PM UDYDljabg441.7 cm (5' 8 ) 03/20/2024 3:26 PM EDTBody Mass Index38.01003/20/2024 3:26 PM EDT Plan of Treatment Not on file Procedures Procedure NamePriorityDate/TimeAssociated DiagnosisCommentsFL GUIDED ASPIRATION OR INJECTION LARGE JOINT MMZORHyaoski68/29/2025 2:30 PM EDT Pain in right shoulder from Last 3 Months Results * FL guided aspiration or injection large joint right (03/23/2025 2:30 PM EDT) Anatomical RegionLateralityModalityRightRadio FluoroscopySpecimen (Source) Anatomical Location / LateralityCollection Method / VolumeCollection Time Received Time03/23/2025 2:32 PM EDT Impressions 03/23/2025 2:34 PM EDT Unsuccessful right shoulder arthrogram. ELECTRONICALLY SIGNED BY: Hi Prescott MD Narrative 03/23/2025 2:34 PM EDT FL GUIDED ASPIRATION OR INJECTION LARGE JOINT RIGHT After explaining the nature of this procedure, its potential risks and complications, and alternatives, informed written and verbal consent was obtained from the patient. ??All questions were answered prior to the procedure. The skin overlying the right glenohumeral joint was prepped in a sterile fashion and anesthetized with 2% Lidocaine. ??A 22-gauge needle was attempted to be inserted into thejoint space. Unable to access the joint despite multiple repositionings and multiple attempts. Thiswas discussed with the patient in detail. Number of images: ??1. ??Fluoroscopy time: 61.5 s Air Kerma ( Ka,r ): 12.6 mGy Procedure Note Hi Prescott MD - 03/23/2025 FL GUIDED ASPIRATION OR INJECTION LARGE JOINT RIGHT After explaining the nature of this procedure, its potential risks and complications, and alternatives, informed written and verbal consent wasobtained from the patient. All questions were answered prior to theprocedure. The skin overlying the right glenohumeral joint was prepped perez sterile fashion and anesthetized with 2% Lidocaine. A 22-gauge needlewas attempted to be inserted into the joint space. Unable to access thejoint despite multiple repositionings and multiple attempts. This wasdiscussed with the patient in detail. Number of images: 1. Fluoroscopy time: 61.5 s Air Kerma ( Ka,r ): 12.6 mGy IMPRESSION: Unsuccessful right shoulder arthrogram. ELECTRONICALLY SIGNED BY: Hi Prescott MD Authorizing ProviderResult TypeResult StatusAdamaksim PALACIO FLUOROSCOPY PROCEDURESFinal Result from Last 3 Months Insurance Care Teams Team MemberRelationshipSpecialtyStart DateEnd Jerman Nina MD PCP - GeneralFamily Medicine01/18/23
--- NOTE | 2025-05-16 14:27 | CT_ITS ---
The [address] [address] Patient Name: JENNA ORTIZ MRN: [id number] date: 1990 Sex: M Assigned Patient Location: CT Current Patient Location: CT Accession/Order Number: [id number] Exam Date: 05/16/2025 14:12 Report Date: 05/16/2025 17:42 At the request of: FILI PAGE MD Procedure: CT abdomen pelvis w con CT ABDOMEN AND PELVIS WITH INTRAVENOUS CONTRAST: CLINICAL HISTORY: Umbilical Hernia COMPARISON: None TECHNIQUE: Spiral images were obtained through the abdomen and pelvis following the administration of intravenous contrast. This CT exam was performed using one or more following dose reduction techniques: Automated exposure control, adjustment of the mA and/or kV according to patient size, or use of iterative reconstruction technique. FINDINGS: Lung bases are clear. Liver, gallbladder, spleen, adrenals, kidneys, pancreas and gallbladder unremarkable. Mild retained stool the colon. No bowel obstruction. Appendix is normal. Bladder and prostate unremarkable. Tiny fat-containing left inguinal hernia. There is a small fat-containing umbilical hernia noted neck measuring 8 mm. No suspicious osseous lesion. CT/CT abdomen pelvis w con IMPRESSION: Small fat-containing ventral hernia. Otherwise negative acute inflammatory process or bowel obstruction. Impression dictated by: Chano Gunn M.D. 05/16/2025 5:42 PM Dictation Location: [place] [address] Electronically authenticated by: [id number] Y Date: 05/16/2025 17:42
== END 2025-05-16 12:47 | disposition home or self-care (01) ==
LOC: CT 12:47
PROVIDERS: PCP Family Medicine; Visit Provider Family Medicine
DX: K42.9 Umbilical hernia without obstruction or gangrene (principal)
CPT/HCPCS: 74177; Q9967